=== PATIENT | male | born 1995 | race Caucasian/White ===

== ENCOUNTER 2023-05-04 19:32 | Emergency (ER) | payer MEDICAID, SELFPAY ==
[2023-05-04 19:37] VITALS: BP 147/91; PULSE 97; RESP 14; TEMP 36.6; O2SAT 98; BMI 29.3
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
[2023-05-04] MEDS: clonazePAM 0.5 MG TABLET PO (19:59)
== END 2023-05-04 20:15 | disposition home or self-care (01) ==
LOC: HO.ED 20:10
PROVIDERS: Emergency Provider Internal Medicine
DX: F41.1 Generalized anxiety disorder (principal); F43.0 Acute stress reaction; Z76.0 Encounter for issue of repeat prescription
CPT/HCPCS: 99281; 99283

== ENCOUNTER 2023-05-13 08:27 | Emergency (ER) | payer MEDICAID, SELFPAY ==
[2023-05-13 08:30] VITALS: BP 136/87; PULSE 99; RESP 16; TEMP 36.1; O2SAT 99; BMI 31.0
--- NOTE | 2023-05-13 09:13 | ED_ITS ---
HPI - General Adult General Chief complaint: General Medical Stated complaint: Med Refill Time Seen by Provider: 05/13/23 09:06 Source: patient Mode of arrival: ambulatory Limitations: no limitations History of Present Illness HPI narrative: Patient is a 27 year old assigned male at with a history of depression and anxiety presenting to the emergency department today for a medication refill. Patient states that earlier this month, his psychiatrist MACHINERY ERECTOR moved away and is no longer accepted [facility] patients. Patient states that he has been trying to get into a psychiatrist and he has an appointment with one in 13 days but he is out of his medications now. Patient states that he takes 0.5mg of Clonazepam BID, Cymbalta 20mg QD, and Zoloft 25mg QD. Patient denies any dizziness, lightheadedness, abdominal pain, nausea, vomiting, fever, chills, blurry vision, double vision, loss of vision, chest pain, difficulty breathing, shortness of breath, back pain, night sweats, pain with urination, increased urinary frequency, increased urinary urgency, blood in his urine or stool, syncope or a near syncopal episode, recent trauma or falls, bowel incontinence, bladder incontinence, bowel retention, bladder retention, thoughts of hurting himself or others, or any other complaints at this time. Patient states that his last dose of medication was yesterday morning. Onset (ago): day(s) (1) Severity: mild Relieving factors: none Exacerbating factors: none Associated symptoms: denies other symptoms Treatments prior to arrival: none Related Data Previous Rx's Medication Instructions Recorded clonazepam 0.5 mg tablet (Klonopin) 0.5 mg PO BID #7 tabs 05/04/23 clonazepam 0.5 mg tablet 0.5 mg PO BID 7 days #14 tabs 05/13/23 clonazepam 0.5 mg tablet 0.5 mg PO BID 7 days #14 tabs 05/13/23 duloxetine 20 mg capsule,delayed 20 mg PO DAILY 30 days #30 caps 05/13/23 release (Cymbalta) melatonin 3 mg capsule 3 mg PO BEDTIME #30 caps 05/13/23 sertraline 25 mg tablet (Zoloft) 25 mg PO DAILY 30 days #30 tabs 05/13/23 Allergies Allergy/AdvReac Type Severity Reaction Status Date / Time No Known Allergies Allergy Verified 05/13/23 08:29 Review of Systems Constitutional: Constitutional: Reports no additional constitutional complaints, Denies chills, Denies fever(s) and Denies night sweats Eyes: Eyes: Reports no additional eye complaints, Denies blurry vision, Denies change in vision, Denies diplopia, Denies eye discharge, Denies loss of vision and Denies eye pain ENT: Denies dizziness Cardiovascular: Cardiovascular: Reports no additional cardiovascular complaints, Denies chest pain, Denies lightheadedness, Denies Loss of Consciousness and Denies dyspnea Respiratory: Respiratory: Reports no additional respiratory complaints and Denies dyspnea Gastrointestinal: Gastrointestinal: Reports no additional gastrointestinal complaints, Denies abdominal pain, Denies melena, Denies hematochezia, Denies change in bowel habits and Denies change in stool character Genitourinary: Genitourinary: Reports no additional male genitourinary complaints, Denies hematuria, Denies oliguria, Denies difficulty urinating, Denies dysuria, Denies urinary frequency, Denies urinary hesitancy, Denies urinary incontinence and Denies urinary urgency Musculoskeletal: Musculoskeletal: Reports no additional musculoskeletal complaints, Denies numbness and Denies tingling Neurologic: Denies dizziness, Denies loss of vision, Denies numbness and Denies tingling Psychiatric: Psychiatric: Reports no additional psychiatric complaints Endocrine: Endocrine: Reports no additional endocrine complaints Hematologic/Lymphatic: Hematologic/Lymphatic: Reports no additional hematologic/lymphatic complaints Allergic/Immunologic: Allergic/Immunologic: Reports no additional allergic/immunologic complaints PMFSH Past Medical History Attestation statement: The following information was validated with the patient. Source: old records reviewed and nursing notes reviewed Social History Social History Advance Directives: No Advance Directives Information Provided: Yes Physical Exam ED Vital Signs: Vital Signs - 24 hr 05/13/23 08:30 Temperature 97.0 F Pulse Rate 99 Respiratory Rate 16 Blood Pressure 136/87 Pulse Oximetry 99 Oxygen Delivery Method Room Air BMI result Body Mass Index 31.0 Const General: cooperative, no acute distress, alert and awake Nutritional Appearance: well nourished Orientation/consciousness: patient oriented x3 Limitations: no limitations HENMT Head: Yes normal to inspection and Yes atraumatic Ears: hearing grossly normal bilaterally and external ears normal General nose exam: Normal external nose present, no nasal discharge noted and no epistaxis Face and sinus: Yes normal facial exam, No abrasion and No laceration Mouth: Normal oral and palatal mucosa present, no drooling and no muffled voice Eyes General: appearance normal, both eyes and all related structures Periorbital: periorbital findings normal Eyelids: Yes eyelids normal Conjunctivae: conjunctivae normal Pupils: Equal, round and reactive pupils present EOM: EOMs intact bilaterally Neck Neck: Yes normal visual inspection, Yes full ROM and Yes no lymphadenopathy Chest Chest palpation & inspection: normal inspection of the chest Resp Effort & Inspection: normal respiratory effort and able to speak in complete sentences Auscultation: clear to auscultation bilaterally Cardio Rate: regular rate Rhythm: regular rhythm GI Inspection: Yes normal to inspection Neuro General: patient oriented x3 and moves all extremities Cranial nerves: Yes Equal, round and reactive pupils present Cognition (Neuro): normal cognition Motor exam (neuro): 5/5 motor strength present throughout Sensory Exam: Normal double simultaneous stimulation for sensation Coordination: [id number] test normal Extrem General: Yes normal to inspection, Yes full ROM and Yes capillary refill normal Psych Appearance: grossly normal Mental Status: mental status grossly normal Affect: normal affect Attitude: cooperative Thought process: Normal thought process present Thought content: Normal thought content present Insight: Good insight present (Psych) Medications Administered Discontinued Medications Generic Name Dose Route Start Last Admin Trade Name Bryceq PRN Reason Stop Dose Admin Clonazepam 0.5 mg 05/13/23 09:19 05/13/23 10:14 Clonazepam 0.5 Mg Tablet PO 05/13/23 09:20 0.5 mg ONCE ONE Administration Medical Decision Making Medical Decision Making [facility] Narrative: Patient is a 27 year old assigned male at with a history of anxiety and depression presenting to the emergency department today requesting a medication refill. Patient's physical exam was unremarkable. I explained my physical exam findings to the patient. I answered all questions asked by the patient. Patient received 0.5mg of Clonazepam while in the department. I reviewed the patient's Mass PAT which is consistent with the story the patient has explained to me. I explained to the patient that I will give him 1 month of his Zoloft and Cymbalta and 14 days of his Clonazepam to get him to his psychiatrist appointment in 13 days. I explained to the patient that is inappropriate to come to the ER for medication refills and it is very unlikely another emergency department provider will refill his controlled substance. I stressed the importance of the patient taking his medication as prescribed. I stressed the importance of the patient following up with his primary care provider and his psychiatrist. I stressed the importance of the patient returning to the emergency department immediately if his symptoms were to worsen or if he were to develop any dizziness, shortness of breath, difficulty breathing, chest pain, blurry vision, loss of vision, nausea, vomiting, abdominal pain, fever, chills, back pain, or any other complaints. Patient verbalized agreement and understanding with this treatment plan and discharge. Differential Diagnosis Differential Diagnoses: The differential diagnosis associated with the presentation includes Medication refill Anxiety Depression Prescription Management I considered prescription management with: Other (antianxiety and antidepression medicatons.) Chronic Conditions Patient?s care impacted by: Other (anxiety, depression) Discharge Plan Discharge Clinical Impression: Depression, Anxiety Patient Disposition: Home, Self-Care Instructions: Depression (DC), Anxiety (ED) Additional Instructions: The emergency department is not the appropriate place for you to continually get refills on your medications. Follow up with your primary care provider and your psychiatrist. Return to the emergency department immediately if your symptoms worsen or if you develop any dizziness, shortness of breath, difficulty breathing, chest pain, blurry vision, loss of vision, nausea, vomiting, abdominal pain, fever, chills, back pain, or any other complaints. [facility][NOTE 3]: [address] [place] [address] Walk in hours from 10am - 12pm Open from 10am - 12pm [facility][NOTE 3] Crisis Services: [address] [place] [address] Walk in hours from 10am - 12pm Open 09/03 Behavioral health Network: [address] [place] [id number] [address] [place] [id number] Hours: M-F 8am to 8pm Thursday and Thursday 9am to 5pm Prescriptions: New clonazepam 0.5 mg tablet 0.5 mg PO BID 7 Days Qty: 14 0RF sertraline [Zoloft] 25 mg tablet 25 mg PO DAILY 30 Days Qty: 30 0RF duloxetine [Cymbalta] 20 mg capsule,delayed release(DR/EC) 20 mg PO DAILY 30 Days Qty: 30 0RF melatonin 3 mg capsule 3 mg PO BEDTIME Qty: 30 0RF clonazepam 0.5 mg tablet 0.5 mg PO BID 7 Days Qty: 14 0RF No Action clonazepam [Klonopin] 0.5 mg tablet 0.5 mg PO BID Qty: 7 0RF Referrals: [facility] Family Medicine [Provider Group] (Call to establish and follow up with a primary care provider. If you already have a primary care provider, please follow up with them.) [facility] Primary [facility], [place] [Provider Group] (Call to establish and follow up with a primary care provider. If you already have a primary care provider, please follow up with them.) [facility] Primary [facility],[place] [Provider Group] (Call to establish and follow up with a primary care provider. If you already have a primary care provider, please follow up with them.) Stand Alone Forms: Work/School Release Print Language: Faroese
[2023-05-13] MEDS: clonazePAM 0.5 MG TABLET PO (10:14)
== END 2023-05-13 10:32 | disposition home or self-care (01) ==
PROVIDERS: Emergency Provider Emergency Medicine
DX: Z76.0 Encounter for issue of repeat prescription (principal); F41.9 Anxiety disorder, unspecified; F32.A Depression, unspecified
CPT/HCPCS: 99282; 99283

== ENCOUNTER 2023-07-29 03:11 | Emergency (ER) | payer MEDICAID, SELFPAY ==
[2023-07-29 03:19] VITALS: BP 133/94; PULSE 86; O2SAT 96
[2023-07-29 03:23] VITALS: BMI 29.7
[2023-07-29 03:31] VITALS: BP 115/74; PULSE 83; RESP 16; TEMP 36.6; O2SAT 98
--- NOTE | 2023-07-29 07:00 | PC.NURSE ---
Assumed care of pt at this time.
--- NOTE | 2023-07-29 07:33 | ED.GENADULT ---
HPI - General Adult General Chief complaint: General Medical Stated complaint: anxiety Time Seen by Provider: 07/29/23 06:57 Source: patient Mode of arrival: ambulatory Limitations: no limitations History of Present Illness HPI narrative: 27-year-old male with a history of anxiety, depression, and seizures presents today for medication refill. He states he hasn't taken his duloxetine, clonazepam, or Keppra in a few days because he ran out and he feels a bit on edge. He plans to see his PCP in 10 days. He denies chest pain, palpitatons, shortness of breath, diaphoresis, lightheadedness, and nausea. He denies headaches and vision changes. No auditory or visual hallucinations. No suicidal or homicidal ideation. He reports he has not had any seizures since running out of his medication. Related Data Previous Rx's Medication Instructions Recorded clonazepam 0.5 mg tablet (Klonopin) 0.5 mg PO BID #7 tabs 05/04/23 clonazepam 0.5 mg tablet 0.5 mg PO BID 7 days #14 tabs 05/13/23 clonazepam 0.5 mg tablet 0.5 mg PO BID 7 days #14 tabs 05/13/23 clonazepam 0.5 mg tablet 0.5 mg PO BID 7 days #14 tabs 05/13/23 duloxetine 20 mg capsule,delayed 20 mg PO DAILY 30 days #30 caps 05/13/23 release (Cymbalta) melatonin 3 mg capsule 3 mg PO BEDTIME #30 caps 05/13/23 sertraline 25 mg tablet (Zoloft) 25 mg PO DAILY 30 days #30 tabs 05/13/23 clonazepam 0.5 mg tablet 0.5 mg PO BID 10 days #20 tabs 07/29/23 duloxetine 20 mg capsule,delayed 20 mg PO DAILY #10 caps 07/29/23 release Allergies Allergy/AdvReac Type Severity Reaction Status Date / Time No Known Allergies Allergy Verified 05/13/23 08:29 Review of Systems Review of Systems: Constitutional : No Fever, No Chills Eyes: No Eye Pain, No Swelling, No Redness Cardiovascular : No Chest Pain, No SOB Respiratory : No Cough, No Sputum, No Dyspnea Gastrointestinal : No Nausea, No Vomiting, No Diarrhea, No Hematochezia, No Melena Genitourinary : No Dysuria, No Urinary Frequency, No Hematuria Musculoskeletal : No Myalgias Skin : No Skin Lesions, No rash Neuro : No Weakness, No Numbness, No Paresthesias, No Dizziness, No Headache Psych : positive Anxiety, No Depression, No SI/HI All other systems reviewed and are negative Yes all other systems are reviewed and are negative [facility] Past Medical History Attestation statement: The following information was validated with the patient. Source: old records reviewed and nursing notes reviewed Social History Social History Advance Directives: No Advance Directives Information Provided: No Physical Exam ED Vital Signs: Vital Signs - 24 hr 07/29/23 03:31 Temperature 97.9 F Pulse Rate 83 Respiratory Rate 16 Blood Pressure 115/74 Pulse Oximetry 98 Oxygen Delivery Method Room Air BMI result Body Mass Index 29.7 VSS Appearance: Alert.? Oriented X3.? No acute distress.? Head: Normocephalic, atraumatic, no step-offs or deformities Eyes: Pupils equal, round and reactive to light.? CVS: Normal heart rate and rhythm.? Pulses normal.? Respiratory: No respiratory distress.? Breath sounds normal.? Abdomen: Soft and nontender.? Skin: Skin warm and dry.? Normal skin color.? Normal skin turgor.? Extremities: No lower extremity edema.? No calf ttp. 5/5 strength to bilateral upper and lower extremities Back: No midline tenderness, no C-spine tenderness, full range of motion, no CVA tenderness bilaterally Neuro: Oriented X 3.? No motor deficit.? No sensory deficit. CN 2-12 intact Course Reevaluation(s) Reevaluation #1: Patient now clear 5 that the Keppra was prescribed by ED provider he does not know his dose does not know when he last filled he still has pills at home. I advised him to follow-up with PCP will not fill Keppra at this time. Time: 08:34 Reevaluation #2: Educated patient on diagnosis and treatment plan, answered all question, patient verbalizes understanding. At this time patient will be discharged home, advised to return with new or worsening symptoms. Educated on worrisome signs and symptoms and when to return. At this time I feel comfortable discharge home. Medical Decision Making Medical Decision Making MDM Narrative: 27-year-old male presents for anxiety secondary to running out of his medications PE benign Likely anxiety, depression, unlikely psychosis, SI, HI. Unlikely metabolic derangement Plan: Provide refill and discharge Differential Diagnosis Differential Diagnoses: The differential diagnosis associated with the presentation includes Likely anxiety, depression, unlikely psychosis, SI, HI. Unlikely metabolic derangement Admission/Observation Consideration of admission/observation: Escalation of care including admission/observation considered Critical Care Time Critical Care Time Critical Care Time: No Discharge Plan Discharge Clinical Impression: Anxiety Patient Disposition: Home, Self-Care Instructions: Anxiety (ED) Additional Instructions: Take your medications as prescribed. If you were prescribed antibiotics today, it is important that you take your medication to their entirety, do not skip any doses, do not finish them early. Follow-up with your primary care provider this week. Return to the emergency department with new or worsening symptoms. Such as fevers, chills, chest pain, shortness of breath, nausea, vomiting, dizziness, headache, vision changes, lethargy In case of emergency call 911 Prescriptions: New duloxetine 20 mg capsule,delayed release(DR/EC) 20 mg PO DAILY Qty: 10 0RF clonazepam 0.5 mg tablet 0.5 mg PO BID 10 Days Qty: 20 0RF No Action clonazepam [Klonopin] 0.5 mg tablet 0.5 mg PO BID Qty: 7 0RF clonazepam 0.5 mg tablet 0.5 mg PO BID 7 Days Qty: 14 0RF sertraline [Zoloft] 25 mg tablet 25 mg PO DAILY 30 Days Qty: 30 0RF duloxetine [Cymbalta] 20 mg capsule,delayed release(DR/EC) 20 mg PO DAILY 30 Days Qty: 30 0RF melatonin 3 mg capsule 3 mg PO BEDTIME Qty: 30 0RF clonazepam 0.5 mg tablet 0.5 mg PO BID 7 Days Qty: 14 0RF clonazepam 0.5 mg tablet 0.5 mg PO BID 7 Days Qty: 14 0RF Referrals: Physician,None [Primary Care Provider] - 2 days Stand Alone Forms: Work/School Release Interventions: ED Discharge Assessment Last Done: 07/29/23 08:25 Discharge Date/Time: 07/29/23 08:25
== END 2023-07-29 08:25 | disposition home or self-care (01) ==
PROVIDERS: Emergency Provider Student in an Organized Health Care Education/Training Program
DX: F41.9 Anxiety disorder, unspecified (principal); Z79.899 Other long term (current) drug therapy
CPT/HCPCS: 99283; 99284

== ENCOUNTER 2023-11-11 00:18 | Emergency (ER) | payer MEDICAID, SELFPAY ==
[2023-11-11 00:33] VITALS: BP 128/71; BP 130/80; PULSE 105; PULSE 111; RESP 18; TEMP 36.7; O2SAT 94; BMI 30.4
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
[2023-11-11 08:47] VITALS: BP 122/66; PULSE 91; RESP 20; TEMP 36.4; O2SAT 97
--- NOTE | 2023-11-11 08:51 | PC.NURSE ---
pt was sleeping off/on. rn attempted mult times to give klonopin but pt sleeping. pt woke up a few times withuot distress or anxiety and when went to give meds pt was back asleep. issac lubin order hold klonopin. pt requesting dose of methadone before leaves- tristian aware
--- NOTE | 2023-11-11 09:40 | HE.PHANOTE ---
RE:METHADONE Last dose of methadone (60 mg) was given on 11/10/2023 @0500 at [facility] [phone].
[2023-11-11 10:00] VITALS: BP 117/70; PULSE 98; RESP 18; O2SAT 98
[2023-11-11] MEDS: methADONE HCl 20 MG/2 ML ORAL.CONC 60 MG PO (10:01)
[2023-11-11 10:03] VITALS: BP 117/70; PULSE 98; RESP 18; TEMP 36.6; O2SAT 98
--- NOTE | 2023-11-11 10:04 | PC.NURSE ---
pt received his daily methadone- was awaiting this dose prior to d/c, verified by pharmacy. no sx opiod withdrawal. no pain/distress. vss.
== END 2023-11-11 10:03 | disposition home or self-care (01) ==
PROVIDERS: Emergency Provider Emergency Medicine Emergency Medical Services
DX: F41.9 Anxiety disorder, unspecified (principal); Z76.0 Encounter for issue of repeat prescription; F11.20 Opioid dependence, uncomplicated
CPT/HCPCS: 99283; 99284

== ENCOUNTER 2023-11-12 07:56 | Inpatient (IN) | payer OTHER, SELFPAY ==
--- NOTE | 2023-11-12 | ECG_ITS ---
Test Reason : prolonged QT Blood Pressure : / mmHG Vent. Rate : 105 BPM Atrial Rate : 105 BPM P-R Int : 134 ms QRS Dur : 078 ms QT Int : 362 ms P-R-T Axes : 042 059 026 degrees QTc Int : 478 ms Sinus tachycardia Otherwise normal ECG No previous ECGs available Referred By: Generic ED Physician Electronically Signed By:Jackson Farrell
[2023-11-12 07:58] VITALS: BP 139/78; PULSE 106; RESP 18; TEMP 36; O2SAT 95; BMI 30.4
--- NOTE | 2023-11-12 08:24 | ED_ITS ---
HPI - Psych General Chief Complaint: Psychiatric Symptoms Stated Complaint: Crisis - SI w/ attempt Time Seen by Provider: 11/12/23 08:23 Source: patient Mode of arrival: ambulatory Limitations: no limitations History of Present Illness HPI Narrative: 28-year-old male with a history of seizures, depression and anxiety, substance abuse who presents the ER for evaluation of depression and suicide attempt last night with intentional heroin overdose. He was seen here in the ER yesterday for anxiety and medication (benzo) refill after being discharged from detox. He is currently homeless. He states he is very depressed and wants to be sectioned. He reports multiple suicide attempts in the past - with intentional OD and medication overdose. He last injected in the left arm this morning to try to kill himself. A friend administered Narcan. complaint: suicidal ideation, feels depressed and substance abuse Onset (ago): unknown Duration: getting worse History of same: Yes Relieving factors: none Exacerbating factors: drug use Context: recent drug abuse Associated psychiatric symptoms: depression and suicidal ideation If self harm: admits thoughts of self harm, has plan and has acted on plan Related Data Home Medications Medication Instructions Recorded Confirmed methadone 10 mg/mL oral 60 mg PO DAILY 11/11/23 11/12/23 concentrate (Methadone Intensol) duloxetine 60 mg capsule,delayed 60 mg PO DAILY 11/12/23 11/12/23 release Previous Rx's Medication Instructions Recorded clonazepam 1 mg tablet (Klonopin) 1 mg PO BID 5 days #10 tabs 11/11/23 Allergies Allergy/AdvReac Type Severity Reaction Status Date / Time No Known Allergies Allergy Verified 11/12/23 07:58 Review of Systems 2 Review of Systems: Yes all other systems are reviewed and are negative [facility] Social History Social History Smoked in Last 30 Days: Yes Use of substances other than those prescribed or required for medical reasons: Yes Substance Use Type: Crack/Cocaine, Heroin and Opiates Substance Use Frequency: Chronic Longstanding Last Used Substance: Hours (ago) Advance Directives: No Advance Directives Information Provided: No Physical Exam 2 Vital Signs: Vital Signs: Last Vital Signs Temp 96.8 F 11/12/23 07:58 Pulse 91 11/12/23 10:33 Resp 16 11/12/23 10:33 BP 139/78 11/12/23 07:58 Pulse Ox 99 11/12/23 10:33 O2 Del Method Room Air 11/12/23 10:33 BMI result Body Mass Index 30.4 Appearance: Alert. Oriented X3. No acute distress. Head: normocephalic, atraumatic. Eyes: Pupils equal, round and reactive to light. ENT: Pharynx normal. No tonsillar swelling or exudate. Neck: Normal inspection. Neck supple. CVS: Normal heart rate and rhythm. Pulses normal. Respiratory: No respiratory distress. Breath sounds normal. Abdomen: Soft and nontender. +BS x4 Skin: Skin warm and dry. Normal skin color. Normal skin turgor. No rashes. Extremities: No lower extremity edema. No joint swelling. Left forearm with tract rojas Neuro/psych: Oriented X 3. No motor deficit. No sensory deficit. CN II-XII intact. Normal speech and cognition. Flat affect. Depressed mood Course Reevaluation(s) Reevaluation #1: Physician observation started at 10:58. Patient placed in physician observation because patient is awaiting CARE team evaluation for the possible need of inpatient psych admission. At the time observation was started patient's vital signs were stable. Patient is alert and oriented. Neuro exam is non-focal. CV: RRR and lungs are clear. Will continue to monitor. Time: 10:58 Reevaluation #2: patient seen and evaluated by CARE team - plan for inpatient bed search Time: 11:34 Medications Administered Generic Name Dose Route Start Last Admin Trade Name Bryceq PRN Reason Stop Dose Admin Clonazepam 1 mg 11/12/23 09:30 11/12/23 09:25 Clonazepam 1 Mg Tablet PO 1 mg BID SILVIO Administration Duloxetine HCl 60 mg 11/12/23 09:30 11/12/23 09:25 Duloxetine Hcl 60 Mg Capsule.Dr PO 60 mg DAILY SILVIO Administration Methadone HCl 60 mg 11/12/23 09:30 11/12/23 09:25 Methadone Hcl 20 Mg/2 Ml Oral.Conc PO 60 mg DAILY SILVIO Administration Medical Decision Making Medical Decision Making MDM Narrative: 28-year-old male with history of depression, anxiety, substance abuse who presents to the ER for evaluation of depression and suicide attempt. History of similar presentations in the past. Patient reports inpatient psychiatric care has been helpful him in the past. He is hoping to be admitted again this time. He has pending care team evaluation. Home medications have been reordered. Differential Diagnosis Differential Diagnoses: The differential diagnosis associated with the presentation includes substance induced mood disorder, acute psychosis, schizophrenia, schizoaffective disorder, PTSD, bipolar disorder, major depression with psychotic features Consult Healthcare Provider Management of the patient was discussed with: [employer] CARE team Lab Data MDM Lab Attestation statement: I reviewed the patient's lab results. 11/12/23 08:19 11/12/23 08:19 Labs: Lab Results 11/12/23 11/12/23 Range/Units 08:19 08:20 WBC 8.8 (4.8-10.8) X10*3/uL RBC 4.23 L (4.60-5.80) X10*6/uL Hgb 13.0 L (14.0-18.0) g/dl Hct 39.0 L (42.0-52.0) % MCV 92.2 (80.0-98.0) fL MCH 30.7 (27.0-33.0) pg MCHC 33.3 (31.0-36.0) g/dl RDW 13.1 (11.0-16.0) % Plt Count 263 (160-400) X10*3/uL MPV 9.7 (9.4-12.4) fL Immature Gran % (Auto) 0.8 H (0.0-0.4) % Neut % (Auto) 60.6 (45-73) % Lymph % (Auto) 17.9 L (20-40) % [place] % (Auto) 15.5 H (2-11) % Eos % (Auto) 4.6 H (0-4) % Baso % (Auto) 0.6 (0-2) % Lymph # (Auto) 1.6 (1.2-4.9) X10*3/uL [place] # (Auto) 1.4 H (0.1-1.2) X10*3/uL Eos # (Auto) 0.4 (0.0-0.4) X10*3/uL Baso # (Auto) 0.1 (0.0-0.2) X10*3/uL Abs Immat Gran (auto) 0.07 H (0.00-0.03) X10*3/uL Absolute Neuts (auto) 5.4 (2.0-8.3) x10*3/uL Absolute Nucleated RBC 0.000 (0.0-0.012) X10*3/uL Nucleated RBC % (auto) 0.0 (0.0-0.2) /100WBC Sodium 141 (135-145) mmol/L Potassium 4.2 (3.3-5.1) mmol/L Chloride 105 (96-108) mmol/L Carbon Dioxide 31 H (22-29) mmol/L Anion Gap 9 L (12-20) BUN 15 (9-16) mg/dL Creatinine 0.74 (0.5-1.4) mg/dL Estim Creat Clear Calc 164.0 Estimated GFR > 60 Random Glucose 91 (60-115) mg/dL Calcium 9.1 (8.4-10.2) mg/dL Total Bilirubin 0.6 (0.0-1.0) mg/dL AST 342 H (5-37) U/L ALT 208 H (0-40) U/L Alkaline Phosphatase 78 (39-117) U/L Total Protein 7.1 (6.5-8.0) g/dL Albumin 4.0 (3.5-5.0) g/dL Urine Color Yellow Urine Appearance Clear Urine pH 7.5 (5.0-9.0) Ur Specific [place] 1.025 (1.005-1.025) Urine Protein Trace (Neg-Trace) mg/dL Urine Glucose (UA) Negative (Negative) mg/dL Urine Ketones Negative (Negative) mg/dL Urine Blood Negative (Negative) Urine Nitrite Negative (Negative) Ur Leukocyte Esterase Negative (Negative) Urine Opiates Screen Not Detected (Not Detect) Urine Fentanyl Screen POSITIVE H (Not Detect) Ur Barbiturates Screen POSITIVE H (Not Detect) Ur Phencyclidine Scrn Not Detected (Not Detect) Ur Amphetamines Screen Not Detected (Not Detect) U Benzodiazepines Scrn POSITIVE H (Not Detect) Urine Cocaine Screen POSITIVE H (Not Detect) U Marijuana (THC) Screen Not Detected (Not Detect) Ethyl Alcohol < 10 mg/dL COVID-19 (GUERA) Negative (Negative) COVID-19 Clin Com See Note External Record Review External record reviewed: Inpatient record, Outpatient record, Prior outpatient labs and Prior outpatient radiology Prescription Management I considered prescription management with: Other (antipsychotic) Social Determinants Patient?s care significantly limited by Social Determinants of Health including: Inadequate housing, Alcoholism and drug addiction in family, Problems related to primary support group and Other Social Determinant of Health Critical Care Time Critical Care Time Critical Care Time: No Discharge Plan Discharge Clinical Impression: Active substance abuse Depression Qualifiers: Depression Type: unspecified Qualified Code(s): F32.A - Depression, unspecified Patient Disposition: Still a Patient Prescriptions: No Action methadone [Methadone Intensol] 10 mg/mL Concentrate 60 mg PO DAILY clonazepam [Klonopin] 1 mg tablet 1 mg PO BID 5 Days Qty: 10 0RF duloxetine 60 mg capsule,delayed release(DR/EC) 60 mg PO DAILY Interventions: [place]-Suicide Risk Severity Scale Last Done: 11/12/23 08:26
[2023-11-12 08:26] VITALS: RESP 14
[2023-11-12 08:28] LABS: MANUAL DIFF FLAG NO
[2023-11-12 08:31] LABS: Appearance Urine Clear; Color Urine Yellow; Glucose Urine UA Negative (Negative); Leukocyte Esterase Urine Negative (Negative); Nitrite Urine Negative (Negative); PH 7.5 (5.0-9.0); Specific Gravity - Urine 1.025 (1.005-1.025); Urine Blood Negative (Negative); Urine Ketones Negative (Negative); Urine Protein Trace mg/dL (Neg-Trace)
[2023-11-12 08:33] LABS: Basophils Absolute Auto 0.1 X10*3/uL (0.0-0.2); Basophils Percent Auto 0.6 % (0-2); Eosinophils Absolute Auto 0.4 X10*3/uL (0.0-0.4); Eosinophils Percent Auto 4.6 % (0-4); Imm Gran Abs Auto 0.07 X10*3/uL (0.00-0.03); Imm Gran Pct Auto 0.8 % (0.0-0.4); Lymphocytes Absolute Auto 1.6 X10*3/uL (1.2-4.9); Lymphocytes Percent Auto 17.9 % (20-40); Mean Corpuscular HGB Conc 33.3 g/dl (31.0-36.0); Mean Corpuscular Hemoglobin 30.7 pg (27.0-33.0); Mean Corpuscular Volume 92.2 fL (80.0-98.0); Mean Platelet Volume 9.7 fL (9.4-12.4); Monocytes Absolute Auto 1.4 X10*3/uL (0.1-1.2); Monocytes Percent Auto 15.5 % (2-11); Neutrophils Absolute Auto 5.4 x10*3/uL (2.0-8.3); Neutrophils Percent Auto 60.6 % (45-73); Platelet Count 263 X10*3/uL (160-400); Red Blood Count 4.23 X10*6/uL (4.60-5.80); Red Cell Distribution Width 13.1 % (11.0-16.0); White Blood Count 8.8 X10*3/uL (4.8-10.8)
[2023-11-12 08:37] LABS: Amphetamine Screen Urine Not Detected (Not Detect); Barbiturates, Urine POSITIVE (Not Detect); Benzodiazepines Screen Urine POSITIVE (Not Detect); Cannabinoid Screen Urine Not Detected (Not Detect); Cocaine Screen Urine POSITIVE (Not Detect); Fentanyl, urine POSITIVE (Not Detect); Opiate Screen Urine Not Detected (Not Detect); Phencyclidine Screen Urine Not Detected (Not Detect)
--- NOTE | 2023-11-12 08:41 | PC.NURSE ---
RE; Med rec This Rn spoke with staff at [facility] to verify prescription medications. Med rec updated accordingly
[2023-11-12 08:43] LABS: Alanine Aminotransferase 208 U/L (0-40); Alkaline Phosphatase 78 U/L (39-117); Anion Gap 9 (12-20); Aspartate Amino Transferase 342 U/L (5-37); Bilirubin Total 0.6 mg/dL (0.0-1.0); Blood Urea Nitrogen 15 mg/dL (9-16); Calcium 9.1 mg/dL (8.4-10.2); Carbon Dioxide 31 mmol/L (22-29); Chloride 105 mmol/L (96-108); Estimated Glomerular Filt Rate > 60; Glucose Random 91 mg/dL (60-115); Potassium 4.2 mmol/L (3.3-5.1); Sodium 141 mmol/L (135-145); Total Protein 7.1 g/dL (6.5-8.0)
--- NOTE | 2023-11-12 08:43 | PC.NURSE ---
Patient presents to the ED today, reporting an intentional overdose last night on fentanyl. he reports that his friend gave him narcan. He reports daily drug use of heroin, cocaine and fentanyl. He is requesting help today due to increasing suicidal ideation. Pt presents calm and cooperative, seeking out help. Pt is alert and oriented x4, skin pwd, ambulating with steady gait around BH pod, respirations even and unlabored, no immediate distress at this time Pt reports he takes methadone daily, was last dosed here in the ER yesterday, regularly doses with [facility] in [place]. Other medications were verified and updated in med rec. He reports being mostly compliant with his medications but has not been able to pharmacy picking tech his most recent prescriptions. Current plan is for medical clearance and CARE team evaluation.
[2023-11-12 08:44] LABS: COVID-19 Test Negative (Negative); IDNOW Serial# 152EDE1D
--- NOTE | 2023-11-12 08:52 | HE.PHANOTE ---
METHADONE CONFIRMATION Patient got 60mg dose from 11/10 form [facility] Last dose of methadone FROM CLINIC (60 mg) was given on 11/10/2023 @0500 at [facility] [phone].
[2023-11-12 09:12] LABS: Ethanol < 10 mg/dL
[2023-11-12] MEDS: methADONE HCl 20 MG/2 ML ORAL.CONC 60 MG PO (09:25)
[2023-11-12] MEDS: clonazePAM 1 MG TABLET PO ×2 (09:25→20:17)
[2023-11-12] MEDS: DULoxetine HCl 60 MG CAPSULE.DR PO (09:25)
--- NOTE | 2023-11-12 10:09 | PC.NURSE ---
Pt aware of plan of care for inpatient bedsearch, medicated per OCT. Now sleeping, respirations even and unlabored, no apparent distress
[2023-11-12 10:33] VITALS: PULSE 91; RESP 16; O2SAT 99
--- OUTSIDE RECORDS SUMMARY | 2023-11-12 13:09 | XMS_ITS | Continuity of Care Document ---
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 Name Role Phone PCP INFO, UNAVAILABLE Primary Care Physician Shell vailable Encounter [facility] Date(s): 01/08/23 - 01/08/[address] [place] [id number]- Discharge Disposition: Left Without Being Seen Allergies, Adverse Reactions, Alerts No Known Medication Allergies Problem List Condition Confirmation Course Effective Dates Status Health St atus Informant Anxiety Confirmed Active patient Depression Confirmed Active patient Vital Signs Most recent to oldest [Reference Range]: 1 2 Blood Pressure [90-140/60-90 mmHg] 131/8 6mmHg (01/08/23 12:45 PM) Blood Pressure Location Right, Upper, Arm (01/08/23 12:45 PM) Blood Pressure Method Automatic (01/08/23 12:45 PM) Dosing BMI 32 (01/08/23 1:58 PM) 32 (01/08/23 12:45 PM) Dosing BSA-Mosteller 2.13 m2 (01/08/23 1:58 PM) 2.13 m2 (01/08/23 12:45 PM) Dosing Weight 95 kg (01/08/23 1:58 PM) 95 kg (01/08/23 12:45 PM) Heart Rate [60-100 bpm] 108 bpm *HI* (01/08/23 12:45 PM) Height 172 cm (01/08/23 1:58 PM) 172 cm (01/08/23 12:45 PM) Mean Arterial Pressure 101 mmHg (01/08/23 12:45 PM) Respiratory Rate [14-20 breaths/min] 18 breaths/min (01/08/23 12:45 PM) SpO2/Pulse Oximetry [85-100 %] 97 % (01/08/23 12:45 PM) Temperature Temporal [36.3-38 degC] 36.4 degC (01/08/23 12:45 PM) Social History Social History Type Response Smoking Status Current every day tirso darya entered on: 01/08/23 Sex Patient Care team information Care Team Personnel Name: PCP INFO, UNAVAILABLE Position: RO No Access Member Role: Primary Care Physician Name: Bozena Hoyt Position: ED RN SPC R3 Member Role: ED Nurse
--- OUTSIDE RECORDS SUMMARY | 2023-11-12 13:10 | XMS_ITS | Continuity of Care Document ---
Author Name Unknown Organization [facility] Address [address] [place] [address]- Care Team Providers Care Military Education Coordinator Name Role Phone DOCTOR MD, UNKNOWN Primary Care Physician Edna garcía Encounter [facility] Date(s): 06/17/19 - 06/19/19 [facility] [place] [address]- [phone] Encounter Diagnosis Benzodiazepine overdose(Discharge Diagnosis) - 06/17/19 Substance abuse(Discharge Diagnosis) - 06/17/19 Poisoning by unspecified drugs, medicaments and biological substances, accidental (unintentional), initial encounter(Final) - Encephalopathy, unspecified(Final) - Mild protein-calorie malnutrition(Final) - Discharge Disposition: Home/Self Care Attending Physician: LUL HENAO MD Admitting Physician: LUL HENAO MD Allergies, Adverse Reactions, Alerts No Known Allergies Medications No Known Medications Assessment and Plan Extracted from: Title:Clinical Document Author:PETTY HENAO MD Date:06/19/19 Discharge Summary Date/Time Note Created: 06/19/2019 15:11 Date of Admission: [ ] _ Date of Discharge: [ ] _ Admitting Physician: [ ] _ Discharge Diagnosis (2) Benzodiazepine overdose (T42.4X1A): _ Substance abuse (F19.10): _ Impression and Plan: Drug overdose- psych to see, on valium and seroquel. Still a little antsy at times and says xanax works better. Will change to xanax 2mg BID. Encephalopathy (G93.40)- awake and alert Protein Calorie Malnutrition, Mild (E44.1)- tamara PO Consulting Services: [ ] _ Hospital Course:pt ao3 no si no danger to self or others wants to be d/c'd janet sena , dr Pagan had rec that pt can be d/c'd home and check himself in a rehab , father is present , advised him to do so . [ ] _ Procedures: [ ] _ Physical Examination at Discharge:ambulating without diff. tolerating diet . ao3 nad alert perlla supple no bogdan cta b good effort rrr 2 p pulses soft pos bs no cce non focal mood stable [ ] _ Disposition: home cond: stable acitvty as tamara diet reg meds as per mars follow up as scheduld meds as per mars [ ] _ Discharge Medications (0) Status Discharge Medication Reconciliation is pending. Durable Medical Equipment: [ ] _ Instructions: Dietary: [ ] _ Activity: [ ] _ Follow-Up: [ ] _ Other: [ ] _ Condition at Discharge: [ ] _ Results Laboratory List Name Date Basic Metabolic Panel (BMP) 06/19/19 Magnesium Level 06/19/19 Phosphate Level (Phosphorus Level) Basic Metabolic Panel (BMP) 06/18/19 Magnesium Level 06/18/19 Phosphate Level (Phosphorus Level) Basic Metabolic Panel (BMP) 06/18/19 Magnesium Level 06/18/19 Phosphate Level (Phosphorus Level) Blood Gases Incl O2 Sat Measured (ABG w/ O2 Sat Measured) 06/17/19 Acetaminophen Level 06/17/19 Amphetamine Screen Urine 06/17/19 Barbiturate Screen Urine 06/17/19 Benzodiazepine Screen Urine 06/17/19 Cannabinoid Screen Urine 06/17/19 Cocaine Screen Urine 06/17/19 Complete Blood Count With Auto Different ial (CBC w/auto Diff) 06/17/19 Ethanol Level (Alcohol Level) 06/17/19 Opiate Screen Urine 06/17/19 PCP Screen Urine 06/17/19 Pathology Review Interpretation 06/17/19 Salicylate Level 06/17/19 HEMATOLOGY Most recent to oldest [Reference Range]: 1 2 3 WBC [4.50-11.00 x10(3)/mcL] 6.89 x10(3)/ mcL (06/17/19 6:40 AM) RBC [4.50-5.90 x10(6)/mcL] 4.57 x10(6)/m cL (06/17/19 6:40 AM) Hgb [13.5-17.5 g/dL] 14.0 g/dL (06/17/19 6:40 AM) Hct [41.0-53.0 %] 41.0 % (06/17/19 6:40 AM) MCV [80.0-100.0 fL] 89.7 fL (06/17/19 6:40 AM) MCH [25.4-34.6 pg] 30.6 pg (06/17/19 6:40 AM) MCHC [30.0-37.0 g/dL] 34.1 g/dL (06/17/19 6:40 AM) RDW [12.1-15.2 %] 13.3 % (06/17/19 6:40 AM) Platelet Count [150-500 x10(3)/mcL] 244 x10(3)/mcL (06/17/19 6:40 AM) MPV [6.5-12.0 fL] 9.8 fL (06/17/19 6:40 AM) NRBC Auto Rel 0.0 /100WBC *NA* (06/17/19 6:40 AM) Neutrophil Rel [45.0-80.0 %] 35.8 % *LOW* (06/17/19 6:40 AM) Lymphocyte Rel [15.0-50.0 %] 42.1 % (06/17/19 6:40 AM) Monocyte Rel [0.0-10.0 %] 13.9 % *HI* (06/17/19 6:40 AM) Eosinophil Rel [0.0-5.0 %] 6.5 % *HI* (06/17/19 6:40 AM) Basophil Rel [0.0-1.5 %] 1.0 % (06/17/19 6:40 AM) Imm Gran Rel [0.0-0.4 %] 0.7 % *HI* (06/17/19 6:40 AM) Neutrophil Abs [2.02-8.80 x10(3)/mcL] 2. 46 x10(3)/mcL (06/17/19 6:40 AM) Lymphocyte Abs [0.68-5.50 x10(3)/mcL] 2. 90 x10(3)/mcL (06/17/19 6:40 AM) Monocyte Abs [0.05-1.10 x10(3)/mcL] 0.96 x10(3)/mcL (06/17/19 6:40 AM) Eosinophil Abs [0.05-0.55 x10(3)/mcL] 0. 45 x10(3)/mcL (06/17/19 6:40 AM) Basophil Abs [0.00-0.16 x10(3)/mcL] 0.07 x10(3)/mcL (06/17/19 6:40 AM) Imm Gran Abs [0.00-0.03 x10(3)/mcL] 0.05 x10(3)/mcL *HI* (06/17/19 6:40 AM) CHEMISTRY Most recent to oldest [Reference Range]: 1 2 3 Sodium Lvl [137-145 mEq/L] 143 mEq/L (06/19/19 10:58 AM) 140 mEq/L (06/18/19 10:10 PM) 140 mEq/L (06/18/19 2:25 PM) Potassium Lvl [3.5-5.1 mEq/L] 4.2 mEq/L (06/19/19 10:58 AM) 4.2 mEq/L (06/18/19 10:10 PM) 4.2 mEq/L (06/18/19 2:25 PM) Chloride Lvl [98-107 mEq/L] 104 mEq/L (06/19/19 10:58 AM) 103 mEq/L (06/18/19 10:10 PM) 104 mEq/L (06/18/19 2:25 PM) CO2 [22-30 mEq/L] 30 mEq/L (06/19/19 10:58 AM) 31 mEq/L *HI* (06/18/19 10:10 PM) 28 mEq/L (06/18/19 2:25 PM) AGAP 9 *NA* (06/19/19 10:58 AM) 6 *NA* (06/18/19 10:10 PM) 8 *NA* (06/18/19 2:25 PM) Calcium Lvl [8.4-10.2 mg/dL] 9.7 mg/dL (06/19/19 10:58 AM) 9.1 mg/dL (06/18/19 10:10 PM) 9.2 mg/dL (06/18/19 2:25 PM) BUN [9-20 mg/dL] 9 mg/dL (06/19/19 10:58 AM) 16 mg/dL (06/18/19 10:10 PM) 20 mg/dL (06/18/19 2:25 PM) Creatinine Lvl [0.66-1.25 mg/dL] 0.70 mg/dL (06/19/19 10:58 AM) 0.70 mg/dL (06/18/19 10:10 PM) 0.70 mg/dL (06/18/19 2:25 PM) BUN/Creat 13 ratio *NA* (06/19/19 10:58 AM) 23 ratio *NA* (06/18/19 10:10 PM) 29 ratio *NA* (06/18/19 2:25 PM) GFR Am [>=60.0 mL/min/1.73m2] 170.6 mL/min/1.73m2 (06/19/19 10:58 AM) 170.6 mL/min/1.73m2 (06/18/19 10:10 PM) 170.6 mL/min/1.73m2 (06/18/19 2:25 PM) GFR Non Am [>=60.0 mL/min/1.73m2] 141.0 mL/min/1.73m2 (06/19/19 10:58 AM) 141.0 mL/min/1.73m2 (06/18/19 10:10 PM) 141.0 mL/min/1.73m2 (06/18/19 2:25 PM) Glucose Level [74-106 mg/dL] 84 mg/dL (06/19/19 10:58 AM) 101 mg/dL (06/18/19 10:10 PM) 74 mg/dL (06/18/19 2:25 PM) Magnesium Lvl [1.6-2.3 mg/dL] 1.9 mg/dL (06/19/19 10:58 AM) 2.1 mg/dL (06/18/19 10:10 PM) 2.0 mg/dL (06/18/19 2:25 PM) Phosphate [2.5-4.5 mg/dL] 3.6 mg/dL (06/19/19 10:58 AM) 3.5 mg/dL (06/18/19 10:10 PM) 3.5 mg/dL (06/18/19 2:25 PM) PULMONARY SERVICES Most recent to oldest [Reference Range]: 1 2 3 pH tc [7-7] 7 (06/17/19 6:47 AM) pCO2 tc [35-45 mmHg] 48 mmHg *HI* (06/17/19 6:47 AM) pH [7.35-7.45] 7.39 (06/17/19 6:47 AM) pCO2 [35-48 mmHg] 48 mmHg (06/17/19 6:47 AM) pO2 [74-108 mmHg] 74 mmHg (06/17/19 6:47 AM) Bicarbonate [21-29 mmol/L] 29 mmol/L (06/17/19 6:47 AM) Base Excess [0.0-2.0 mmol/L] 4.1 mmol/L *HI* (06/17/19 6:47 AM) O2 Sat Yulia [92-96 %] 98 % *HI* (06/17/19 6:47 AM) Oxyhemoglobin [92-96 %] 94 % (06/17/19 6:47 AM) Deoxyhemoglobin [0-5 %] 2 % (06/17/19 6:47 AM) Patient Temp 37 degC *NA* (06/17/19 6:47 AM) Sample Type ART *NA* (06/17/19 6:47 AM) THERAPEUTIC DRUG MONITORING Most recent to [Reference Range]: 1 2 3 Acetaminph Lvl [10.0-30.0 mcg/mL] <10.0 mcg/mL (06/17/19 6:40 AM) Salicylate [0.0-20.0 mg/dL] <1.0 mg/dL (06/17/19 6:40 AM) TOXICOLOGY Most recent to oldest [Reference Range]: 1 2 3 Amph U Scrn Rslt [Negative] Negative (06/17/19 6:40 AM) Rhoda U Scrn Rslt [Negative] Negative (06/17/19 6:40 AM) Benzo U Scrn Rslt [Negative] Positive *ABN* (06/17/19 6:40 AM) Cocaine U Scrn Rslt [Negative] Negative (06/17/19 6:40 AM) Opiate U Scrn Rslt [Negative] Negative (06/17/19 6:40 AM) PCP U Scrn Rslt [Negative] Negative (06/17/19 6:40 AM) THC U Scrn Rslt [Negative] Negative (06/17/19 6:40 AM) Ethanol Lvl [<=10 mg/dL] <10 mg/dL (06/17/19 6:40 AM) MISCELLANEOUS TESTING Most recent to oldest [Refer ence Range]: 1 2 3 Path Rev Interp No alcohol was detec mali in this specimen. Note: The average patient metabolizes and excretes alcohol to reduce the blood level by approximately 15 mg/dl/hr. *NA* (06/17/19 6:40 AM) Vital Signs Most recent to oldest [Reference Range]: 1 2 3 Temperature F [98-100.5 degF] 98.4 degF (06/19/19 12:00 PM) 99.1 degF (06/19/19 7:15 AM) 98.6 degF (06/19/19 4:00 AM) Heart Rate [60-100 bpm] 67 bpm (06/19/19 12:00 PM) 89 bpm (06/19/19 10:00 AM) 74 bpm (06/19/19 9:00 AM) Respiratory Rate [14-20 breaths/min] 18 breaths/min (06/19/19 12:00 PM) 12 breaths/min *LOW* (06/19/19 10:00 AM) 14 breaths/min (06/19/19 9:00 AM) Blood Pressure [90-140/60-90 mmHg] 110/70mmHg (06/19/19 12:00 PM) 121/65mmHg (06/19/19 10:00 AM) 123/79mmHg (06/19/19 9:00 AM) Mean Arterial Pressure 83 mmHg (06/19/19 12:00 PM) 84 mmHg (06/19/19 10:00 AM) 94 mmHg (06/19/19 9:00 AM) SpO2/Pulse Oximetry [85-100 %] 99 % (06/19/19 12:00 PM) 100 % (06/19/19 10:00 AM) 99 % (06/19/19 9:00 AM) Height 170 cm (06/17/19 5:15 AM) Social History Social History Type Response Smoking Status Unknown if ever smok ed Sex Hospital Discharge Instructions Follow Up Care 06/17/2019 05:14:28 With:Follow up with primary care provider Address:Unknown When:Unknown With:Follow up with Specialist Address:Unknown When:Unknown With:UNKNOWN DOCTOR Address:Unknown When:Unknown With:LUL HENAO Address: [address] [place] [id number] [facility] (1) When:Unknown
--- OUTSIDE RECORDS SUMMARY | 2023-11-12 13:10 | XMS_ITS | Continuity of Care Document ---
Author Name Unknown Organization [facility] Address [address] [place] [address]- Care Team Providers Care Clinical Cytogenetics Director Name Role Phone DOCTOR MD, UNKNOWN Primary Care Physician Edna garcía Encounter [facility] Date(s): 06/17/19 - 06/17/19 [facility] [place] [address]- [phone] Encounter Diagnosis Acute encephalopathy(Discharge Diagnosis) - 06/17/19 Acute encephalopathy(Discharge Diagnosis) - 06/16/19 Discharge Disposition: Against Med Advice Attending Physician: EDIN LUZ MD Admitting Physician: EDIN LUZ MD Allergies, Adverse Reactions, Alerts No Known Allergies Medications No Known Medications Assessment and Plan Extracted from: Title:discharge summary - AMA Author:BAKARI BRADEN NP Date:06/17/19 Discharge Summary Date/Time Note Created: 06/17/2019 01:17 [facility] [address] [place] [address] Discharge Summary Date of Admission: [id number] Date of Discharge: [id number] Admitting Physician: Dr. Edin Luz Discharge Diagnosis (2) 1. Acute Toxic Metablic Encephalopathy 2. Suspected Benzodiazepine Overdose 3. Hypoxemia 4. Abnormal Liver Function 5. Rt Wrist Pain - eval when more alert. 6. Normocytic Anemia Consulting Services: none Hospital Course: Mr. Arnaldo Saavedra was admitted to [facility] on June 16 after presenting to the emergency department with complaint of Xanax withdrawal. Patient reportedly ate 2 Xanax bars. At time of presentation he was obtunded with snoring respirations, otherwise hemodynamically stable. He initially was given 0.5 mg of Narcan without response. A CT head without contrast demonstrated no acute intracranial findings, he did have generalized sinusitis. His labs are rather unremarkable, urine drug screen was surprisingly negative, and his ethanol level is less than 10. He was initially admitted to the ICU for observation of his respiratory status due to his potential to deteriorate. We administered 2 mg of Narcan IV push, and the patient woke up promptly. Upon waking up he was belligerently rude with the nurse and the medical staff, he was bargaining for benzodiazepines. I was called to see him because he wanted to leave AGAINST MEDICAL ADVICE at this time his speech was slurred and his gait was unsteady but he was alert and oriented x3. I informed him that it is only been about 30 minutes since his last administration of Narcan, and I feel unsafe about releasing him in this condition unless he is able to provide somebody to drive him home. I asked him about his intentions when he came here, according to his initial emergency room records he had come in for treatment for benzodiazepine withdrawals. I offered this to him in which she refused saying he only needed a little fix to get him through. He informed me that he would just drive home because his car was in the parking lot. I informed him that in good shantanu I cannot let him go home if his plan is to operate a vehicle until he is clinically sober, but I cannot forcibly keep him either. He got up and left under his own strength, security follow the patient out of the hospital and were instructed to see if he gets in his vehicle to notify [place] [employer] immediately. He was upset that the unmarked pills that came in on his person were discarded in the emergency department. I informed him that should he change his mind he is always welcome to return to the emergency department for evaluation. Patient left the hospital under his own accord, he is high risk for readmission. Procedures: none Physical Examination at Discharge: GEN: [id number]-nourished male in no acute distress - angry/hostile EYES: No scleral icterus, no scleral edema. No conjunctival redness or injection. Pupils are equal round and reactive to light. ENT: Oropharynx is clear without ulceration or exudates. External insepction of nose and ears reveals no masses ulceration of deformity. NECK: Trachea is midline.There are no thyroid nodules or masses. There is no JVD. Respiratory: (+)clear to auscultation OR ()wheezes ()rales ()rhonchi ()rubs ()dullness ()hyperresonance to percussion noted CHEST: no palpable masses or lumps, nipples are symmetric without obvious discharge CV: (+)murmurs (-)rubs (-)gallop (-)RV heave (-)thrill (-) lower extremity edema ABD: Soft, nontender, nondistended. No organomegaly, no hernias noted. LYMPHADENOPATHY: (-)cervical (-)supraclavicular (-)axillary (-)inguinal MUSC: (-)cyanosis (-)clubbing (-)edema. No visible joint swelling, dislocation, or tenderness SKIN: (-)rash (-)lesion (-)ulcer (-)induration (-)nodularity NEURO: CN 2-12 grossly intact, no pathologic reflex activity noted PSYCH: (+)Alert and Oriented x 3. (-)sedated and not alert. Mood and affect are: (+)approriate ()inappropriate Disposition: Left Against Medical Advice Discharge Medications (0) Status Discharge Medication Reconciliation is pending. Durable Medical Equipment: none Instructions: Dietary: Regular Activity: Up ad Yasmine Follow-Up: f/u with PCP. Other: [ ] _ Condition at Discharge: Angry/Hostile, Left AMA. High risk for morbidity/mortality. Security notified to ensure he does not drive himself home, and if does to notify [employer]. I have personally seen and examined this patient. Total critical care time not including procedures: 0 minutes. Face to face time spent in preparing, educating patient for dischare was < 30 minutes. Bakari Dos Santos II, DNP, AGAP- Results Laboratory List Name Date Amphetamine Screen Urine 06/17/19 Barbiturate Screen Urine 06/17/19 Benzodiazepine Screen Urine 06/17/19 Cannabinoid Screen Urine 06/17/19 Cocaine Screen Urine 06/17/19 Opiate Screen Urine 06/17/19 PCP Screen Urine 06/17/19 Ammonia Level 06/16/19 Acetaminophen Level 06/16/19 Complete Blood Count With Auto Different ial (CBC w/auto Diff) 06/16/19 Comprehensive Metabolic Panel (CMP) 05/19 09/04 Ethanol Level (ETOH Level) 06/16/19 Pathology Review Interpretation 06/16/19 Salicylate Level 06/16/19 Thyroid Stimulating Hormone (TSH) HEMATOLOGY Most recent to oldest [Reference Range]: 1 WBC [4.50-11.00 x10(3)/mcL] 7.78 x10(3)/ mcL (06/16/19 9:00 PM) RBC [4.50-5.90 x10(6)/mcL] 4.48 x10(6)/m cL *LOW* (06/16/19 9:00 PM) Hgb [13.5-17.5 g/dL] 13.4 g/dL *LOW* (06/16/19 9:00 PM) Hct [41.0-53.0 %] 39.4 % *LOW* (06/16/19 9:00 PM) MCV [80.0-100.0 fL] 87.9 fL (06/16/19 9:00 PM) MCH [25.4-34.6 pg] 29.9 pg (06/16/19 9:00 PM) MCHC [30.0-37.0 g/dL] 34.0 g/dL (06/16/19 9:00 PM) RDW [12.1-15.2 %] 13.4 % (06/16/19 9:00 PM) Platelet Count [150-500 x10(3)/mcL] 248 x10(3)/mcL (06/16/19 9:00 PM) MPV [6.5-12.0 fL] 9.6 fL (06/16/19 9:00 PM) NRBC Auto Rel 0.0 /100WBC *NA* (06/16/19 9:00 PM) Neutrophil Rel [45.0-80.0 %] 54.5 % (06/16/19 9:00 PM) Lymphocyte Rel [15.0-50.0 %] 30.6 % (06/16/19 9:00 PM) Monocyte Rel [0.0-10.0 %] 9.3 % (06/16/19 9:00 PM) Eosinophil Rel [0.0-5.0 %] 4.4 % (06/16/19 9:00 PM) Basophil Rel [0.0-1.5 %] 0.6 % (06/16/19 9:00 PM) Imm Gran Rel [0.0-0.4 %] 0.6 % *HI* (06/16/19 9:00 PM) Neutrophil Abs [2.02-8.80 x10(3)/mcL] 4. 24 x10(3)/mcL (06/16/19 9:00 PM) Lymphocyte Abs [0.68-5.50 x10(3)/mcL] 2. 38 x10(3)/mcL (06/16/19 9:00 PM) Monocyte Abs [0.05-1.10 x10(3)/mcL] 0.72 x10(3)/mcL (06/16/19 9:00 PM) Eosinophil Abs [0.05-0.55 x10(3)/mcL] 0. 34 x10(3)/mcL (06/16/19 9:00 PM) Basophil Abs [0.00-0.16 x10(3)/mcL] 0.05 x10(3)/mcL (06/16/19 9:00 PM) Imm Gran Abs [0.00-0.03 x10(3)/mcL] 0.05 x10(3)/mcL *HI* (06/16/19 9:00 PM) CHEMISTRY Most recent to oldest [Reference Range]: 1 Sodium Lvl [137-145 mEq/L] 140 mEq/L (06/16/19 9:00 PM) Potassium Lvl [3.5-5.1 mEq/L] 4.1 mEq/L (06/16/19 9:00 PM) Chloride Lvl [98-107 mEq/L] 102 mEq/L (06/16/19 9:00 PM) CO2 [22-30 mEq/L] 27 mEq/L (06/16/19 9:00 PM) AGAP 11 *NA* (06/16/19 9:00 PM) Calcium Lvl [8.4-10.2 mg/dL] 9.7 mg/dL (06/16/19 9:00 PM) BUN [9-20 mg/dL] 11 mg/dL (06/16/19 9:00 PM) Creatinine Lvl [0.66-1.25 mg/dL] 0.60 mg /dL *LOW* (06/16/19 9:00 PM) BUN/Creat 18 ratio *NA* (06/16/19 9:00 PM) Total Protein [6.3-8.2 g/dL] 7.9 g/dL (06/16/19 9:00 PM) Albumin Lvl [3.5-5.0 g/dL] 4.4 g/dL (06/16/19 9:00 PM) Globulin [3-5 g/dL] 4 g/dL (06/16/19 9:00 PM) A/G Ratio [1-2 ratio] 1 ratio (06/16/19 9:00 PM) Alk Phos [38-126 IU/L] 56 IU/L (06/16/19 9:00 PM) ALT [<=49 IU/L] 214 IU/L *HI* (06/16/19 9:00 PM) AST [17-59 IU/L] 118 IU/L *HI* (06/16/19 9:00 PM) GFR Am [>=60.0 mL/min/1.73m2] 20 3.9 mL/min/1.73m2 (06/16/19 9:00 PM) GFR Non Am [>=60.0 mL/min/1.73m2 ] 168.5 mL/min/1.73m2 (06/16/19 9:00 PM) Ammonia Lvl [9-30 mmol/L] 26 mmol/L (06/16/19 11:43 PM) Bili Total [0.2-1.3 mg/dL] 0.3 mg/dL (06/16/19 9:00 PM) Glucose Level [74-106 mg/dL] 87 mg/dL (06/16/19 9:00 PM) TSH [0.465-4.680 mIU/mL] 1.370 mIU/mL (06/16/19 9:00 PM) THERAPEUTIC DRUG MONITORING Most recent to oldest [Reference Range]: 1 Acetaminph Lvl [10.0-30.0 mcg/mL] <10.0 mcg/mL (06/16/19 9:00 PM) Salicylate [0.0-20.0 mg/dL] <1.0 mg/dL (06/16/19 9:00 PM) TOXICOLOGY Most recent to oldest [Reference Range]: 1 Amph U Scrn Rslt [Negative] Negative (06/17/19 12:15 AM) Rhoda U Scrn Rslt [Negative] Negative (06/17/19 12:15 AM) Benzo U Scrn Rslt [Negative] Positive *ABN* (06/17/19 12:15 AM) Cocaine U Scrn Rslt [Negative] Negative (06/17/19 12:15 AM) Opiate U Scrn Rslt [Negative] Negative (06/17/19 12:15 AM) PCP U Scrn Rslt [Negative] Negative (06/17/19 12:15 AM) THC U Scrn Rslt [Negative] Negative (06/17/19 12:15 AM) Ethanol Lvl [<=10 mg/dL] <10 mg/dL (06/16/19 9:00 PM) MISCELLANEOUS TESTING Most recent to oldest [Reference Range]: 1 Path Rev Interp No alcohol was detec mali in this specimen. Note: The average patient metabolizes and excretes alcohol to reduce the blood level by approximately 15 mg/dl/hr. *NA* (06/16/19 9:00 PM) Radiology Reports * Exam Date Time Procedure Performing Provider Status 06/16/19 10:[address] Head or Brain w/o Contrast Jelly Fernandez (Verified) Notes: (CT Head or Brain w/o Contrast) Reason For Exam: Altered Level of Consciousness REPORT DATE OF EXAM: 06/16/2019 10:28 PM CDT EXAMINATION: CT Head or Brain W/O Contrast HISTORY: Altered Level of Consciousness COMPARISON:None FINDINGS: The brain parenchyma and ventricular system are within normal limits. No evidence of acute hemorrhage, stroke, mass effect, edema, or midline shift. No extra-axial fluid collection, hemorrhage, or mass. The mastoid sinuses are well-pneumatized and clear. Mucoperiosteal thickening in the ethmoid sinuses, frontal sinus and sphenoid sinus. The bony calvarium is intact. OPINION: 1. No acute intracranial findings. 2. Chronic sinus disease. All CT scans at this facility use dose modulation, iterative reconstruction, and/or weight based dosing when appropriate to reduce radiation dose to As Low As Reasonably Achievable. THIS IS AN ELECTRONICALLY SIGNED REPORT BY: Debbie Mora on 06/17/2019 7:14 AM CDT Final Report Dictated: 06/17/2019 7:12 Dictated By: DEBBIE MORA MD Electronic Signature: 06/17/2019 7:14 am Signed By: DEBBIE MORA MD Vital Signs Most recent to oldest [Reference Range]: 1 2 3 Temperature F [98-100.5 degF] 98.9 degF (06/16/19 8:30 PM) Heart Rate [60-100 bpm] 70 bpm (06/17/19 12:27 AM) 70 bpm (06/16/19 11:27 PM) 84 bpm (06/16/19 9:30 PM) Respiratory Rate [14-20 breaths/min] 18 breaths/min (06/17/19 12:27 AM) 16 breaths/min (06/16/19 11:27 PM) 18 breaths/min (06/16/19 9:30 PM) Blood Pressure [90-140/60-90 mmHg] 121/58mmHg (06/16/19 9:30 PM) Systolic BP [90-140 mmHg] 101 mmHg (06/17/19 12:27 AM) 106 mmHg (06/16/19 11:27 PM) Diastolic BP [60-90 mmHg] 57 mmHg *LOW* (06/17/19 12:27 AM) 56 mmHg *LOW* (06/16/19 11:27 PM) Mean Arterial Pressure 72 mmHg (06/17/19 12:27 AM) 73 mmHg (06/16/19 11:27 PM) 79 mmHg (06/16/19 9:30 PM) SpO2/Pulse Oximetry [85-100 %] 100 % (06/17/19 12:27 AM) 100 % (06/16/19 11:27 PM) 100 % (06/16/19 9:30 PM) Height 175 cm (06/17/19 12:24 AM) 175 cm (06/16/19 8:20 PM) Social History Social History Type Response Smoking Status Unknown if ever smok ed Sex Hospital Discharge Instructions Follow Up Care 06/16/2019 20:19:59 With:[facility]. Address: see the pamphlet for location and time. When:3-5 days only if needed Comments:please refer to pamphlet given for locations & hours. please call for appointmentRecheck today's complaintsContinuance of Care
[2023-11-12 13:55] VITALS: BP 125/76; PULSE 101; RESP 19; TEMP 37.1; O2SAT 96
[2023-11-12 15:34] VITALS: BMI 33.4
--- NOTE | 2023-11-12 17:01 | PC.ADMIT ---
Pt admitted to [facility] from [facility] ED on a CV at 1354 s/p SA by intentional OD on heroin and Fentanyl lastnight. Pt reports being found unresponsive by friend and given Narcan. Subsequently self admitted to [facility] ED seeking help requesting to be sectioned so he would remain safe. Rashaad was A/O x3, calm, and cooperative with admission process. He reports his mood is depressed and he has been on Cymbalta which has not really been effective. Precipitating factors leading up to his OD were being kicked out of his parents home (becoming homeless) after being dc'd from a [facility] rehab. He describes feeling unable to get up and function, feeling like I never seem to do well and always mess it up, I figured it would be easier to just end it all. When asked how he felt about surviving the suicide attempt, he reported, honestly, I wish I had been successful... He reports he has ongoing depression, anxiety, PTSD, and substance use disorder. 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 Currently denies any HI/SI/AVH. His appetite is good with no recent reported weight changes. He is not sleeping well and describes his sleep as being broken up. His goal for this admission is to stay safe and get help. He was able to verbally contract for safety and knows to notify staff if he feels suicidal. An addictions medicine consult was ordered and he will be followed up with on Thursday. Of note, his LFTs were elevated but was medically cleared for admission.
--- NOTE | 2023-11-12 19:14 | PC.NURSE ---
Skin and safety/sharps check done upon admission to M3 and skin intact. Pt changed into hospital gown and changed socks. Admission paperwork signed and no one was listed on release of information form, does not have a PCP or psychotherapist.
[2023-11-12 20:05] VITALS: BP 131/63; PULSE 93; RESP 18; TEMP 36.4; O2SAT 99
[2023-11-13 06:00] VITALS: BP 105/65; PULSE 72; RESP 14; TEMP 36.8; O2SAT 100
[2023-11-13] MEDS: methADONE HCl 20 MG/2 ML ORAL.CONC 60 MG PO (08:16)
[2023-11-13] MEDS: clonazePAM 1 MG TABLET PO ×2 (08:18→14:00)
[2023-11-13] MEDS: DULoxetine HCl 60 MG CAPSULE.DR PO (08:18)
--- NOTE | 2023-11-13 09:02 | P.HPPS_ITS ---
HPI Date of Service: 11/13/23 Chief Complaint: Crisis - SI w/ attempt Sources of Information: patient interviewed, chart reviewed and crisis/core team assessment reviewed HPI Subjective Notes: [place]nell Warning and Conditional Voluntary Narrative: Patient is a 28 year old male with hx of MDD, PTSD, opiate use d/o and cocaine use d/o who self presented to [facility] [place] after suicide attempt via Fentanyl secondary to increased depressive symptoms. Per crisis report, pt self presented to ER asking to be sectioned d/t not feeling safe and trying to intentionally overdose on Fentanyl but given Narcan by friend. Pt reported thoughts of wanting to overdose again and feels he has no reason to live anymore. Pt reported he has been couch surfing between his father's place and friends . During admission assessment, pt presents calm and cooperative. He reports increased depression over the last few days. Pt stated, the Cymbalta was working for a while but then I started feeling depressed again. I decided to use cocaine because I felt like I was getting no where in life. I can't keep a job or relationship. I don't have a good relationship with my family, other than my father . Pt reports he has been using cocaine daily for the past few days and decided to overdose on Fentanyl not to get high but to kill myself . Pt is upset that he has been taking Cymbalta for the past two months and started feeling depressed again, pt stated, I used to take Zoloft but it made me into a zombie and I felt nothing . Pt reports suicidal ideation to overdose on substances. He denies HI/VH/AH. Pt reports he is interested in a medication adjustment and being referred to [facility] in [place], [place], where he has previously been treated for his substance abuse. 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 Pt requesting HIV/Hep C testing; labs ordered for tomorrow morning. Start: Wellbutrin XL 150mg PO daily; risks/benefits discussed. Past Psychiatric History: Pt reports 2 prior psychiatric inpatient hospitalizations d/t SI attempts. (once in his teens and second in 2021 at [facility] in [place]). hx of detox and CSS. [facility] Reviewed: Yes [facility] Family History: mother-depression sister-depression Social History: Homeless, single, no children, unemployed, high school graduate. Substance History: pt reports using cocaine for the past few days. OD on heroin/fentanyl prior to admission. UTOX positive for benzodiazepines, barbiturates, cocaine and fentanyl. Substance use began around [age] y/o. Trauma History: yes Diagnostics Vital Signs (24Hr): Vital Signs - 24 hr 11/12/23 10:33 11/12/23 13:55 11/12/23 20:05 Temperature 98.7 F 97.5 F Pulse Rate 91 101 H 93 Respiratory Rate 16 19 18 Blood Pressure 125/76 131/63 Pulse Oximetry 99 96 99 Oxygen Delivery Method Room Air Room Air Room Air 11/13/23 06:00 Temperature 98.2 F Pulse Rate 72 Respiratory Rate 14 Blood Pressure 105/65 Pulse Oximetry 100 Oxygen Delivery Method Room Air BMI result Body Mass Index 33.4 Labs 11/13/23 09:00 11/13/23 09:00 Labs: Laboratory Results - last 48 hr 11/12/23 11/12/23 08:19 08:20 WBC 8.8 RBC 4.23 L Hgb 13.0 L Hct 39.0 L MCV 92.2 MCH 30.7 MCHC 33.3 RDW 13.1 Plt Count 263 MPV 9.7 Immature Gran % (Auto) 0.8 H Neut % (Auto) 60.6 Lymph % (Auto) 17.9 L [place] % (Auto) 15.5 H Eos % (Auto) 4.6 H Baso % (Auto) 0.6 Lymph # (Auto) 1.6 [place] # (Auto) 1.4 H Eos # (Auto) 0.4 Baso # (Auto) 0.1 Abs Immat Gran (auto) 0.07 H Absolute Neuts (auto) 5.4 Absolute Nucleated RBC 0.000 Nucleated RBC % (auto) 0.0 Sodium 141 Potassium 4.2 Chloride 105 Carbon Dioxide 31 H Anion Gap 9 L BUN 15 Creatinine 0.74 Estim Creat Clear Calc 164.0 Estimated GFR > 60 Random Glucose 91 Calcium 9.1 Total Bilirubin 0.6 AST 342 H ALT 208 H Alkaline Phosphatase 78 Total Protein 7.1 Albumin 4.0 Urine Color Yellow Urine Appearance Clear Urine pH 7.5 Ur Specific [place] 1.025 Urine Protein Trace Urine Glucose (UA) Negative Urine Ketones Negative Urine Blood Negative Urine Nitrite Negative Ur Leukocyte Esterase Negative Urine Opiates Screen Not Detected Urine Fentanyl Screen POSITIVE H Ur Barbiturates Screen POSITIVE H Ur Phencyclidine Scrn Not Detected Ur Amphetamines Screen Not Detected U Benzodiazepines Scrn POSITIVE H Urine Cocaine Screen POSITIVE H U Marijuana (THC) Screen Not Detected Ethyl Alcohol < 10 COVID-19 (GUERA) Negative COVID-19 Clin Com See Note Meds/Allergies Meds Home Medications Medication Instructions Recorded Confirmed Type methadone 10 mg/mL oral 60 mg PO DAILY 11/11/23 11/12/23 History concentrate (Methadone Intensol) duloxetine 60 mg capsule,delayed 60 mg PO DAILY 11/12/23 11/12/23 History release Allergies Allergies Allergy/AdvReac Type Severity Reaction Status Date / Time No Known Allergies Allergy Verified 11/12/23 07:58 Assessment & Plan Assessment & Plan (1) MDD (major depressive disorder), recurrent episode: Status: Acute Code(s): F33.9 - Major depressive disorder, recurrent, unspecified (2) PTSD (post-traumatic stress disorder): Status: Acute Code(s): F43.10 - Post-traumatic stress disorder, unspecified (3) Opiate use: Status: Acute Code(s): F11.90 - Opioid use, unspecified, uncomplicated (4) Cocaine abuse: Status: Acute Code(s): F14.10 - Cocaine abuse, uncomplicated Plan Patient is a 28 year old male with hx of MDD, PTSD, opiate use d/o and cocaine use d/o who self presented to [facility] after suicide attempt via Fentanyl secondary to increased depressive symptoms. 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 HIV/Hep C testing; labs ordered for tomorrow morning discharge planning Patient educated on: diagnosis, medication risk/benefits and substance abuse Informed Consent: understands Reason for continued inpatient stay Substantial Risk for: harm to self and med/psych decompensation Statement Statement: I have reviewed the history and physical and performed a pertinent examination on my patient. No changes have occurred unless specified. If the History and Physical was not performed prior to admission, the Hospitalist's service will be consulted for completing the admission physical. Time Spent With Patient Time: Total time managing care of this patient today _60___ minutes.
[2023-11-13 09:12] LABS: MANUAL DIFF FLAG NO
[2023-11-13 09:38] LABS: Basophils Absolute Auto 0.1 X10*3/uL (0.0-0.2); Basophils Percent Auto 1.3 % (0-2); Eosinophils Absolute Auto 0.4 X10*3/uL (0.0-0.4); Eosinophils Percent Auto 6.3 % (0-4); Imm Gran Abs Auto 0.11 X10*3/uL (0.00-0.03); Imm Gran Pct Auto 1.7 % (0.0-0.4); Lymphocytes Absolute Auto 1.9 X10*3/uL (1.2-4.9); Lymphocytes Percent Auto 29.6 % (20-40); Mean Corpuscular HGB Conc 32.5 g/dl (31.0-36.0); Mean Corpuscular Hemoglobin 30.6 pg (27.0-33.0); Mean Corpuscular Volume 94.1 fL (80.0-98.0); Mean Platelet Volume 10.3 fL (9.4-12.4); Monocytes Percent Auto 15.3 % (2-11); Neutrophils Absolute Auto 2.9 x10*3/uL (2.0-8.3); Neutrophils Percent Auto 45.8 % (45-73); Platelet Count 269 X10*3/uL (160-400); Red Blood Count 4.25 X10*6/uL (4.60-5.80); Red Cell Distribution Width 13.2 % (11.0-16.0); White Blood Count 6.3 X10*3/uL (4.8-10.8)
[2023-11-13 09:40] LABS: Alanine Aminotransferase 183 U/L (0-40); Albumin Level 3.8 g/dL (3.5-5.0); Alkaline Phosphatase 72 U/L (39-117); Anion Gap 10 (12-20); Aspartate Amino Transferase 189 U/L (5-37); Bilirubin Direct 0.2 mg/dL (0.0-0.5); Bilirubin Total 0.4 mg/dL (0.0-1.0); Blood Urea Nitrogen 15 mg/dL (9-16); Calcium 9.3 mg/dL (8.4-10.2); Carbon Dioxide 29 mmol/L (22-29); Chloride 106 mmol/L (96-108); Cholesterol 148 mg/dL (<200); Creatinine Clr Calc Pharmacy 178.7; Estimated Glomerular Filt Rate > 60; Glucose Fasting 86 mg/dL (60-99); HDL Cholesterol 41 mg/dL (>40); LDL Cholesterol Calculated 93 mg/dL (<100); Potassium 4.4 mmol/L (3.3-5.1); Sodium 141 mmol/L (135-145); Triglycerides 72 mg/dL (<150)
[2023-11-13 09:51] LABS: Free T4 (Free Thyroxine) 0.73 ng/dL (0.71-1.85); Thyroid Stimulating Hormone 0.58 uIU/mL (0.32-4.0)
[2023-11-13 10:10] LABS: Ammonia 57 umol/L (13-55)
[2023-11-13] MEDS: Magnesium Hydrox/Alum Hydrox 30 ML ORAL.SUSP PO (14:00)
[2023-11-13 20:00] VITALS: RESP 18
[2023-11-14 06:00] VITALS: BP 127/67; PULSE 83; RESP 14; TEMP 37.1; O2SAT 97
[2023-11-14] MEDS: methADONE HCl 20 MG/2 ML ORAL.CONC 60 MG PO (06:04)
[2023-11-14] MEDS: clonazePAM 1 MG TABLET PO ×2 (07:05→14:04)
[2023-11-14] MEDS: DULoxetine HCl 60 MG CAPSULE.DR PO (08:09)
[2023-11-14] MEDS: buPROPion HCl XL 150 MG TAB.ER.24H PO (08:09)
[2023-11-14 08:30] LABS: Alanine Aminotransferase 163 U/L (0-40); Albumin Level 3.9 g/dL (3.5-5.0); Alkaline Phosphatase 76 U/L (39-117); Aspartate Amino Transferase 108 U/L (5-37); Bilirubin Direct < 0.2 mg/dL (0.0-0.5); Bilirubin Total 0.2 mg/dL (0.0-1.0); Total Protein 7.3 g/dL (6.5-8.0)
--- NOTE | 2023-11-14 14:37 | P.PNPSI_ITS ---
Subjective Subjective Date of Service: 11/14/23 Reason For Visit: Crisis - SI w/ attempt Subjective Notes: Conditional Voluntary Interim History: 28 yo WM unhappy with wellbutrin trial -feels off today= restless , mild agita0 had wanted inc duloxetine , explained to patient that lfts can get affected by duloxetine- so that might be why not increased- He did agree to add on abilify instead of wellbutrin which he says he will refuse to take further- Did not med seek otherwise from this provider. Medication Compliance: Yes Side effects from medications: Yes (doesn't like feeling on wellbutrin today) Attending Groups: Intermittent Review of Systems Acute medical concerns: No Medical Review of Systems: unchanged Mental Status Exam Mental Status Exam Patient Appearance: Appropriate Patient Orientation: Person, Place, Time and Situation Level of Consciousness: Awake Patient Behavior: Appropriate and Cooperative Mood Description: Apprehensive Affect Description: Blunted Patient Cognition Impaired: No Ability to Follow Directions: Fair Speech Pattern: Clear Hallucinations: None Delusions: Not Present Thought Process: Intact and Goal Oriented Thought Content: positive for Intact (focused on med change) Depressive Symptoms: Muscle Tension Judgement: Fair Diagnostics Vital Signs (24Hr): Vital Signs - 24 hr 11/13/23 20:00 11/14/23 06:00 Temperature 98.7 F Pulse Rate 83 Respiratory Rate 18 14 Blood Pressure 127/67 Pulse Oximetry 97 Oxygen Delivery Method Room Air BMI result Body Mass Index 33.4 Labs 11/13/23 09:00 11/13/23 09:00 Labs: Laboratory Results - last 48 hr 11/13/23 11/14/23 09:00 07:27 WBC 6.3 RBC 4.25 L Hgb 13.0 L Hct 40.0 L MCV 94.1 MCH 30.6 MCHC 32.5 RDW 13.2 Plt Count 269 MPV 10.3 Immature Gran % (Auto) 1.7 H Neut % (Auto) 45.8 Lymph % (Auto) 29.6 [place] % (Auto) 15.3 H Eos % (Auto) 6.3 H Baso % (Auto) 1.3 Lymph # (Auto) 1.9 [place] # (Auto) 1.0 Eos # (Auto) 0.4 Baso # (Auto) 0.1 Abs Immat Gran (auto) 0.11 H Absolute Neuts (auto) 2.9 Absolute Nucleated RBC 0.000 Nucleated RBC % (auto) 0.0 Hold Purple Top SEE NOTE Sodium 141 Potassium 4.4 Chloride 106 Carbon Dioxide 29 Anion Gap 10 L BUN 15 Creatinine 0.71 Estim Creat Clear Calc 178.7 Estimated GFR > 60 Fasting Glucose 86 Calcium 9.3 Total Bilirubin 0.4 0.2 Direct Bilirubin 0.2 < 0.2 AST 189 H 108 H ALT 183 H 163 H Alkaline Phosphatase 72 76 Ammonia 57 H Total Protein 7.0 7.3 Albumin 3.8 3.9 Triglycerides 72 Cholesterol 148 LDL Cholesterol, Calc 93 HDL Cholesterol 41 TSH 0.58 Free T4 0.73 Medications Medications Current Medications Acetaminophen (Acetaminophen 325 Mg Tablet) 650 mg PO Q6H PRN PRN Reason: Headache/Pain Mild Scale (1-3) Al Hydroxide/Mg Hydroxide (Magnesium Hydrox/Alum Hydrox 30 Ml Oral.Susp) 30 ml PO Q6H PRN PRN Reason: Heartburn/Nausea Last Admin: 11/13/23 14:00 Dose: 30 ml Bupropion HCl (Bupropion Hcl Xl 150 Mg Tab.Er.24h) 150 mg PO DAILY [facility] Last Admin: 11/14/23 08:09 Dose: 150 mg Clonazepam (Clonazepam 1 Mg Tablet) 1 mg PO BID@0800,1500 [facility] Last Admin: 11/14/23 14:04 Dose: 1 mg Duloxetine HCl (Duloxetine Hcl 60 Mg Capsule.Dr) 60 mg PO DAILY [facility] Last Admin: 11/14/23 08:09 Dose: 60 mg Hydroxyzine HCl (Hydroxyzine Hcl 25 Mg Tablet) 25 mg PO Q6H PRN PRN Reason: Anxiety Magnesium Hydroxide (Milk Of Magnesia 30 Ml Oral.Susp) 30 ml PO DAILY PRN PRN Reason: Constipation Methadone HCl (Methadone Hcl 20 Mg/2 Ml Oral.Conc) 60 mg PO DAILY@0700 [facility] Last Admin: 11/14/23 06:04 Dose: 60 mg Nicotine Polacrilex (Nicotine Polacrilex 2 Mg Gum) 4 mg BUCCAL Q2H PRN PRN Reason: Nicotine Cravings Trazodone HCl (Trazodone Hcl 50 Mg Tablet) 50 mg PO BEDTIME MRX1 PRN PRN Reason: Insomnia Allergies Allergies Allergy/AdvReac Type Severity Reaction Status Date / Time No Known Allergies Allergy Verified 11/12/23 07:58 Assessment & Plan Assessment & Plan (1) MDD (major depressive disorder), recurrent episode: Status: Acute Code(s): F33.9 - Major depressive disorder, recurrent, unspecified (2) PTSD (post-traumatic stress disorder): Status: Acute Code(s): F43.10 - Post-traumatic stress disorder, unspecified (3) Opiate use: Status: Acute Code(s): F11.90 - Opioid use, unspecified, uncomplicated (4) Cocaine abuse: Status: Acute Code(s): F14.10 - Cocaine abuse, uncomplicated Plan Patient is a 28 year old male with hx of MDD, PTSD, opiate use d/o and cocaine use d/o who self [place] [facility] [place] suicide attempt via Fentanyl secondary to increased depressive symptoms. 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 HIV/Hep C testing; labs ordered for tomorrow morning discharge planning 11/13 will dc wellbutrin trial abilify 2mg daily- Patient educated on: medication risk/benefits and substance abuse Informed Consent: understands Reason for continued inpatient stay Substantial Risk for: harm to self and rapid decompensation Time Spent With Patient Time: Total time managing care of this patient today ____ minutes.
[2023-11-14 18:00] VITALS: RESP 18
[2023-11-14] MEDS: ARIPiprazole 2 MG TABLET PO (20:54)
[2023-11-15] MEDS: methADONE HCl 20 MG/2 ML ORAL.CONC 60 MG PO (06:09)
[2023-11-15] MEDS: clonazePAM 1 MG TABLET PO ×2 (07:06→14:42)
[2023-11-15 07:10] VITALS: BP 117/83; PULSE 88; RESP 18; TEMP 36.9; O2SAT 95
[2023-11-15] MEDS: DULoxetine HCl 60 MG CAPSULE.DR PO (08:23)
[2023-11-15] MEDS: guaiFENesin DM 100/10/5 ML 5 ML SYRUP PO (10:36)
--- NOTE | 2023-11-15 13:54 | P.PNPSI_ITS ---
Subjective Subjective Date of Service: 11/15/23 Reason For Visit: Crisis - SI w/ attempt Subjective Notes: Conditional Voluntary Medical Problems Affecting Mental Status: No Interim History: 28 yo focused on inc methadone dose - awaiting addiction consult- pending not focused on much else- did tolerate abilify start last pm. Says he is staying in bed due to body aches from lower methadone- 60mg (vs prior dose of 100mg)- so it makes him feel bad and not like being engaged in [employer]. Medication Compliance: Yes Side effects from medications: No Attending Groups: No Review of Systems feels he is still in withdrawl from methadone lower dose - but no physical sys- only subjective sys Medical Review of Systems: unchanged Mental Status Exam Mental Status Exam Patient Appearance: Appropriate Patient Orientation: Person, Place, Time and Situation Level of Consciousness: Awake Patient Behavior: Appropriate and Cooperative Mood Description: Apprehensive Affect Description: Blunted Patient Cognition Impaired: No Ability to Follow Directions: Fair Speech Pattern: Clear Hallucinations: None Delusions: Not Present Thought Process: Intact and Goal Oriented Thought Content: positive for Intact (focused on med change) Depressive Symptoms: Muscle Tension Judgement: Fair Diagnostics Vital Signs (24Hr): Vital Signs - 24 hr 11/14/23 18:00 11/15/23 07:10 Temperature 98.4 F Pulse Rate 88 Respiratory Rate 18 18 Blood Pressure 117/83 Pulse Oximetry 95 Oxygen Delivery Method Room Air BMI result Body Mass Index 33.4 Labs 11/13/23 09:00 11/13/23 09:00 Labs: Laboratory Results - last 48 hr 11/14/23 07:27 Hold Purple Top SEE NOTE Total Bilirubin 0.2 Direct Bilirubin < 0.2 AST 108 H ALT 163 H Alkaline Phosphatase 76 Total Protein 7.3 Albumin 3.9 Medications Medications Current Medications Acetaminophen (Acetaminophen 325 Mg Tablet) 650 mg PO Q6H PRN PRN Reason: Headache/Pain Mild Scale (1-3) Al Hydroxide/Mg Hydroxide (Magnesium Hydrox/Alum Hydrox 30 Ml Oral.Susp) 30 ml PO Q6H PRN PRN Reason: Heartburn/Nausea Last Admin: 11/13/23 14:00 Dose: 30 ml Aripiprazole (Aripiprazole 2 Mg Tablet) 2 mg PO BEDTIME [facility] Last Admin: 11/14/23 20:54 Dose: 2 mg Clonazepam (Clonazepam 1 Mg Tablet) 1 mg PO BID@0800,1500 [facility] Last Admin: 11/15/23 07:06 Dose: 1 mg Diphenhydramine HCl (Diphenhydramine Hcl 12.5 Mg/5 Ml Liquid) 12.5 mg PO Q4H PRN PRN Reason: Cold Symptoms Duloxetine HCl (Duloxetine Hcl 60 Mg Capsule.Dr) 60 mg PO DAILY [facility] Last Admin: 11/15/23 08:23 Dose: 60 mg Guaifenesin/Dextromethorphan (Guaifenesin Dm 100/10/5 Ml 5 Ml Syrup) 5 ml PO Q6H PRN PRN Reason: Cold Symptoms Last Admin: 11/15/23 10:36 Dose: 5 ml Hydroxyzine HCl (Hydroxyzine Hcl 25 Mg Tablet) 25 mg PO Q6H PRN PRN Reason: Anxiety Magnesium Hydroxide (Milk Of Magnesia 30 Ml Oral.Susp) 30 ml PO DAILY PRN PRN Reason: Constipation Methadone HCl (Methadone Hcl 20 Mg/2 Ml Oral.Conc) 60 mg PO DAILY@0700 [facility] Last Admin: 11/15/23 06:09 Dose: 60 mg Nicotine Polacrilex (Nicotine Polacrilex 2 Mg Gum) 4 mg BUCCAL Q2H PRN PRN Reason: Nicotine Cravings Trazodone HCl (Trazodone Hcl 50 Mg Tablet) 50 mg PO BEDTIME MRX1 PRN PRN Reason: Insomnia Allergies Allergies Allergy/AdvReac Type Severity Reaction Status Date / Time No Known Allergies Allergy Verified 11/12/23 07:58 Assessment & Plan Assessment & Plan (1) MDD (major depressive disorder), recurrent episode: Status: Acute Code(s): F33.9 - Major depressive disorder, recurrent, unspecified (2) PTSD (post-traumatic stress disorder): Status: Acute Code(s): F43.10 - Post-traumatic stress disorder, unspecified (3) Opiate use: Status: Acute Code(s): F11.90 - Opioid use, unspecified, uncomplicated (4) Cocaine abuse: Status: Acute Code(s): F14.10 - Cocaine abuse, uncomplicated Plan Patient is a 28 year old male with hx of MDD, PTSD, opiate use d/o and cocaine use d/o who self presented to [facility] after suicide attempt via Fentanyl secondary to increased depressive symptoms. 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 HIV/Hep C testing; labs ordered for tomorrow morning discharge planning 11/13 will dc wellbutrin trial abilify 2mg daily- 11/15/23- pt stuck on inc methadone- awaiting addiction consult Patient educated on: substance abuse Informed Consent: further education needed Reason for continued inpatient stay Substantial Risk for: rapid decompensation Time Spent With Patient Time: Total time managing care of this patient today ____ minutes.
--- NOTE | 2023-11-15 14:10 | P.EN_ITS ---
Event Note Date of Service: 11/15/23 Event Note: Addiction consult placed for addictions recovery specialist Cameron text reporting patient requesting increase in methadone due to body aches r/t withdrawal Per MD, patient reported previous methadone dose was 100mg. Current dose 60mg Restarted methadone on 11/03 and titration in process at time of [facility] admission Chart reviewed. COWS 1. Sleeping through the night. Plan: -methadone 5mg now -methadone 65mg tomorrow -addictions recovery specialist to check in tmrw evening -will follow up regarding dose increase -chart review shows last dose was at [facility], please confirm that patient has a home clinic that will continue methadone upon discahrege Time Spent With Patient Time: Total time managing care of this patient today ____ minutes.
[2023-11-15] MEDS: methADONE HCl 20 MG/2 ML ORAL.CONC 5 MG PO (14:42)
[2023-11-15 18:00] VITALS: RESP 16
[2023-11-15] MEDS: ARIPiprazole 2 MG TABLET PO (21:16)
[2023-11-16] MEDS: methADONE HCl 20 MG/2 ML ORAL.CONC 65 MG PO (05:57)
[2023-11-16] MEDS: clonazePAM 1 MG TABLET PO ×2 (06:56→14:25)
--- NOTE | 2023-11-16 06:56 | PC.NURSE ---
Rashaad reported elevated anxiety, was given his Klonopin at 0656
[2023-11-16 08:05] VITALS: BP 121/73; PULSE 94; RESP 16; TEMP 36.6; O2SAT 98
[2023-11-16] MEDS: DULoxetine HCl 60 MG CAPSULE.DR PO (08:50)
[2023-11-16 08:53] LABS: HBS Num1 28.16 mIU/mL (0-7.99); HBc Num1 0.11 S/CO (0.00-0.79); HBsAGNum1 0.42 S/CO (0.00-0.99); HIV AB/AG Nonreactive (Nonreactive); HIV Num 1 0.06 S/CO (0.00-0.99); Hepatitis A Antibody IgM 0.26 Index (0-0.79); Hepatitis B Core Antibody Nonreactive (Nonreactive); Hepatitis B Surface Antigen Negative (Negative); ~HepC Num1 16.22 S/CO (0.00-0.79); ~Hepatitis A Antibody IgM Nonreactive (Nonreactive); ~Hepatitis B Surface Antibody REACTIVE (Nonreactive); ~Hepatitis C Antibody Reactive (Nonreactive)
--- NOTE | 2023-11-16 09:19 | HO.PSYCHPN ---
Subjective Subjective Date of Service: 11/16/23 Reason For Visit: Crisis - SI w/ attempt Subjective Notes: Conditional Voluntary Interim History: Reviewed with Dr. Babcock. Active on unit. Pt focused on increase of methadone; Elaine Tucker NP from addiction medicine saw pt, please see note. Methadone dose increased to 75mg PO daily. Pt reports feeling a little better ; pt stated, my mom and dad visited me and we were able to talk about what goes on in my head. They really just want to help me. They are going to pay for me to do sober living . pt denies HI/VH/AH. He continues to report passive SI; pt stated, I still feel like I wouldn't care if I didn't wake up . Medication Compliance: Yes Side effects from medications: No Attending Groups: Intermittent Review of Systems Constitutional: Reports as per HPI Eyes: Reports as per HPI Reports as per HPI Cardiovascular: Reports as per HPI Respiratory: Reports as per HPI Gastrointestinal: Reports as per HPI Genitourinary: Reports as per HPI Musculoskeletal: Reports as per HPI Skin/Breast: Reports as per HPI Reports as per HPI Psychiatric: Reports as per HPI Endocrine: Reports as per HPI Hematologic/Lymphatic: Reports as per HPI Allergic/Immunologic: Reports as per HPI Mental Status Exam Mental Status Exam Narrative: Pt is alert and oriented; behavior is cooperative and calm; dressed in casual attire; mood is described as better ; eye contact appropriate; Speech is normal rate, volume and prosody and not pressured; thought process is organized and goal directed; Thought content is on tx; otherwise pertinent to relevant topics and without any delusional content, paranoid ideations or grandiosity; denies HI/VH/AH. Passive SI. Diagnostics Vital Signs (24Hr): Vital Signs - 24 hr 11/15/23 18:00 11/16/23 08:05 Temperature 97.8 F Pulse Rate 94 Respiratory Rate 16 16 Blood Pressure 121/73 Pulse Oximetry 98 Oxygen Delivery Method Room Air BMI result Body Mass Index 33.4 Labs 11/13/23 09:00 11/13/23 09:00 Labs: Laboratory Results - last 48 hr 11/14/23 07:27 Hepatitis A IgM Ab Nonreactive Hep Bs Antigen Negative Hep Bs Antibody REACTIVE Hep B Core Total Ab Nonreactive Hepatitis C Ab (EIA) Reactive H HIV 1&2 Ab/P24 Ag 4thGn Nonreactive Medications Medications Current Medications Acetaminophen (Acetaminophen 325 Mg Tablet) 650 mg PO Q6H PRN PRN Reason: Headache/Pain Mild Scale (1-3) Al Hydroxide/Mg Hydroxide (Magnesium Hydrox/Alum Hydrox 30 Ml Oral.Susp) 30 ml PO Q6H PRN PRN Reason: Heartburn/Nausea Last Admin: 11/13/23 14:00 Dose: 30 ml Aripiprazole (Aripiprazole 2 Mg Tablet) 2 mg PO BEDTIME [facility] Last Admin: 11/15/23 21:16 Dose: 2 mg Clonazepam (Clonazepam 1 Mg Tablet) 1 mg PO BID@0800,1500 [facility] Last Admin: 11/16/23 06:56 Dose: 1 mg Diphenhydramine HCl (Diphenhydramine Hcl 12.5 Mg/5 Ml Liquid) 12.5 mg PO Q4H PRN PRN Reason: Cold Symptoms Duloxetine HCl (Duloxetine Hcl 60 Mg Capsule.Dr) 60 mg PO DAILY [facility] Last Admin: 11/16/23 08:50 Dose: 60 mg Guaifenesin/Dextromethorphan (Guaifenesin Dm 100/10/5 Ml 5 Ml Syrup) 5 ml PO Q6H PRN PRN Reason: Cold Symptoms Last Admin: 11/15/23 10:36 Dose: 5 ml Hydroxyzine HCl (Hydroxyzine Hcl 25 Mg Tablet) 25 mg PO Q6H PRN PRN Reason: Anxiety Magnesium Hydroxide (Milk Of Magnesia 30 Ml Oral.Susp) 30 ml PO DAILY PRN PRN Reason: Constipation Methadone HCl (Methadone Hcl 20 Mg/2 Ml Oral.Conc) 65 mg PO DAILY@0630 [facility] Last Admin: 11/16/23 05:57 Dose: 65 mg Nicotine Polacrilex (Nicotine Polacrilex 2 Mg Gum) 4 mg BUCCAL Q2H PRN PRN Reason: Nicotine Cravings Trazodone HCl (Trazodone Hcl 50 Mg Tablet) 50 mg PO BEDTIME MRX1 PRN PRN Reason: Insomnia Allergies Allergies Allergy/AdvReac Type Severity Reaction Status Date / Time No Known Allergies Allergy Verified 11/12/23 07:58 Assessment & Plan Assessment & Plan (1) MDD (major depressive disorder), recurrent episode: Status: Acute Code(s): F33.9 - Major depressive disorder, recurrent, unspecified (2) PTSD (post-traumatic stress disorder): Status: Acute Code(s): F43.10 - Post-traumatic stress disorder, unspecified (3) Opiate use: Status: Acute Code(s): F11.90 - Opioid use, unspecified, uncomplicated (4) Cocaine abuse: Status: Acute Code(s): F14.10 - Cocaine abuse, uncomplicated Plan Patient is a 28 year old male with hx of MDD, PTSD, opiate use d/o and cocaine use d/o who self presented to [facility] ER after suicide attempt via Fentanyl secondary to increased depressive symptoms. 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 HIV/Hep C testing; labs ordered for tomorrow morning discharge planning 11/13 will dc wellbutrin trial abilify 2mg daily- 11/15: Active on unit. Pt focused on increase of methadone; Elaine Tucker NP from addiction medicine saw pt, please see note. Methadone dose increased to 75mg PO daily. Pt reports feeling a little better ; pt stated, my mom and dad visited me and we were able to talk about what goes on in my head. They really just want to help me. They are going to pay for me to do sober living . pt denies HI/VH/AH. He continues to report passive SI; pt stated, I still feel like I wouldn't care if I didn't wake up . Patient educated on: diagnosis, medication risk/benefits and therapeutic strategies Informed Consent: understands Reason for continued inpatient stay Substantial Risk for: med/psych decompensation Time Spent With Patient Time: Total time managing care of this patient today _20___ minutes.
[2023-11-16] MEDS: Acetaminophen 325 MG TABLET 650 MG PO (10:59)
[2023-11-16] MEDS: Loperamide HCl 2 MG CAPSULE 4 MG PO (11:00)
--- NOTE | 2023-11-16 11:29 | HO.ADDICTCON ---
History of Present Illness Date of Service: 11/16/23 Chief Complaint: Crisis - SI w/ attempt HPI Narrative: Patient is a 28 year old male psychiatrically admitted with worsening depression and intentional fentanyl overdose. Consult requested as patient was reporting withdrawal sx to RN and requesting methadone dose increase. Chart reviewed, including [place]. Last dose of methadone verified as being administered on 11/09, [place] [facility] [place] on M3, in group room. Alert, engaged in interview, blunted affect. He reports he has been on methadone on and off for some time, and most recently was at 130mg, but decided to taper dose to 100mg (unclear why). He reports [facility] and was started on buprenorphine using low dose induciton while on methadone. He then received Sublocade injeciton prior to discharge. He states that he does not like the injection (pain during and after injection) and required additional buprenorphine for several days after. He was scheduled to recieve second injection mid october, but did not present for it. Shortly after that he presented to [facility] and restarted methadone at that time. He is currently reporting feeling hot and cold, nausea, loose stools, body aches and poor sleep. He appears slightly diaphoretic during interview. Today received 65mg in AM. Past Psychiatric History: Pt reports 2 prior psychiatric inpatient hospitalizations d/t SI attempts. (once in his teens and second in 2021 at [facility] in [place]). hx of detox and CSS. [facility] Review of Systems Constitutional: Reports as per HPI Diagnostics Vital Signs (24Hr): Vital Signs - 24 hr 11/15/23 18:00 11/16/23 08:05 Temperature 97.8 F Pulse Rate 94 Respiratory Rate 16 16 Blood Pressure 121/73 Pulse Oximetry 98 Oxygen Delivery Method Room Air BMI result Body Mass Index 33.4 Labs 11/13/23 09:00 11/13/23 09:00 Labs: Laboratory Results - last 48 hr 11/14/23 07:27 Hepatitis A IgM Ab Nonreactive Hep Bs Antigen Negative Hep Bs Antibody REACTIVE Hep B Core Total Ab Nonreactive Hepatitis C Ab (EIA) Reactive H HIV 1&2 Ab/P24 Ag 4thGn Nonreactive Mental Status Exam Mental Status Exam Patient Appearance: Perspiring Level of Consciousness: Awake, Appropriate and Alert Patient Behavior: Appropriate Mood Description: Calm and Blunted Affect Description: Blunted Speech Pattern: Clear Medications Medications Current Medications Acetaminophen (Acetaminophen 325 Mg Tablet) 650 mg PO Q6H PRN PRN Reason: Headache/Pain Mild Scale (1-3) Last Admin: 11/16/23 10:59 Dose: 650 mg Al Hydroxide/Mg Hydroxide (Magnesium Hydrox/Alum Hydrox 30 Ml Oral.Susp) 30 ml PO Q6H PRN PRN Reason: Heartburn/Nausea Last Admin: 11/13/23 14:00 Dose: 30 ml Aripiprazole (Aripiprazole 2 Mg Tablet) 2 mg PO BEDTIME [facility] Last Admin: 11/15/23 21:16 Dose: 2 mg Clonazepam (Clonazepam 1 Mg Tablet) 1 mg PO BID@0800,1500 [facility] Last Admin: 11/16/23 06:56 Dose: 1 mg Diphenhydramine HCl (Diphenhydramine Hcl 12.5 Mg/5 Ml Liquid) 12.5 mg PO Q4H PRN PRN Reason: Cold Symptoms Duloxetine HCl (Duloxetine Hcl 60 Mg Capsule.Dr) 60 mg PO DAILY [facility] Last Admin: 11/16/23 08:50 Dose: 60 mg Guaifenesin/Dextromethorphan (Guaifenesin Dm 100/10/5 Ml 5 Ml Syrup) 5 ml PO Q6H PRN PRN Reason: Cold Symptoms Last Admin: 11/15/23 10:36 Dose: 5 ml Hydroxyzine HCl (Hydroxyzine Hcl 25 Mg Tablet) 25 mg PO Q6H PRN PRN Reason: Anxiety Loperamide HCl (Loperamide Hcl 2 Mg Capsule) 4 mg PO Q4H PRN PRN Reason: Loose Stool Last Admin: 11/16/23 11:00 Dose: 4 mg Magnesium Hydroxide (Milk Of Magnesia 30 Ml Oral.Susp) 30 ml PO DAILY PRN PRN Reason: Constipation Methadone HCl (Methadone Hcl 20 Mg/2 Ml Oral.Conc) 65 mg PO DAILY@0630 [facility] Last Admin: 11/16/23 05:57 Dose: 65 mg Nicotine Polacrilex (Nicotine Polacrilex 2 Mg Gum) 4 mg BUCCAL Q2H PRN PRN Reason: Nicotine Cravings Trazodone HCl (Trazodone Hcl 50 Mg Tablet) 50 mg PO BEDTIME MRX1 PRN PRN Reason: Insomnia Allergies Allergies Allergy/AdvReac Type Severity Reaction Status Date / Time No Known Allergies Allergy Verified 11/12/23 07:58 Assessment & Plan Assessment & Plan (1) Opioid use disorder: Status: Acute Code(s): F11.90 - Opioid use, unspecified, uncomplicated Assessment and Plan: increase methadone dose to 75mg daily--hold here for 3 days before increasing again additional 10mg today encourage comfort medications for sx as reported by patient patient reports he would like to continue with [facility] following discharge Total time managing care of this patient today ____ minutes. PMFSH Social History Social History Household Members: None Housing: Homeless Do you presently have visiting nurse or other home services: No Patient Tobacco Use Status: Current everyday Tobacco user Tobacco use type: Cigarette Cigarettes Per Day: 10 Smoked in Last 30 Days: Yes e-Cigarette/Vaping Use: Never Used Patient Interested in Nicotine Replacement: Yes Patient Given Instructions on How to Stop Smoking: No Second Hand Smoke Exposure: No Use of substances other than those prescribed or required for medical reasons: Yes Substance Use Type: Crack/Cocaine, Heroin, IV Drugs and Opiates Substance Use Frequency: Recent Binge Last Used Substance: Just Prior to Admission Last Used Substance Other:: Cocain, crack, heroin/fentanyl Currently Displaying Signs/Symptoms of Drug Intoxication Withdrawal: No Any prior treatment program specific to substance use: Yes Have you been hit, kicked, punched, or otherwise hurt by someone within the past year? If so, by whom?: No Do you feel safe in your current relationship?: No Current Relationship Is there a partner from a previous relationship who is making you feel unsafe now?: No Are you made to feel afraid or neglected: No Spiritual Healthcare Practices: none reported Orthodox Healthcare Practices: none reported Cultural Healthcare Practices: none reported Advance Directives: No Advance Directives Information Provided: No Do you have thoughts of harming others: None Do you have a plan to hurt others: No Plan Recently lost weight without trying: Unsure Eating poorly because of decreased appetite: No Nutrition Risks: No Nutritional Risk Poor oral hygiene: Yes service: No Sexual orientation: Straight/Heterosexual
[2023-11-16] MEDS: methADONE HCl 20 MG/2 ML ORAL.CONC 10 MG PO (13:15)
[2023-11-16 19:55] VITALS: BP 132/79; PULSE 102; RESP 16; TEMP 36.3; O2SAT 97
[2023-11-16] MEDS: ARIPiprazole 2 MG TABLET PO (21:19)
[2023-11-17] MEDS: methADONE HCl 20 MG/2 ML ORAL.CONC 75 MG PO (06:23)
[2023-11-17] MEDS: clonazePAM 1 MG TABLET PO ×2 (06:57→14:22)
[2023-11-17] MEDS: guaiFENesin DM 100/10/5 ML 5 ML SYRUP PO (06:57)
[2023-11-17 07:45] VITALS: BP 119/71; PULSE 89; RESP 14; TEMP 37.2; O2SAT 96
[2023-11-17] MEDS: DULoxetine HCl 60 MG CAPSULE.DR PO (08:28)
--- NOTE | 2023-11-17 08:58 | HO.PSYCHPN ---
Subjective Subjective Date of Service: 11/17/23 Reason For Visit: Crisis - SI w/ attempt Subjective Notes: Conditional Voluntary Interim History: Reviewed with Dr. Babcock. Pt reports feeling okay today; pt stated, I don't want to go to the [facility]. My mom is going to call some sober houses to see if she can get me in. If not, my parents will pay for a hotel room until there's an open bed . Pt denies SI/HI/VH/AH. Planning for discharge on Thursday if patient continues to improve in mood. Medication Compliance: Yes Side effects from medications: No Attending Groups: Intermittent Review of Systems Constitutional: Reports as per HPI Eyes: Reports as per HPI Reports as per HPI Cardiovascular: Reports as per HPI Respiratory: Reports as per HPI Gastrointestinal: Reports as per HPI Genitourinary: Reports as per HPI Musculoskeletal: Reports as per HPI Skin/Breast: Reports as per HPI Reports as per HPI Psychiatric: Reports as per HPI Endocrine: Reports as per HPI Hematologic/Lymphatic: Reports as per HPI Allergic/Immunologic: Reports as per HPI Mental Status Exam Mental Status Exam Narrative: Pt is alert and oriented; behavior is cooperative and calm; dressed in casual attire; mood is described as okay ; eye contact appropriate; Speech is normal rate, volume and prosody and not pressured; thought process is organized and goal directed; Thought content is on tx; otherwise pertinent to relevant topics and without any delusional content, paranoid ideations or grandiosity; denies SI/HI/VH/AH. Diagnostics Vital Signs (24Hr): Vital Signs - 24 hr 11/16/23 19:55 11/17/23 07:45 Temperature 97.3 F 98.9 F Pulse Rate 102 H 89 Respiratory Rate 16 14 Blood Pressure 132/79 119/71 Pulse Oximetry 97 96 Oxygen Delivery Method Room Air Room Air BMI result Body Mass Index 33.4 Labs 11/13/23 09:00 11/13/23 09:00 Labs: Laboratory Results - last 48 hr 11/14/23 07:27 Hepatitis A IgM Ab Nonreactive Hep Bs Antigen Negative Hep Bs Antibody REACTIVE Hep B Core Total Ab Nonreactive Hepatitis C Ab (EIA) Reactive H HIV 1&2 Ab/P24 Ag 4thGn Nonreactive Medications Medications Current Medications Acetaminophen (Acetaminophen 325 Mg Tablet) 650 mg PO Q6H PRN PRN Reason: Headache/Pain Mild Scale (1-3) Last Admin: 11/16/23 10:59 Dose: 650 mg Al Hydroxide/Mg Hydroxide (Magnesium Hydrox/Alum Hydrox 30 Ml Oral.Susp) 30 ml PO Q6H PRN PRN Reason: Heartburn/Nausea Last Admin: 11/13/23 14:00 Dose: 30 ml Aripiprazole (Aripiprazole 2 Mg Tablet) 2 mg PO BEDTIME [facility] Last Admin: 11/16/23 21:19 Dose: 2 mg Clonazepam (Clonazepam 1 Mg Tablet) 1 mg PO BID@0800,1500 [facility] Last Admin: 11/17/23 06:57 Dose: 1 mg Diphenhydramine HCl (Diphenhydramine Hcl 12.5 Mg/5 Ml Liquid) 12.5 mg PO Q4H PRN PRN Reason: Cold Symptoms Duloxetine HCl (Duloxetine Hcl 60 Mg Capsule.Dr) 60 mg PO DAILY [facility] Last Admin: 11/17/23 08:28 Dose: 60 mg Guaifenesin/Dextromethorphan (Guaifenesin Dm 100/10/5 Ml 5 Ml Syrup) 5 ml PO Q6H PRN PRN Reason: Cold Symptoms Last Admin: 11/17/23 06:57 Dose: 5 ml Hydroxyzine HCl (Hydroxyzine Hcl 25 Mg Tablet) 25 mg PO Q6H PRN PRN Reason: Anxiety Loperamide HCl (Loperamide Hcl 2 Mg Capsule) 4 mg PO Q4H PRN PRN Reason: Loose Stool Last Admin: 11/16/23 11:00 Dose: 4 mg Magnesium Hydroxide (Milk Of Magnesia 30 Ml Oral.Susp) 30 ml PO DAILY PRN PRN Reason: Constipation Methadone HCl (Methadone Hcl 20 Mg/2 Ml Oral.Conc) 75 mg PO DAILY@0630 [facility] Last Admin: 11/17/23 06:23 Dose: 75 mg Nicotine Polacrilex (Nicotine Polacrilex 2 Mg Gum) 4 mg BUCCAL Q2H PRN PRN Reason: Nicotine Cravings Trazodone HCl (Trazodone Hcl 50 Mg Tablet) 50 mg PO BEDTIME MRX1 PRN PRN Reason: Insomnia Allergies Allergies Allergy/AdvReac Type Severity Reaction Status Date / Time No Known Allergies Allergy Verified 11/12/23 07:58 Assessment & Plan Assessment & Plan (1) MDD (major depressive disorder), recurrent episode: Status: Acute Code(s): F33.9 - Major depressive disorder, recurrent, unspecified (2) PTSD (post-traumatic stress disorder): Status: Acute Code(s): F43.10 - Post-traumatic stress disorder, unspecified (3) Opioid use disorder: Status: Acute Code(s): F11.90 - Opioid use, unspecified, uncomplicated Assessment and Plan: increase methadone dose to 75mg daily--hold here for 3 days before increasing again additional 10mg today encourage comfort medications for sx as reported by patient patient reports he would like to continue with [facility] following discharge (4) Cocaine abuse: Status: Acute Code(s): F14.10 - Cocaine abuse, uncomplicated Plan Patient is a 28 year old male with hx of MDD, PTSD, opiate use d/o and cocaine use d/o who self presented to [facility] after suicide attempt via Fentanyl secondary to increased depressive symptoms. Plan: CV 15 minute safety checks Continue home medications Start: Wellbutrin XL 150mg PO daily referral to outpatient therapist consult for organ recovery coordinator; addiction medicine consult. HIV/Hep C testing; labs ordered for tomorrow morning discharge planning 11/13 will dc wellbutrin trial abilify 2mg daily- 11/15: Active on unit. Pt focused on increase of methadone; Elaine Tucker NP from addiction medicine saw pt, please see note. Methadone dose increased to 75mg PO daily. Pt reports feeling a little better ; pt stated, my mom and dad visited me and we were able to talk about what goes on in my head. They really just want to help me. They are going to pay for me to do sober living . pt denies HI/VH/AH. He continues to report passive SI; pt stated, I still feel like I wouldn't care if I didn't wake up . 11/16: Pt reports feeling okay today; pt stated, I don't want to go to the [facility]. My mom is going to call some sober houses to see if she can get me in. If not, my parents will pay for a hotel room until there's an open bed . Pt denies SI/HI/VH/AH. Planning for discharge on Thursday if patient continues to improve in mood. Patient educated on: diagnosis, medication risk/benefits, substance abuse and therapeutic strategies Informed Consent: understands Reason for continued inpatient stay Substantial Risk for: med/psych decompensation Time Spent With Patient Time: Total time managing care of this patient today _20___ minutes.
--- NOTE | 2023-11-17 16:15 | MHC.RECOVRN ---
school standards coach attempted to meet with pt on 11/15, pt declined.
[2023-11-17] MEDS: ARIPiprazole 2 MG TABLET PO (21:24)
[2023-11-17 21:27] VITALS: RESP 16
[2023-11-18] MEDS: methADONE HCl 20 MG/2 ML ORAL.CONC 75 MG PO (06:36)
[2023-11-18] MEDS: clonazePAM 1 MG TABLET PO ×2 (07:00→14:22)
[2023-11-18 07:37] VITALS: BP 125/71; PULSE 79; RESP 18; TEMP 36.7; O2SAT 98
[2023-11-18] MEDS: DULoxetine HCl 60 MG CAPSULE.DR PO (08:14)
--- NOTE | 2023-11-18 09:18 | P.PNPSI_ITS ---
Subjective Subjective Date of Service: 11/18/23 Reason For Visit: Crisis - SI w/ attempt Subjective Notes: Conditional Voluntary Interim History: Reviewed with Dr. Barnett. Pt reports feeling okay today; pt stated, I definitly feel better . pt reports sleeping and eating well. Per social welfare clerkShayla, pt has three phone intakes with sober living homes. pt reports he is hoping to be accepted by one of the homes; pt stated, If I don't get placed then I'll go to a senior living and wait for a bed at one of those places . Pt denies SI/HI/VH/AH. Medication Compliance: Yes Side effects from medications: No Attending Groups: No Review of Systems Constitutional: Reports as per HPI Eyes: Reports as per HPI Reports as per HPI Cardiovascular: Reports as per HPI Respiratory: Reports as per HPI Gastrointestinal: Reports as per HPI Genitourinary: Reports as per HPI Musculoskeletal: Reports as per HPI Skin/Breast: Reports as per HPI Reports as per HPI Psychiatric: Reports as per HPI Endocrine: Reports as per HPI Hematologic/Lymphatic: Reports as per HPI Allergic/Immunologic: Reports as per HPI Mental Status Exam Mental Status Exam Narrative: Pt is alert and oriented; behavior is cooperative and calm; dressed in casual attire; mood is described as okay ; eye contact appropriate; Speech is normal rate, volume and prosody and not pressured; thought process is organized and goal directed; Thought content is on tx; otherwise pertinent to relevant topics and without any delusional content, paranoid ideations or grandiosity; denies SI/HI/VH/AH. Diagnostics Vital Signs (24Hr): Vital Signs - 24 hr 11/17/23 21:27 11/18/23 07:37 Temperature 98.0 F Pulse Rate 79 Respiratory Rate 16 18 Blood Pressure 125/71 Pulse Oximetry 98 Oxygen Delivery Method Room Air BMI result Body Mass Index 33.4 Labs 11/13/23 09:00 11/13/23 09:00 Medications Medications Current Medications Acetaminophen (Acetaminophen 325 Mg Tablet) 650 mg PO Q6H PRN PRN Reason: Headache/Pain Mild Scale (1-3) Last Admin: 11/16/23 10:59 Dose: 650 mg Al Hydroxide/Mg Hydroxide (Magnesium Hydrox/Alum Hydrox 30 Ml Oral.Susp) 30 ml PO Q6H PRN PRN Reason: Heartburn/Nausea Last Admin: 11/13/23 14:00 Dose: 30 ml Aripiprazole (Aripiprazole 2 Mg Tablet) 2 mg PO BEDTIME [facility] Last Admin: 11/17/23 21:24 Dose: 2 mg Clonazepam (Clonazepam 1 Mg Tablet) 1 mg PO BID@0800,1500 [facility] Last Admin: 11/18/23 07:00 Dose: 1 mg Diphenhydramine HCl (Diphenhydramine Hcl 12.5 Mg/5 Ml Liquid) 12.5 mg PO Q4H PRN PRN Reason: Cold Symptoms Duloxetine HCl (Duloxetine Hcl 60 Mg Capsule.Dr) 60 mg PO DAILY [facility] Last Admin: 11/18/23 08:14 Dose: 60 mg Guaifenesin/Dextromethorphan (Guaifenesin Dm 100/10/5 Ml 5 Ml Syrup) 5 ml PO Q6H PRN PRN Reason: Cold Symptoms Last Admin: 11/17/23 06:57 Dose: 5 ml Hydroxyzine HCl (Hydroxyzine Hcl 25 Mg Tablet) 25 mg PO Q6H PRN PRN Reason: Anxiety Loperamide HCl (Loperamide Hcl 2 Mg Capsule) 4 mg PO Q4H PRN PRN Reason: Loose Stool Last Admin: 11/16/23 11:00 Dose: 4 mg Magnesium Hydroxide (Milk Of Magnesia 30 Ml Oral.Susp) 30 ml PO DAILY PRN PRN Reason: Constipation Methadone HCl (Methadone Hcl 20 Mg/2 Ml Oral.Conc) 75 mg PO DAILY@0630 [facility] Last Admin: 11/18/23 06:36 Dose: 75 mg Nicotine Polacrilex (Nicotine Polacrilex 2 Mg Gum) 4 mg BUCCAL Q2H PRN PRN Reason: Nicotine Cravings Trazodone HCl (Trazodone Hcl 50 Mg Tablet) 50 mg PO BEDTIME MRX1 PRN PRN Reason: Insomnia Allergies Allergies Allergy/AdvReac Type Severity Reaction Status Date / Time No Known Allergies Allergy Verified 11/12/23 07:58 Assessment & Plan Assessment & Plan (1) MDD (major depressive disorder), recurrent episode: Status: Acute Code(s): F33.9 - Major depressive disorder, recurrent, unspecified (2) PTSD (post-traumatic stress disorder): Status: Acute Code(s): F43.10 - Post-traumatic stress disorder, unspecified (3) Opioid use disorder: Status: Acute Code(s): F11.90 - Opioid use, unspecified, uncomplicated Assessment and Plan: * increase methadone dose to 75mg daily--hold here for 3 days before increasing again * additional 10mg today * encourage comfort medications for sx as reported by patient * patient reports he would like to continue with [facility] following discharge (4) Cocaine abuse: Status: Acute Code(s): F14.10 - Cocaine abuse, uncomplicated Plan Patient is a 28 year old male with hx of MDD, PTSD, opiate use d/o and cocaine use d/o who self presented to [facility] after suicide attempt via Fentanyl secondary to increased depressive symptoms. Plan: CV 15 minute safety checks Continue home medications Start: Wellbutrin XL 150mg PO daily referral to outpatient therapist consult for assistant coach; addiction medicine consult. HIV/Hep C testing; labs ordered for tomorrow morning discharge planning 11/13 will dc wellbutrin trial abilify 2mg daily- 11/15: Active on unit. Pt focused on increase of methadone; Elaine Tucker NP from addiction medicine saw pt, please see note. Methadone dose increased to 75mg PO daily. Pt reports feeling a little better ; pt stated, my mom and dad visited me and we were able to talk about what goes on in my head. They really just want to help me. They are going to pay for me to do sober living . pt denies HI/VH/AH. He continues to report passive SI; pt stated, I still feel like I wouldn't care if I didn't wake up . 11/16: Pt reports feeling okay today; pt stated, I don't want to go to the [facility]. My mom is going to call some sober houses to see if she can get me in. If not, my parents will pay for a hotel room until there's an open bed . Pt denies SI/HI/VH/AH. Planning for discharge on Thursday if patient continues to improve in mood. 11/17: Pt reports feeling okay today; pt stated, I definitly feel better . pt reports sleeping and eating well. Per social welfare clerk, Shayla, pt has three phone intakes with sober living homes. pt reports he is hoping to be accepted by one of the homes; pt stated, If I don't get placed then I'll go to a senior living and wait for a bed at one of those places . Pt denies SI/HI/VH/AH. Patient educated on: diagnosis, medication risk/benefits and substance abuse Informed Consent: understands Reason for continued inpatient stay Substantial Risk for: med/psych decompensation Time Spent With Patient Time: Total time managing care of this patient today _20___ minutes.
[2023-11-18] MEDS: ARIPiprazole 2 MG TABLET PO (21:36)
[2023-11-18 21:45] VITALS: RESP 18
[2023-11-19 06:00] VITALS: BP 116/67; PULSE 83; RESP 18; TEMP 36.9; O2SAT 97
[2023-11-19] MEDS: clonazePAM 1 MG TABLET PO ×2 (06:55→14:03)
[2023-11-19] MEDS: methADONE HCl 20 MG/2 ML ORAL.CONC 80 MG PO (06:55)
[2023-11-19] MEDS: DULoxetine HCl 60 MG CAPSULE.DR PO (08:19)
--- NOTE | 2023-11-19 12:46 | P.PNPSI_ITS ---
Subjective Subjective Date of Service: 11/19/23 Reason For Visit: Crisis - SI w/ attempt Subjective Notes: Conditional Voluntary Interim History: Reviewed with Dr. Babcock. Pt reports feeling good ; pt stated, I did a phone intake with [facility] and they said a bed would likely be available on the , so I will have to call them again. [facility] and go to meetings everyday until then . Pt reports he plans on following up with his outpatient providers. Pt denies SI/HI/VH/AH. Medication Compliance: Yes Side effects from medications: No Attending Groups: No Review of Systems Constitutional: Reports as per HPI Eyes: Reports as per HPI Reports as per HPI Cardiovascular: Reports as per HPI Respiratory: Reports as per HPI Gastrointestinal: Reports as per HPI Genitourinary: Reports as per HPI Musculoskeletal: Reports as per HPI Skin/Breast: Reports as per HPI Reports as per HPI Psychiatric: Reports as per HPI Endocrine: Reports as per HPI Hematologic/Lymphatic: Reports as per HPI Allergic/Immunologic: Reports as per HPI Mental Status Exam Mental Status Exam Narrative: Pt is alert and oriented; behavior is cooperative and calm; dressed in casual attire; mood is described as good ; eye contact appropriate; Speech is normal rate, volume and prosody and not pressured; thought process is organized and goal directed; Thought content is on tx; otherwise pertinent to relevant topics and without any delusional content, paranoid ideations or grandiosity; denies SI/HI/VH/AH. Diagnostics Vital Signs (24Hr): Vital Signs - 24 hr 11/18/23 21:45 11/19/23 06:00 Temperature 98.4 F Pulse Rate 83 Respiratory Rate 18 18 Blood Pressure 116/67 Pulse Oximetry 97 Oxygen Delivery Method Room Air BMI result Body Mass Index 33.4 Labs 11/13/23 09:00 11/13/23 09:00 Medications Medications Current Medications Acetaminophen (Acetaminophen 325 Mg Tablet) 650 mg PO Q6H PRN PRN Reason: Headache/Pain Mild Scale (1-3) Last Admin: 11/16/23 10:59 Dose: 650 mg Al Hydroxide/Mg Hydroxide (Magnesium Hydrox/Alum Hydrox 30 Ml Oral.Susp) 30 ml PO Q6H PRN PRN Reason: Heartburn/Nausea Last Admin: 11/13/23 14:00 Dose: 30 ml Aripiprazole (Aripiprazole 2 Mg Tablet) 2 mg PO BEDTIME [facility] Last Admin: 11/18/23 21:36 Dose: 2 mg Clonazepam (Clonazepam 1 Mg Tablet) 1 mg PO BID@0800,1500 [facility] Last Admin: 11/19/23 06:55 Dose: 1 mg Diphenhydramine HCl (Diphenhydramine Hcl 12.5 Mg/5 Ml Liquid) 12.5 mg PO Q4H PRN PRN Reason: Cold Symptoms Duloxetine HCl (Duloxetine Hcl 60 Mg Capsule.Dr) 60 mg PO DAILY [facility] Last Admin: 11/19/23 08:19 Dose: 60 mg Guaifenesin/Dextromethorphan (Guaifenesin Dm 100/10/5 Ml 5 Ml Syrup) 5 ml PO Q6H PRN PRN Reason: Cold Symptoms Last Admin: 11/17/23 06:57 Dose: 5 ml Hydroxyzine HCl (Hydroxyzine Hcl 25 Mg Tablet) 25 mg PO Q6H PRN PRN Reason: Anxiety Loperamide HCl (Loperamide Hcl 2 Mg Capsule) 4 mg PO Q4H PRN PRN Reason: Loose Stool Last Admin: 11/16/23 11:00 Dose: 4 mg Magnesium Hydroxide (Milk Of Magnesia 30 Ml Oral.Susp) 30 ml PO DAILY PRN PRN Reason: Constipation Methadone HCl (Methadone Hcl 20 Mg/2 Ml Oral.Conc) 80 mg PO DAILY@0630 [facility] Last Admin: 11/19/23 06:55 Dose: 80 mg Nicotine Polacrilex (Nicotine Polacrilex 2 Mg Gum) 4 mg BUCCAL Q2H PRN PRN Reason: Nicotine Cravings Trazodone HCl (Trazodone Hcl 50 Mg Tablet) 50 mg PO BEDTIME MRX1 PRN PRN Reason: Insomnia Allergies Allergies Allergy/AdvReac Type Severity Reaction Status Date / Time No Known Allergies Allergy Verified 11/12/23 07:58 Assessment & Plan Assessment & Plan (1) MDD (major depressive disorder), recurrent episode: Status: Acute Code(s): F33.9 - Major depressive disorder, recurrent, unspecified (2) PTSD (post-traumatic stress disorder): Status: Acute Code(s): F43.10 - Post-traumatic stress disorder, unspecified (3) Opioid use disorder: Status: Acute Code(s): F11.90 - Opioid use, unspecified, uncomplicated Assessment and Plan: * increase methadone dose to 75mg daily--hold here for 3 days before increasing again * additional 10mg today * encourage comfort medications for sx as reported by patient * patient reports he would like to continue with [facility] following discharge (4) Cocaine abuse: Status: Acute Code(s): F14.10 - Cocaine abuse, uncomplicated Plan Patient is a 28 year old male with hx of MDD, PTSD, opiate use d/o and cocaine use d/o who self presented to [facility] after suicide attempt via Fentanyl secondary to increased depressive symptoms. 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 HIV/Hep C testing; labs ordered for tomorrow morning discharge planning 11/13 will dc wellbutrin trial abilify 2mg daily- 11/15: Active on unit. Pt focused on increase of methadone; Elaine Tucker NP from addiction medicine saw pt, please see note. Methadone dose increased to 75mg PO daily. Pt reports feeling a little better ; pt stated, my mom and dad visited me and we were able to talk about what goes on in my head. They really just want to help me. They are going to pay for me to do sober living . pt denies HI/VH/AH. He continues to report passive SI; pt stated, I still feel like I wouldn't care if I didn't wake up . 11/16: Pt reports feeling okay today; pt stated, I don't want to go to the [facility]. My mom is going to call some sober houses to see if she can get me in. If not, my parents will pay for a hotel room until there's an open bed . Pt denies SI/HI/VH/AH. Planning for discharge on Thursday if patient continues to improve in mood. 11/17: Pt reports feeling okay today; pt stated, I definitly feel better . pt reports sleeping and eating well. Per social service assistantShayla, pt has three phone intakes with sober living homes. pt reports he is hoping to be accepted by one of the homes; pt stated, If I don't get placed then I'll go to a [facility] and wait for a bed at one of those places . Pt denies SI/HI/VH/AH. 11/18: Pt reports feeling good ; pt stated, I did a phone intake with [facility] and they said a bed would likely be available on the , so I will have to call them again. I'm going to stay [facility] the [facility] and go to meetings everyday until then . Pt reports he plans on following up with his outpatient providers. Pt denies SI/HI/VH/AH. Patient educated on: diagnosis, medication risk/benefits, substance abuse and therapeutic strategies Informed Consent: understands Reason for continued inpatient stay Substantial Risk for: stable for discharge Time Spent With Patient Time: Total time managing care of this patient today _20___ minutes.
[2023-11-19 15:33] LABS: Amphetamine Screen Urine Not Detected (Not Detect); Barbiturates, Urine Not Detected (Not Detect); Benzodiazepines Screen Urine POSITIVE (Not Detect); Cannabinoid Screen Urine Not Detected (Not Detect); Cocaine Screen Urine Not Detected (Not Detect); Fentanyl, urine POSITIVE (Not Detect); Opiate Screen Urine Not Detected (Not Detect); Phencyclidine Screen Urine Not Detected (Not Detect)
--- NOTE | 2023-11-19 15:59 | MHC.RECOVRN ---
Met with pt in 324-2 to follow up and provide support.? Pt awake, alert, easily engages in conversation. Pt reports feeling better, following the methadone increase to 80mg this AM, however, is still experiencing withdrawal symptoms including sweats/chills, restless legs, body aches 6/10, interrupted sleep, using dreams and cravings. Pt is being D/C tomorrow and is staying at the prison x [facility] week until he can get into sober living. COWS assessment was a 10 during my visit. BP was 129/83 and HR was 101. Pt very concerned about relapse while being at the prison. Elaine Tucker, OPERATIONAL INTELLIGENCE ANALYST consulted and recommends 85mg methadone tomorrow AM. T/W requested this from provider Dr. Babcock who stated his OPERATIONAL INTELLIGENCE ANALYST will order. Pt and Pt's nurse Carmichael informed of med change. Pt was also provided with community resources to access while at prison (during the day) to decrease exposure to triggers. Pt denies other concerns at this time.? T/w available as needed. Report provided to pt's nurse Carmichael and to ACS team.
[2023-11-19 20:45] VITALS: RESP 18
[2023-11-19] MEDS: ARIPiprazole 2 MG TABLET PO (21:02)
[2023-11-20 06:00] VITALS: BP 122/67; PULSE 105; RESP 16; TEMP 36.9; O2SAT 97
[2023-11-20] MEDS: methADONE HCl 20 MG/2 ML ORAL.CONC 85 MG PO (06:56)
[2023-11-20] MEDS: clonazePAM 1 MG TABLET PO (06:56)
[2023-11-20] MEDS: DULoxetine HCl 60 MG CAPSULE.DR PO (08:18)
--- NOTE | 2023-11-20 09:21 | P.DS_ITS ---
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 Has provider been notified: Yes Attending physician on discharge: Yayo Babcock Discharging clinician: Sherrie Acosta DS: Diagnosis Discharge Diagnosis (1) MDD (major depressive disorder), recurrent episode: Status: Acute (2) PTSD (post-traumatic stress disorder): Status: Acute (3) Opioid use disorder: Status: Acute (4) Cocaine abuse: Status: Acute DS: Medications Discharge Medications Home Medications: Previous Rx's ?Medication ?Instructions ?Recorded aripiprazole 2 mg tablet (Abilify) 2 mg PO BEDTIME 14 days #14 tabs 11/19/23 clonazepam 1 mg tablet (Klonopin) 1 mg PO BID 7 days #14 tabs 11/19/23 duloxetine 60 mg capsule,delayed 60 mg PO DAILY 14 days #14 caps 11/19/23 release methadone 10 mg/mL oral concentrate 85 mg (8.5 mL) PO DAILY@0630 #0 mL 11/19/23 Mental Status Exam Mental Status Exam Narrative: Pt is alert and oriented; behavior is cooperative and calm; dressed in casual attire; mood is described as good ; eye contact appropriate; Speech is normal rate, volume and prosody and not pressured; thought process is organized and goal directed; Thought content is on tx; otherwise pertinent to relevant topics and without any delusional content, paranoid ideations or grandiosity; denies SI/HI/VH/AH. Data Data Completed and Pending Completed studies during hospitalization [Text1]: 11/13/23 11/14/23 11/19/23 09:00 07:27 14:50 WBC 6.3 RBC 4.25 L Hgb 13.0 L Hct 40.0 L MCV 94.1 MCH 30.6 MCHC 32.5 RDW 13.2 Plt Count 269 MPV 10.3 Immature Gran % (Auto) 1.7 H Neut % (Auto) 45.8 Lymph % (Auto) 29.6 [place] % (Auto) 15.3 H Eos % (Auto) 6.3 H Baso % (Auto) 1.3 Lymph # (Auto) 1.9 [place] # (Auto) 1.0 Eos # (Auto) 0.4 Baso # (Auto) 0.1 Abs Immat Gran (auto) 0.11 H Absolute Neuts (auto) 2.9 Absolute Nucleated RBC 0.000 Nucleated RBC % (auto) 0.0 Hold Purple Top SEE NOTE Sodium 141 Potassium 4.4 Chloride 106 Carbon Dioxide 29 Anion Gap 10 L BUN 15 Creatinine 0.71 Estim Creat Clear Calc 178.7 Estimated GFR > 60 Fasting Glucose 86 Calcium 9.3 Total Bilirubin 0.4 0.2 Direct Bilirubin 0.2 < 0.2 AST 189 H 108 H ALT 183 H 163 H Alkaline Phosphatase 72 76 Ammonia 57 H Total Protein 7.0 7.3 Albumin 3.8 3.9 Triglycerides 72 Cholesterol 148 LDL Cholesterol, Calc 93 HDL Cholesterol 41 TSH 0.58 Free T4 0.73 Urine Opiates Screen Not Detected Urine Fentanyl Screen POSITIVE H Ur Barbiturates Screen Not Detected Ur Phencyclidine Scrn Not Detected Ur Amphetamines Screen Not Detected U Benzodiazepines Scrn POSITIVE H Urine Cocaine Screen Not Detected U Marijuana (THC) Screen Not Detected Hepatitis A IgM Ab Nonreactive Hep Bs Antigen Negative Hep Bs Antibody REACTIVE Hep B Core Total Ab Nonreactive Hepatitis C Ab (EIA) Reactive H HIV 1&2 Ab/P24 Ag 4thGn Nonreactive DS: Summary Hospital Course Hospital Course: Patient is a 28 year old male with hx of MDD, PTSD, opiate use d/o and cocaine use d/o who self presented to [facility] ER after suicide attempt via Fentanyl seconda ry to increased depressive symptoms. Per crisis report, pt self presented to ER asking to be sectioned d/t not feeling safe and trying to intentionally overdose on Fentanyl but given Narcan by friend. Pt reported thoughts of wanting to overdose again and feels he has no reason to live anymore. Pt reported he has been couch surfing between his father's place and friends . During admission assessment, pt presents calm and cooperative. He reports increased depression over the last few days. Pt stated, the [employer] was working for a while but then I started feeling depressed again. I decided to use cocaine because I felt like I was getting no where in life. I can't keep a job or relationship. I don't have a good relationship with my family, other than my father . Pt reports he has been using cocaine daily for the past few days and decided to overdose on Fentanyl not to get high but to kill myself . Pt is upset that he has been taking Cymbalta for the past two months and started f eeling depressed again, pt stated, I used to take Zoloft but it made me into a zombie and I felt nothing . Pt reports suicidal ideation to overdose on substances. He denies HI/VH/AH. Pt reports he is interested in a medication adjustment and being referred to [facility] in [place], [place], where he has previously been treated for his substance abuse. 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 Pt requesting HIV/Hep C testing; labs ordered for tomorrow morning. Start: Wellbutrin XL 150mg PO daily; risks/benefits discussed. 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 HIV/Hep C testing; labs ordered for tomorrow morning discharge planning will dc wellbutrin trial abilify 2mg daily- Active on unit. Pt focused on increase of methadone; Elaine Tucker NP from addiction medicine saw pt, please see note. Methadone dose increased to 75mg PO daily. Pt reports feeling a little better ; pt stated, my mom and dad visited me and we were able to talk about what goes on in my head. They really just want to help me. They are going to pay for me to do sober living . pt denies HI/VH/AH. He continues to report passive SI; pt stated, I still feel like I wouldn't care if I didn't wake up . Pt reports feeling okay today; pt stated, I don't want to go to the [facility]. My mom is going to call some sober houses to see if she can get me in. If not, my parents will pay for a hotel room until there's an open bed . Pt denies SI/HI/VH/AH. Planning for discharge on Thursday if patient continues to improve in mood. Pt reports feeling okay today; pt stated, I definitely feel better . pt reports sleeping and eating well. Per home health care social worker, Shayla, pt has three phone intakes with sober living homes. pt reports he is hoping to be accepted by one of the homes; pt stated, If I don't get placed then I'll go to a assisted and wait for a bed at one of those places . Pt denies SI/HI/VH/AH. Pt reports feeling good ; pt stated, I did a phone intake with [facility] and they said a bed would likely be available on the , so I will have to call them again. I'm going to stay at the assisted and go to meetings everyday until then . Pt reports he plans on following up with his outpatient providers. Pt denies SI/HI/VH/AH. Time spent discussing smoking cessation with patient: 3 to 10 minutes Status at Discharge Cognitive/behavioral status at discharge: Patient was interviewed prior to discharge and found to be fully oriented and without any SI or HI. Patient has insight and demonstrates good judgment in terms of wanting to pursue treatment. Patient has a safety plan that includes presenting to the closest ER or calling 911 if feeling unsafe. Functional status at discharge: independent ambulation Overall status at discharge: patient is back to baseline Time Spent with Patient Time attestation: Total time managing care of this patient today _30___ minutes. Time spent: Less than 30 minutes Discharge Plan Discharge Anticipated Discharge Date/Time: 11/20/23 10:30 Patient Disposition: [facility] Discharge Diagnosis: MDD, PTSD, Opioid use d/o, cocaine use d/o [facility] Vik[facility] ([facility] [Other] - 11/26/23 3:00 pm Psych Prescriber: Suyapa Stanford ([facility]) [Other] - 12/04/23 8:30 am (Telehealth) Physician,None [Primary Care Provider] - 1 Week Discharge Medications: New aripiprazole [Abilify] 2 mg Tablet 2 mg PO BEDTIME 14 Days Qty: 14 0RF methadone 10 mg/mL Concentrate 85 mg PO DAILY@0630 Qty: 0 0RF Rx Instructions: Partial Fill upon patient request. naloxone [Narcan] 4 mg/actuation spray,non-aerosol 4 mg intranasal Q2M PRN (Reason: opioid overdose) Qty: 2 0RF Rx Instructions: spray 1 dose into ONE nostril; alternate nostrils w each dose until help arrives Continued clonazepam [Klonopin] 1 mg tablet 1 mg PO BID 7 Days Qty: 14 1RF duloxetine 60 mg capsule,delayed release(DR/EC) 60 mg PO DAILY 14 Days Qty: 14 0RF Discontinued methadone [Methadone Intensol] 10 mg/mL Concentrate 60 mg PO DAILY Discharge Orders: Discharge Order (Routine); Ordered 11/20/23 Ordered By: Sherrie Acosta Diet: Regular diet Activity on Discharge: As tolerated Stand Alone Forms: Patient Portal Discharge page, Community Support Print Language: Maori Care Plan Goals: Maintain mood and safe behaviors Take medications as prescribed Continue to pursue sobriety Practice coping skills Continue with outpatient providers and reach out to them as needed Health Concerns: Mood stability and behaviors Sobriety Plan of Treatment: Follow up with your PCP, psychiatric provider and other outpatient providers regarding above concerns Take medications as prescribed Assessment: Patient was interviewed prior to discharge and found to be fully oriented and without any SI or HI. Patient has insight and demonstrates good judgment in terms of wanting to pursue treatment. Patient has a safety plan that includes presenting to the closest ER or calling 911 if feeling unsafe. Discharge Date/Time: 11/20/23 10:57
== END 2023-11-20 10:57 | disposition home or self-care (01) | DRG 751 ==
LOC: HO.ED 11:07 → HO.PADLT16 13:08
PROVIDERS: Admitting Provider Registered Nurse; Emergency Provider Emergency Medicine; Responsible Provider Registered Nurse; Visit Provider Psychiatry & Neurology Psychiatry
DX: F33.9 Major depressive disorder, recurrent, unspecified (principal); F14.10 Cocaine abuse, uncomplicated; F17.210 Nicotine dependence, cigarettes, uncomplicated; F43.10 Post-traumatic stress disorder, unspecified; Z91.51 Personal history of suicidal behavior; Z20.822 Contact with and (suspected) exposure to COVID-19; Z59.02 Unsheltered homelessness; Z71.6 Tobacco abuse counseling; Z79.899 Other long term (current) drug therapy
CPT/HCPCS: 36415; 80053; 80061; 80076; 80307; 81003; 82140; 84439; 84443; 85025; 86704; 86706; 86709; 86803; 87340; 87389; 87635; 93005; 99285; S9485

== ENCOUNTER → 2023-11-12 08:15 | Outpatient (BNV) | payer MEDICAID, SELFPAY | PROVIDERS: Admitting Provider Registered Nurse; Emergency Provider Emergency Medicine; Responsible Provider Registered Nurse; Visit Provider Internal Medicine Cardiovascular Disease | DX: R00.0 Tachycardia, unspecified (principal) | CPT/HCPCS: 93010 ==

== ENCOUNTER → 2023-11-12 13:05 | Outpatient (BNV) | payer OTHER, SELFPAY | PROVIDERS: Admitting Provider Registered Nurse; Emergency Provider Emergency Medicine; Responsible Provider Registered Nurse; Visit Provider Nurse Practitioner Psychiatric/Mental Health | DX: F33.2 Major depressive disorder, recurrent severe without psychotic features (principal); F14.10 Cocaine abuse, uncomplicated; F43.11 Post-traumatic stress disorder, acute; F11.90 Opioid use, unspecified, uncomplicated | CPT/HCPCS: 99231; 99232; 99233; 99499; G2213 ==

== ENCOUNTER 2023-11-25 08:41 | Emergency (ER) | payer OTHER, SELFPAY ==
[2023-11-25 09:16] VITALS: BP 130/77; PULSE 99; RESP 16; TEMP 37.1; O2SAT 98; BMI 30.4
--- NOTE | 2023-11-25 09:16 | ED.PSYCH ---
HPI - Psych General Chief Complaint: Psychiatric Symptoms Stated Complaint: SI Time Seen by Provider: 11/25/23 09:16 Source: patient Mode of arrival: ambulatory History of Present Illness HPI Narrative: 28-year-old male with extensive psychiatric history as well as substance abuse history presents with stating feeling of wanting to intentionally overdose last night and reports that he did and a friend gave him Narcan. He also endorses the use of cocaine, states he has not been compliant with his medications because he was not feeling any better and so stopped taking them, denies AVH but has significant thoughts of self-harm. Related Data Previous Rx's ?Medication ?Instructions ?Recorded aripiprazole 2 mg tablet (Abilify) 2 mg PO BEDTIME 14 days #14 tabs 11/19/23 clonazepam 1 mg tablet (Klonopin) 1 mg PO BID 7 days #14 tabs 11/19/23 duloxetine 60 mg capsule,delayed 60 mg PO DAILY 14 days #14 caps 11/19/23 release methadone 10 mg/mL oral concentrate 85 mg (8.5 mL) PO DAILY@0630 #0 mL 11/19/23 naloxone 4 mg/actuation nasal 4 mg intranasal Q2M PRN opioid 11/20/23 spray (Narcan) overdose #2 ea Allergies Allergy/AdvReac Type Severity Reaction Status Date / Time No Known Allergies Allergy Verified 11/25/23 09:18 Review of Systems Review of Systems: Pertinent positives and negatives as stated in HPI [facility] Past Medical History Source: nursing notes reviewed Social History Social History Household Members: None Housing: Homeless Do you presently have visiting nurse or other home services: No Patient Tobacco Use Status: Current everyday Tobacco user Tobacco use type: Cigarette Cigarettes Per Day: 10 e-Cigarette/Vaping Use: Never Used Second Hand Smoke Exposure: No Substance Use Type: Crack/Cocaine, Heroin, IV Drugs and Opiates Advance Directives: No service: No Sexual orientation: Straight/Heterosexual Physical Exam Vital Signs: Vital Signs: Last Vital Signs Temp 98.8 F 11/25/23 09:16 Pulse 99 11/25/23 09:16 Resp 16 11/25/23 09:16 BP 130/77 11/25/23 09:16 Pulse Ox 98 11/25/23 09:16 O2 Del Method Room Air 11/25/23 09:16 BMI result Body Mass Index 30.4 VITAL SIGNS: Reviewed. GENERAL: Well developed, well nourished, in no acute distress. HEAD: Normocephalic/atraumatic EYES: PERRLA, EOMI EARS: Ext canals without abnormality, TMs non-bulging and non-erythematous NOSE: Nares patent bilateral OROPHARYNX: no oral lesions noted, posterior pharynx clear and non-erythematous without noted tonsillar enlargement/erythema/exudates NECK: Supple, no adenopathy LUNGS: Normal breath sounds. No adventitious sounds or accessory muscle use. SpO2<98> CARDIOVASCULAR: Regular rate and rhythm without noted murmurs ABDOMEN: Soft, non-tender, non-distended with bowel sounds. MUSCULOSKELETAL: No tenderness, deformities, or effusions noted on gross inspection. EXTREMITIES: No cyanosis, clubbing or edema. SKIN: Inspection of the skin reveals no rashes NEUROLOGIC: Alert and oriented x 4. Strength and sensation to light touch were grossly intact x 4, cranial nerves 2-12 are grossly intact. PSYCH: Depressed affect, speaking quietly Medical Decision Making Medical Decision Making MDM Narrative: 28-year-old male with history and clinical presentation, DDX: Has struggles with both medication compliance as well as polysubstance use disorder, likely a combination of factors have resulted in his feelings of self-harm and increased depressed feelings. Will medically clear and then have patient evaluated by the care team, possible medication adjustment might be warranted. Patient placed in physician observation because the patient needed more time for medical clearance and evaluation by the care team. At the time observation was started the patient's vital signs were stable, patient is alert and oriented, neuro: Nonfocal, CV RRR, lungs clear I reviewed all investigations and chemistry indices are negative for MADDIE/electrolyte or liver enzyme derangements other than chronic detectable transaminases likely associated with patient's drug use. Urinalysis negative for UTI or hematuria, UDS significant for polysubstance, otherwise ETOH/salicylate/acetaminophen is undetectable. Patient is otherwise medically cleared for further evaluation by the crisis team. Differential Diagnosis Differential Diagnoses: The differential diagnosis associated with the presentation includes Please see the discussion above Admission/Observation Consideration of admission/observation: Escalation of care including admission/observation considered Please see the discussion above Consult Healthcare Provider Management of the patient was discussed with: Pipe Bowl Paint Trimmer Please see the discussion above Lab Data MDM Lab Attestation statement: I reviewed the patient's lab results. Please see the discussion above 11/25/23 09:45 11/25/23 09:45 Labs: Lab Results 11/25/23 11/25/23 Range/Units 09:45 09:46 Sodium 140 (135-145) mmol/L Potassium 3.7 (3.3-5.1) mmol/L Chloride 104 (96-108) mmol/L Carbon Dioxide 27 (22-29) mmol/L Anion Gap 13 (12-20) BUN 11 (9-16) mg/dL Creatinine 0.66 (0.5-1.4) mg/dL Estim Creat Clear Calc 183.8 Estimated GFR > 60 Random Glucose 86 (60-115) mg/dL Calcium 9.1 (8.4-10.2) mg/dL Total Bilirubin 0.8 (0.0-1.0) mg/dL AST 54 H (5-37) U/L ALT 85 H (0-40) U/L Alkaline Phosphatase 61 (39-117) U/L Total Protein 7.2 (6.5-8.0) g/dL Albumin 4.1 (3.5-5.0) g/dL Urine Color Dark Yellow Urine Appearance Cloudy Urine pH 5.5 (5.0-9.0) Ur Specific [place] 1.025 (1.005-1.025) Urine Protein Negative (Neg-Trace) mg/dL Urine Glucose (UA) Negative (Negative) mg/dL Urine Ketones 40 (Negative) mg/dL Urine Blood Negative (Negative) Urine Nitrite Negative (Negative) Ur Leukocyte Esterase Negative (Negative) Salicylates < 5.0 L (15-30) mg/dL Urine Opiates Screen POSITIVE H (Not Detect) Urine Fentanyl Screen POSITIVE H (Not Detect) Acetaminophen < 3 (<30) mcg/mL Ur Barbiturates Screen Not Detected (Not Detect) Ur Phencyclidine Scrn Not Detected (Not Detect) Ur Amphetamines Screen Not Detected (Not Detect) U Benzodiazepines Scrn POSITIVE H (Not Detect) Urine Cocaine Screen POSITIVE H (Not Detect) U Marijuana (THC) Screen Not Detected (Not Detect) Ethyl Alcohol < 10 mg/dL External Record Review External record reviewed: Outpatient record, Prior outpatient labs and Prior outpatient radiology Social Determinants Patient?s care significantly limited by Social Determinants of Health including: Alcoholism and drug addiction in family Critical Care Time Critical Care Time Critical Care Time: Yes Total Critical Care Time: 45 Attestation: I personally attest to this time spent taking care of the patient. Discharge Plan Discharge Clinical Impression: MDD (major depressive disorder), recurrent episode, Suicidal ideation, Polysubstance use disorder Patient Disposition: Still a Patient Prescriptions: No Action aripiprazole [Abilify] 2 mg Tablet 2 mg PO BEDTIME 14 Days Qty: 14 0RF clonazepam [Klonopin] 1 mg tablet 1 mg PO BID 7 Days Qty: 14 1RF duloxetine 60 mg capsule,delayed release(DR/EC) 60 mg PO DAILY 14 Days Qty: 14 0RF methadone 10 mg/mL Concentrate 85 mg PO DAILY@0630 Qty: 0 0RF Rx Instructions: Partial Fill upon patient request. naloxone [Narcan] 4 mg/actuation spray,non-aerosol 4 mg intranasal Q2M PRN (Reason: opioid overdose) Qty: 2 0RF Rx Instructions: spray 1 dose into ONE nostril; alternate nostrils w each dose until help arrives Interventions: [place]-Suicide Risk Severity Scale Last Done: 11/25/23 09:19 Print Language: Norwegian
[2023-11-25 09:54] LABS: Appearance Urine Cloudy; Color Urine Dark Yellow; Glucose Urine UA Negative (Negative); Leukocyte Esterase Urine Negative (Negative); Nitrite Urine Negative (Negative); PH 5.5 (5.0-9.0); Specific Gravity - Urine 1.025 (1.005-1.025); Urine Blood Negative (Negative); Urine Ketones 40 mg/dL (Negative); Urine Protein Negative (Neg-Trace)
[2023-11-25 10:01] LABS: Amphetamine Screen Urine Not Detected (Not Detect); Barbiturates, Urine Not Detected (Not Detect); Benzodiazepines Screen Urine POSITIVE (Not Detect); Cannabinoid Screen Urine Not Detected (Not Detect); Cocaine Screen Urine POSITIVE (Not Detect); Fentanyl, urine POSITIVE (Not Detect); Opiate Screen Urine POSITIVE (Not Detect); Phencyclidine Screen Urine Not Detected (Not Detect)
[2023-11-25 10:11] LABS: Acetaminophen LAB < 3 mcg/mL (<30); Alanine Aminotransferase 85 U/L (0-40); Albumin Level 4.1 g/dL (3.5-5.0); Alkaline Phosphatase 61 U/L (39-117); Anion Gap 13 (12-20); Aspartate Amino Transferase 54 U/L (5-37); Bilirubin Total 0.8 mg/dL (0.0-1.0); Blood Urea Nitrogen 11 mg/dL (9-16); Calcium 9.1 mg/dL (8.4-10.2); Carbon Dioxide 27 mmol/L (22-29); Chloride 104 mmol/L (96-108); Creatinine Clr Calc Pharmacy 183.8; Estimated Glomerular Filt Rate > 60; Ethanol < 10 mg/dL; Glucose Random 86 mg/dL (60-115); Potassium 3.7 mmol/L (3.3-5.1); Salicylate < 5.0 mg/dL (15-30); Sodium 140 mmol/L (135-145); Total Protein 7.2 g/dL (6.5-8.0)
--- NOTE | 2023-11-25 12:22 | PC.NURSE ---
methadone verification complete and faxed to pharmacy.
--- NOTE | 2023-11-25 13:21 | HE.PHANOTE ---
METHADONE: methadone dose: 90 mg. Provided from CYRIL Roblero from [facility]. Last dose of 90 mg on 11/24/23 @0612.
--- NOTE | 2023-11-25 13:25 | MHC.CARE ---
Per tory vasques with [place] [phone] Tory reports that at baseline patient is help seeking, well respected and liked. People don?t fear him. He went to [facility] of his own accord last summer seeking psychiatric help Recent days: He had a crisis appointment Thursday and another yesterday prior to arrival here He was agitated throughout the meeting and insisted on meeting with a feed mill supervisor in the counseling office. He met with one, Raya, via zoom. As the meeting progressed and they reviewed scales/ suicidal inventories and aggressive inventories they had done with him (which indicated highest rating for suicidal ideation) he began to become extremely loud and threatened to find Raya Barnes?s residence and ?get her? and did not specify any further than that [employer] were [place] He exhibited paranoid, fear of being surveilled. Hyperverbal. Pressured and tangential. Frequently interrupting. (Of note, this is how he has presented at times in the pod). Students are growing increasingly fearful of him, which seems to be exacerbating his paranoia that white people are out to get him. He was at [facility] over the weekend and had medication changes, d/c back to campus on Thursday. There have been calls from students informing campus counseling that he has made Instagram posts alluding to suicide and self harm. The campus is concerned due to the threats toward staff, the social media posts, the fear on campus. There is alleged cocaine use, which is likely intensifying his sx of sera
[2023-11-25 13:27] VITALS: BP 123/72; PULSE 79; RESP 18; TEMP 36.6; O2SAT 92
--- NOTE | 2023-11-25 13:42 | MHC.CARE ---
Patient has been accepted to [facility] for today, November 24. The address is [facility] [address], [place] [address] Dr. Hartley.
[2023-11-25] MEDS: clonazePAM 1 MG TABLET PO (13:46)
[2023-11-25] MEDS: DULoxetine HCl 60 MG CAPSULE.DR PO (13:46)
[2023-11-25] MEDS: methADONE HCl 20 MG/2 ML ORAL.CONC 90 MG PO (15:05)
--- NOTE | 2023-11-25 15:18 | PC.NURSE ---
pt a&o x4, calm, and cooperative. pt compliant with care, has been sleeping in bed since arrival. labs drawn and sent to lab. redraw on CBC. staff attempted to draw pt multiple times with no success. pt difficult stick. Dr. Vila aware. pt medicated per mar with AM meds and methadone. last dose form for methadone filled out and placed in pt's chart. rr even/unlabored. plan of care ongoing.
[2023-11-25 16:21] LABS: IDNOW Serial# 152EDE1D
[2023-11-25 16:22] LABS: COVID-19 Test Negative (Negative)
--- NOTE | 2023-11-25 17:44 | PC.NURSE ---
pt dad called to find out pt's where abouts. pt stated OK to let dad know he is here and to give update. pt sts he will call his dad tomorrow. pt accepted to [facility] for [facility]. covid test results faxed and ambulance booked for 7pm. nurse to nurse report given to ALEXSANDRA Paul. pt currently sleeping, in no apparent distress. rr even/unlabored. plan of care ongoing.
[2023-11-25 18:05] VITALS: BP 121/81; PULSE 86; RESP 14; TEMP 36.6; O2SAT 97
--- NOTE | 2023-11-25 18:11 | PC.NURSE ---
pt vitals updated in worklist. VSS. pt updated on eta of EMS for transport to [facility]. pt aware of care plan. pt requesting to take shower before leaving. pt currently showering. awaiting transport booked for 1899. plan of care ongoing.
[2023-11-25 19:49] VITALS: BP 138/86; PULSE 84; RESP 16; TEMP 37.1; O2SAT 98
== END 2023-11-25 19:49 ==
PROVIDERS: Emergency Provider Student in an Organized Health Care Education/Training Program
DX: R45.851 Suicidal ideations (principal); F33.9 Major depressive disorder, recurrent, unspecified; F19.90 Other psychoactive substance use, unspecified, uncomplicated; Z91.148 Patient's other noncompliance with medication regimen for other reason; Z59.02 Unsheltered homelessness; Z11.52 Encounter for screening for COVID-19
CPT/HCPCS: 36415; 80053; 80143; 80179; 80307; 81003; 85025; 87635; 99285; S9485

== ENCOUNTER 2023-12-06 09:20 | Inpatient (IN) | payer OTHER, SELFPAY ==
--- NOTE | 2023-12-06 | ECG_ITS ---
Test Reason : CHECK FOR PROLONG QT Blood Pressure : / mmHG Vent. Rate : 086 BPM Atrial Rate : 086 BPM P-R Int : 140 ms QRS Dur : 080 ms QT Int : 420 ms P-R-T Axes : 057 070 060 degrees QTc Int : 502 ms Normal sinus rhythm Prolonged QT Abnormal ECG When compared with ECG of 12-NOV-2023 08:15, No significant change was found Referred By: Markus Hull Electronically Signed By:SHENA HUFF MD
[2023-12-06 09:22] VITALS: BP 124/78; PULSE 100; RESP 19; TEMP 36.6; O2SAT 100; BMI 30.4
[2023-12-06 09:40] LABS: Appearance Urine Clear; Color Urine Yellow; Glucose Urine UA Negative (Negative); Leukocyte Esterase Urine Negative (Negative); Nitrite Urine Negative (Negative); Specific Gravity - Urine 1.025 (1.005-1.025); Urine Blood Negative (Negative); Urine Ketones Negative (Negative); Urine Protein Negative (Neg-Trace)
--- NOTE | 2023-12-06 09:54 | ED_ITS ---
HPI - Psych General Chief Complaint: Psychiatric Symptoms Stated Complaint: SI Time Seen by Provider: 12/06/23 09:43 Source: patient Mode of arrival: ambulatory Limitations: no limitations History of Present Illness HPI Narrative: This is a 28-year-old male with history of MDD, PTSD, polysubstance abuse currently on methadone and admitted to use cocaine occasionally who self presented to [facility] ER after suicidal attempt by overdosing IV fentanyl injection, patient reported increased depressive symptoms patient overall does not feel safe, requesting to be admitted to the hospital, patient is on Cymbalta for about 6 months and Abilify for about 3 weeks and do not think is working for him, patient currently is jobless but have no financial issue that his father still sponsor him financially, patient is single and not involve in any relationship. Patient still feels suicidal. Related Data Home Medications ?Medication ?Instructions ?Recorded ?Confirmed methadone 10 mg/mL oral concentrate 90 mg PO DAILY 11/25/23 12/07/23 Previous Rx's ?Medication ?Instructions ?Recorded aripiprazole 2 mg tablet (Abilify) 2 mg PO BEDTIME 14 days #14 tabs 11/19/23 clonazepam 1 mg tablet (Klonopin) 1 mg PO BID 7 days #14 tabs 11/19/23 duloxetine 60 mg capsule,delayed 60 mg PO DAILY 14 days #14 caps 11/19/23 release naloxone 4 mg/actuation nasal 4 mg intranasal Q2M PRN opioid 11/20/23 spray (Narcan) overdose #2 ea Allergies Allergy/AdvReac Type Severity Reaction Status Date / Time No Known Allergies Allergy Verified 12/06/23 09:24 Review of Systems 2 Review of Systems: All other systems are reviewed and are negative Constitutional: Reports as per HPI and Reports no additional constitutional complaints Eyes: Reports as per HPI and Reports no additional eye complaints Reports system reviewed and no additional complaints, except as documented Cardiovascular: Reports as per HPI and Reports no additional cardiovascular complaints Respiratory: Reports as per HPI and Reports no additional respiratory complaints Gastrointestinal: Reports as per HPI and Reports no additional gastrointestinal complaints Genitourinary: Reports no additional female genitourinary complaints Musculoskeletal: Reports no additional musculoskeletal complaints Skin/Breast: Reports system reviewed and no additional complaints, except as docu Psychiatric: Reports no additional psychiatric complaints Endocrine: Reports no additional endocrine complaints Hematologic/Lymphatic: Reports no additional hematologic/lymphatic complaints Allergic/Immunologic: Reports no additional allergic/immunologic complaints Reports system reviewed and no additional complaints, except as documented and Reports Abnormal speech present [facility] Past Medical History Medical History (Updated 12/07/23 @ 15:20 by Markus Hull MD) Bipolar disorder Opiate use Active substance abuse Depression Social History Social History Household Members: None Housing: Homeless Do you presently have visiting nurse or other home services: No Alcohol intake: never Patient Tobacco Use Status: Current everyday Tobacco user Tobacco use type: Cigarette Cigarette Packs Per Day: 1 Cigarettes Per Day: 20.0 Years Smoked: 10 Smoked in Last 30 Days: Yes e-Cigarette/Vaping Use: Never Used Patient Interested in Nicotine Replacement: No Patient Given Instructions on How to Stop Smoking: Yes Date Education Initiated: 12/06/23 Second Hand Smoke Exposure: No Use of substances other than those prescribed or required for medical reasons: Yes Substance Use Type: Crack/Cocaine and IV Drugs Substance Use Type Other:: Fentanyl Substance Use Frequency: Chronic Longstanding Last Used Substance: Just Prior to Admission Currently Displaying Signs/Symptoms of Drug Intoxication Withdrawal: No Any prior treatment program specific to substance use: Yes Have you been hit, kicked, punched, or otherwise hurt by someone within the past year? If so, by whom?: No Do you feel safe in your current relationship?: No Current Relationship Is there a partner from a previous relationship who is making you feel unsafe now?: No Are you made to feel afraid or neglected: No Advance Directives: No Advance Directives Information Provided: No Do you have thoughts of harming others: None Do you have a plan to hurt others: No Plan Recently lost weight without trying: No Eating poorly because of decreased appetite: No Nutrition Risks: No Nutritional Risk Poor oral hygiene: No service: No Sexual orientation: Straight/Heterosexual Physical Exam 2 Vital Signs: Vital Signs: Last Vital Signs Temp 97.8 F 12/06/23 16:28 Pulse 101 H 12/07/23 08:43 Resp 16 12/07/23 20:00 BP 140/64 H 12/07/23 08:43 Pulse Ox 98 12/06/23 16:28 O2 Del Method Room Air 12/07/23 08:43 BMI result Body Mass Index 30.4 Vital signs have been reviewed and appear to be correct. Blood pressure elevated. Heart rate normal. Respiratory rate normal. Temperature normal. Oxygen saturation normal. Appearance: Alert. Oriented X3. No acute distress. Head: Normal external exam. Normocephalic. Atraumatic. No Collins signs noted. No raccoon eyes noted Eyes: PERRLA. EOMI. Conjunctiva and sclera normal. Eyelids normal. ENT: TM's Normal. Pharynx normal. Uvula midline. Moist mucous membranes. No trismus noted. No drooling noted. No muffled voice noted. Neck: Normal inspection. Neck supple. FROM. No adenopathy. Thyroid Normal. No meningeal signs. No neck mass noted. CVS: Normal heart rate and rhythm. Heart sound normal. No murmurs noted. Pulses normal throughout. Respiratory: No respiratory distress. Painless inspiration. Breath sounds normal. No wheezes/rales/rhonchi noted. Chest nontender. No accessory muscle usage noted or decreased air movement noted. Abdomen: Soft and nontender. Bowel sounds normal in all 4 quadrants. No distention noted. No organomegaly noted. No visible injury noted. Back: No CVA tenderness. Full range of motion noted. Skin: Skin warm and dry. Normal skin color. Normal skin turgor. No rashes/lesions/lacerations noted. Extremities: No lower extremity edema. Extremities exhibit normal range of motion. Extremities nontender. Neuro: Oriented X 3. Cranial nerve exam: II-XII are grossly intact No motor deficit. No sensory deficit. Reflexes normal. Patient Appearance: Appropriate Patient Orientation: Person, Place, Time and Situation Level of Consciousness: Awake Patient Behavior: Appropriate and Cooperative Mood Description: Apprehensive Affect Description: Blunted Patient Cognition Impaired: No Ability to Follow Directions: Fair Speech Pattern: Clear Hallucinations: None Delusions: Not Present Thought Process: Intact and Goal Oriented Thought Content: positive for Intact (focused on med change) Depressive Symptoms: Muscle Tension Judgement: Fair. Medications Administered Generic Name Dose Route Start Last Admin Trade Name Freq PRN Reason Stop Dose Admin Clonazepam 1 mg 12/07/23 14:00 12/07/23 13:49 Clonazepam 1 Mg Tablet PO 1 mg BID@0900,1400 SILVIO Administration Farmers Carbonate 600 mg 12/07/23 21:00 12/07/23 20:34 Farmers Carbonate Er 300 Mg Tablet.Er PO 600 mg BEDTIME SILVIO Administration Methadone HCl 90 mg 12/07/23 09:00 12/07/23 08:03 Methadone Hcl 20 Mg/2 Ml Oral.Conc PO 90 mg DAILY SILVIO Administration Discontinued Medications Generic Name Dose Route Start Last Admin Trade Name Shara PRN Reason Stop Dose Admin Aripiprazole 2 mg 12/06/23 21:00 12/06/23 22:22 Aripiprazole 2 Mg Tablet PO Not Given BEDTIME SILVIO Clonazepam 1 mg 12/06/23 11:30 12/07/23 08:03 Clonazepam 1 Mg Tablet PO 1 mg BID SILVIO Administration Duloxetine HCl 60 mg 12/06/23 11:30 12/07/23 08:03 Duloxetine Hcl 60 Mg Capsule.Dr PO 60 mg DAILY SILVIO Administration Methadone HCl 80 mg 12/06/23 11:43 12/06/23 13:47 Methadone Hcl 20 Mg/2 Ml Oral.Conc PO 12/06/23 11:44 Not Given ONCE ONE Methadone HCl 40 mg 12/06/23 14:05 12/06/23 15:14 Methadone Hcl 20 Mg/2 Ml Oral.Conc PO 12/06/23 14:06 Not Given ONCE ONE Methadone HCl 30 mg 12/06/23 17:14 12/06/23 17:41 Methadone Hcl 20 Mg/2 Ml Oral.Conc PO 12/06/23 17:15 30 mg ONCE ONE Administration Medical Decision Making Differential Diagnosis Differential Diagnoses: The differential diagnosis associated with the presentation includes (electrolytes abnormality, anemia, UTI, SI, acute psychosis, drug screening, medical clearance) Admission/Observation Consideration of admission/observation: Escalation of care including admission/observation considered Consult Healthcare Provider Management of the patient was discussed with: Intellectual Property Legal Assistant (care team) Lab Data MDM Lab Attestation statement: I reviewed the patient's lab results. 12/06/23 13:07 12/06/23 13:07 Labs: Lab Results 12/06/23 12/06/23 12/06/23 Range/Units 09:30 12:48 13:07 WBC 6.5 (4.8-10.8) X10*3/uL RBC 4.39 L (4.60-5.80) X10*6/uL Hgb 13.4 L (14.0-18.0) g/dl Hct 39.7 L (42.0-52.0) % MCV 90.4 (80.0-98.0) fL MCH 30.5 (27.0-33.0) pg MCHC 33.8 (31.0-36.0) g/dl RDW 12.5 (11.0-16.0) % Plt Count 262 (160-400) X10*3/uL MPV 9.5 (9.4-12.4) fL Immature Gran % (Auto) 0.5 H (0.0-0.4) % Neut % (Auto) 53.5 (45-73) % Lymph % (Auto) 27.2 (20-40) % Castro % (Auto) 11.4 H (2-11) % Eos % (Auto) 6.8 H (0-4) % Baso % (Auto) 0.6 (0-2) % Lymph # (Auto) 1.8 (1.2-4.9) X10*3/uL Castro # (Auto) 0.7 (0.1-1.2) X10*3/uL Eos # (Auto) 0.4 (0.0-0.4) X10*3/uL Baso # (Auto) 0.0 (0.0-0.2) X10*3/uL Abs Immat Gran (auto) 0.03 (0.00-0.03) X10*3/uL Absolute Neuts (auto) 3.5 (2.0-8.3) x10*3/uL Absolute Nucleated RBC 0.000 (0.0-0.012) X10*3/uL Nucleated RBC % (auto) 0.0 (0.0-0.2) /100WBC Sodium 139 (135-145) mmol/L Potassium 3.9 (3.3-5.1) mmol/L Chloride 106 (96-108) mmol/L Carbon Dioxide 26 (22-29) mmol/L Anion Gap 11 L (12-20) BUN 13 (9-16) mg/dL Creatinine 0.65 (0.5-1.4) mg/dL Estim Creat Clear Calc 186.7 Estimated GFR > 60 Random Glucose 114 (60-115) mg/dL Estimat Average Glucose 91 mg/dL Hemoglobin A1c % 4.8 (<6.0) % Calcium 9.2 (8.4-10.2) mg/dL Total Bilirubin 0.5 (0.0-1.0) mg/dL Direct Bilirubin 0.2 (0.0-0.5) mg/dL AST 109 H (5-37) U/L ALT 182 H (0-40) U/L Alkaline Phosphatase 77 (39-117) U/L Total Protein 7.0 (6.5-8.0) g/dL Albumin 3.9 (3.5-5.0) g/dL Triglycerides 37 (<150) mg/dL Cholesterol 128 (<200) mg/dL LDL Cholesterol, Calc 72 (<100) mg/dL HDL Cholesterol 49 (>40) mg/dL Urine Color Yellow Urine Appearance Clear Urine pH 6.0 (5.0-9.0) Ur Specific Amelia 1.025 (1.005-1.025) Urine Protein Negative (Neg-Trace) mg/dL Urine Glucose (UA) Negative (Negative) mg/dL Urine Ketones Negative (Negative) mg/dL Urine Blood Negative (Negative) Urine Nitrite Negative (Negative) Ur Leukocyte Esterase Negative (Negative) Urine Opiates Screen POSITIVE H (Not Detect) Ur Buprenorphine Scrn Positive (Not Detect) ng/mL Ur Oxycodone Screen Not Detected (Not Detect) ng/mL Urine Methadone Screen Positive (Not Detect) ng/mL Urine Fentanyl Screen POSITIVE H (Not Detect) Ur Barbiturates Screen Not Detected (Not Detect) Ur Phencyclidine Scrn Not Detected (Not Detect) Ur Amphetamines Screen Not Detected (Not Detect) U Benzodiazepines Scrn POSITIVE H (Not Detect) Urine Cocaine Screen POSITIVE H (Not Detect) U Marijuana (THC) Screen Not Detected (Not Detect) Ethyl Alcohol < 10 mg/dL COVID-19 (GUERA) Negative (Negative) COVID-19 Clin Com See Note Discharge Plan Discharge Clinical Impression: Episode of recurrent major depressive disorder Patient Disposition: Admitted As Inpatient Interventions: Admission Worksheet (ED) Last Done: 12/06/23 16:35 Discharge Date/Time: 12/06/23 16:35
[2023-12-06 10:19] VITALS: BP 121/70; PULSE 90; RESP 18; TEMP 36.7; O2SAT 100
[2023-12-06 10:23] LABS: Amphetamine Screen Urine Not Detected (Not Detect); Barbiturates, Urine Not Detected (Not Detect); Benzodiazepines Screen Urine POSITIVE (Not Detect); Buprenorphine Scr Positive (Not Detect); Cannabinoid Screen Urine Not Detected (Not Detect); Cocaine Screen Urine POSITIVE (Not Detect); Fentanyl, urine POSITIVE (Not Detect); Methadone Screen, Urine Positive (Not Detect); Opiate Screen Urine POSITIVE (Not Detect); Oxycodone Screen Urine Not Detected (Not Detect); Phencyclidine Screen Urine Not Detected (Not Detect)
--- NOTE | 2023-12-06 11:28 | PC.NURSE ---
RN attempted to contact [facility] to verify last methadone dose. Clinic is currently closed and last dose is unable to be verified. Patient requesting methadone dose. MD emerson.
--- NOTE | 2023-12-06 11:36 | PHA.MEDREC ---
Pharmacy Consult ? Medication Reconciliation Pharmacy has REVIEWED the medication reconciliation COMPLETED BY NURSING.
--- NOTE | 2023-12-06 11:45 | PC.NURSE ---
Patient goes to [facility] in [place] for methadone dosing. ALEXSANDRA Andrade called clinic but was unable to get in touch with someone for dosing information due to the clinic being closed. MD emerson. This RN looked into previous medical records and found that the patient was discharged recently from in here at [facility] and was receiving dose of 80mg. This RN let MD Yodre know. Plan is for patient to get 80 mg dose today and for verification of most recent dose tomorrow morning when the clinic is open
[2023-12-06] MEDS: DULoxetine HCl 60 MG CAPSULE.DR PO (12:42)
[2023-12-06] MEDS: clonazePAM 1 MG TABLET PO (12:42)
[2023-12-06 13:09] LABS: COVID-19 Test Negative (Negative); IDNOW Serial# 08D9AD1C
[2023-12-06 13:11] LABS: MANUAL DIFF FLAG NO
[2023-12-06 13:14] LABS: Basophils Percent Auto 0.6 % (0-2); Eosinophils Absolute Auto 0.4 X10*3/uL (0.0-0.4); Eosinophils Percent Auto 6.8 % (0-4); Hematocrit 39.7 % (42.0-52.0); Hemoglobin 13.4 g/dl (14.0-18.0); Imm Gran Abs Auto 0.03 X10*3/uL (0.00-0.03); Imm Gran Pct Auto 0.5 % (0.0-0.4); Lymphocytes Absolute Auto 1.8 X10*3/uL (1.2-4.9); Lymphocytes Percent Auto 27.2 % (20-40); Mean Corpuscular HGB Conc 33.8 g/dl (31.0-36.0); Mean Corpuscular Hemoglobin 30.5 pg (27.0-33.0); Mean Corpuscular Volume 90.4 fL (80.0-98.0); Mean Platelet Volume 9.5 fL (9.4-12.4); Monocytes Absolute Auto 0.7 X10*3/uL (0.1-1.2); Monocytes Percent Auto 11.4 % (2-11); Neutrophils Absolute Auto 3.5 x10*3/uL (2.0-8.3); Neutrophils Percent Auto 53.5 % (45-73); Platelet Count 262 X10*3/uL (160-400); Red Blood Count 4.39 X10*6/uL (4.60-5.80); Red Cell Distribution Width 12.5 % (11.0-16.0); White Blood Count 6.5 X10*3/uL (4.8-10.8)
[2023-12-06 13:35] LABS: Alanine Aminotransferase 182 U/L (0-40); Albumin Level 3.9 g/dL (3.5-5.0); Alkaline Phosphatase 77 U/L (39-117); Anion Gap 11 (12-20); Aspartate Amino Transferase 109 U/L (5-37); Bilirubin Total 0.5 mg/dL (0.0-1.0); Blood Urea Nitrogen 13 mg/dL (9-16); Calcium 9.2 mg/dL (8.4-10.2); Carbon Dioxide 26 mmol/L (22-29); Chloride 106 mmol/L (96-108); Creatinine Clr Calc Pharmacy 186.7; Estimated Glomerular Filt Rate > 60; Ethanol < 10 mg/dL; Glucose Random 114 mg/dL (60-115); Potassium 3.9 mmol/L (3.3-5.1); Sodium 139 mmol/L (135-145)
--- NOTE | 2023-12-06 13:56 | PC.NURSE ---
Addendum entered by Carrie Ash 12/06/23 16:00: change in plan of care at this time, Elaine ERAZO requested that we do not give methadone until she looks into it further tomorrow and we receive verification of last dose from [facility] Original Note: Dr. Yoder and this RN spoke with Elaine Tucker NP for addiction and substance use. She recommended starting at 40mg PO methadone since we cannot verify Arnaldo' dose with [facility] today. Dr. Yoder aware, 40mg dose ordered at this time
[2023-12-06 16:28] VITALS: BP 121/57; PULSE 84; RESP 16; TEMP 36.6; O2SAT 98
[2023-12-06 16:29] VITALS: BMI 33.3
--- NOTE | 2023-12-06 16:40 | PC.ADMIT ---
Arnaldo was admitted to at 1625 from? [facility] on [facility] for treatment of depression, SI, and substance use. He has previously documented diagnoses including PTSD, MDD, and polysubstance use disorder. He is currently unhoused and has a legal history due to drug offenses and burglary. He has been incarcerated twice, but states he has no current legal involvement. He was recently discharged from [facility] on 12/02 and became suicidal. He attempted to OD on $30 fentanyl and also used approximately 1g of cocaine. In the community he receives methadone from [facility] but they were unable to confirm his dose today, Thursday. He states that he takes 90mg. He has not received methadone today and is sweaty. He is alert, oriented to person, place, time, and situation. He is cooperative with admission process. Affect is flat. Tox screen is positive for cocaine, benzos, fentanyl, and opiates. He continues to endorse SI but denies plan to act while hospitalized. He denies HI/AVH . Skin check completed by RNs Mary Washington and Danielle Harrington without findings. Arnaldo was oriented to the unit and placed on 15 minute checks for safety.?
[2023-12-06] MEDS: methADONE HCl 20 MG/2 ML ORAL.CONC 30 MG PO (17:41)
--- NOTE | 2023-12-07 06:26 | HE.PHANOTE ---
RE METHADONE Patient recieves methadone from [facility] [phone], last dosed with 90 mg on 12/04/23 confirmed with Lashawn UPTON.
[2023-12-07 08:00] VITALS: RESP 18
[2023-12-07] MEDS: clonazePAM 1 MG TABLET PO ×2 (08:03→13:49)
[2023-12-07] MEDS: DULoxetine HCl 60 MG CAPSULE.DR PO (08:03)
[2023-12-07] MEDS: methADONE HCl 20 MG/2 ML ORAL.CONC 90 MG PO (08:03)
[2023-12-07 08:43] VITALS: BP 140/64; PULSE 101; RESP 18
--- NOTE | 2023-12-07 09:22 | P.HPPS_ITS ---
HPI Date of Service: 12/07/23 Chief Complaint: Depression Sources of Information: patient interviewed, chart reviewed and crisis/core team assessment reviewed HPI Subjective Notes: [place] Warning and Conditional Voluntary Narrative: Pt is a 28 yo male with hx of depression, anxiety, opioid and cocaine abuse, on methadone, who was recently dc'd from on 11/19 and self presents for SI with attempted overdose. After discharge from , patient went to a senior living (not wanting a CSS to fulfill to 14 days of sobriety needed to get into a sober house). He was there for a few days and his mood remained depressed though he says he was trying to convince himself he would start to feel better. At any rate he did not attempted suicide by overdose and was admitted to [facility] where he was for 5 days; no medication changes and he was discharged this past to a hotel. On Thursday he said he felt miserable, waited till his girlfriend left and OD'd on fentanyl though his girlfriend came back about 5 minutes later and gave him Narcan and called 911. Patient reports that nothing has helped his depression. He will be sober for several months and then relapsed for few days and even during periods of sobriety still remains very depressed. Reviewing history further, patient endorses history of manic episodes that last for about 2-3 days during which time he is happy that at almost joyful, feels like he can never get enough done however also feeling like he is all over the place, jumping from thing to thing; he does not need sleep at all and is not tired; has racing thoughts, significantly increased libido and spends excess money on things he does not need like clothing and take out food that ends up throwing away... Review of family history and he thinks possibly sister has bipolar disorder. Patient endorses some history of trauma but does not specify. Denies AVH. Past Psychiatric History: Pt reports 4 prior psychiatric inpatient hospitalizations d/t SI attempts. (once in his teens and second in 2021 at [facility] in [place]). hx of detox and CSS. [facility]iat[facility] Medication trials: Zoloft; says he was on a for years and felt like a zombie, not really depressed but not enjoying anything either Prozac; 2 months but also felt like a zombie Cymbalta 60 mg for 2 months, no improvement Trileptal for 2 months no improvement Wellbutrin: Jittery and stopped after a day Medical Evaluation Reviewed: Yes [facility] Medical History (Updated 12/07/23 @ 15:20 by Markus Hull MD) Bipolar disorder Opiate use Active substance abuse Depression Family History: mother-depression sister-depression, concern for bipolar Social History: Homeless, single, no children, unemployed, high school graduate. Substance History: Ten years of opiate and cocaine addiction Says over the past year he is been able to go several months at a time sober and then only relapsed for few days. Trauma History: yes Diagnostics Vital Signs (24Hr): Vital Signs - 24 hr 12/06/23 10:19 12/06/23 16:28 12/07/23 08:00 Temperature 98.1 F 97.8 F Pulse Rate 90 84 Respiratory Rate 18 16 18 Blood Pressure 121/70 121/57 L Pulse Oximetry 100 98 Oxygen Delivery Method Room Air Room Air 12/07/23 08:43 Temperature Pulse Rate 101 H Respiratory Rate 18 Blood Pressure 140/64 H Pulse Oximetry Oxygen Delivery Method Room Air BMI result Body Mass Index 33.3 Labs 12/06/23 13:07 12/06/23 13:07 Labs: Laboratory Results - last 48 hr 12/06/23 12/06/23 12/06/23 09:30 12:48 13:07 WBC 6.5 RBC 4.39 L Hgb 13.4 L Hct 39.7 L MCV 90.4 MCH 30.5 MCHC 33.8 RDW 12.5 Plt Count 262 MPV 9.5 Immature Gran % (Auto) 0.5 H Neut % (Auto) 53.5 Lymph % (Auto) 27.2 [place] % (Auto) 11.4 H Eos % (Auto) 6.8 H Baso % (Auto) 0.6 Lymph # (Auto) 1.8 [place] # (Auto) 0.7 Eos # (Auto) 0.4 Baso # (Auto) 0.0 Abs Immat Gran (auto) 0.03 Absolute Neuts (auto) 3.5 Absolute Nucleated RBC 0.000 Nucleated RBC % (auto) 0.0 Sodium 139 Potassium 3.9 Chloride 106 Carbon Dioxide 26 Anion Gap 11 L BUN 13 Creatinine 0.65 Estim Creat Clear Calc 186.7 Estimated GFR > 60 Random Glucose 114 Calcium 9.2 Total Bilirubin 0.5 AST 109 H ALT 182 H Alkaline Phosphatase 77 Total Protein 7.0 Albumin 3.9 Urine Color Yellow Urine Appearance Clear Urine pH 6.0 Ur Specific [place] 1.025 Urine Protein Negative Urine Glucose (UA) Negative Urine Ketones Negative Urine Blood Negative Urine Nitrite Negative Ur Leukocyte Esterase Negative Urine Opiates Screen POSITIVE H Ur Buprenorphine Scrn Positive Ur Oxycodone Screen Not Detected Urine Methadone Screen Positive Urine Fentanyl Screen POSITIVE H Ur Barbiturates Screen Not Detected Ur Phencyclidine Scrn Not Detected Ur Amphetamines Screen Not Detected U Benzodiazepines Scrn POSITIVE H Urine Cocaine Screen POSITIVE H U Marijuana (THC) Screen Not Detected Ethyl Alcohol < 10 COVID-19 ([facility]) Negative COVID-19 Clin Com See Note Meds/Allergies Meds Home Medications ?Medication ?Instructions ?Recorded ?Confirmed ?Type methadone 10 mg/mL oral concentrate 90 mg PO DAILY 11/25/23 12/07/23 History Allergies Allergies Allergy/AdvReac Type Severity Reaction Status Date / Time No Known Allergies Allergy Verified 12/06/23 09:24 Mental Status Exam Mental Status Exam Narrative: Pt is alert and oriented; behavior is cooperative, a little guarded, anxious; patient is not in distress; dressed in casual attire with adequate hygiene; mood is described as depressed and affect congruent, downcast, anxious; eye contact appropriate; Speech is normal rate, volume and prosody and not pressured; some psychomotor retardation present; thought process is organized and goal directed; Thought content is on hopelessness but also on tx; otherwise pertinent to relevant topics and without any delusional content, paranoid ideations or grandiosity; currently no SI; no HI. There is no evidence of perceptual disturbance denies [facility] Patients insight and judgment impaired Assessment & Plan Assessment & Plan (1) Bipolar disorder: Status: Acute Code(s): F31.9 - Bipolar disorder, unspecified (2) PTSD (post-traumatic stress disorder): Status: Acute Code(s): F43.10 - Post-traumatic stress disorder, unspecified (3) Opioid use disorder: Status: Acute Code(s): F11.90 - Opioid use, unspecified, uncomplicated (4) Cocaine abuse: Status: Acute Code(s): F14.10 - Cocaine abuse, uncomplicated Plan Pt is a 28 yo male with hx of depression, anxiety, opioid and cocaine abuse, on methadone, who was recently dc'd from on 11/19 and self presents for SI with attempted overdose. After discharge from , patient went to a senior living (not wanting a CSS to fulfill to 14 days of sobriety needed to get into a sober house). He was there for a few days and his mood remained depressed though he says he was trying to convince himself he would start to feel better. At any rate he did not attempted suicide by overdose and was admitted to [facility] where he was for 5 days; no medication changes and he was discharged this past to a hotel. On Thursday he said he felt miserable, waited till his girlfriend left and OD'd on fentanyl though his girlfriend came back about 5 minutes later and gave him Narcan and called 911. Patient reports that nothing has helped his depression. He will be sober for several months and then relapsed for 3 days and even during periods of sobriety still remains very depressed. Reviewing history further, patient endorses history of manic episodes that last for about 2-3 days during which time he is happy and almost joyful, feels like he can never get enough done however also feeling like [he] is all over the place, jumping from thing to thing; he does not need sleep at all and is not tired; has racing thoughts, significantly increased libido and spends excess money on things he does not need like clothing and take out food that ends up throwing away... Review of family history and he thinks possibly sister has bipolar disorder. Patient endorses some history of trauma but does not specify. Denies AVH. Formulation: Patient meets criteria for bipolar disorder, at least type 2. Symptoms complicated by PTSD and substance abuse Discussed diagnosis and patient agrees that it is probably accurate and would like to try a mood stabilizer; reviewed options including dopamine blockers and lithium, reviewing risks and side effects of both; patient would like to start and try lithium Plan: CV Q 15 minutes checks Taper off Cymbalta; has not been helpful Start lithium ER 600 mg q.h.s. Continue methadone 90 mg Patient educated on: diagnosis, medication risk/benefits and substance abuse Informed Consent: understands Reason for continued inpatient stay Substantial Risk for: rapid decompensation Statement Statement: I have reviewed the history and physical and performed a pertinent examination on my patient. No changes have occurred unless specified. If the History and Physical was not performed prior to admission, the Hospitalist's service will be consulted for completing the admission physical. Time Spent With Patient Time: Total time managing care of this patient today ____ minutes.
[2023-12-07 17:22] LABS: Estimated Average Glucose 91 mg/dL; Hemoglobin A1c % 4.8 % (<6.0)
[2023-12-07 17:33] LABS: Bilirubin Direct 0.2 mg/dL (0.0-0.5); Cholesterol 128 mg/dL (<200); HDL Cholesterol 49 mg/dL (>40); LDL Cholesterol Calculated 72 mg/dL (<100); Triglycerides 37 mg/dL (<150)
[2023-12-07 20:00] VITALS: RESP 16
[2023-12-07] MEDS: Lithium Carbonate ER 300 MG TABLET.ER 600 MG PO (20:34)
[2023-12-08] MEDS: methADONE HCl 20 MG/2 ML ORAL.CONC 90 MG PO (08:17)
[2023-12-08] MEDS: DULoxetine HCl 30 MG CAPSULE.DR PO (08:19)
[2023-12-08] MEDS: clonazePAM 1 MG TABLET PO ×2 (08:19→15:21)
--- NOTE | 2023-12-08 09:03 | HO.PSYCHPN ---
Subjective Subjective Date of Service: 12/08/23 Reason For Visit: Depression Interim History: Met with patient; discussed with team very depressed; says he wants to discharge and go to one of the states that does physician assisted suicide. Patient says he is extremely depressed and just wants to ; he also says he is extremely anxious all the time and wants his clonazepam raised. Patient shared how he is never abused in the past. He did accept filing writer's perspective on this medication and the concerning risks and he agreed instead to try clonidine, Zyprexa and then maybe gabapentin to see if that can help deal with his anxiety; he agreed that he has been on this dose in the past and was overall doing okay so it is hopeful that he can remain not needing to go any higher. Patient shared more about his history and his very challenging relationship with his parents. Patient was bullied as a kid and often alone without a lot of friends and though his parents provided the necessities, he found them very emotionally distant and often physically absent as well, leaving patient to feel very alone going up. His father was also an alcoholic spending most of the time either by himself in the basement drinking and watching television or out with his friends drinking. Patient likely had his paternal grandparents living down the street whom he loved and felt deeply loved by and he went there often. Both of them in his later teenage years which was very difficult for patient. Patient also feels the outcast of the family because of his substance abuse and he has not close to his sister either who he feels ignores him because of his substance struggles. Mental Status Exam Mental Status Exam Narrative: Pt is alert and oriented; behavior is cooperative, a little guarded, anxious; patient is not in distress; dressed in casual attire with adequate hygiene; mood is described as depressed and affect congruent, irritable, downcast, anxious; eye contact appropriate; Speech is normal rate, volume and prosody and not pressured; some psychomotor retardation present; thought process is organized and goal directed; Thought content is on hopelessness but also on tx; otherwise pertinent to relevant topics and without any delusional content, paranoid ideations or grandiosity; SI present; no HI. There is no evidence of perceptual disturbance denies [facility] Patients insight and judgment impaired Diagnostics Vital Signs (24Hr): Vital Signs - 24 hr 12/07/23 20:00 Respiratory Rate 16 BMI result Body Mass Index 33.3 Labs 12/06/23 13:07 12/06/23 13:07 Labs: Laboratory Results - last 48 hr 12/06/23 12/06/23 12/06/23 09:30 12:48 13:07 WBC 6.5 RBC 4.39 L Hgb 13.4 L Hct 39.7 L MCV 90.4 MCH 30.5 MCHC 33.8 RDW 12.5 Plt Count 262 MPV 9.5 Immature Gran % (Auto) 0.5 H Neut % (Auto) 53.5 Lymph % (Auto) 27.2 [place] % (Auto) 11.4 H Eos % (Auto) 6.8 H Baso % (Auto) 0.6 Lymph # (Auto) 1.8 [place] # (Auto) 0.7 Eos # (Auto) 0.4 Baso # (Auto) 0.0 Abs Immat Gran (auto) 0.03 Absolute Neuts (auto) 3.5 Absolute Nucleated RBC 0.000 Nucleated RBC % (auto) 0.0 Sodium 139 Potassium 3.9 Chloride 106 Carbon Dioxide 26 Anion Gap 11 L BUN 13 Creatinine 0.65 Estim Creat Clear Calc 186.7 Estimated GFR > 60 Random Glucose 114 Estimat Average Glucose 91 Hemoglobin A1c % 4.8 Calcium 9.2 Total Bilirubin 0.5 Direct Bilirubin 0.2 AST 109 H ALT 182 H Alkaline Phosphatase 77 Total Protein 7.0 Albumin 3.9 Triglycerides 37 Cholesterol 128 LDL Cholesterol, Calc 72 HDL Cholesterol 49 Urine Color Yellow Urine Appearance Clear Urine pH 6.0 Ur Specific [place] 1.025 Urine Protein Negative Urine Glucose (UA) Negative Urine Ketones Negative Urine Blood Negative Urine Nitrite Negative Ur Leukocyte Esterase Negative Urine Opiates Screen POSITIVE H Ur Buprenorphine Scrn Positive Ur Oxycodone Screen Not Detected Urine Methadone Screen Positive Urine Fentanyl Screen POSITIVE H Ur Barbiturates Screen Not Detected Ur Phencyclidine Scrn Not Detected Ur Amphetamines Screen Not Detected U Benzodiazepines Scrn POSITIVE H Urine Cocaine Screen POSITIVE H U Marijuana (THC) Screen Not Detected Ethyl Alcohol < 10 COVID-19 ([facility]) Negative COVID-19 Clin Com See Note Medications Medications Current Medications Acetaminophen (Acetaminophen 325 Mg Tablet) 650 mg PO Q6H PRN PRN Reason: Headache/Pain Mild Scale (1-3) Al Hydroxide/Mg Hydroxide (Magnesium Hydrox/Alum Hydrox 30 Ml Oral.Susp) 30 ml PO Q6H PRN PRN Reason: Heartburn/Nausea Clonazepam (Clonazepam 1 Mg Tablet) 1 mg PO BID@0900,1400 [facility] Last Admin: 12/08/23 08:19 Dose: 1 mg Clonidine HCl (Clonidine Hcl 0.1 Mg Tablet) 0.1 mg PO Q4H PRN; Protocol PRN Reason: mild to mod anxiety Duloxetine HCl (Duloxetine Hcl 30 Mg Capsule.Dr) 30 mg PO DAILY [facility] Stop: 12/09/23 23:30 Last Admin: 12/08/23 08:19 Dose: 30 mg Hydroxyzine HCl (Hydroxyzine Hcl 25 Mg Tablet) 25 mg PO Q6H PRN PRN Reason: mild Anxiety [place] Carbonate ([place] Carbonate Er 300 Mg Tablet.Er) 600 mg PO BEDTIME [facility] Last Admin: 12/07/23 20:34 Dose: 600 mg Magnesium Hydroxide (Milk Of Magnesia 30 Ml Oral.Susp) 30 ml PO DAILY PRN PRN Reason: Constipation Methadone HCl (Methadone Hcl 20 Mg/2 Ml Oral.Conc) 90 mg PO DAILY [facility] Last Admin: 12/08/23 08:17 Dose: 90 mg Nicotine (Nicotine 21 Mg Patch.Td24) 21 mg TRANSDERMA DAILY PRN PRN Reason: smoking cessation Nicotine Polacrilex (Nicotine Polacrilex 2 Mg Gum) 4 mg BUCCAL Q2H PRN PRN Reason: Nicotine Cravings Olanzapine (Olanzapine 5 Mg Tablet) 5 mg PO TID PRN PRN Reason: agitation Allergies Allergies Allergy/AdvReac Type Severity Reaction Status Date / Time No Known Allergies Allergy Verified 12/06/23 09:24 Assessment & Plan Assessment & Plan (1) Bipolar disorder: Status: Acute Code(s): F31.9 - Bipolar disorder, unspecified (2) PTSD (post-traumatic stress disorder): Status: Acute Code(s): F43.10 - Post-traumatic stress disorder, unspecified (3) Opioid use disorder: Status: Acute Code(s): F11.90 - Opioid use, unspecified, uncomplicated (4) Cocaine abuse: Status: Acute Code(s): F14.10 - Cocaine abuse, uncomplicated Plan Pt is a 28 yo male with hx of depression, anxiety, opioid and cocaine abuse, on methadone, who was recently dc'd from on 11/19 and self presents for SI with attempted overdose. After discharge from , patient went to a long-term (not wanting a CSS to fulfill to 14 days of sobriety needed to get into a sober house). He was there for a few days and his mood remained depressed though he says he was trying to convince himself he would start to feel better. At any rate he did not attempted suicide by overdose and was admitted to [facility] where he was for 5 days; no medication changes and he was discharged this past to a hotel. On Thursday he said he felt miserable, waited till his girlfriend left and OD'd on fentanyl though his girlfriend came back about 5 minutes later and gave him Narcan and called 911. Patient reports that nothing has helped his depression. He will be sober for several months and then relapsed for 3 days and even during periods of sobriety still remains very depressed. Reviewing history further, patient endorses history of manic episodes that last for about 2-3 days during which time he is happy and almost joyful, feels like he can never get enough done however also feeling like [he] is all over the place, jumping from thing to thing; he does not need sleep at all and is not tired; has racing thoughts, significantly increased libido and spends excess money on things he does not need like clothing and take out food that ends up throwing away... Review of family history and he thinks possibly sister has bipolar disorder. Patient endorses some history of trauma but does not specify. Denies AVH. Formulation: Patient meets criteria for bipolar disorder, at least type 2. Symptoms complicated by PTSD and substance abuse Discussed diagnosis and patient agrees that it is probably accurate and would like to try a mood stabilizer; reviewed options including dopamine blockers and lithium, reviewing risks and side effects of both; patient would like to start and try lithium Hospital course: 12/07 very depressed; says he wants to discharge and go to one of the states that does physician assisted suicide. Patient says he is extremely depressed and just wants to ; he also says he is extremely anxious all the time and wants his clonazepam raised. Patient shared how he is never abused in the past. He did accept filing writer's perspective on this medication and the concerning risks and he agreed instead to try clonidine, Zyprexa and then maybe gabapentin to see if that can help deal with his anxiety; he agreed that he has been on this dose in the past and was overall doing okay so it is hopeful that he can remain not needing to go any higher. Patient also said that in the past he has been diagnosed with ADHD and then ADD and was on stimulant medication, Vyvanse which he found incredibly helpful. He is wondering if that can also be a possibility. He accepts that at this time the focus is dealing with his depression. Patient shared more about his history and his very challenging relationship with his parents. Patient was bullied as a kid and often alone without a lot of friends and though his parents provided the necessities, he found them very emotionally distant and often physically absent as well, leaving patient to feel very alone going up. His father was also an alcoholic spending most of the time either by himself in the basement drinking and watching television or out with his friends drinking. Patient likely had his paternal grandparents living down the street whom he loved and felt deeply loved by and he went there often. Both of them in his later teenage years which was very difficult for patient. Patient also feels the outcast of the family because of his substance abuse and he has not close to his sister either who he feels ignores him because of his substance struggles. Plan: CV Q 15 minutes checks Scheduled clonidine 0900, 1300 to see if it can be helpful; also p.r.n. clonidine Zyprexa 2.5 mg p.r.n. for anxiety DC Cymbalta; has not been helpful Continue lithium ER 600 mg q.h.s. Continue methadone 90 mg Patient educated on: diagnosis, medication risk/benefits and substance abuse Informed Consent: understands and further education needed Reason for continued inpatient stay Substantial Risk for: harm to self and inability to function Time Spent With Patient Time: Total time managing care of this patient today ____ minutes.
[2023-12-08 09:45] VITALS: BP 136/72; PULSE 78; RESP 16; TEMP 36.6; O2SAT 98
[2023-12-08 11:05] VITALS: BP 127/71
[2023-12-08] MEDS: cloNIDine HCL 0.1 MG TABLET PO ×2 (11:05→12:45)
[2023-12-08] MEDS: OLANZapine 2.5 MG TABLET PO (11:28)
[2023-12-08 12:45] VITALS: BP 131/60
[2023-12-08 20:00] VITALS: RESP 18
[2023-12-08] MEDS: Lithium Carbonate ER 300 MG TABLET.ER 600 MG PO (21:26)
[2023-12-09 08:00] VITALS: RESP 18
[2023-12-09] MEDS: methADONE HCl 20 MG/2 ML ORAL.CONC 90 MG PO (08:24)
[2023-12-09] MEDS: clonazePAM 1 MG TABLET PO ×2 (08:24→14:28)
[2023-12-09] MEDS: DULoxetine HCl 30 MG CAPSULE.DR PO (08:24)
[2023-12-09 09:03] VITALS: BP 122/70
[2023-12-09] MEDS: cloNIDine HCL 0.1 MG TABLET PO ×2 (09:03→18:24)
[2023-12-09 18:24] VITALS: BP 118/70
[2023-12-09] MEDS: OLANZapine 2.5 MG TABLET PO (18:24)
[2023-12-09] MEDS: Lithium Carbonate ER 300 MG TABLET.ER 600 MG PO (20:53)
--- NOTE | 2023-12-09 22:45 | HO.PSYCHPN ---
Subjective Subjective Date of Service: 12/09/23 Reason For Visit: Depression Interim History: Met with patient; discussed with team Patient remains depressed and anxious and irritable; still saying he wants to go to a state that allows for euthanasia. Says he spending most of the time in his room alone because he gets irritated around people, does not like the things they say or gets jealous of the things they have an finds it overall more peaceful to stay by himself. He says he likes it that way. Discussed his history of substance abuse a little more and the timeline of sobriety verse using was a little unclear. It seems that patient was sober during a program 6 months ago and then after the program, quickly relapsed; the next several months for followed by a pattern of relapse with 2+ weeks of sobriety then relapse again. Patient understood the need to try and find a pattern so as to best, with a plan to help him with sobriety Mental Status Exam Mental Status Exam Narrative: Pt is alert and oriented; behavior is cooperative, a little guarded, anxious; patient is not in distress; dressed in casual attire with adequate hygiene; mood is described as depressed and affect congruent, irritable, downcast, anxious; eye contact appropriate; Speech is normal rate, volume and prosody and not pressured; some psychomotor retardation present; thought process is organized and goal directed; Thought content is on hopelessness but also on tx; otherwise pertinent to relevant topics and without any delusional content, paranoid ideations or grandiosity; SI present; no HI. There is no evidence of perceptual disturbance denies [facility] Patients insight and judgment impaired Diagnostics Vital Signs (24Hr): Vital Signs - 24 hr 12/09/23 08:00 12/09/23 09:03 12/09/23 18:24 Respiratory Rate 18 Blood Pressure 122/70 118/70 BMI result Body Mass Index 33.3 Labs 12/06/23 13:07 12/06/23 13:07 Medications Medications Current Medications Acetaminophen (Acetaminophen 325 Mg Tablet) 650 mg PO Q6H PRN PRN Reason: Headache/Pain Mild Scale (1-3) Al Hydroxide/Mg Hydroxide (Magnesium Hydrox/Alum Hydrox 30 Ml Oral.Susp) 30 ml PO Q6H PRN PRN Reason: Heartburn/Nausea Clonazepam (Clonazepam 1 Mg Tablet) 1 mg PO BID@0900,1400 SIL[facility]IO Last Admin: 12/09/23 14:28 Dose: 1 mg Clonidine HCl (Clonidine Hcl 0.1 Mg Tablet) 0.1 mg PO Q4H PRN; Protocol PRN Reason: mild to mod anxiety Clonidine HCl (Clonidine Hcl 0.1 Mg Tablet) 0.1 mg PO TID@0900,1300,1700 [facility]; Protocol Last Admin: 12/09/23 18:24 Dose: 0.1 mg Duloxetine HCl (Duloxetine Hcl 30 Mg Capsule.Dr) 30 mg PO DAILY [facility] Stop: 12/09/23 23:30 Last Admin: 12/09/23 08:24 Dose: 30 mg Hydroxyzine HCl (Hydroxyzine Hcl 25 Mg Tablet) 25 mg PO Q6H PRN PRN Reason: mild Anxiety [place] Carbonate ([place] Carbonate Er 300 Mg Tablet.Er) 600 mg PO BEDTIME [facility] Last Admin: 12/09/23 20:53 Dose: 600 mg Magnesium Hydroxide (Milk Of Magnesia 30 Ml Oral.Susp) 30 ml PO DAILY PRN PRN Reason: Constipation Methadone HCl (Methadone Hcl 20 Mg/2 Ml Oral.Conc) 90 mg PO DAILY [facility] Last Admin: 12/09/23 08:24 Dose: 90 mg Nicotine (Nicotine 21 Mg Patch.Td24) 21 mg TRANSDERMA DAILY PRN PRN Reason: smoking cessation Nicotine Polacrilex (Nicotine Polacrilex 2 Mg Gum) 4 mg BUCCAL Q2H PRN PRN Reason: Nicotine Cravings Olanzapine (Olanzapine 2.5 Mg Tablet) 2.5 mg PO Q4H PRN PRN Reason: agitation Last Admin: 12/09/23 18:24 Dose: 2.5 mg Allergies Allergies Allergy/AdvReac Type Severity Reaction Status Date / Time No Known Allergies Allergy Verified 12/06/23 09:24 Assessment & Plan Assessment & Plan (1) Bipolar disorder: Status: Acute Code(s): F31.9 - Bipolar disorder, unspecified (2) PTSD (post-traumatic stress disorder): Status: Acute Code(s): F43.10 - Post-traumatic stress disorder, unspecified (3) Opioid use disorder: Status: Acute Code(s): F11.90 - Opioid use, unspecified, uncomplicated (4) Cocaine abuse: Status: Acute Code(s): F14.10 - Cocaine abuse, uncomplicated Plan Pt is a 28 yo male with hx of depression, anxiety, opioid and cocaine abuse, on methadone, who was recently dc'd from on 11/19 and self presents for SI with attempted overdose. After discharge from , patient went to a longterm (not wanting a CSS to fulfill to 14 days of sobriety needed to get into a sober house). He was there for a few days and his mood remained depressed though he says he was trying to convince himself he would start to feel better. At any rate he did not attempted suicide by overdose and was admitted to [facility] where he was for 5 days; no medication changes and he was discharged this past to a hotel. On Thursday he said he felt miserable, waited till his girlfriend left and OD'd on fentanyl though his girlfriend came back about 5 minutes later and gave him Narcan and called 911. Patient reports that nothing has helped his depression. He will be sober for several months and then relapsed for 3 days and even during periods of sobriety still remains very depressed. Reviewing history further, patient endorses history of manic episodes that last for about 2-3 days during which time he is happy and almost joyful, feels like he can never get enough done however also feeling like [he] is all over the place, jumping from thing to thing; he does not need sleep at all and is not tired; has racing thoughts, significantly increased libido and spends excess money on things he does not need like clothing and take out food that ends up throwing away... Review of family history and he thinks possibly sister has bipolar disorder. Patient endorses some history of trauma but does not specify. Denies AVH. Formulation: Patient meets criteria for bipolar disorder, at least type 2. Symptoms complicated by PTSD and substance abuse Discussed diagnosis and patient agrees that it is probably accurate and would like to try a mood stabilizer; reviewed options including dopamine blockers and lithium, reviewing risks and side effects of both; patient would like to start and try lithium Hospital course: 12/07 very depressed; says he wants to discharge and go to one of the states that does physician assisted suicide. Patient says he is extremely depressed and just wants to ; he also says he is extremely anxious all the time and wants his clonazepam raised. Patient shared how he is never abused in the past. He did accept magnetic tape typewriter operator's perspective on this medication and the concerning risks and he agreed instead to try clonidine, Zyprexa and then maybe gabapentin to see if that can help deal with his anxiety; he agreed that he has been on this dose in the past and was overall doing okay so it is hopeful that he can remain not needing to go any higher. Patient also said that in the past he has been diagnosed with ADHD and then ADD and was on stimulant medication, Vyvanse which he found incredibly helpful. He is wondering if that can also be a possibility. He accepts that at this time the focus is dealing with his depression. Patient shared more about his history and his very challenging relationship with his parents. Patient was bullied as a kid and often alone without a lot of friends and though his parents provided the necessities, he found them very emotionally distant and often physically absent as well, leaving patient to feel very alone going up. His father was also an alcoholic spending most of the time either by himself in the basement drinking and watching television or out with his friends drinking. Patient likely had his paternal grandparents living down the street whom he loved and felt deeply loved by and he went there often. Both of them in his later teenage years which was very difficult for patient. Patient also feels the outcast of the family because of his substance abuse and he has not close to his sister either who he feels ignores him because of his substance struggles. 12/08Patient remains depressed and anxious and irritable; still saying he wants to go to a state that allows for euthanasia. Says he spending most of the time in his room alone because he gets irritated around people. However he agreed that learning to tolerate irritating things will help to be sober. Discussed his history of substance abuse more and he will help make a timeline; seems that patient was sober during a program 6 months ago and then after the program, quickly relapsed; the next several months for followed by a pattern of relapse with 2+ weeks of sobriety then relapse again. Patient understood the need to try and find a pattern so as to best, with a plan to help him with sobriety Plan: CV Q 15 minutes checks Scheduled clonidine 0900, 1300 to see if it can be helpful; also p.r.n. clonidine Zyprexa 2.5 mg p.r.n. for anxiety DC Cymbalta; has not been helpful Continue lithium ER 600 mg q.h.s. Continue methadone 90 mg Patient educated on: diagnosis, medication risk/benefits, substance abuse and therapeutic strategies Informed Consent: understands Reason for continued inpatient stay Substantial Risk for: harm to self Time Spent With Patient Time: Total time managing care of this patient today ____ minutes.
[2023-12-10 07:00] VITALS: BMI 34.1
[2023-12-10 08:00] VITALS: RESP 18
[2023-12-10] MEDS: methADONE HCl 20 MG/2 ML ORAL.CONC 90 MG PO (08:31)
[2023-12-10] MEDS: clonazePAM 1 MG TABLET PO ×2 (08:32→13:10)
--- NOTE | 2023-12-10 09:16 | P.PNPSI_ITS ---
Subjective Subjective Date of Service: 12/10/23 Reason For Visit: Depression Interim History: Met with patient; discussed with team pt actually feeling a little better today and on wish which is first time this admission. Pt also out in [place] and says he did infact enjoy talking to others which surprised him. He's hoping it's due to [place]. Pt shared plans for future, saying he'll go to a care home or rent a room somewhere, get a job and thinks he'll be able to save enough to soon improve his living situation. He's more optimistic about sobriety and says he'll go back to meetings; willing to entertain a sobriety transition coach. He says he most wants a therapist. Clonidine, zyprexa not helping for anxiety; asks for gabapentin; asks for methadone increase saying did better at higher dose Mental Status Exam Mental Status Exam Narrative: Pt is alert and oriented; behavior is cooperative, more calm, more friendly; patient is not in distress; dressed in casual attire with adequate hygiene; mood is described as little better and affect congruent, brighter, more calm; eye contact appropriate; Speech is normal rate, volume and prosody and not pressured; no psychomotor retardation present; thought process is organized and goal directed; Thought content is more hopeful, future plans, tx; otherwise pertinent to relevant topics and without any delusional content, paranoid ideations or grandiosity; no SI; no HI. There is no evidence of perceptual disturbance denies [facility] Patients insight and judgment fair. Diagnostics Vital Signs (24Hr): Vital Signs - 24 hr 12/09/23 18:24 12/10/23 08:00 Respiratory Rate 18 Blood Pressure 118/70 BMI result Body Mass Index 33.3 Labs 12/06/23 13:07 12/06/23 13:07 Medications Medications Current Medications Acetaminophen (Acetaminophen 325 Mg Tablet) 650 mg PO Q6H PRN PRN Reason: Headache/Pain Mild Scale (1-3) Al Hydroxide/Mg Hydroxide (Magnesium Hydrox/Alum Hydrox 30 Ml Oral.Susp) 30 ml PO Q6H PRN PRN Reason: Heartburn/Nausea Clonazepam (Clonazepam 1 Mg Tablet) 1 mg PO BID@0900,1400 SIL[facility]IO Last Admin: 12/10/23 08:32 Dose: 1 mg Clonidine HCl (Clonidine Hcl 0.1 Mg Tablet) 0.1 mg PO Q4H PRN; Protocol PRN Reason: mild to mod anxiety Clonidine HCl (Clonidine Hcl 0.1 Mg Tablet) 0.1 mg PO TID@0900,1300,1700 [facility]; Protocol Last Admin: 12/10/23 08:33 Dose: Not Given Hydroxyzine HCl (Hydroxyzine Hcl 25 Mg Tablet) 25 mg PO Q6H PRN PRN Reason: mild Anxiety [place] Carbonate ([place] Carbonate Er 300 Mg Tablet.Er) 600 mg PO BEDTIME [facility] Last Admin: 12/09/23 20:53 Dose: 600 mg Magnesium Hydroxide (Milk Of Magnesia 30 Ml Oral.Susp) 30 ml PO DAILY PRN PRN Reason: Constipation Methadone HCl (Methadone Hcl 20 Mg/2 Ml Oral.Conc) 90 mg PO DAILY [facility] Last Admin: 12/10/23 08:31 Dose: 90 mg Nicotine (Nicotine 21 Mg Patch.Td24) 21 mg TRANSDERMA DAILY PRN PRN Reason: smoking cessation Nicotine Polacrilex (Nicotine Polacrilex 2 Mg Gum) 4 mg BUCCAL Q2H PRN PRN Reason: Nicotine Cravings Olanzapine (Olanzapine 2.5 Mg Tablet) 2.5 mg PO Q4H PRN PRN Reason: agitation Last Admin: 12/09/23 18:24 Dose: 2.5 mg Allergies Allergies Allergy/AdvReac Type Severity Reaction Status Date / Time No Known Allergies Allergy Verified 12/06/23 09:24 Assessment & Plan Assessment & Plan (1) Bipolar disorder: Status: Acute Code(s): F31.9 - Bipolar disorder, unspecified (2) PTSD (post-traumatic stress disorder): Status: Acute Code(s): F43.10 - Post-traumatic stress disorder, unspecified (3) Opioid use disorder: Status: Acute Code(s): F11.90 - Opioid use, unspecified, uncomplicated (4) Cocaine abuse: Status: Acute Code(s): F14.10 - Cocaine abuse, uncomplicated Plan Pt is a 28 yo male with hx of depression, anxiety, opioid and cocaine abuse, on methadone, who was recently dc'd from on 11/19 and self presents for SI with attempted overdose. After discharge from , patient went to a care home (not wanting a CSS to fulfill to 14 days of sobriety needed to get into a sober house). He was there for a few days and his mood remained depressed though he says he was trying to convince himself he would start to feel better. At any rate he did not attempted suicide by overdose and was admitted to [facility] where he was for 5 days; no medication changes and he was discharged this past to a hotel. On Thursday he said he felt miserable, waited till his girlfriend left and OD'd on fentanyl though his girlfriend came back about 5 minutes later and gave him Narcan and called 911. Patient reports that nothing has helped his depression. He will be sober for several months and then relapsed for 3 days and even during periods of sobriety still remains very depressed. Reviewing history further, patient endorses history of manic episodes that last for about 2-3 days during which time he is happy and almost joyful, feels like he can never get enough done however also feeling like [he] is all over the place, jumping from thing to thing; he does not need sleep at all and is not tired; has racing thoughts, significantly increased libido and spends excess money on things he does not need like clothing and take out food that ends up throwing away... Review of family history and he thinks possibly sister has bipolar disorder. Patient endorses some history of trauma but does not specify. Denies AVH. Formulation: Patient meets criteria for bipolar disorder, at least type 2. Symptoms complicated by PTSD and substance abuse Discussed diagnosis and patient agrees that it is probably accurate and would like to try a mood stabilizer; reviewed options including dopamine blockers and lithium, reviewing risks and side effects of both; patient would like to start and try lithium Hospital course: 12/07 very depressed; says he wants to discharge and go to one of the states that does physician assisted suicide. Patient says he is extremely depressed and just wants to ; he also says he is extremely anxious all the time and wants his clonazepam raised. Patient shared how he is never abused in the past. He did accept narrative writer's perspective on this medication and the concerning risks and he agreed instead to try clonidine, Zyprexa and then maybe gabapentin to see if that can help deal with his anxiety; he agreed that he has been on this dose in the past and was overall doing okay so it is hopeful that he can remain not needing to go any higher. Patient also said that in the past he has been diagnosed with ADHD and then ADD and was on stimulant medication, Vyvanse which he found incredibly helpful. He is wondering if that can also be a possibility. He accepts that at this time the focus is dealing with his depression. Patient shared more about his history and his very challenging relationship with his parents. Patient was bullied as a kid and often alone without a lot of friends and though his parents provided the necessities, he found them very emotionally distant and often physically absent as well, leaving patient to feel very alone going up. His father was also an alcoholic spending most of the time either by himself in the basement drinking and watching television or out with his friends drinking. Patient likely had his paternal grandparents living down the street whom he loved and felt deeply loved by and he went there often. Both of them in his later teenage years which was very difficult for patient. Patient also feels the outcast of the family because of his substance abuse and he has not close to his sister either who he feels ignores him because of his substance struggles. 12/08Patient remains depressed and anxious and irritable; still saying he wants to go to a state that allows for euthanasia. Says he spending most of the time in his room alone because he gets irritated around people. However he agreed that learning to tolerate irritating things will help to be sober. Discussed his history of substance abuse more and he will help make a timeline; seems that patient was sober during a program 6 months ago and then after the program, quickly relapsed; the next several months for followed by a pattern of relapse with 2+ weeks of sobriety then relapse again. Patient understood the need to try and find a pattern so as to best, with a plan to help him with sobriety 12/09 doing better; says mood is better and affect is brighter; talking about future plans and denies any SI which is new. -clonidine, zyprexa not helpful for anxiety -increase methadone; add gabapentin for anxiety *DO NOT INCREASE CLONAZEPAM DOSE Plan: CV Q 15 minutes checks Add gabapetine for anxiety as prn DC Cymbalta; has not been helpful Continue lithium ER 600 mg q.h.s. -labs ordered Increase to methadone 100 mg Lipids/HbA1C taken at previous admission weeks ago Patient educated on: diagnosis, medication risk/benefits, substance abuse and therapeutic strategies Informed Consent: understands Reason for continued inpatient stay Substantial Risk for: rapid decompensation Time Spent With Patient Time: Total time managing care of this patient today ____ minutes.
[2023-12-10 10:03] VITALS: BP 118/71; PULSE 97
[2023-12-10] MEDS: cloNIDine HCL 0.1 MG TABLET PO ×2 (10:06→13:10)
--- NOTE | 2023-12-10 12:55 | PC.NURSE ---
Medications dropped off for patient (Cymbalta and Klonopin). Medications verified with Mariangel UPTON, secured, and sent to pharmacy for storage.
[2023-12-10 13:10] VITALS: BP 125/71
[2023-12-10] MEDS: methADONE HCl 20 MG/2 ML ORAL.CONC 5 MG PO (15:15)
[2023-12-10] MEDS: Gabapentin 300 MG CAPSULE PO (15:26)
[2023-12-10] MEDS: Lithium Carbonate ER 300 MG TABLET.ER 600 MG PO (21:36)
--- NOTE | 2023-12-11 | ECG_ITS ---
Test Reason : ck qt Blood Pressure : / mmHG Vent. Rate : 079 BPM Atrial Rate : 079 BPM P-R Int : 136 ms QRS Dur : 084 ms QT Int : 396 ms P-R-T Axes : 061 072 044 degrees QTc Int : 454 ms Normal sinus rhythm Normal ECG When compared with ECG of 06-DEC-2023 15:21, No significant change was found Referred By: Markus Hull Electronically Signed By:SHENA HUFF MD
[2023-12-11 08:00] VITALS: RESP 18
[2023-12-11] MEDS: Gabapentin 300 MG CAPSULE PO ×2 (08:05→14:22)
[2023-12-11] MEDS: clonazePAM 1 MG TABLET PO ×2 (08:05→13:08)
[2023-12-11] MEDS: methADONE HCl 20 MG/2 ML ORAL.CONC 100 MG PO (08:05)
[2023-12-11 10:08] VITALS: BP 122/70; PULSE 87
[2023-12-11] MEDS: cloNIDine HCL 0.2 MG TABLET PO ×2 (10:09→14:22)
[2023-12-11 14:20] VITALS: BP 117/58; PULSE 108
--- NOTE | 2023-12-11 14:59 | HO.PSYCHPN ---
Subjective Subjective Date of Service: 12/11/23 Reason For Visit: Depression Subjective Notes: Conditional Voluntary Healthcare Proxy: No Guardianship: No Medical Problems Affecting Mental Status: No Interim History: Pt reports he is aware he cannot increase Klonopin. He asks if Gabapentin can increase. Will increase to QID prn for this weekend and re-evaluate. Napping when approached, reports some sleep disruption however is able to nap when observed today. Medication Compliance: Yes Side effects from medications: No Attending Groups: Intermittent Review of Systems Acute medical concerns: No Medical Review of Systems: unchanged Review of Systems Review of Systems Yes all other systems are reviewed and are negative Mental Status Exam Mental Status Exam Patient Appearance: Appropriate Patient Orientation: Person, Place, Time and Situation Level of Consciousness: Alert Patient Behavior: Appropriate Mood Description: Withdrawn Affect Description: Flat Patient Cognition Impaired: No Ability to Follow Directions: Good Speech Pattern: Spontaneous Speech Hallucinations: None Delusions: Not Present Thought Process: Intact Thought Content: positive for Intact Judgement: Fair Diagnostics Vital Signs (24Hr): Vital Signs - 24 hr 12/11/23 08:00 12/11/23 10:08 12/11/23 14:20 Pulse Rate 87 108 H Respiratory Rate 18 Blood Pressure 122/70 117/58 L BMI result Body Mass Index 34.1 Labs 12/06/23 13:07 12/06/23 13:07 Medications Medications Current Medications Acetaminophen (Acetaminophen 325 Mg Tablet) 650 mg PO Q6H PRN PRN Reason: Headache/Pain Mild Scale (1-3) Al Hydroxide/Mg Hydroxide (Magnesium Hydrox/Alum Hydrox 30 Ml Oral.Susp) 30 ml PO Q6H PRN PRN Reason: Heartburn/Nausea Clonazepam (Clonazepam 1 Mg Tablet) 1 mg PO BID@0900,1400 [facility] Last Admin: 12/11/23 13:08 Dose: 1 mg Clonidine HCl (Clonidine Hcl 0.2 Mg Tablet) 0.2 mg PO Q4H PRN; Protocol PRN Reason: mild to mod anxiety Last Admin: 12/11/23 14:22 Dose: 0.2 mg Gabapentin (Gabapentin 300 Mg Capsule) 300 mg PO TID PRN PRN Reason: mild anxiety Last Admin: 12/11/23 14:22 Dose: 300 mg Hydroxyzine HCl (Hydroxyzine Hcl 25 Mg Tablet) 25 mg PO Q6H PRN PRN Reason: mild Anxiety Iatan Carbonate (Iatan Carbonate Er 300 Mg Tablet.Er) 600 mg PO BEDTIME [facility] Last Admin: 12/10/23 21:36 Dose: 600 mg Magnesium Hydroxide (Milk Of Magnesia 30 Ml Oral.Susp) 30 ml PO DAILY PRN PRN Reason: Constipation Methadone HCl (Methadone Hcl 20 Mg/2 Ml Oral.Conc) 100 mg PO DAILY [facility] Last Admin: 12/11/23 08:05 Dose: 100 mg Nicotine (Nicotine 21 Mg Patch.Td24) 21 mg TRANSDERMA DAILY PRN PRN Reason: smoking cessation Nicotine Polacrilex (Nicotine Polacrilex 2 Mg Gum) 4 mg BUCCAL Q2H PRN PRN Reason: Nicotine Cravings Olanzapine (Olanzapine 2.5 Mg Tablet) 2.5 mg PO Q4H PRN PRN Reason: agitation Last Admin: 12/09/23 18:24 Dose: 2.5 mg Allergies Allergies Allergy/AdvReac Type Severity Reaction Status Date / Time No Known Allergies Allergy Verified 12/06/23 09:24 Assessment & Plan Assessment & Plan (1) Bipolar disorder: Status: Acute Code(s): F31.9 - Bipolar disorder, unspecified (2) PTSD (post-traumatic stress disorder): Status: Acute Code(s): F43.10 - Post-traumatic stress disorder, unspecified (3) Opioid use disorder: Status: Acute Code(s): F11.90 - Opioid use, unspecified, uncomplicated (4) Cocaine abuse: Status: Acute Code(s): F14.10 - Cocaine abuse, uncomplicated Plan Pt is a 28 yo male with hx of depression, anxiety, opioid and cocaine abuse, on methadone, who was recently dc'd from on 11/19 and self presents for SI with attempted overdose. After discharge from , patient went to a senior care (not wanting a CSS to fulfill to 14 days of sobriety needed to get into a sober house). He was there for a few days and his mood remained depressed though he says he was trying to convince himself he would start to feel better. At any rate he did not attempted suicide by overdose and was admitted to [facility] where he was for 5 days; no medication changes and he was discharged this past to a hotel. On Thursday he said he felt miserable, waited till his girlfriend left and OD'd on fentanyl though his girlfriend came back about 5 minutes later and gave him Narcan and called 911. Patient reports that nothing has helped his depression. He will be sober for several months and then relapsed for 3 days and even during periods of sobriety still remains very depressed. Reviewing history further, patient endorses history of manic episodes that last for about 2-3 days during which time he is happy and almost joyful, feels like he can never get enough done however also feeling like [he] is all over the place, jumping from thing to thing; he does not need sleep at all and is not tired; has racing thoughts, significantly increased libido and spends excess money on things he does not need like clothing and take out food that ends up throwing away... Review of family history and he thinks possibly sister has bipolar disorder. Patient endorses some history of trauma but does not specify. Denies AVH. Formulation: Patient meets criteria for bipolar disorder, at least type 2. Symptoms complicated by PTSD and substance abuse Discussed diagnosis and patient agrees that it is probably accurate and would like to try a mood stabilizer; reviewed options including dopamine blockers and lithium, reviewing risks and side effects of both; patient would like to start and try lithium Hospital course: 12/07 very depressed; says he wants to discharge and go to one of the states that does physician assisted suicide. Patient says he is extremely depressed and just wants to ; he also says he is extremely anxious all the time and wants his clonazepam raised. Patient shared how he is never abused in the past. He did accept tech writer's perspective on this medication and the concerning risks and he agreed instead to try clonidine, Zyprexa and then maybe gabapentin to see if that can help deal with his anxiety; he agreed that he has been on this dose in the past and was overall doing okay so it is hopeful that he can remain not needing to go any higher. Patient also said that in the past he has been diagnosed with ADHD and then ADD and was on stimulant medication, Vyvanse which he found incredibly helpful. He is wondering if that can also be a possibility. He accepts that at this time the focus is dealing with his depression. Patient shared more about his history and his very challenging relationship with his parents. Patient was bullied as a kid and often alone without a lot of friends and though his parents provided the necessities, he found them very emotionally distant and often physically absent as well, leaving patient to feel very alone going up. His father was also an alcoholic spending most of the time either by himself in the basement drinking and watching television or out with his friends drinking. Patient likely had his paternal grandparents living down the street whom he loved and felt deeply loved by and he went there often. Both of them in his later teenage years which was very difficult for patient. Patient also feels the outcast of the family because of his substance abuse and he has not close to his sister either who he feels ignores him because of his substance struggles. 12/08Patient remains depressed and anxious and irritable; still saying he wants to go to a state that allows for euthanasia. Says he spending most of the time in his room alone because he gets irritated around people. However he agreed that learning to tolerate irritating things will help to be sober. Discussed his history of substance abuse more and he will help make a timeline; seems that patient was sober during a program 6 months ago and then after the program, quickly relapsed; the next several months for followed by a pattern of relapse with 2+ weeks of sobriety then relapse again. Patient understood the need to try and find a pattern so as to best, with a plan to help him with sobriety 12/09 doing better; says mood is better and affect is brighter; talking about future plans and denies any SI which is new. -clonidine, zyprexa not helpful for anxiety -increase methadone; add gabapentin for anxiety 12/10 increase gabapentin to QID prn *DO NOT INCREASE CLONAZEPAM DOSE Plan: CV Q 15 minutes checks Add gabapetine for anxiety as prn DC Cymbalta; has not been helpful Continue lithium ER 600 mg q.h.s. -labs ordered Increase to methadone 100 mg Lipids/HbA1C taken at previous admission weeks ago Reason for continued inpatient stay Substantial Risk for: rapid decompensation Time Spent With Patient Time: Total time managing care of this patient today ____ minutes.
[2023-12-11] MEDS: Lithium Carbonate ER 300 MG TABLET.ER 600 MG PO (21:16)
[2023-12-12] MEDS: clonazePAM 1 MG TABLET PO ×2 (08:02→13:14)
[2023-12-12] MEDS: methADONE HCl 20 MG/2 ML ORAL.CONC 100 MG PO (08:02)
[2023-12-12 08:07] LABS: Lithium 0.25 mmol/L (0.60-1.20)
[2023-12-12] MEDS: Gabapentin 300 MG CAPSULE PO ×2 (08:14→17:28)
[2023-12-12 08:19] LABS: Blood Urea Nitrogen 14 mg/dL (9-16); Creatinine Clr Calc Pharmacy 173.3; Estimated Glomerular Filt Rate > 60
[2023-12-12 08:30] VITALS: BP 123/75; PULSE 71; RESP 16; TEMP 36.3; O2SAT 99
[2023-12-12 08:35] LABS: TSH reflex Free T4 1.38 uIU/mL (0.32-4.0)
[2023-12-12] MEDS: cloNIDine HCL 0.2 MG TABLET PO ×2 (10:27→17:28)
[2023-12-12] MEDS: OLANZapine 2.5 MG TABLET PO ×2 (10:27→17:28)
[2023-12-12 10:28] VITALS: BP 140/61; PULSE 99
[2023-12-12 17:29] VITALS: BP 112/72; PULSE 99
[2023-12-12 20:00] VITALS: RESP 18
[2023-12-12] MEDS: Lithium Carbonate ER 300 MG TABLET.ER 600 MG PO (20:07)
--- NOTE | 2023-12-12 21:00 | HO.PSYCHPN ---
Subjective Subjective Date of Service: 12/12/23 Reason For Visit: Depression Interim History: Pt focused on anxiety and increasing medications. Says GBP hasn't been effective. He isn't utilizing it frequently. No side effects reportsed. He denies SI/HI/AVH. He is ambivalent about leaving early next week. Reports some sleep disruption however is able to nap. Review of Systems Review of Systems All other systems are reviewed and are negative Constitutional: Reports as per HPI and Reports no additional constitutional complaints Eyes: Reports as per HPI and Reports no additional eye complaints Reports system reviewed and no additional complaints, except as documented Cardiovascular: Reports as per HPI and Reports no additional cardiovascular complaints Respiratory: Reports as per HPI and Reports no additional respiratory complaints Gastrointestinal: Reports as per HPI and Reports no additional gastrointestinal complaints Genitourinary: Reports no additional female genitourinary complaints Musculoskeletal: Reports no additional musculoskeletal complaints Skin/Breast: Reports system reviewed and no additional complaints, except as docu Psychiatric: Reports no additional psychiatric complaints Endocrine: Reports no additional endocrine complaints Hematologic/Lymphatic: Reports no additional hematologic/lymphatic complaints Allergic/Immunologic: Reports no additional allergic/immunologic complaints Reports system reviewed and no additional complaints, except as documented and Reports Abnormal speech present Yes all other systems are reviewed and are negative Mental Status Exam Mental Status Exam Narrative: Pt is alert and oriented; behavior is cooperative, more calm, more friendly; patient is not in distress; dressed in casual attire with adequate hygiene; mood is described as little better and affect congruent, brighter, more calm; eye contact appropriate; Speech is normal rate, volume and prosody and not pressured; no psychomotor retardation present; thought process is organized and goal directed; Thought content is more hopeful, future plans, tx; otherwise pertinent to relevant topics and without any delusional content, paranoid ideations or grandiosity; no SI; no HI. There is no evidence of perceptual disturbance denies AVH Patients insight and judgment fair. Patient Appearance: Appropriate Patient Orientation: Person, Place, Time and Situation Level of Consciousness: Alert Patient Behavior: Appropriate Mood Description: Withdrawn Affect Description: Flat Patient Cognition Impaired: No Ability to Follow Directions: Good Speech Pattern: Spontaneous Speech Diagnostics Vital Signs (24Hr): Vital Signs - 24 hr 12/12/23 08:30 12/12/23 10:28 12/12/23 17:29 Temperature 97.3 F Pulse Rate 71 99 99 Respiratory Rate 16 Blood Pressure 123/75 140/61 H 112/72 Pulse Oximetry 99 Oxygen Delivery Method Room Air 12/12/23 20:00 Temperature Pulse Rate Respiratory Rate 18 Blood Pressure Pulse Oximetry Oxygen Delivery Method BMI result Body Mass Index 34.1 Labs 12/06/23 13:07 12/12/23 07:48 Labs: Laboratory Results - last 48 hr 12/12/23 07:48 BUN 14 Creatinine 0.74 Estim Creat Clear Calc 173.3 Estimated GFR > 60 TSH 1.38 [place] 0.25 L Medications Medications Current Medications Acetaminophen (Acetaminophen 325 Mg Tablet) 650 mg PO Q6H PRN PRN Reason: Headache/Pain Mild Scale (1-3) Al Hydroxide/Mg Hydroxide (Magnesium Hydrox/Alum Hydrox 30 Ml Oral.Susp) 30 ml PO Q6H PRN PRN Reason: Heartburn/Nausea Clonazepam (Clonazepam 1 Mg Tablet) 1 mg PO BID@0900,1400 [facility] Last Admin: 12/12/23 13:14 Dose: 1 mg Clonidine HCl (Clonidine Hcl 0.2 Mg Tablet) 0.2 mg PO Q4H PRN; Protocol PRN Reason: mild to mod anxiety Last Admin: 12/12/23 17:28 Dose: 0.2 mg Gabapentin (Gabapentin 300 Mg Capsule) 300 mg PO QID PRN PRN Reason: mild anxiety Last Admin: 12/12/23 17:28 Dose: 300 mg Hydroxyzine HCl (Hydroxyzine Hcl 25 Mg Tablet) 25 mg PO Q6H PRN PRN Reason: mild Anxiety [place] Carbonate ([place] Carbonate Er 300 Mg Tablet.Er) 600 mg PO BEDTIME [facility] Last Admin: 12/12/23 20:07 Dose: 600 mg Magnesium Hydroxide (Milk Of Magnesia 30 Ml Oral.Susp) 30 ml PO DAILY PRN PRN Reason: Constipation Methadone HCl (Methadone Hcl 20 Mg/2 Ml Oral.Conc) 100 mg PO DAILY [facility] Last Admin: 12/12/23 08:02 Dose: 100 mg Nicotine (Nicotine 21 Mg Patch.Td24) 21 mg TRANSDERMA DAILY PRN PRN Reason: smoking cessation Nicotine Polacrilex (Nicotine Polacrilex 2 Mg Gum) 4 mg BUCCAL Q2H PRN PRN Reason: Nicotine Cravings Olanzapine (Olanzapine 2.5 Mg Tablet) 2.5 mg PO Q4H PRN PRN Reason: agitation Last Admin: 12/12/23 17:28 Dose: 2.5 mg Allergies Allergies Allergy/AdvReac Type Severity Reaction Status Date / Time No Known Allergies Allergy Verified 12/06/23 09:24 Assessment & Plan Assessment & Plan (1) Bipolar disorder: Status: Acute Code(s): F31.9 - Bipolar disorder, unspecified (2) PTSD (post-traumatic stress disorder): Status: Acute Code(s): F43.10 - Post-traumatic stress disorder, unspecified (3) Opioid use disorder: Status: Acute Code(s): F11.90 - Opioid use, unspecified, uncomplicated (4) Cocaine abuse: Status: Acute Code(s): F14.10 - Cocaine abuse, uncomplicated Plan Pt is a 28 yo male with hx of depression, anxiety, opioid and cocaine abuse, on methadone, who was recently dc'd from on 11/19 and self presents for SI with attempted overdose. After discharge from , patient went to a retirement (not wanting a CSS to fulfill to 14 days of sobriety needed to get into a sober house). He was there for a few days and his mood remained depressed though he says he was trying to convince himself he would start to feel better. At any rate he did not attempted suicide by overdose and was admitted to [facility] where he was for 5 days; no medication changes and he was discharged this past to a hotel. On Thursday he said he felt miserable, waited till his girlfriend left and OD'd on fentanyl though his girlfriend came back about 5 minutes later and gave him Narcan and called 911. Patient reports that nothing has helped his depression. He will be sober for several months and then relapsed for 3 days and even during periods of sobriety still remains very depressed. Reviewing history further, patient endorses history of manic episodes that last for about 2-3 days during which time he is happy and almost joyful, feels like he can never get enough done however also feeling like [he] is all over the place, jumping from thing to thing; he does not need sleep at all and is not tired; has racing thoughts, significantly increased libido and spends excess money on things he does not need like clothing and take out food that ends up throwing away... Review of family history and he thinks possibly sister has bipolar disorder. Patient endorses some history of trauma but does not specify. Denies AVH. Formulation: Patient meets criteria for bipolar disorder, at least type 2. Symptoms complicated by PTSD and substance abuse Discussed diagnosis and patient agrees that it is probably accurate and would like to try a mood stabilizer; reviewed options including dopamine blockers and lithium, reviewing risks and side effects of both; patient would like to start and try lithium Hospital course: 12/07 very depressed; says he wants to discharge and go to one of the states that does physician assisted suicide. Patient says he is extremely depressed and just wants to ; he also says he is extremely anxious all the time and wants his clonazepam raised. Patient shared how he is never abused in the past. He did accept personal lines underwriter's perspective on this medication and the concerning risks and he agreed instead to try clonidine, Zyprexa and then maybe gabapentin to see if that can help deal with his anxiety; he agreed that he has been on this dose in the past and was overall doing okay so it is hopeful that he can remain not needing to go any higher. Patient also said that in the past he has been diagnosed with ADHD and then ADD and was on stimulant medication, Vyvanse which he found incredibly helpful. He is wondering if that can also be a possibility. He accepts that at this time the focus is dealing with his depression. Patient shared more about his history and his very challenging relationship with his parents. Patient was bullied as a kid and often alone without a lot of friends and though his parents provided the necessities, he found them very emotionally distant and often physically absent as well, leaving patient to feel very alone going up. His father was also an alcoholic spending most of the time either by himself in the basement drinking and watching television or out with his friends drinking. Patient likely had his paternal grandparents living down the street whom he loved and felt deeply loved by and he went there often. Both of them in his later teenage years which was very difficult for patient. Patient also feels the outcast of the family because of his substance abuse and he has not close to his sister either who he feels ignores him because of his substance struggles. 12/08Patient remains depressed and anxious and irritable; still saying he wants to go to a state that allows for euthanasia. Says he spending most of the time in his room alone because he gets irritated around people. However he agreed that learning to tolerate irritating things will help to be sober. Discussed his history of substance abuse more and he will help make a timeline; seems that patient was sober during a program 6 months ago and then after the program, quickly relapsed; the next several months for followed by a pattern of relapse with 2+ weeks of sobriety then relapse again. Patient understood the need to try and find a pattern so as to best, with a plan to help him with sobriety 12/09 doing better; says mood is better and affect is brighter; talking about future plans and denies any SI which is new. -clonidine, zyprexa not helpful for anxiety -increase methadone; add gabapentin for anxiety 12/10 increase gabapentin to QID prn 12/11: continue current management and treatment plan. *DO NOT INCREASE CLONAZEPAM DOSE Plan: CV Q 15 minutes checks Add gabapetine for anxiety as prn [facility] [place]; has not been helpful Continue lithium ER 600 mg q.h.s. -labs ordered Increase to methadone 100 mg Lipids/HbA1C taken at previous admission weeks ago Reason for continued inpatient stay Substantial Risk for: harm to self Time Spent With Patient Time: Total time managing care of this patient today ____ minutes.
[2023-12-13] MEDS: methADONE HCl 20 MG/2 ML ORAL.CONC 100 MG PO (08:31)
[2023-12-13] MEDS: clonazePAM 1 MG TABLET PO ×2 (08:31→13:22)
[2023-12-13 08:53] VITALS: RESP 16
[2023-12-13] MEDS: Gabapentin 300 MG CAPSULE PO ×2 (09:19→12:31)
--- NOTE | 2023-12-13 09:22 | P.PNPSI_ITS ---
Subjective Subjective Date of Service: 12/13/23 Reason For Visit: Depression Interim History: Pt reports his day is going better today and is future oriented and thinking about discharge. Denies SI. He remains anxious. No side effects with medications. He denies SI/HI/AVH. He naps during the day. Review of Systems Review of Systems All other systems are reviewed and are negative Constitutional: Reports as per HPI and Reports no additional constitutional complaints Eyes: Reports as per HPI and Reports no additional eye complaints Reports system reviewed and no additional complaints, except as documented Cardiovascular: Reports as per HPI and Reports no additional cardiovascular complaints Respiratory: Reports as per HPI and Reports no additional respiratory complaints Gastrointestinal: Reports as per HPI and Reports no additional gastrointestinal complaints Genitourinary: Reports no additional female genitourinary complaints Musculoskeletal: Reports no additional musculoskeletal complaints Skin/Breast: Reports system reviewed and no additional complaints, except as docu Psychiatric: Reports no additional psychiatric complaints Endocrine: Reports no additional endocrine complaints Hematologic/Lymphatic: Reports no additional hematologic/lymphatic complaints Allergic/Immunologic: Reports no additional allergic/immunologic complaints Reports system reviewed and no additional complaints, except as documented and Reports Abnormal speech present Yes all other systems are reviewed and are negative Mental Status Exam Mental Status Exam Narrative: Pt is alert and oriented; behavior is cooperative, more calm, more friendly; patient is not in distress; dressed in casual attire with adequate hygiene; mood is described as little better and affect congruent, brighter, more calm; eye contact appropriate; Speech is normal rate, volume and prosody and not pressured; no psychomotor retardation present; thought process is organized and goal directed; Thought content is more hopeful, future plans, tx; otherwise pertinent to relevant topics and without any delusional content, paranoid ideations or grandiosity; no SI; no HI. There is no evidence of perceptual disturbance denies AVH Patients insight and judgment fair. Patient Appearance: Appropriate Patient Orientation: Person, Place, Time and Situation Level of Consciousness: Alert Patient Behavior: Appropriate Mood Description: Withdrawn Affect Description: Flat Patient Cognition Impaired: No Ability to Follow Directions: Good Speech Pattern: Spontaneous Speech Diagnostics Vital Signs (24Hr): Vital Signs - 24 hr 12/12/23 10:28 12/12/23 17:29 12/12/23 20:00 Pulse Rate 99 99 Respiratory Rate 18 Blood Pressure 140/61 H 112/72 12/13/23 08:53 Pulse Rate Respiratory Rate 16 Blood Pressure BMI result Body Mass Index 34.1 Labs 12/06/23 13:07 12/12/23 07:48 Labs: Laboratory Results - last 48 hr 12/12/23 07:48 BUN 14 Creatinine 0.74 Estim Creat Clear Calc 173.3 Estimated GFR > 60 TSH 1.38 [place] 0.25 L Medications Medications Current Medications Acetaminophen (Acetaminophen 325 Mg Tablet) 650 mg PO Q6H PRN PRN Reason: Headache/Pain Mild Scale (1-3) Al Hydroxide/Mg Hydroxide (Magnesium Hydrox/Alum Hydrox 30 Ml Oral.Susp) 30 ml PO Q6H PRN PRN Reason: Heartburn/Nausea Clonazepam (Clonazepam 1 Mg Tablet) 1 mg PO BID@0900,1400 [facility] Last Admin: 12/13/23 08:31 Dose: 1 mg Clonidine HCl (Clonidine Hcl 0.2 Mg Tablet) 0.2 mg PO Q4H PRN; Protocol PRN Reason: mild to mod anxiety Last Admin: 12/12/23 17:28 Dose: 0.2 mg Gabapentin (Gabapentin 300 Mg Capsule) 300 mg PO QID PRN PRN Reason: mild anxiety Last Admin: 12/13/23 09:19 Dose: 300 mg Hydroxyzine HCl (Hydroxyzine Hcl 25 Mg Tablet) 25 mg PO Q6H PRN PRN Reason: mild Anxiety [place] Carbonate ([place] Carbonate Er 300 Mg Tablet.Er) 600 mg PO BEDTIME [facility] Last Admin: 12/12/23 20:07 Dose: 600 mg Magnesium Hydroxide (Milk Of Magnesia 30 Ml Oral.Susp) 30 ml PO DAILY PRN PRN Reason: Constipation Methadone HCl (Methadone Hcl 20 Mg/2 Ml Oral.Conc) 100 mg PO DAILY [facility] Last Admin: 12/13/23 08:31 Dose: 100 mg Nicotine (Nicotine 21 Mg Patch.Td24) 21 mg TRANSDERMA DAILY PRN PRN Reason: smoking cessation Nicotine Polacrilex (Nicotine Polacrilex 2 Mg Gum) 4 mg BUCCAL Q2H PRN PRN Reason: Nicotine Cravings Olanzapine (Olanzapine 2.5 Mg Tablet) 2.5 mg PO Q4H PRN PRN Reason: agitation Last Admin: 12/12/23 17:28 Dose: 2.5 mg Allergies Allergies Allergy/AdvReac Type Severity Reaction Status Date / Time No Known Allergies Allergy Verified 12/06/23 09:24 Assessment & Plan Assessment & Plan (1) Bipolar disorder: Status: Acute Code(s): F31.9 - Bipolar disorder, unspecified (2) PTSD (post-traumatic stress disorder): Status: Acute Code(s): F43.10 - Post-traumatic stress disorder, unspecified (3) Opioid use disorder: Status: Acute Code(s): F11.90 - Opioid use, unspecified, uncomplicated (4) Cocaine abuse: Status: Acute Code(s): F14.10 - Cocaine abuse, uncomplicated Plan Pt is a 28 yo male with hx of depression, anxiety, opioid and cocaine abuse, on methadone, who was recently dc'd from on 11/19 and self presents for SI with attempted overdose. After discharge from , patient went to a alf (not wanting a CSS to fulfill to 14 days of sobriety needed to get into a sober house). He was there for a few days and his mood remained depressed though he says he was trying to convince himself he would start to feel better. At any rate he did not attempted suicide by overdose and was admitted to [facility] where he was for 5 days; no medication changes and he was discharged this past to a hotel. On Thursday he said he felt miserable, waited till his girlfriend left and OD'd on fentanyl though his girlfriend came back about 5 minutes later and gave him Narcan and called 911. Patient reports that nothing has helped his depression. He will be sober for several months and then relapsed for 3 days and even during periods of sobriety still remains very depressed. Reviewing history further, patient endorses history of manic episodes that last for about 2-3 days during which time he is happy and almost joyful, feels like he can never get enough done however also feeling like [he] is all over the place, jumping from thing to thing; he does not need sleep at all and is not tired; has racing thoughts, significantly increased libido and spends excess money on things he does not need like clothing and take out food that ends up throwing away... Review of family history and he thinks possibly sister has bipolar disorder. Patient endorses some history of trauma but does not specify. Denies AVH. Formulation: Patient meets criteria for bipolar disorder, at least type 2. Symptoms complicated by PTSD and substance abuse Discussed diagnosis and patient agrees that it is probably accurate and would like to try a mood stabilizer; reviewed options including dopamine blockers and lithium, reviewing risks and side effects of both; patient would like to start and try lithium Hospital course: 12/07 very depressed; says he wants to discharge and go to one of the states that does physician assisted suicide. Patient says he is extremely depressed and just wants to ; he also says he is extremely anxious all the time and wants his clonazepam raised. Patient shared how he is never abused in the past. He did accept business writer's perspective on this medication and the concerning risks and he agreed instead to try clonidine, Zyprexa and then maybe gabapentin to see if that can help deal with his anxiety; he agreed that he has been on this dose in the past and was overall doing okay so it is hopeful that he can remain not needing to go any higher. Patient also said that in the past he has been diagnosed with ADHD and then ADD and was on stimulant medication, Vyvanse which he found incredibly helpful. He is wondering if that can also be a possibility. He accepts that at this time the focus is dealing with his depression. Patient shared more about his history and his very challenging relationship with his parents. Patient was bullied as a kid and often alone without a lot of friends and though his parents provided the necessities, he found them very emotionally distant and often physically absent as well, leaving patient to feel very alone going up. His father was also an alcoholic spending most of the time either by himself in the basement drinking and watching television or out with his friends drinking. Patient likely had his paternal grandparents living down the street whom he loved and felt deeply loved by and he went there often. Both of them in his later teenage years which was very difficult for patient. Patient also feels the outcast of the family because of his substance abuse and he has not close to his sister either who he feels ignores him because of his substance struggles. 12/08Patient remains depressed and anxious and irritable; still saying he wants to go to a state that allows for euthanasia. Says he spending most of the time in his room alone because he gets irritated around people. However he agreed that learning to tolerate irritating things will help to be sober. Discussed his history of substance abuse more and he will help make a timeline; seems that patient was sober during a program 6 months ago and then after the program, quickly relapsed; the next several months for followed by a pattern of relapse with 2+ weeks of sobriety then relapse again. Patient understood the need to try and find a pattern so as to best, with a plan to help him with sobriety 12/09 doing better; says mood is better and affect is brighter; talking about future plans and denies any SI which is new. -clonidine, zyprexa not helpful for anxiety -increase methadone; add gabapentin for anxiety 12/10 increase gabapentin to QID prn 12/11: continue current management and treatment plan. 12/12: continue current management and treatment plan. *DO NOT INCREASE CLONAZEPAM DOSE Plan: CV Q 15 minutes checks Add gabapetine for anxiety as prn DC Cymbalta; has not been helpful Continue lithium ER 600 mg q.h.s. -labs ordered Increase to methadone 100 mg Lipids/HbA1C taken at previous admission weeks ago Reason for continued inpatient stay Substantial Risk for: harm to self and rapid decompensation Time Spent With Patient Time: Total time managing care of this patient today ____ minutes.
[2023-12-13 12:31] VITALS: BP 115/70; PULSE 92
[2023-12-13] MEDS: cloNIDine HCL 0.2 MG TABLET PO (12:31)
[2023-12-13 20:00] VITALS: RESP 18
[2023-12-13] MEDS: Lithium Carbonate ER 300 MG TABLET.ER 600 MG PO (20:54)
[2023-12-14 08:00] VITALS: RESP 16
[2023-12-14] MEDS: methADONE HCl 20 MG/2 ML ORAL.CONC 100 MG PO (08:09)
[2023-12-14] MEDS: clonazePAM 1 MG TABLET PO ×2 (08:10→13:07)
[2023-12-14] MEDS: Gabapentin 300 MG CAPSULE PO (08:45)
--- NOTE | 2023-12-14 09:54 | HO.PSYCHPN ---
Subjective Subjective Date of Service: 12/14/23 Reason For Visit: Depression Interim History: Met with patient; discussed with team Patient reported he remains in good mood and has over the weekend; still anxious but coping. He says he feels much more at ease with himself, both mentally and emotionally and all around. He said he feels calm which he said is a profound change. Patient is hopeful that this medication regimen can continue to be helpful; reviewed labs which patient understood. Patient is feeling good about discharge and said he plans to go to a assisted. He does not want to go to a a program but wants to engage in 1 on 1 outpatient therapy. Patient is optimistic about staying sober, says will re-engage with AA/NA and wants a population health coach Mental Status Exam Mental Status Exam Narrative: Pt is alert and oriented; behavior is cooperative, more calm, more friendly; patient is not in distress; dressed in casual attire with adequate hygiene; mood is described as little better and affect congruent, brighter, more calm; eye contact appropriate; Speech is normal rate, volume and prosody and not pressured; no psychomotor retardation present; thought process is organized and goal directed; Thought content is more hopeful, future plans, tx; otherwise pertinent to relevant topics and without any delusional content, paranoid ideations or grandiosity; no SI; no HI. There is no evidence of perceptual disturbance denies [facility] Patients insight and judgment fair. Diagnostics Vital Signs (24Hr): Vital Signs - 24 hr 12/13/23 12:31 12/13/23 20:00 12/14/23 08:00 Pulse Rate 92 Respiratory Rate 18 16 Blood Pressure 115/70 BMI result Body Mass Index 34.1 Labs 12/06/23 13:07 12/12/23 07:48 Medications Medications Current Medications Acetaminophen (Acetaminophen 325 Mg Tablet) 650 mg PO Q6H PRN PRN Reason: Headache/Pain Mild Scale (1-3) Al Hydroxide/Mg Hydroxide (Magnesium Hydrox/Alum Hydrox 30 Ml Oral.Susp) 30 ml PO Q6H PRN PRN Reason: Heartburn/Nausea Clonazepam (Clonazepam 1 Mg Tablet) 1 mg PO BID@0900,1400 [facility] Last Admin: 12/14/23 08:10 Dose: 1 mg Clonidine HCl (Clonidine Hcl 0.2 Mg Tablet) 0.2 mg PO Q4H PRN; Protocol PRN Reason: mild to mod anxiety Last Admin: 12/13/23 12:31 Dose: 0.2 mg Gabapentin (Gabapentin 300 Mg Capsule) 300 mg PO QID PRN PRN Reason: mild anxiety Last Admin: 12/14/23 08:45 Dose: 300 mg Hydroxyzine HCl (Hydroxyzine Hcl 25 Mg Tablet) 25 mg PO Q6H PRN PRN Reason: mild Anxiety [place] Carbonate ([place] Carbonate Er 300 Mg Tablet.Er) 600 mg PO BEDTIME [facility] Last Admin: 12/13/23 20:54 Dose: 600 mg Magnesium Hydroxide (Milk Of Magnesia 30 Ml Oral.Susp) 30 ml PO DAILY PRN PRN Reason: Constipation Methadone HCl (Methadone Hcl 20 Mg/2 Ml Oral.Conc) 100 mg PO DAILY [facility] Last Admin: 12/14/23 08:09 Dose: 100 mg Nicotine (Nicotine 21 Mg Patch.Td24) 21 mg TRANSDERMA DAILY PRN PRN Reason: smoking cessation Nicotine Polacrilex (Nicotine Polacrilex 2 Mg Gum) 4 mg BUCCAL Q2H PRN PRN Reason: Nicotine Cravings Olanzapine (Olanzapine 2.5 Mg Tablet) 2.5 mg PO Q4H PRN PRN Reason: agitation Last Admin: 12/12/23 17:28 Dose: 2.5 mg Allergies Allergies Allergy/AdvReac Type Severity Reaction Status Date / Time No Known Allergies Allergy Verified 12/06/23 09:24 Assessment & Plan Assessment & Plan (1) Bipolar disorder: Status: Acute Code(s): F31.9 - Bipolar disorder, unspecified (2) PTSD (post-traumatic stress disorder): Status: Acute Code(s): F43.10 - Post-traumatic stress disorder, unspecified (3) Opioid use disorder: Status: Acute Code(s): F11.90 - Opioid use, unspecified, uncomplicated (4) Cocaine abuse: Status: Acute Code(s): F14.10 - Cocaine abuse, uncomplicated Plan Pt is a 28 yo male with hx of depression, anxiety, opioid and cocaine abuse, on methadone, who was recently dc'd from on 11/19 and self presents for SI with attempted overdose. After discharge from , patient went to a assisted (not wanting a CSS to fulfill to 14 days of sobriety needed to get into a sober house). He was there for a few days and his mood remained depressed though he says he was trying to convince himself he would start to feel better. At any rate he did not attempted suicide by overdose and was admitted to [facility] where he was for 5 days; no medication changes and he was discharged this past to a hotel. On Thursday he said he felt miserable, waited till his girlfriend left and OD'd on fentanyl though his girlfriend came back about 5 minutes later and gave him Narcan and called 911. Patient reports that nothing has helped his depression. He will be sober for several months and then relapsed for 3 days and even during periods of sobriety still remains very depressed. Reviewing history further, patient endorses history of manic episodes that last for about 2-3 days during which time he is happy and almost joyful, feels like he can never get enough done however also feeling like [he] is all over the place, jumping from thing to thing; he does not need sleep at all and is not tired; has racing thoughts, significantly increased libido and spends excess money on things he does not need like clothing and take out food that ends up throwing away... Review of family history and he thinks possibly sister has bipolar disorder. Patient endorses some history of trauma but does not specify. Denies AVH. Formulation: Patient meets criteria for bipolar disorder, at least type 2. Symptoms complicated by PTSD and substance abuse Discussed diagnosis and patient agrees that it is probably accurate and would like to try a mood stabilizer; reviewed options including dopamine blockers and lithium, reviewing risks and side effects of both; patient would like to start and try lithium Hospital course: 12/07 very depressed; says he wants to discharge and go to one of the states that does physician assisted suicide. Patient says he is extremely depressed and just wants to ; he also says he is extremely anxious all the time and wants his clonazepam raised. Patient shared how he is never abused in the past. He did accept senior mortgage underwriter's perspective on this medication and the concerning risks and he agreed instead to try clonidine, Zyprexa and then maybe gabapentin to see if that can help deal with his anxiety; he agreed that he has been on this dose in the past and was overall doing okay so it is hopeful that he can remain not needing to go any higher. Patient also said that in the past he has been diagnosed with ADHD and then ADD and was on stimulant medication, Vyvanse which he found incredibly helpful. He is wondering if that can also be a possibility. He accepts that at this time the focus is dealing with his depression. Patient shared more about his history and his very challenging relationship with his parents. Patient was bullied as a kid and often alone without a lot of friends and though his parents provided the necessities, he found them very emotionally distant and often physically absent as well, leaving patient to feel very alone going up. His father was also an alcoholic spending most of the time either by himself in the basement drinking and watching television or out with his friends drinking. Patient likely had his paternal grandparents living down the street whom he loved and felt deeply loved by and he went there often. Both of them in his later teenage years which was very difficult for patient. Patient also feels the outcast of the family because of his substance abuse and he has not close to his sister either who he feels ignores him because of his substance struggles. 12/08Patient remains depressed and anxious and irritable; still saying he wants to go to a state that allows for euthanasia. Says he spending most of the time in his room alone because he gets irritated around people. However he agreed that learning to tolerate irritating things will help to be sober. Discussed his history of substance abuse more and he will help make a timeline; seems that patient was sober during a program 6 months ago and then after the program, quickly relapsed; the next several months for followed by a pattern of relapse with 2+ weeks of sobriety then relapse again. Patient understood the need to try and find a pattern so as to best, with a plan to help him with sobriety 12/09 doing better; says mood is better and affect is brighter; talking about future plans and denies any SI which is new. -clonidine, zyprexa not helpful for anxiety -increase methadone; add gabapentin for anxiety 12/10 increase gabapentin to QID prn 12/11: continue current management and treatment plan. 12/12: continue current management and treatment plan. 12/13 Patient reported he remains in good mood and has over the weekend; still anxious but coping. He says he feels much more at ease with himself, both mentally and emotionally and all around. He said he feels calm which he said is a profound change. Patient is hopeful that this medication regimen can continue to be helpful; reviewed labs which patient understood. Patient is feeling good about discharge and said he plans to go to a assisted. He does not want to go to a a program but wants to engage in 1 on 1 outpatient therapy. Patient is optimistic about staying sober, says will re-engage with AA/NA and wants a population health coach -patient says he does not need any medication scripts except for the lithium and gabapentin; discussed gabapentin, risks/side effects including combined with substance abuse which patient says he understands and that he will be careful. Otherwise patient says he gets adequate medication refills from outpatient provider. Patient expressed gratitude for help received. Patient of course remains vulnerable to relapse and decompensation however this is a chronic issue for him, 1 which will take time and consistent outpatient therapy and sobriety for further progress. Patient is asking for discharge. He has remained in good behavioral and impulse control throughout his time in the unit and been appropriate with peers and staff. Where he initially was isolative, he has been engaged and actually started going to groups, interacting with others. He has in a good mood, with noticeably brighter affect, no SI, hopeful and future oriented, and has been so for several days. Patient is not in imminent risk for harm to self or others and request for discharge honored. Plan: CV Q 15 minutes checks Add gabapetine for anxiety as prn DC Cymbalta; has not been helpful Continue lithium ER 600 mg q.h.s. -labs ordered Increase to methadone 100 mg Lipids/HbA1C taken at previous admission weeks ago Patient educated on: diagnosis, medication risk/benefits, substance abuse and therapeutic strategies Informed Consent: understands Reason for continued inpatient stay Substantial Risk for: stable for discharge Time Spent With Patient Time: Total time managing care of this patient today ____ minutes.
[2023-12-14 20:00] VITALS: RESP 18
[2023-12-14] MEDS: Lithium Carbonate ER 300 MG TABLET.ER 600 MG PO (20:55)
--- NOTE | 2023-12-15 00:03 | PM.PSYDC ---
DS: Providers Provider Date of Service: 12/15/23 Date of admission: 12/06/23 15:08 Date of discharge: 12/15/23 Primary care physician: None Physician Attending physician on admission: Markus Hull Attending physician on discharge: Markus Hull DS: Diagnosis Discharge Diagnosis (1) Bipolar disorder: Status: Acute (2) PTSD (post-traumatic stress disorder): Status: Acute (3) Opioid use disorder: Status: Acute (4) Cocaine abuse: Status: Acute DS: Medications Discharge Medications Home Medications: Previous Rx's ?Medication ?Instructions ?Recorded aripiprazole 2 mg tablet (Abilify) 2 mg PO BEDTIME 14 days #14 tabs 11/19/23 clonazepam 1 mg tablet (Klonopin) 1 mg PO BID 7 days #14 tabs 11/19/23 naloxone 4 mg/actuation nasal 4 mg intranasal Q2M PRN opioid 11/20/23 spray (Narcan) overdose #2 ea gabapentin 300 mg capsule 300 mg PO TID PRN mild anxiety 30 12/14/23 days #60 caps lithium carbonate 300 mg 600 mg (2 x 300 mg) PO BEDTIME 30 12/14/23 tablet,extended release days #60 tabs methadone 10 mg/mL oral 100 mg (10 mL) PO DAILY #0 mL 12/14/23 concentrate (Methadose) Mental Status Exam Mental Status Exam Narrative: Pt is alert and oriented; behavior is cooperative, more calm, more friendly; patient is not in distress; dressed in casual attire with adequate hygiene; mood is described as little better and affect congruent, brighter, more calm; eye contact appropriate; Speech is normal rate, volume and prosody and not pressured; no psychomotor retardation present; thought process is organized and goal directed; Thought content is more hopeful, future plans, tx; otherwise pertinent to relevant topics and without any delusional content, paranoid ideations or grandiosity; no SI; no HI. There is no evidence of perceptual disturbance denies [facility] Patients insight and judgment fair. Data Data Completed and Pending Completed studies during hospitalization [Text1]: 12/12/23 07:48 BUN 14 Creatinine 0.74 Estim Creat Clear Calc 173.3 Estimated GFR > 60 TSH 1.38 [place] 0.25 L DS: Summary Hospital Course Hospital Course: Pt is a 28 yo male with hx of depression, anxiety, opioid and cocaine abuse, on methadone, who was recently dc'd from on 11/19 and self presents for SI with attempted overdose. After discharge from , patient went to a retirement (not wanting a CSS to fulfill to 14 days of sobriety needed to get into a sober house). He was there for a few days and his mood remained depressed though he says he was trying to convince himself he would start to feel better. At any rate he did not attempted suicide by overdose and was admitted to [facility] where he was for 5 days; no medication changes and he was discharged this past to a hotel. On Thursday he said he felt miserable, waited till his girlfriend left and OD'd on fentanyl though his girlfriend came back about 5 minutes later and gave him Narcan and called 911. Patient reports that nothing has helped his depression. He will be sober for several months and then relapsed for 3 days and even during periods of sobriety still remains very depressed. Reviewing history further, patient endorses history of manic episodes that last for about 2-3 days during which time he is happy and almost joyful, feels like he can never get enough done however also feeling like [he] is all over the place, jumping from thing to thing; he does not need sleep at all and is not tired; has racing thoughts, significantly increased libido and spends excess money on things he does not need like clothing and take out food that ends up throwing away... Review of family history and he thinks possibly sister has bipolar disorder. Patient endorses some history of trauma but does not specify. Denies AVH. Formulation: Patient meets criteria for bipolar disorder, at least type 2. Symptoms complicated by PTSD and substance abuse Discussed diagnosis and patient agrees that it is probably accurate and would like to try a mood stabilizer; reviewed options including dopamine blockers and lithium, reviewing risks and side effects of both; patient would like to start and try lithium Hospital course: 12/07 very depressed; says he wants to discharge and go to one of the states that does physician assisted suicide. Patient says he is extremely depressed and just wants to ; he also says he is extremely anxious all the time and wants his clonazepam raised. Patient shared how he is never abused in the past. He did accept communications writer's perspective on this medication and the concerning risks and he agreed instead to try clonidine, Zyprexa and then maybe gabapentin to see if that can help deal with his anxiety; he agreed that he has been on this dose in the past and was overall doing okay so it is hopeful that he can remain not needing to go any higher. Patient also said that in the past he has been diagnosed with ADHD and then ADD and was on stimulant medication, Vyvanse which he found incredibly helpful. He is wondering if that can also be a possibility. He accepts that at this time the focus is dealing with his depression. Patient shared more about his history and his very challenging relationship with his parents. Patient was bullied as a kid and often alone without a lot of friends and though his parents provided the necessities, he found them very emotionally distant and often physically absent as well, leaving patient to feel very alone going up. His father was also an alcoholic spending most of the time either by himself in the basement drinking and watching television or out with his friends drinking. Patient likely had his paternal grandparents living down the street whom he loved and felt deeply loved by and he went there often. Both of them in his later teenage years which was very difficult for patient. Patient also feels the outcast of the family because of his substance abuse and he has not close to his sister either who he feels ignores him because of his substance struggles. 12/08Patient remains depressed and anxious and irritable; still saying he wants to go to a state that allows for euthanasia. Says he spending most of the time in his room alone because he gets irritated around people. However he agreed that learning to tolerate irritating things will help to be sober. Discussed his history of substance abuse more and he will help make a timeline; seems that patient was sober during a program 6 months ago and then after the program, quickly relapsed; the next several months for followed by a pattern of relapse with 2+ weeks of sobriety then relapse again. Patient understood the need to try and find a pattern so as to best, with a plan to help him with sobriety 12/09 doing better; says mood is better and affect is brighter; talking about future plans and denies any SI which is new. -clonidine, zyprexa not helpful for anxiety -increase methadone; add gabapentin for anxiety 12/10 increase gabapentin to QID prn 12/13 Patient reported he remains in good mood and has over the weekend; still anxious but coping. He says he feels much more at ease with himself, both mentally and emotionally and all around. He said he feels calm which he said is a profound change. Patient is hopeful that this medication regimen can continue to be helpful; reviewed labs which patient understood. Patient is feeling good about discharge and said he plans to go to a retirement. He does not want to go to a a program but wants to engage in 1 on 1 outpatient therapy. Patient is optimistic about staying sober, says will re-engage with AA/NA and wants a recovery assistant -patient says he does not need any medication scripts except for the lithium and gabapentin; discussed gabapentin, risks/side effects including combined with substance abuse which patient says he understands and that he will be careful. Otherwise patient says he gets adequate medication refills from outpatient provider. Patient expressed gratitude for help received. Patient of course remains vulnerable to relapse and decompensation however this is a chronic issue for him, 1 which will take time and consistent outpatient therapy and sobriety for further progress. Patient is asking for discharge. He has remained in good behavioral and impulse control throughout his time in the unit and been appropriate with peers and staff. Where he initially was isolative, he has been engaged and actually started going to groups, interacting with others. He has in a good mood, with noticeably brighter affect, no SI, hopeful and future oriented, and has been so for several days. Patient is not in imminent risk for harm to self or others and request for discharge honored. Time spent discussing smoking cessation with patient: 3 to 10 minutes Status at Discharge Functional status at discharge: independent ambulation Overall status at discharge: patient is back to baseline Time Spent with Patient Time attestation: Total time managing care of this patient today ____ minutes. Time spent: Less than 30 minutes Discharge Plan Discharge Anticipated Discharge Date/Time: 12/15/23 11:30 Patient Disposition: Assisted Discharge Diagnosis: Bipolar II disorder, recurrent, most recent episode depressed, in full remission Referrals: [facility] Psych[facility] with Suyapa Stanford [Other] - 12/24/23 10:00 am (Telehealth) [facility] Kyra Yang [Other] - 3-5 Days (Call her for community support services including housing support.) Physician,None [Primary Care Provider] - 1 Week Discharge Medications: New gabapentin 300 mg Capsule 300 mg PO TID PRN (Reason: mild anxiety) 30 Days Qty: 60 0RF lithium carbonate 300 mg Tablet Extended Release 600 mg PO BEDTIME 30 Days Qty: 60 0RF methadone [Methadose] 10 mg/mL Concentrate 100 mg PO DAILY Qty: 0 0RF Rx Instructions: Partial Fill upon patient request. Continued aripiprazole [Abilify] 2 mg Tablet 2 mg PO BEDTIME 14 Days Qty: 14 0RF clonazepam [Klonopin] 1 mg tablet 1 mg PO BID 7 Days Qty: 14 1RF naloxone [Narcan] 4 mg/actuation spray,non-aerosol 4 mg intranasal Q2M PRN (Reason: opioid overdose) Qty: 2 0RF Rx Instructions: spray 1 dose into ONE nostril; alternate nostrils w each dose until help arrives Discontinued duloxetine 60 mg capsule,delayed release(DR/EC) 60 mg PO DAILY 14 Days Qty: 14 0RF methadone 10 mg/mL concentrate 90 mg PO DAILY Rx Instructions: Partial Fill upon patient request. Discharge Orders: Discharge Order (Routine); Ordered 12/15/23 Ordered By: Markus Hull Diet: Regular diet Activity on Discharge: As tolerated Stand Alone Forms: Patient Portal Discharge page, Community Support Print Language: Serbian Care Plan Goals: Maintain mood and safe behaviors Take medications as prescribed Continue to pursue sobriety Practice coping skills Continue with outpatient providers and reach out to them as needed Health Concerns: Mood stability and behaviors Sobriety Plan of Treatment: Follow up with your PCP, psychiatric provider and other outpatient providers regarding above concerns Take medications as prescribed Assessment: Risk assessment at time of discharge:? Patient was interviewed prior to discharge and found to be fully oriented and without any SI or HI. Patient has improved insight and judgment and wants to continue treatment. Patient is not in imminent risk of harm to self or others and has a safety plan that includes presenting to the closest ER or calling 911 if feeling unsafe.? Patient has been observed closely by nursing and unit staff throughout admission; patient has not engaged in any behaviors that suggest dangerousness to self or others and has demonstrated appropriate behaviors and impulse control Discharge Date/Time: 12/15/23 10:33
[2023-12-15] MEDS: methADONE HCl 20 MG/2 ML ORAL.CONC 100 MG PO (08:09)
[2023-12-15] MEDS: clonazePAM 1 MG TABLET PO (08:10)
[2023-12-15 08:30] VITALS: RESP 16
[2023-12-15] MEDS: Gabapentin 300 MG CAPSULE PO (09:01)
== END 2023-12-15 10:33 | disposition home or self-care (01) | DRG 753 ==
LOC: HO.ED 09:44 → HO.PM5 15:56
PROVIDERS: Admitting Provider Psychiatry & Neurology Psychiatry; Emergency Provider Emergency Medicine; Visit Provider Psychiatry & Neurology Psychiatry
DX: F31.81 Bipolar II disorder (principal); R45.851 Suicidal ideations; F11.20 Opioid dependence, uncomplicated; F17.210 Nicotine dependence, cigarettes, uncomplicated; Z71.6 Tobacco abuse counseling; F14.10 Cocaine abuse, uncomplicated; F43.10 Post-traumatic stress disorder, unspecified; F19.10 Other psychoactive substance abuse, uncomplicated; Z91.51 Personal history of suicidal behavior; Z20.822 Contact with and (suspected) exposure to COVID-19; Z79.899 Other long term (current) drug therapy
CPT/HCPCS: 36415; 80053; 80061; 80178; 80307; 81003; 82248; 82565; 83036; 84443; 84520; 85025; 87635; 93005; 99285; S9485

== ENCOUNTER 2023-12-06 15:08 | Outpatient (BNV) | payer MEDICAID, SELFPAY | END 2023-12-06 15:21 | PROVIDERS: Admitting Provider Psychiatry & Neurology Psychiatry; Emergency Provider Emergency Medicine; Visit Provider Internal Medicine Cardiovascular Disease | DX: I45.81 Long QT syndrome (principal) | CPT/HCPCS: 93010 ==

== ENCOUNTER 2023-12-06 15:08 | Outpatient (BNV) | payer MEDICAID, SELFPAY | END 2023-12-11 14:06 | PROVIDERS: Admitting Provider Psychiatry & Neurology Psychiatry; Emergency Provider Emergency Medicine; Visit Provider Internal Medicine Cardiovascular Disease | DX: I45.81 Long QT syndrome (principal) | CPT/HCPCS: 93010 ==

== ENCOUNTER → 2023-12-06 15:08 | Outpatient (BNV) | payer OTHER, SELFPAY | PROVIDERS: Admitting Provider Psychiatry & Neurology Psychiatry; Emergency Provider Emergency Medicine; Visit Provider Psychiatry & Neurology Psychiatry | DX: F31.4 Bipolar disorder, current episode depressed, severe, without psychotic features (principal); F14.10 Cocaine abuse, uncomplicated; F43.11 Post-traumatic stress disorder, acute; F11.90 Opioid use, unspecified, uncomplicated | CPT/HCPCS: 99231; 99232 ==

== ENCOUNTER 2025-02-11 10:21 | Emergency (ER) | payer MEDICAID, SELFPAY ==
[2025-02-11 10:29] VITALS: BP 137/74; PULSE 84; RESP 16; TEMP 36.6; O2SAT 96; BMI 31.8
--- OUTSIDE RECORDS SUMMARY | 2025-02-11 10:46 | XMS_ITS | Patient Health Record ---
Author Organization [facility], Address [address] [place] [address] Support Name Relationship Address Phone RAMSES MEHTA Emergency Contact [address] [place], [place] [id number] EFREM SAAVEDRA Guarantor Unknown [phone] Reason For Referral No Information Plan Of Treatment Pending Test Test Name Order Date Covid Rapid 03/10/2020 Insurance Providers Payer Name Payer Address Payer Phone Subscriber Number Group Number Insured Name Patient Relationship to Insured Coverage Start Date Coverage End Date [facility] [address] [place] [phone] [id number] EFREM SAAVEDRA Self - patient is the insured
[2025-02-11] MEDS: clonazePAM 1 MG TABLET 2 MG PO (11:06)
--- NOTE | 2025-02-11 11:06 | ED.GENADULT ---
HPI - General Adult General Chief complaint: General Medical Stated complaint: med refill Time Seen by Provider: 02/11/25 10:44 Source: patient Mode of arrival: ambulatory Limitations: no limitations History of Present Illness ED Provider: DR. Yoder HPI narrative: 29-year-old male history of bipolar disorder, polysubstance abuse, PTSD, MDD, had a recent hospitalization at [facility] was discharged yesterday, patient was prescribed his normal clonazepam pain and patient could not fill the prescription for the last 2 days feeling he is getting withdrawal from benzos, feels pins and needles in both hands, no SI, no HI, no auditory or visual hallucinations, patient is only asking for prescription for benzo. Reviewing patient records patient has a history of polysubstance abuse. Related Data Previous Rx's ?Medication ?Instructions ?Recorded aripiprazole 2 mg tablet (Abilify) 2 mg PO BEDTIME 14 days #14 tabs 11/19/23 clonazepam 1 mg tablet (Klonopin) 1 mg PO BID 7 days #14 tabs 11/19/23 naloxone 4 mg/actuation nasal 4 mg intranasal Q2M PRN opioid 11/20/23 spray (Narcan) overdose #2 ea gabapentin 300 mg capsule 300 mg PO TID PRN mild anxiety 30 12/14/23 days #60 caps lithium carbonate 300 mg 600 mg (2 x 300 mg) PO BEDTIME 30 12/14/23 tablet,extended release days #60 tabs methadone 10 mg/mL oral 100 mg (10 mL) PO DAILY #0 mL 12/14/23 concentrate (Methadose) Allergies Allergy/AdvReac Type Severity Reaction Status Date / Time No Known Allergies Allergy Verified 02/11/25 10:30 Review of Systems Review of Systems: All other systems are reviewed and are negative Constitutional: Reports as per HPI and Reports no additional constitutional complaints Eyes: Reports as per HPI and Reports no additional eye complaints Reports system reviewed and no additional complaints, except as documented Cardiovascular: Reports as per HPI and Reports no additional cardiovascular complaints Respiratory: Reports as per HPI and Reports no additional respiratory complaints Gastrointestinal: Reports as per HPI and Reports no additional gastrointestinal complaints Genitourinary: Reports no additional female genitourinary complaints Musculoskeletal: Reports no additional musculoskeletal complaints Skin/Breast: Reports system reviewed and no additional complaints, except as docu Psychiatric: Reports no additional psychiatric complaints Endocrine: Reports no additional endocrine complaints Hematologic/Lymphatic: Reports no additional hematologic/lymphatic complaints Allergic/Immunologic: Reports no additional allergic/immunologic complaints Reports system reviewed and no additional complaints, except as documented and Reports Abnormal speech present [facility] Past Medical History Medical History Bipolar disorder Opiate use Active substance abuse Depression Social History Social History Household Members: None Housing: Homeless Do you presently have visiting nurse or other home services: No Alcohol intake: never Patient Tobacco Use Status: Current everyday Tobacco user Tobacco use type: Cigarette Cigarette Packs Per Day: 1 Cigarettes Per Day: 20.0 Years Smoked: 10 e-Cigarette/Vaping Use: Never Used Second Hand Smoke Exposure: No Substance Use Type: Crack/Cocaine and IV Drugs Advance Directives: No Advance Directives Information Provided: Yes service: No Sexual orientation: Straight/Heterosexual Physical Exam ED Vital Signs: Vital Signs - 24 hr 02/11/25 10:29 Temperature 97.9 F Pulse Rate 84 Respiratory Rate 16 Blood Pressure 137/74 Pulse Oximetry 96 Oxygen Delivery Method Room Air BMI result Body Mass Index 31.8 Vital signs have been reviewed and appear to be correct. Blood pressure elevated. Heart rate normal. Respiratory rate normal. Temperature normal. Oxygen saturation normal. Appearance: Alert. Oriented X3. No acute distress. Head: Normal external exam. Normocephalic. Atraumatic. No Collins signs noted. No raccoon eyes noted Eyes: PERRLA. EOMI. Conjunctiva and sclera normal. Eyelids normal. ENT: TM's Normal. Pharynx normal. Uvula midline. Moist mucous membranes. No trismus noted. No drooling noted. No muffled voice noted. Neck: Normal inspection. Neck supple. FROM. No adenopathy. Thyroid Normal. No meningeal signs. No neck mass noted. CVS: Normal heart rate and rhythm. Heart sound normal. No murmurs noted. Pulses normal throughout. Respiratory: No respiratory distress. Painless inspiration. Breath sounds normal. No wheezes/rales/rhonchi noted. Chest nontender. No accessory muscle usage noted or decreased air movement noted. Abdomen: Soft and nontender. Bowel sounds normal in all 4 quadrants. No distention noted. No organomegaly noted. No visible injury noted. Back: No CVA tenderness. Full range of motion noted. Skin: Skin warm and dry. Normal skin color. Normal skin turgor. No rashes/lesions/lacerations noted. Extremities: No lower extremity edema. Extremities exhibit normal range of motion. Extremities nontender. Neuro: Oriented X 3. Cranial nerve exam: II-XII are grossly intact No motor deficit. No sensory deficit. Reflexes normal. Patient Orientation: Person, Place, Time and Situation, okay hygiene and grooming. Fair eye contact, attentive, no tics or tremors. Level of Consciousness: Awake, Appropriate and Alert Patient Behavior: Appropriate, Guarded, Cooperative and Anxious Mood Description: Constricted, Blunted and Apprehensive Affect Description: Constricted, Blunted and Apprehensive Patient Cognition Impaired: No Ability to Follow Directions: Excellent Speech Pattern: Clear, Appropriate and Spontaneous Speech, nonpressured, spontaneous with regular rate and rhythm, normal volume and prosody. No dysarthria. Memory Description: Intact, Immediate Intact and Short Term Intact Hallucinations: None Delusions: Not Present Thought Process: Intact Thought Content: positive for Intact, positive for Logical, denies Suicidal Ideation and denies Homicidal Ideation. Depressive Symptoms: Not present. Judgement and Insight: Limited but adequate. Course Reevaluation(s) Reevaluation #1: VSS, no acute events, on chronic benzo, can not refill his prescription because pharmacy need to contact the provider and it is weekend, patient will be able to contact his PCP on Thursday. No obvious signs of withdrawal, no acute psychosis. Will give 1 mg of Klonopin in the ED to prevent any withdrawal symptoms. Given history of polysubstance abuse he is already have a provider to prescribe him a chronic benzo I will not prescribe any bridging prescription. Time: 11:12 Medications Administered Discontinued Medications Generic Name Dose Route Start Last Admin Trade Name Freq PRN Reason Stop Dose Admin Clonazepam 2 mg 02/11/25 11:02 02/11/25 11:06 Clonazepam 1 Mg Tablet PO 02/11/25 11:03 2 mg ONCE ONE Administration Medical Decision Making Differential Diagnosis Differential Diagnoses: The differential diagnosis associated with the presentation includes ( acute psychosis, depression, SI, HI, drug-seeking behavior.) Admission/Observation Consideration of admission/observation: Escalation of care including admission/observation considered Discharge Plan Discharge Clinical Impression: Chronic prescription benzodiazepine use Patient Disposition: Home, Self-Care Instructions: Anxiety (ED) Prescriptions: No Action aripiprazole [Abilify] 2 mg Tablet 2 mg PO BEDTIME 14 Days Qty: 14 0RF clonazepam [Klonopin] 1 mg tablet 1 mg PO BID 7 Days Qty: 14 1RF naloxone [Narcan] 4 mg/actuation spray,non-aerosol 4 mg intranasal Q2M PRN (Reason: opioid overdose) Qty: 2 0RF Rx Instructions: spray 1 dose into ONE nostril; alternate nostrils w each dose until help arrives gabapentin 300 mg Capsule 300 mg PO TID PRN (Reason: mild anxiety) 30 Days Qty: 60 0RF lithium carbonate 300 mg Tablet Extended Release 600 mg PO BEDTIME 30 Days Qty: 60 0RF methadone [Methadose] 10 mg/mL Concentrate 100 mg PO DAILY Qty: 0 0RF Rx Instructions: Partial Fill upon patient request. Print Language: Setswana
[2025-02-11 11:19] VITALS: BP 117/72; PULSE 88; RESP 15; TEMP 36.9; O2SAT 100
[2025-02-11 11:27] VITALS: BP 117/72; PULSE 88; RESP 15; TEMP 36.9; O2SAT 100
--- NOTE | 2025-02-11 11:27 | PC.NURSE ---
patient a&ox3, rr equal/non labored, medicated per order to discharge home
== END 2025-02-11 11:28 | disposition home or self-care (01) ==
PROVIDERS: Emergency Provider Emergency Medicine
DX: Z76.0 Encounter for issue of repeat prescription (principal); Z79.899 Other long term (current) drug therapy; F17.210 Nicotine dependence, cigarettes, uncomplicated
CPT/HCPCS: 99283; 99284

== ENCOUNTER 2025-02-12 08:41 | Inpatient (IN) | payer MEDICAID, SELFPAY ==
[2025-02-12 08:43] VITALS: BP 125/70; PULSE 81; RESP 18; TEMP 36.6; O2SAT 97; BMI 29.5
--- NOTE | 2025-02-12 08:58 | MHC.EDTECH ---
Patient belongings secured in [place] [employer] Shel[address] right Side
--- NOTE | 2025-02-12 09:02 | ED.PSYCH ---
HPI - Psych General Chief Complaint: Psychiatric Symptoms Stated Complaint: suicidal Time Seen by Provider: 02/12/25 08:53 Source: patient Mode of arrival: ambulatory Limitations: no limitations History of Present Illness ED Provider: danielle porras np HPI Narrative: Patient is a 29-year-old male presents emergency department for evaluation endorsing suicidal ideations with a plan. He reports that last night he attempted to intentionally overdose last night with fentanyl but bystander found him and administered Narcan intranasally x3. States he was not evaluated at the hospital following this. Has a psychiatrist through [facility], follows with Aj on [facility] meth[facility], last dose this morning, 120 mg. Endorsing recreational intravenous heroin/fentanyl usage. States he has not been taking his medications for the past week. Increasing depression. Denies homicidal ideations. Denies hallucinations. Denies alcohol usage or additional recreational drug usage. Related Data Home Medications ?Medication ?Instructions ?Recorded ?Confirmed clonazepam 0.5 mg tablet 0.5 mg PO TID 02/12/25 02/12/25 dextroamphetamine-amphetamine ER 1 cap PO QAM 02/12/25 02/12/25 10 mg 24hr capsule,extend release (Adderall XR) hydroxyzine pamoate 50 mg capsule 50 mg PO TID PRN Anxiety 02/12/25 02/12/25 sertraline 100 mg tablet 100 mg PO DAILY 02/12/25 02/12/25 methadone 10 mg/5 mL oral solution 120 mg PO DAILY 02/13/25 02/13/25 Previous Rx's ?Medication ?Instructions ?Recorded aripiprazole 2 mg tablet (Abilify) 2 mg PO BEDTIME 14 days #14 tabs 11/19/23 Allergies Allergy/AdvReac Type Severity Reaction Status Date / Time No Known Allergies Allergy Verified 02/12/25 08:43 Review of Systems Review of Systems: Yes all other systems are reviewed and are negative PMFSH Past Medical History Attestation statement: The following information was validated with the patient. Source: old records reviewed Medical History Bipolar disorder Opiate use Active substance abuse Depression Social History Social History Household Members: None Housing: Homeless Do you presently have visiting nurse or other home services: No Alcohol intake: current Alcohol intake frequency: does not drink Patient Tobacco Use Status: Current everyday Tobacco user Tobacco use type: Cigarette Cigarette Packs Per Day: 1 Cigarettes Per Day: 20.0 Years Smoked: 10 Smoked in Last 30 Days: Yes e-Cigarette/Vaping Use: Never Used Second Hand Smoke Exposure: No Use of substances other than those prescribed or required for medical reasons: Yes Substance Use Type: IV Drugs and Opiates Advance Directives: No Advance Directives Information Provided: Yes service: No Sexual orientation: Straight/Heterosexual Physical Exam Vital Signs: Vital Signs: Last Vital Signs Temp 97.8 F 02/13/25 12:58 Pulse 68 02/13/25 12:58 Resp 18 02/13/25 12:58 BP 121/61 02/13/25 12:58 Pulse Ox 98 02/13/25 12:58 O2 Del Method Room Air 02/13/25 12:58 BMI result Body Mass Index 29.5 Appearance: Alert.?Oriented to person, place and time. No acute distress.?Normal affect. Eyes: Pupils equal, round and reactive to light.? ENT: Pharynx normal.?? Neck: Normal inspection.? Neck supple.?? CVS: Heart sounds normal. Normal heart rate and rhythm.? Pulses normal.?? Respiratory: No respiratory distress.? Lung sounds clear to auscultation bilaterally?? Abdomen: Soft and non-tender. Normoactive bowel sounds. Skin: Skin warm and dry.? Normal skin color.? Extremities: No lower extremity edema.? Neuro: Moves all extremities spontaneously. Sensation intact bilaterally. CN II-XII intact. No focal neuro deficits. Ambulates with normal steady gait. Course Reevaluation(s) Reevaluation #1: Patient evaluated by care team, deemed inpatient level of care bed search Reevaluation #2: Time: 09:46 Date: 02/13/25 Provider: Emmy Melchor, DO Patient in physician observation for psychiatric evaluation.? No acute events reported overnight. No current complaints. VS stable.? Patient is in bed search status. Will continue to monitor. Reevaluation #3: Time: 13:23 Date: 02/13/25 Provider: Emmy Melchor DO Physician observation ended at 123pm. Patient to be admitted as inpatient to psychiatry. Medications Administered Generic Name Dose Route Start Last Admin Trade Name Freq PRN Reason Stop Dose Admin Amphetamine/Dextroamphetamine 10 mg 02/13/25 09:00 02/13/25 08:30 Dextroamphetamine/Amphetamine Xr 10 Mg Cap.Er.24h PO 10 mg DAILY SILVIO Administration Aripiprazole 2 mg 02/12/25 21:00 02/12/25 21:50 Aripiprazole 2 Mg Tablet PO 2 mg BEDTIME SILVIO Administration Clonazepam 0.5 mg 02/12/25 21:00 02/13/25 08:30 Clonazepam 0.5 Mg Tablet PO 0.5 mg TID SILVIO Administration Sertraline HCl 100 mg 02/13/25 09:00 02/13/25 08:30 Sertraline Hcl 100 Mg Tablet PO 100 mg DAILY SILVIO Administration Discontinued Medications Generic Name Dose Route Start Last Admin Trade Name Shara PRN Reason Stop Dose Admin Methadone HCl 120 mg 02/13/25 08:02 02/13/25 08:30 Methadone Hcl 20 Mg/2 Ml Oral.Conc PO 02/13/25 08:03 120 mg ONCE ONE Administration Medical Decision Making Medical Decision Making [facility] Narrative: Patient is a 29-year-old male past medical history of bipolar disorder, depression, opioid use disorder who presents emergency department for evaluation of suicidal ideations with a plan in setting of having reported intentional overdose last night as per HPI. At this time he is well-appearing. No respiratory distress. Nontoxic. Offers no physical complaints in his physical examination is benign. Obtaining serum labs for medical clearance including toxicology testing in the for to care team for safe disposition planning. Differential Diagnosis Differential Diagnoses: The differential diagnosis associated with the presentation includes (See narrative above and below for further detail) Admission/Observation Consideration of admission/observation: Escalation of care including admission/observation considered Patient is being observed in the Emergency Department for depression and suicidal ideation. Observation time was started at 09:17 on 02/12/2025.?The patient is currently stable and non-toxic appearing. Observation is being initiated in the Emergency Department to allow time to help differentiate if the patient's depression and suicidal ideation is due to Substance Induced Mood Disorder and Anxiety versus Major Depressive Disorder, Bipolar Raiza, Bipolar Depression, and Schizophrenia. The patient will receive frequent psychiatric assessments from the provider as well as from nursing staff. The patient will also be monitored for the need of PRN agitation medications such as Haldol, Ativan, and Benadryl. Consult Healthcare Provider Management of the patient was discussed with: Behavioral Health Provider (CARE team) Lab Data 02/12/25 09:05 02/12/25 09:05 Labs: Lab Results 02/12/25 02/12/25 Range/Units 09:05 10:24 WBC 7.0 (4.8-10.8) X10*3/uL RBC 4.08 L (4.60-5.80) X10*6/uL Hgb 12.3 L (14.0-18.0) g/dl Hct 35.8 L (42.0-52.0) % MCV 87.7 (80.0-98.0) fL MCH 30.1 (27.0-33.0) pg MCHC 34.4 (31.0-36.0) g/dl RDW 12.9 (11.0-16.0) % Plt Count 208 (160-400) X10*3/uL MPV 9.7 (9.4-12.4) fL Immature Gran % (Auto) 0.4 (0.0-0.4) % Neut % (Auto) 61.4 (45-73) % Lymph % (Auto) 18.7 L (20-40) % Sumner % (Auto) 16.4 H (2-11) % Eos % (Auto) 2.2 (0-4) % Baso % (Auto) 0.9 (0-2) % Lymph # (Auto) 1.3 (1.2-4.9) X10*3/uL Sumner # (Auto) 1.1 (0.1-1.2) X10*3/uL Eos # (Auto) 0.2 (0.0-0.4) X10*3/uL Baso # (Auto) 0.1 (0.0-0.2) X10*3/uL Abs Immat Gran (auto) 0.03 (0.00-0.03) X10*3/uL Absolute Neuts (auto) 4.3 (2.0-8.3) x10*3/uL Absolute Nucleated RBC 0.000 (0.0-0.012) X10*3/uL Nucleated RBC % (auto) 0.0 (0.0-0.2) /100WBC Sodium 137 (135-145) mmol/L Potassium 3.6 (3.3-5.1) mmol/L Chloride 102 (96-108) mmol/L Carbon Dioxide 26 (22-29) mmol/L Anion Gap 13 (12-20) BUN 15 (9-16) mg/dL Creatinine 0.68 (0.5-1.4) mg/dL Estim Creat Clear Calc 180.0 Estimated GFR > 60 Random Glucose 91 (60-115) mg/dL Calcium 9.1 (8.4-10.2) mg/dL Total Bilirubin 1.2 H (0.0-1.0) mg/dL AST 247 H (5-37) U/L ALT 275 H (0-40) U/L Alkaline Phosphatase 78 (39-117) U/L Total Protein 7.7 (6.5-8.0) g/dL Albumin 4.6 (3.5-5.0) g/dL Urine Color Dark Yellow Urine Appearance Clear Urine pH 6.0 (5.0-9.0) Ur Specific [place] >= 1.030 H (1.005-1.025) Urine Protein Trace (Neg-Trace) mg/dL Urine Glucose (UA) Negative (Negative) mg/dL Urine Ketones 15 (Negative) mg/dL Urine Blood Negative (Negative) Urine Nitrite Negative (Negative) Ur Leukocyte Esterase Negative (Negative) Urine RBC 0-2 (0-2) /HPF Urine WBC 0-5 (0-5) /HPF Ur Squamous Epith Cells 0-2 (0-2) /HPF Urine Bacteria None Seen (None Seen) Hyaline Casts 0-2 (0-2) /LPF Urine Opiates Screen POSITIVE H (Not Detect) Ur Buprenorphine Scrn Positive H (Not Detect) ng/mL Ur Oxycodone Screen Not Detected (Not Detect) ng/mL Urine Methadone Screen Positive H (Not Detect) ng/mL Urine Fentanyl Screen POSITIVE H (Not Detect) Ur Barbiturates Screen Not Detected (Not Detect) Ur Phencyclidine Scrn Not Detected (Not Detect) Ur Amphetamines Screen Not Detected (Not Detect) U Benzodiazepines Scrn Not Detected (Not Detect) Urine Cocaine Screen POSITIVE H (Not Detect) U Marijuana (THC) Screen Not Detected (Not Detect) Ethyl Alcohol < 10 mg/dL External Record Review External record reviewed: Outpatient record Chronic Conditions Patient?s care impacted by: Other (See narrative above) Social Determinants Patient?s care significantly limited by Social Determinants of Health including: Alcoholism and drug addiction in family Discharge Plan Discharge Clinical Impression: Suicidal ideation Patient Disposition: Admitted As Inpatient
[2025-02-12 09:09] LABS: MANUAL DIFF FLAG NO
[2025-02-12 09:11] LABS: Hematocrit 35.8 % (42.0-52.0); Hemoglobin 12.3 g/dl (14.0-18.0); Imm Gran Abs Auto 0.03 X10*3/uL (0.00-0.03); Imm Gran Pct Auto 0.4 % (0.0-0.4); Lymphocytes Absolute Auto 1.3 X10*3/uL (1.2-4.9); Mean Corpuscular HGB Conc 34.4 g/dl (31.0-36.0); Mean Corpuscular Hemoglobin 30.1 pg (27.0-33.0); Mean Corpuscular Volume 87.7 fL (80.0-98.0); NRBC Abs Auto 0.000 X10*3/uL (0.0-0.012); NRBC Pct Auto 0.0 /100WBC (0.0-0.2); Platelet Count 208 X10*3/uL (160-400); Red Blood Count 4.08 X10*6/uL (4.60-5.80); White Blood Count 7.0 X10*3/uL (4.8-10.8)
[2025-02-12 09:41] LABS: Alanine Aminotransferase 275 U/L (0-40); Albumin Level 4.6 g/dL (3.5-5.0); Alkaline Phosphatase 78 U/L (39-117); Anion Gap 13 (12-20); Aspartate Amino Transferase 247 U/L (5-37); Blood Urea Nitrogen 15 mg/dL (9-16); Calcium 9.1 mg/dL (8.4-10.2); Carbon Dioxide 26 mmol/L (22-29); Chloride 102 mmol/L (96-108); Creatinine Clr Calc Pharmacy 180.0; Estimated Glomerular Filt Rate > 60; Potassium 3.6 mmol/L (3.3-5.1); Sodium 137 mmol/L (135-145); Total Protein 7.7 g/dL (6.5-8.0)
--- NOTE | 2025-02-12 10:03 | PC.NURSE ---
pt to ED- SI with plan to OD, Had intentional overdose yesterday and bystander gave IN narcan. Pt is AOx4, ambulatory. Sleeping on stretcher wakes to verbal stimuli. VSS.
[2025-02-12 10:51] LABS: Appearance Urine Clear; Glucose Urine UA Negative (Negative); PH 6.0 (5.0-9.0); Specific Gravity - Urine >= 1.030 (1.005-1.025)
[2025-02-12 11:05] LABS: Cannabinoid Screen Urine Not Detected (Not Detect)
--- NOTE | 2025-02-12 16:23 | PC.NURSE ---
RE: med rec this RN completed med rec with medication rec history and patient verbal verification
[2025-02-12 19:47] VITALS: BP 113/60; PULSE 63; RESP 18; TEMP 36.6; O2SAT 97
--- NOTE | 2025-02-13 | ECG_ITS ---
Test Reason : r/o prolonged qt Blood Pressure : */* mmHG Vent. Rate : 64 BPM Atrial Rate : 64 BPM P-R Int : 134 ms QRS Dur : 82 ms QT Int : 440 ms P-R-T Axes : 53 65 41 degrees QTcB Int : 453 ms Normal sinus rhythm Normal ECG When compared with ECG of 11-Dec-2023 14:06, No significant change was found Referred By: Tod Yoder Electronically Signed By: SHENA HUFF MD
[2025-02-13 06:07] VITALS: RESP 16
--- NOTE | 2025-02-13 07:24 | PC.NURSE ---
methadone verification form filled out/faxed to pharmacy/placed in pt's chart. will notify MD when able. pt otherwise in no apparent distress. calm/cooperative. personal hygiene supplies provided to patient as he requested to take a shower. plan of care ongoing.
[2025-02-13 07:46] VITALS: BP 131/59; PULSE 69; RESP 18; TEMP 36.6; O2SAT 97
--- NOTE | 2025-02-13 07:54 | HE.PHANOTE ---
RE:METHADONE DOSING Last dose of methadone 120 mg given at [facility] [phone] on 02/12/25 @0701 per Suyapa.
[2025-02-13] MEDS: Dextroamphetamine/Amphetamine XR 10 MG CAP.ER.24H PO (08:30)
[2025-02-13] MEDS: methADONE HCl 20 MG/2 ML ORAL.CONC 120 MG PO (08:30)
--- NOTE | 2025-02-13 08:36 | PC.NURSE ---
medication administered per provider order. ekg for medical clearance/admissions completed. pt otherwise remains calm/cooperative. offers no complaints at this time. plan of care ongoing.
[2025-02-13 12:58] VITALS: BP 121/61; PULSE 68; RESP 18; TEMP 36.6; O2SAT 98
[2025-02-13 13:25] VITALS: BP 129/60; PULSE 83; RESP 18; O2SAT 97; BMI 31.0
--- NOTE | 2025-02-13 15:08 | HO.PSYADMNOT ---
HPI Date of Service: 02/13/25 Chief Complaint: SI Sources of Information: patient interviewed, chart reviewed and crisis/core team assessment reviewed HPI Subjective Notes: [place] Warning and Conditional Voluntary Narrative: Patient is a 29 year old male with hx of MDD, PTSD,ADHD, opiate use d/o and cocaine use d/o who self presented to [facility] ER after suicide attempt via Fentanyl secondary to increased depressive symptoms. Per crisis report, Patient self presented to ER reporting suicide attempt earlier today via overdose of IV fentanyl. Patient reports a by standard gave him Narcan. Patient reports he was discharged from [facility] 3 days ago and he feels he left too early. Patient reports he continues to have depression and suicidal ideation. Patient has a history of poor medication and treatment compliance; patient reports he has not taken his medications since being discharged from [facility]. Denies HI/VH/AH. U tox positive for opiates, buprenorphine, methadone, fentanyl and cocaine. Patient reports he used 4 bags of fentanyl IV to overdose in a suicide attempt. History of SA attempts via overdose. During admission assessment, patient presents alert and oriented x3. Calm and cooperative. Patient reports feeling depressed; patient stated, the lack of relationship with my family is not good. My situation in life right now. I don't have a permanent address and not knowing where I'm going to sleep the next night. The combination of that is making me not want to live. I'm still feeling suicidal. I'm upset that someone found me . Patient reports he is not interested in going to a substance abuse program because, it's just a bed for 30 days and I already know what they are going to say . Patient reports he has not been taking his psychiatric medications for the past 3 days. Patient stated, I feel better and then feel like I don't need them . Patient educated regarding importance of medication compliance. Patient reports that he would like to be restarted on his home medications and a referral to a therapist. Past Psychiatric History: hx of multiple inpatient psychiatric hospitalizations. hx of detox and CSS. Psychiatrist: Henny Montalvo ([facility]-telehealth. [place]) Therapist: does not have one. Medical Evaluation Reviewed: Yes [facility] Medical History Bipolar disorder Opiate use Active substance abuse Depression Family History: mother-depression sister-depression Social History: Homeless, single, no children, unemployed, high school graduate. Substance History: Utox positive for cocaine, opiates, buprenorphine, methadone and fentanyl. Trauma History: yes Diagnostics Vital Signs (24Hr): Vital Signs - 24 hr 02/12/25 19:47 02/13/25 06:07 02/13/25 07:46 Temperature 97.9 F 97.8 F Pulse Rate 63 69 Respiratory Rate 18 16 18 Blood Pressure 113/60 131/59 L Pulse Oximetry 97 97 Oxygen Delivery Method Room Air Room Air 02/13/25 12:58 Temperature 97.8 F Pulse Rate 68 Respiratory Rate 18 Blood Pressure 121/61 Pulse Oximetry 98 Oxygen Delivery Method Room Air BMI result Body Mass Index 29.5 Labs 02/12/25 09:05 02/12/25 09:05 Labs: Laboratory Results - last 48 hr 02/12/25 02/12/25 09:05 10:24 WBC 7.0 RBC 4.08 L Hgb 12.3 L Hct 35.8 L MCV 87.7 MCH 30.1 MCHC 34.4 RDW 12.9 Plt Count 208 MPV 9.7 Immature Gran % (Auto) 0.4 Neut % (Auto) 61.4 Lymph % (Auto) 18.7 L Will % (Auto) 16.4 H Eos % (Auto) 2.2 Baso % (Auto) 0.9 Lymph # (Auto) 1.3 Will # (Auto) 1.1 Eos # (Auto) 0.2 Baso # (Auto) 0.1 Abs Immat Gran (auto) 0.03 Absolute Neuts (auto) 4.3 Absolute Nucleated RBC 0.000 Nucleated RBC % (auto) 0.0 Sodium 137 Potassium 3.6 Chloride 102 Carbon Dioxide 26 Anion Gap 13 BUN 15 Creatinine 0.68 Estim Creat Clear Calc 180.0 Estimated GFR > 60 Random Glucose 91 Calcium 9.1 Total Bilirubin 1.2 H AST 247 H ALT 275 H Alkaline Phosphatase 78 Total Protein 7.7 Albumin 4.6 Urine Color Dark Yellow Urine Appearance Clear Urine pH 6.0 Ur Specific [place] >= 1.030 H Urine Protein Trace Urine Glucose (UA) Negative Urine Ketones 15 Urine Blood Negative Urine Nitrite Negative Ur Leukocyte Esterase Negative Urine RBC 0-2 Urine WBC 0-5 Ur Squamous Epith Cells 0-2 Urine Bacteria None Seen Hyaline Casts 0-2 Urine Opiates Screen POSITIVE H Ur Buprenorphine Scrn Positive H Ur Oxycodone Screen Not Detected Urine Methadone Screen Positive H Urine Fentanyl Screen POSITIVE H Ur Barbiturates Screen Not Detected Ur Phencyclidine Scrn Not Detected Ur Amphetamines Screen Not Detected U Benzodiazepines Scrn Not Detected Urine Cocaine Screen POSITIVE H U Marijuana (THC) Screen Not Detected Ethyl Alcohol < 10 Meds/Allergies Meds Home Medications ?Medication ?Instructions ?Recorded ?Confirmed ?Type clonazepam 0.5 mg tablet 0.5 mg PO TID 02/12/25 02/12/25 History dextroamphetamine-amphetamine ER 1 cap PO QAM 02/12/25 02/12/25 History 10 mg 24hr capsule,extend release (Adderall XR) hydroxyzine pamoate 50 mg capsule 50 mg PO TID PRN Anxiety 02/12/25 02/12/25 History sertraline 100 mg tablet 100 mg PO DAILY 02/12/25 02/12/25 History methadone 10 mg/5 mL oral solution 120 mg PO DAILY 02/13/25 02/13/25 History Allergies Allergies Allergy/AdvReac Type Severity Reaction Status Date / Time No Known Allergies Allergy Verified 02/12/25 08:43 Mental Status Exam Mental Status Exam Narrative: Pt is alert and oriented; behavior is cooperative and calm; dressed in casual attire; mood is described as depressed ; eye contact appropriate; Speech is normal rate, volume and not pressured; thought process is organized; Thought content is on tx; denies HI/VH/AH. Pt reports suicidal ideation with plan to overdose. Assessment & Plan Assessment & Plan (1) MDD (major depressive disorder), recurrent episode: Status: Acute Code(s): F33.9 - Major depressive disorder, recurrent, unspecified (2) PTSD (post-traumatic stress disorder): Status: Acute Code(s): F43.10 - Post-traumatic stress disorder, unspecified (3) Opioid use disorder: Status: Acute Code(s): F11.90 - Opioid use, unspecified, uncomplicated (4) Cocaine abuse: Status: Acute Code(s): F14.10 - Cocaine abuse, uncomplicated Plan Patient is a 29 year old male with hx of MDD, PTSD,ADHD, opiate use d/o and cocaine use d/o who self presented to [facility] ER after suicide attempt via Fentanyl secondary to increased depressive symptoms. Plan: CV 15 minute safety checks Continue home medications Obtain collateral Encourage groups Referral to outpatient therapist Discharge planning Patient educated on: diagnosis and medication risk/benefits Reason for continued inpatient stay Substantial Risk for: harm to self and med/psych decompensation Statement Statement: I have reviewed the history and physical and performed a pertinent examination on my patient. No changes have occurred unless specified. If the History and Physical was not performed prior to admission, the Hospitalist's service will be consulted for completing the admission physical. Time Spent With Patient Time: Total time managing care of this patient today _60___ minutes.
--- NOTE | 2025-02-13 16:00 | PC.ADMIT ---
Nursing admission note: 29 year old male DX: Unspecified depressive Disorder, Opioid dependence with unspecified opioid induced disorder, Cocaine use disorder uncomplicated. Referred by CARE team, signed conditional voluntary for admission. Patient self presented to [facility] ED following self reported suicide attempt with IV Fentanyl. Patient reported a bystander gave him Narcan. Patient engaged easily. Calm and cooperative with admission process. Dressed in hospital attire. Reports mood continues depressed, with on going suicidal thoughts. Denies plan or intent on unit however feels he would not be able to maintain safety outside of unit. Agrees to engage staff if feelings intensify or feels he will act on ideation. Denies HI. Affect blunted. Thoughts are linear and organized. Denies A/V hallucinations, no overt psychosis or expressed delusions. Speech is clear, soft spoken, slowed rate. Denies appetite disturbances. Reports difficulty maintaining sleep, reports history of nightmares. Currently homeless which he identifies as stressor. States he has been years on the streets , stays with a friend intermittently. States he moves around, sometimes sleeping outside. Reports he had been off medications due to not seeing his provider, reporting he was just restarted on medication, aware it takes time for full benefit. History of substance use, including multiple detox admissions. TOX screen positive for Opiate, Fentanyl, Methadone, Buprenorphine and cocaine. Patient reports occasional use of alcohol, most recent a few days ago , reporting he will have a drink or two. No reported withdrawal sx at this time. Methadone dose confirmed prior to arrival on floor. Denies current legal entanglements, history of incarceration x2. Denies medical problems. Patient oriented to unit, placed on unit safety checks. See nursing assessment/crisis evaluation for further details.
[2025-02-14 08:00] VITALS: RESP 18
[2025-02-14] MEDS: methADONE HCl 20 MG/2 ML ORAL.CONC 120 MG PO (08:18)
[2025-02-14] MEDS: Dextroamphetamine/Amphetamine XR 10 MG CAP.ER.24H PO (09:03)
--- NOTE | 2025-02-14 13:38 | P.PNPSI_ITS ---
Subjective Subjective Date of Service: 02/14/25 Reason For Visit: SI Subjective Notes: Conditional Voluntary Interim History: Active on unit. Patient continues to report feeling anxious and depressed today; pt stated, I'm still have suicidal thoughts of overdosing. My mom won't let me stay with her. She keeps telling me to figure it out. She doesn't care . Pt reports he does not like where he is in life . denies HI/VH/AH. Per nursing, slept 8 hours last night. encouraged to attend groups. continue current tx plan. Medication Compliance: Yes Side effects from medications: No Attending Groups: No Mental Status Exam Mental Status Exam Narrative: Pt is alert and oriented; behavior is cooperative and calm; dressed in casual attire; mood is described as depressed ; eye contact appropriate; Speech is normal rate, volume and not pressured; thought process is organized; Thought content is on tx; denies HI/VH/AH. Pt reports suicidal ideation with plan to overdose. Diagnostics Vital Signs (24Hr): Vital Signs - 24 hr 02/14/25 08:00 Respiratory Rate 18 BMI result Body Mass Index 31.0 Labs 02/12/25 09:05 02/12/25 09:05 Medications Medications Current Medications Acetaminophen (Acetaminophen 325 Mg Tablet) 650 mg PO Q6H PRN PRN Reason: Headache/Pain, Scale 1-10 Al Hydroxide/Mg Hydroxide (Magnesium Hydrox/Alum Hydrox 30 Ml Oral.Susp) 30 ml PO Q6H PRN PRN Reason: Heartburn/Nausea Amphetamine/Dextroamphetamine (Dextroamphetamine/Amphetamine Xr 10 Mg Cap.Er.24h) 10 mg PO DAILY [facility] Last Admin: 02/14/25 09:03 Dose: 10 mg Aripiprazole (Aripiprazole 5 Mg Tablet) 5 mg PO DAILY [facility] Last Admin: 02/14/25 09:02 Dose: 5 mg Clonazepam (Clonazepam 0.5 Mg Tablet) 0.5 mg PO TID [facility] Last Admin: 02/14/25 09:03 Dose: 0.5 mg Hydroxyzine HCl (Hydroxyzine Hcl 50 Mg Tablet) 50 mg PO TID PRN PRN Reason: Anxiety Last Admin: 02/13/25 20:02 Dose: 50 mg Magnesium Hydroxide (Milk Of Magnesia 30 Ml Oral.Susp) 30 ml PO DAILY PRN PRN Reason: Constipation Methadone HCl (Methadone Hcl 20 Mg/2 Ml Oral.Conc) 120 mg PO DAILY [facility] Last Admin: 02/14/25 08:18 Dose: 120 mg Nicotine (Nicotine 21 Mg Patch.Td24) 21 mg TRANSDERMA DAILY [facility] Last Admin: 02/14/25 09:04 Dose: Not Given Nicotine Polacrilex (Nicotine Polacrilex 2 Mg Gum) 4 mg BUCCAL Q2H PRN PRN Reason: Nicotine Cravings Sertraline HCl (Sertraline Hcl 100 Mg Tablet) 100 mg PO DAILY [facility] Last Admin: 02/14/25 09:03 Dose: 100 mg Trazodone HCl (Trazodone Hcl 50 Mg Tablet) 50 mg PO BEDTIME MRX1 PRN PRN Reason: Insomnia Allergies Allergies Allergy/AdvReac Type Severity Reaction Status Date / Time No Known Allergies Allergy Verified 02/12/25 08:43 Assessment & Plan Assessment & Plan (1) MDD (major depressive disorder), recurrent episode: Status: Acute Code(s): F33.9 - Major depressive disorder, recurrent, unspecified (2) PTSD (post-traumatic stress disorder): Status: Acute Code(s): F43.10 - Post-traumatic stress disorder, unspecified (3) Opioid use disorder: Status: Acute Code(s): F11.90 - Opioid use, unspecified, uncomplicated (4) Cocaine abuse: Status: Acute Code(s): F14.10 - Cocaine abuse, uncomplicated Plan Patient is a 29 year old male with hx of MDD, PTSD,ADHD, opiate use d/o and cocaine use d/o who self presented to [facility] after suicide attempt via Fentanyl secondary to increased depressive symptoms. Plan: CV 15 minute safety checks Continue home medications Obtain collateral Encourage groups Referral to outpatient therapist Discharge planning 02/14: Active on unit. Patient continues to report feeling anxious and depressed today; pt stated, I'm still have suicidal thoughts of overdosing. My mom won't let me stay with her. She keeps telling me to figure it out. She doesn't care . Pt reports he does not like where he is in life . denies HI/VH/AH. Per nursing, slept 8 hours last night. encouraged to attend groups. continue current tx plan. Patient educated on: diagnosis, medication risk/benefits and therapeutic strategies Reason for continued inpatient stay Substantial Risk for: harm to self and med/psych decompensation Time Spent With Patient Time: Total time managing care of this patient today _20___ minutes.
[2025-02-14 20:00] VITALS: RESP 16
[2025-02-15] MEDS: methADONE HCl 20 MG/2 ML ORAL.CONC 120 MG PO (08:00)
[2025-02-15] MEDS: Dextroamphetamine/Amphetamine XR 10 MG CAP.ER.24H PO (08:34)
--- NOTE | 2025-02-15 13:16 | P.PNPSI_ITS ---
Subjective Subjective Date of Service: 02/15/25 Reason For Visit: SI Subjective Notes: Conditional Voluntary Interim History: Patient continues to report feeling depressed; pt stated, I'm feeling a little better but I'm still suicidal. It's not as bad as when I first came in . Pt reports he had a good phone call with my mom this morning . He reports he plans on calling various programs to see if they have an available bed. denies HI/VH/AH. Sertraline increased to 150mg PO daily;pt aware. Medication Compliance: Yes Side effects from medications: No Mental Status Exam Mental Status Exam Narrative: Pt is alert and oriented; behavior is cooperative and calm; dressed in casual attire; mood is described as depressed ; eye contact appropriate; Speech is normal rate, volume and not pressured; thought process is organized; Thought content is on tx; denies HI/VH/AH. Pt reports suicidal ideation with plan to overdose. Diagnostics Vital Signs (24Hr): Vital Signs - 24 hr 02/14/25 20:00 Respiratory Rate 16 BMI result Body Mass Index 31.0 Labs 02/12/25 09:05 02/12/25 09:05 Medications Medications Current Medications Acetaminophen (Acetaminophen 325 Mg Tablet) 650 mg PO Q6H PRN PRN Reason: Headache/Pain, Scale 1-10 Al Hydroxide/Mg Hydroxide (Magnesium Hydrox/Alum Hydrox 30 Ml Oral.Susp) 30 ml PO Q6H PRN PRN Reason: Heartburn/Nausea Amphetamine/Dextroamphetamine (Dextroamphetamine/Amphetamine Xr 10 Mg Cap.Er.24h) 10 mg PO DAILY [facility] Last Admin: 02/15/25 08:34 Dose: 10 mg Aripiprazole (Aripiprazole 5 Mg Tablet) 5 mg PO DAILY [facility] Last Admin: 02/15/25 08:34 Dose: 5 mg Clonazepam (Clonazepam 0.5 Mg Tablet) 0.5 mg PO TID [facility] Last Admin: 02/15/25 08:35 Dose: 0.5 mg Hydroxyzine HCl (Hydroxyzine Hcl 50 Mg Tablet) 50 mg PO TID PRN PRN Reason: Anxiety Last Admin: 02/14/25 20:09 Dose: 50 mg Magnesium Hydroxide (Milk Of Magnesia 30 Ml Oral.Susp) 30 ml PO DAILY PRN PRN Reason: Constipation Methadone HCl (Methadone Hcl 20 Mg/2 Ml Oral.Conc) 120 mg PO DAILY [facility] Last Admin: 02/15/25 08:00 Dose: 120 mg Nicotine Polacrilex (Nicotine Polacrilex 2 Mg Gum) 4 mg BUCCAL Q2H PRN PRN Reason: Nicotine Cravings Olanzapine (Olanzapine 5 Mg Tablet) 5 mg PO Q4H PRN PRN Reason: agitation Sertraline HCl (Sertraline Hcl 100 Mg Tablet) 100 mg PO DAILY [facility] Last Admin: 02/15/25 08:33 Dose: 100 mg Trazodone HCl (Trazodone Hcl 50 Mg Tablet) 50 mg PO BEDTIME MRX1 PRN PRN Reason: Insomnia Allergies Allergies Allergy/AdvReac Type Severity Reaction Status Date / Time No Known Allergies Allergy Verified 02/12/25 08:43 Assessment & Plan Assessment & Plan (1) MDD (major depressive disorder), recurrent episode: Status: Acute Code(s): F33.9 - Major depressive disorder, recurrent, unspecified (2) PTSD (post-traumatic stress disorder): Status: Acute Code(s): F43.10 - Post-traumatic stress disorder, unspecified (3) Opioid use disorder: Status: Acute Code(s): F11.90 - Opioid use, unspecified, uncomplicated (4) Cocaine abuse: Status: Acute Code(s): F14.10 - Cocaine abuse, uncomplicated Plan Patient is a 29 year old male with hx of MDD, PTSD,ADHD, opiate use d/o and cocaine use d/o who self presented to [facility] after suicide attempt via Fentanyl secondary to increased depressive symptoms. Plan: CV 15 minute safety checks Continue home medications Obtain collateral Encourage groups Referral to outpatient therapist Discharge planning 02/14: Active on unit. Patient continues to report feeling anxious and depressed today; pt stated, I'm still have suicidal thoughts of overdosing. My mom won't let me stay with her. She keeps telling me to figure it out. She doesn't care . Pt reports he does not like where he is in life . denies HI/VH/AH. Per nursing, slept 8 hours last night. encouraged to attend groups. continue current tx plan. 02/15: Patient continues to report feeling depressed; pt stated, I'm feeling a little better but I'm still suicidal. It's not as bad as when I first came in . Pt reports he had a good phone call with my mom this morning . He reports he plans on calling various programs to see if they have an available bed. denies HI/VH/AH. Sertraline increased to 150mg PO daily;pt aware. Patient educated on: diagnosis, medication risk/benefits and therapeutic strategies Reason for continued inpatient stay Substantial Risk for: harm to self and med/psych decompensation Time Spent With Patient Time: Total time managing care of this patient today _20___ minutes.
[2025-02-15 20:00] VITALS: RESP 16
[2025-02-16 07:00] VITALS: BMI 31.7
[2025-02-16] MEDS: methADONE HCl 20 MG/2 ML ORAL.CONC 120 MG PO (07:54)
[2025-02-16] MEDS: Dextroamphetamine/Amphetamine XR 10 MG CAP.ER.24H PO (08:12)
--- NOTE | 2025-02-16 09:12 | HO.PSYCHPN ---
Subjective Subjective Date of Service: 02/16/25 Reason For Visit: SI Subjective Notes: 3 Day Interim History: Signed 3 day notice; 3 day up on 02/22/25. Patient reports he woke up today feeling different and hopeful ; pt stated, I'm no longer feeling suicidal. I've been talking to my mom and dad more which is helping . denies SI/HI/VH/AH. Per nursing, slept 8 hours. Pt requested increase in klonopin;request was declined d/t hx of polysubstance abuse. pt was educated regarding benzodiazapines. Continue current tx plan. Medication Compliance: Yes Side effects from medications: No Attending Groups: No Mental Status Exam Mental Status Exam Narrative: Pt is alert and oriented; behavior is cooperative and calm; dressed in casual attire; mood is described as better ; eye contact appropriate; Speech is normal rate, volume and not pressured; thought process is organized and goal directed; Thought content is on tx; denies SI/HI/VH/AH. Diagnostics Vital Signs (24Hr): Vital Signs - 24 hr 02/15/25 20:00 Respiratory Rate 16 BMI result Body Mass Index 31.7 Labs 02/12/25 09:05 02/12/25 09:05 Medications Medications Current Medications Acetaminophen (Acetaminophen 325 Mg Tablet) 650 mg PO Q6H PRN PRN Reason: Headache/Pain, Scale 1-10 Al Hydroxide/Mg Hydroxide (Magnesium Hydrox/Alum Hydrox 30 Ml Oral.Susp) 30 ml PO Q6H PRN PRN Reason: Heartburn/Nausea Amphetamine/Dextroamphetamine (Dextroamphetamine/Amphetamine Xr 10 Mg Cap.Er.24h) 10 mg PO DAILY [facility] Last Admin: 02/16/25 08:12 Dose: 10 mg Aripiprazole (Aripiprazole 5 Mg Tablet) 5 mg PO DAILY [facility] Last Admin: 02/16/25 08:12 Dose: 5 mg Clonazepam (Clonazepam 0.5 Mg Tablet) 0.5 mg PO TID [facility] Last Admin: 02/16/25 08:13 Dose: 0.5 mg Hydroxyzine HCl (Hydroxyzine Hcl 50 Mg Tablet) 50 mg PO TID PRN PRN Reason: Anxiety Last Admin: 02/15/25 19:58 Dose: 50 mg Magnesium Hydroxide (Milk Of Magnesia 30 Ml Oral.Susp) 30 ml PO DAILY PRN PRN Reason: Constipation Methadone HCl (Methadone Hcl 20 Mg/2 Ml Oral.Conc) 120 mg PO DAILY [facility] Last Admin: 02/16/25 07:54 Dose: 120 mg Nicotine Polacrilex (Nicotine Polacrilex 2 Mg Gum) 4 mg BUCCAL Q2H PRN PRN Reason: Nicotine Cravings Olanzapine (Olanzapine 5 Mg Tablet) 5 mg PO Q4H PRN PRN Reason: agitation Sertraline HCl (Sertraline Hcl 50 Mg Tablet) 150 mg PO DAILY [facility] Last Admin: 02/16/25 08:11 Dose: 150 mg Trazodone HCl (Trazodone Hcl 50 Mg Tablet) 50 mg PO BEDTIME MRX1 PRN PRN Reason: Insomnia Allergies Allergies Allergy/AdvReac Type Severity Reaction Status Date / Time No Known Allergies Allergy Verified 02/12/25 08:43 Assessment & Plan Assessment & Plan (1) MDD (major depressive disorder), recurrent episode: Status: Acute Code(s): F33.9 - Major depressive disorder, recurrent, unspecified (2) PTSD (post-traumatic stress disorder): Status: Acute Code(s): F43.10 - Post-traumatic stress disorder, unspecified (3) Opioid use disorder: Status: Acute Code(s): F11.90 - Opioid use, unspecified, uncomplicated (4) Cocaine abuse: Status: Acute Code(s): F14.10 - Cocaine abuse, uncomplicated Plan Patient is a 29 year old male with hx of MDD, PTSD,ADHD, opiate use d/o and cocaine use d/o who self presented [place] [facility] after suicide attempt via Fentanyl secondary to increased depressive symptoms. Plan: CV 15 minute safety checks Continue home medications Obtain collateral Encourage groups Referral to outpatient therapist Discharge planning 02/14: Active on unit. Patient continues to report feeling anxious and depressed today; pt stated, I'm still have suicidal thoughts of overdosing. My mom won't let me stay with her. She keeps telling me to figure it out. She doesn't care . Pt reports he does not like where he is in life . denies HI/VH/AH. Per nursing, slept 8 hours last night. encouraged to attend groups. continue current tx plan. 02/15: Patient continues to report feeling depressed; pt stated, I'm feeling a little better but I'm still suicidal. It's not as bad as when I first came in . Pt reports he had a good phone call with my mom this morning . He reports he plans on calling various programs to see if they have an available bed. denies HI/VH/AH. Sertraline increased to 150mg PO daily;pt aware. 02/16: Signed 3 day notice; 3 day up on 02/22/25. Patient reports he woke up today feeling different and hopeful ; pt stated, I'm no longer feeling suicidal. I've been talking to my mom and dad more which is helping . denies SI/HI/VH/AH. Per nursing, slept 8 hours. Pt requested increase in klonopin;request was declined d/t hx of polysubstance abuse. pt was educated regarding benzodiazapines. Continue current tx plan. Patient educated on: diagnosis, medication risk/benefits and substance abuse Reason for continued inpatient stay Substantial Risk for: med/psych decompensation Time Spent With Patient Time: Total time managing care of this patient today _20___ minutes.
[2025-02-17] MEDS: methADONE HCl 20 MG/2 ML ORAL.CONC 120 MG PO (08:08)
[2025-02-17] MEDS: Dextroamphetamine/Amphetamine XR 10 MG CAP.ER.24H PO (08:40)
--- NOTE | 2025-02-17 16:17 | P.PNPSI_ITS ---
Subjective Subjective Date of Service: 02/17/25 Reason For Visit: SI Interim History: seen in his room, did not get out of bed. denied any problems or questions. per staff, wants increase in methadone dosing, change in klonopin dosing times, more seroquel. all were declined by providers yesterday. appears to be sleeping well but telling staff he is not sleeping. refused VS, in bed all day. refusing labs. Mental Status Exam Mental Status Exam Narrative: Pt is alert and oriented; behavior is cooperative and calm; dressed in casual attire; mood is described as better; eye contact appropriate; Speech is normal rate, volume and not pressured; thought process is organized and goal directed; Thought content is on tx; no SI/HI/VH/AH expressed. Diagnostics Vital Signs (24Hr): BMI result Body Mass Index 31.7 Labs 02/12/25 09:05 02/12/25 09:05 Medications Medications Current Medications Acetaminophen (Acetaminophen 325 Mg Tablet) 650 mg PO Q6H PRN PRN Reason: Headache/Pain, Scale 1-10 Al Hydroxide/Mg Hydroxide (Magnesium Hydrox/Alum Hydrox 30 Ml Oral.Susp) 30 ml PO Q6H PRN PRN Reason: Heartburn/Nausea Amphetamine/Dextroamphetamine (Dextroamphetamine/Amphetamine Xr 10 Mg Cap.Er.24h) 10 mg PO DAILY [facility] Last Admin: 02/17/25 08:40 Dose: 10 mg Aripiprazole (Aripiprazole 5 Mg Tablet) 5 mg PO DAILY [facility] Last Admin: 02/17/25 08:40 Dose: 5 mg Clonazepam (Clonazepam 0.5 Mg Tablet) 0.5 mg PO TID [facility] Last Admin: 02/17/25 15:18 Dose: 0.5 mg Hydroxyzine HCl (Hydroxyzine Hcl 50 Mg Tablet) 50 mg PO TID PRN PRN Reason: Anxiety Last Admin: 02/15/25 19:58 Dose: 50 mg Magnesium Hydroxide (Milk Of Magnesia 30 Ml Oral.Susp) 30 ml PO DAILY PRN PRN Reason: Constipation Methadone HCl (Methadone Hcl 20 Mg/2 Ml Oral.Conc) 120 mg PO DAILY [facility] Last Admin: 02/17/25 08:08 Dose: 120 mg Nicotine Polacrilex (Nicotine Polacrilex 2 Mg Gum) 4 mg BUCCAL Q2H PRN PRN Reason: Nicotine Cravings Olanzapine (Olanzapine 5 Mg Tablet) 5 mg PO Q4H PRN PRN Reason: agitation Last Admin: 02/16/25 16:39 Dose: 5 mg Sertraline HCl (Sertraline Hcl 50 Mg Tablet) 150 mg PO DAILY [facility] Last Admin: 02/17/25 08:41 Dose: 150 mg Trazodone HCl (Trazodone Hcl 50 Mg Tablet) 50 mg PO BEDTIME MRX1 PRN PRN Reason: Insomnia Allergies Allergies Allergy/AdvReac Type Severity Reaction Status Date / Time No Known Allergies Allergy Verified 02/12/25 08:43 Assessment & Plan Assessment & Plan (1) MDD (major depressive disorder), recurrent episode: Status: Acute Code(s): F33.9 - Major depressive disorder, recurrent, unspecified (2) PTSD (post-traumatic stress disorder): Status: Acute Code(s): F43.10 - Post-traumatic stress disorder, unspecified (3) Opioid use disorder: Status: Acute Code(s): F11.90 - Opioid use, unspecified, uncomplicated (4) Cocaine abuse: Status: Acute Code(s): F14.10 - Cocaine abuse, uncomplicated Plan Patient is a 29 year old male with hx of MDD, PTSD,ADHD, opiate use d/o and cocaine use d/o who self presented to [facility] [place] [place] [facility] after suicide attempt via Fentanyl secondary to increased depressive symptoms. Plan: CV 15 minute safety checks Continue home medications Obtain collateral Encourage groups Referral to outpatient therapist Discharge planning 02/14: Active on unit. Patient continues to report feeling anxious and depressed today; pt stated, I'm still have suicidal thoughts of overdosing. My mom won't let me stay with her. She keeps telling me to figure it out. She doesn't care . Pt reports he does not like where he is in life . denies HI/VH/AH. Per nursing, slept 8 hours last night. encouraged to attend groups. continue current tx plan. 02/15: Patient continues to report feeling depressed; pt stated, I'm feeling a little better but I'm still suicidal. It's not as bad as when I first came in . Pt reports he had a good phone call with my mom this morning . He reports he plans on calling various programs to see if they have an available bed. denies HI/VH/AH. Sertraline increased to 150mg PO daily;pt aware. 02/16: Signed 3 day notice; 3 day up on 02/22/25. Patient reports he woke up today feeling different and hopeful ; pt stated, I'm no longer feeling suicidal. I've been talking to my mom and dad more which is helping . denies SI/HI/VH/AH. Per nursing, slept 8 hours. Pt requested increase in klonopin;request was declined d/t hx of polysubstance abuse. pt was educated regarding benzodiazapines. Continue current tx plan. 02/17: no questions or complaints today. in bed. refusing VS and labs. Reason for continued inpatient stay Substantial Risk for: inability to function Time Spent With Patient Time: Total time managing care of this patient today ____ minutes.
[2025-02-17 20:08] VITALS: RESP 16
[2025-02-18] MEDS: methADONE HCl 20 MG/2 ML ORAL.CONC 120 MG PO (08:01)
[2025-02-18] MEDS: Dextroamphetamine/Amphetamine XR 10 MG CAP.ER.24H PO (08:03)
--- NOTE | 2025-02-18 14:32 | HO.PSYCHPN ---
Subjective Subjective Date of Service: 02/18/25 Reason For Visit: SI Interim History: asking to change klonopin schedule and add seroquel at HS. per staff, stays in room. taking meds. c/o insomnia. refusing HS VS. slept 8+ hours. Mental Status Exam Mental Status Exam Narrative: Pt is alert and oriented; behavior is cooperative and calm; dressed in casual attire; mood is described as better; eye contact appropriate; Speech is normal rate, volume and not pressured; thought process is organized and goal directed; Thought content is on tx; no SI/HI/VH/AH expressed. Diagnostics Vital Signs (24Hr): Vital Signs - 24 hr 02/17/25 20:08 Respiratory Rate 16 BMI result Body Mass Index 31.7 Labs 02/12/25 09:05 02/12/25 09:05 Medications Medications Current Medications Acetaminophen (Acetaminophen 325 Mg Tablet) 650 mg PO Q6H PRN PRN Reason: Headache/Pain, Scale 1-10 Al Hydroxide/Mg Hydroxide (Magnesium Hydrox/Alum Hydrox 30 Ml Oral.Susp) 30 ml PO Q6H PRN PRN Reason: Heartburn/Nausea Amphetamine/Dextroamphetamine (Dextroamphetamine/Amphetamine Xr 10 Mg Cap.Er.24h) 10 mg PO DAILY [facility] Last Admin: 02/18/25 08:03 Dose: 10 mg Aripiprazole (Aripiprazole 5 Mg Tablet) 5 mg PO DAILY [facility] Last Admin: 02/18/25 08:03 Dose: 5 mg Clonazepam (Clonazepam 0.5 Mg Tablet) 0.5 mg PO TID [facility] Last Admin: 02/18/25 14:07 Dose: 0.5 mg Hydroxyzine HCl (Hydroxyzine Hcl 50 Mg Tablet) 50 mg PO TID PRN PRN Reason: Anxiety Last Admin: 02/18/25 11:52 Dose: 50 mg Magnesium Hydroxide (Milk Of Magnesia 30 Ml Oral.Susp) 30 ml PO DAILY PRN PRN Reason: Constipation Methadone HCl (Methadone Hcl 20 Mg/2 Ml Oral.Conc) 120 mg PO DAILY [facility] Last Admin: 02/18/25 08:01 Dose: 120 mg Nicotine Polacrilex (Nicotine Polacrilex 2 Mg Gum) 4 mg BUCCAL Q2H PRN PRN Reason: Nicotine Cravings Quetiapine Fumarate (Quetiapine Fumarate 50 Mg Tablet) 50 mg PO BEDTIME [facility] Sertraline HCl (Sertraline Hcl 50 Mg Tablet) 150 mg PO DAILY [facility] Last Admin: 02/18/25 08:03 Dose: 150 mg Trazodone HCl (Trazodone Hcl 50 Mg Tablet) 50 mg PO BEDTIME MRX1 PRN PRN Reason: Insomnia Allergies Allergies Allergy/AdvReac Type Severity Reaction Status Date / Time No Known Allergies Allergy Verified 02/12/25 08:43 Assessment & Plan Assessment & Plan (1) MDD (major depressive disorder), recurrent episode: Status: Acute Code(s): F33.9 - Major depressive disorder, recurrent, unspecified (2) PTSD (post-traumatic stress disorder): Status: Acute Code(s): F43.10 - Post-traumatic stress disorder, unspecified (3) Opioid use disorder: Status: Acute Code(s): F11.90 - Opioid use, unspecified, uncomplicated (4) Cocaine abuse: Status: Acute Code(s): F14.10 - Cocaine abuse, uncomplicated Plan Patient is a 29 year old male with hx of MDD, PTSD,ADHD, opiate use d/o and cocaine use d/o who self presented to [facility] [facility] after suicide attempt via Fentanyl secondary to increased depressive symptoms. Plan: CV 15 minute safety checks Continue home medications Obtain collateral Encourage groups Referral to outpatient therapist Discharge planning 02/14: Active on unit. Patient continues to report feeling anxious and depressed today; pt stated, I'm still have suicidal thoughts of overdosing. My mom won't let me stay with her. She keeps telling me to figure it out. She doesn't care . Pt reports he does not like where he is in life . denies HI/VH/AH. Per nursing, slept 8 hours last night. encouraged to attend groups. continue current tx plan. 02/15: Patient continues to report feeling depressed; pt stated, I'm feeling a little better but I'm still suicidal. It's not as bad as when I first came in . Pt reports he had a good phone call with my mom this morning . He reports he plans on calling various programs to see if they have an available bed. denies HI/VH/AH. Sertraline increased to 150mg PO daily;pt aware. 02/16: Signed 3 day notice; 3 day up on 02/22/25. Patient reports he woke up today feeling different and hopeful ; pt stated, I'm no longer feeling suicidal. I've been talking to my mom and dad more which is helping . denies SI/HI/VH/AH. Per nursing, slept 8 hours. Pt requested increase in klonopin;request was declined d/t hx of polysubstance abuse. pt was educated regarding benzodiazapines. Continue current tx plan. 02/17: no questions or complaints today. in bed. refusing VS and labs. 02/18: klonopin times changed to 7--6 per pt request, seroquel 50 mg added at HS for sleep. stable. continue current mgmt otherwise. Reason for continued inpatient stay Substantial Risk for: inability to function Time Spent With Patient Time: Total time managing care of this patient today ____ minutes.
[2025-02-18 20:50] VITALS: RESP 16
--- NOTE | 2025-02-19 06:42 | PC.NURSE ---
TW offered pt his clonazepam scheduled for 0700, reminding him that the time was changed by the provider per his request. Pt stated he wanted to wait and take it at 0800.
[2025-02-19] MEDS: methADONE HCl 20 MG/2 ML ORAL.CONC 120 MG PO (08:14)
[2025-02-19] MEDS: Dextroamphetamine/Amphetamine XR 10 MG CAP.ER.24H PO (08:15)
--- NOTE | 2025-02-19 14:58 | P.PNPSI_ITS ---
Subjective Subjective Date of Service: 02/19/25 Reason For Visit: SI Interim History: appreciative of med changes. no other questions or concerns. reports he slept well. per staff, c/o dep/anx. [facility]C [facility] to [facility] refusing groups. in bed all shift. napping a lot. Mental Status Exam Mental Status Exam Narrative: Pt is alert and oriented; behavior is cooperative and calm; dressed in casual attire; mood is described as better; eye contact appropriate; Speech is normal rate, volume and not pressured; thought process is organized and goal directed; Thought content is on tx; no SI/HI/VH/AH expressed. Diagnostics Vital Signs (24Hr): Vital Signs - 24 hr 02/18/25 20:50 Respiratory Rate 16 BMI result Body Mass Index 31.7 Labs 02/12/25 09:05 02/12/25 09:05 Medications Medications Current Medications Acetaminophen (Acetaminophen 325 Mg Tablet) 650 mg PO Q6H PRN PRN Reason: Headache/Pain, Scale 1-10 Al Hydroxide/Mg Hydroxide (Magnesium Hydrox/Alum Hydrox 30 Ml Oral.Susp) 30 ml PO Q6H PRN PRN Reason: Heartburn/Nausea Amphetamine/Dextroamphetamine (Dextroamphetamine/Amphetamine Xr 10 Mg Cap.Er.24h) 10 mg PO DAILY [facility] Last Admin: 02/19/25 08:15 Dose: 10 mg Aripiprazole (Aripiprazole 5 Mg Tablet) 5 mg PO DAILY [facility] Last Admin: 02/19/25 08:15 Dose: 5 mg Clonazepam (Clonazepam 0.5 Mg Tablet) 0.5 mg PO TID@0700,1300,1800 [facility] Last Admin: 02/19/25 13:49 Dose: 0.5 mg Hydroxyzine HCl (Hydroxyzine Hcl 50 Mg Tablet) 50 mg PO TID PRN PRN Reason: Anxiety Last Admin: 02/18/25 11:52 Dose: 50 mg Magnesium Hydroxide (Milk Of Magnesia 30 Ml Oral.Susp) 30 ml PO DAILY PRN PRN Reason: Constipation Methadone HCl (Methadone Hcl 20 Mg/2 Ml Oral.Conc) 120 mg PO DAILY [facility] Last Admin: 02/19/25 08:14 Dose: 120 mg Nicotine Polacrilex (Nicotine Polacrilex 2 Mg Gum) 4 mg BUCCAL Q2H PRN PRN Reason: Nicotine Cravings Quetiapine Fumarate (Quetiapine Fumarate 50 Mg Tablet) 50 mg PO BEDTIME [facility] Last Admin: 02/18/25 22:01 Dose: 50 mg Sertraline HCl (Sertraline Hcl 50 Mg Tablet) 150 mg PO DAILY [facility] Last Admin: 02/19/25 08:15 Dose: 150 mg Trazodone HCl (Trazodone Hcl 50 Mg Tablet) 50 mg PO BEDTIME MRX1 PRN PRN Reason: Insomnia Allergies Allergies Allergy/AdvReac Type Severity Reaction Status Date / Time No Known Allergies Allergy Verified 02/12/25 08:43 Assessment & Plan Assessment & Plan (1) MDD (major depressive disorder), recurrent episode: Status: Acute Code(s): F33.9 - Major depressive disorder, recurrent, unspecified (2) PTSD (post-traumatic stress disorder): Status: Acute Code(s): F43.10 - Post-traumatic stress disorder, unspecified (3) Opioid use disorder: Status: Acute Code(s): F11.90 - Opioid use, unspecified, uncomplicated (4) Cocaine abuse: Status: Acute Code(s): F14.10 - Cocaine abuse, uncomplicated Plan Patient is a 29 year old male with hx of MDD, PTSD,ADHD, opiate use d/o and cocaine use d/o who self presented to [facility] [place] [place] [facility] after suicide attempt via Fentanyl secondary to increased depressive symptoms. Plan: CV 15 minute safety checks Continue home medications Obtain collateral Encourage groups Referral to outpatient therapist Discharge planning 02/14: Active on unit. Patient continues to report feeling anxious and depressed today; pt stated, I'm still have suicidal thoughts of overdosing. My mom won't let me stay with her. She keeps telling me to figure it out. She doesn't care . Pt reports he does not like where he is in life . denies HI/VH/AH. Per nursing, slept 8 hours last night. encouraged to attend groups. continue current tx plan. 02/15: Patient continues to report feeling depressed; pt stated, I'm feeling a little better but I'm still suicidal. It's not as bad as when I first came in . Pt reports he had a good phone call with my mom this morning . He reports he plans on calling various programs to see if they have an available bed. denies HI/VH/AH. Sertraline increased to 150mg PO daily;pt aware. 02/16: Signed 3 day notice; 3 day up on 02/22/25. Patient reports he woke up today feeling different and hopeful ; pt stated, I'm no longer feeling suicidal. I've been talking to my mom and dad more which is helping . denies SI/HI/VH/AH. Per nursing, slept 8 hours. Pt requested increase in klonopin;request was declined d/t hx of polysubstance abuse. pt was educated regarding benzodiazapines. Continue current tx plan. 02/17: no questions or complaints today. in bed. refusing VS and labs. 02/18: klonopin times changed to 7-1-6 per pt request, seroquel 50 mg added at HS for sleep. stable. continue current mgmt otherwise. 02/19: reports having slept well last night, appreciative of changes. no other requests or complaints. [facility] Reason for continued inpatient stay Substantial Risk for: inability to function and rapid decompensation Time Spent With Patient Time: Total time managing care of this patient today ____ minutes.
[2025-02-19 20:00] VITALS: RESP 16
[2025-02-20] MEDS: methADONE HCl 20 MG/2 ML ORAL.CONC 120 MG PO (08:08)
[2025-02-20] MEDS: Dextroamphetamine/Amphetamine XR 10 MG CAP.ER.24H PO (08:11)
--- NOTE | 2025-02-20 10:27 | HO.PSYCHPN ---
Subjective Subjective Date of Service: 02/20/25 Reason For Visit: SI Subjective Notes: 3 Day Interim History: Keeping to self. Listening to music while laying in bed. Patient reports feeling good today; pt stated, I'm no longer feeling suicidal. My family makes me want to keep living, especially my mom . Patient reports he plans on staying [facility] a [facility]. denies SI/HI/VH/AH. 3 day up on 02/22/25. Medication Compliance: Yes Side effects from medications: No Attending Groups: No Mental Status Exam Mental Status Exam Narrative: Pt is alert and oriented; behavior is cooperative and calm; dressed in casual attire; mood is described as good ; eye contact appropriate; Speech is normal rate, volume and not pressured; thought process is organized; Thought content is on discharge; denies SI/HI/VH/AH. Diagnostics Vital Signs (24Hr): Vital Signs - 24 hr 02/19/25 20:00 Respiratory Rate 16 BMI result Body Mass Index 31.7 Labs 02/12/25 09:05 02/12/25 09:05 Medications Medications Current Medications Acetaminophen (Acetaminophen 325 Mg Tablet) 650 mg PO Q6H PRN PRN Reason: Headache/Pain, Scale 1-10 Al Hydroxide/Mg Hydroxide (Magnesium Hydrox/Alum Hydrox 30 Ml Oral.Susp) 30 ml PO Q6H PRN PRN Reason: Heartburn/Nausea Amphetamine/Dextroamphetamine (Dextroamphetamine/Amphetamine Xr 10 Mg Cap.Er.24h) 10 mg PO DAILY [facility] Last Admin: 02/20/25 08:11 Dose: 10 mg Aripiprazole (Aripiprazole 5 Mg Tablet) 5 mg PO DAILY [facility] Last Admin: 02/20/25 08:11 Dose: 5 mg Clonazepam (Clonazepam 0.5 Mg Tablet) 0.5 mg PO TID@0700,1300,1800 [facility] Last Admin: 02/20/25 08:10 Dose: 0.5 mg Hydroxyzine HCl (Hydroxyzine Hcl 50 Mg Tablet) 50 mg PO TID PRN PRN Reason: Anxiety Last Admin: 02/18/25 11:52 Dose: 50 mg Magnesium Hydroxide (Milk Of Magnesia 30 Ml Oral.Susp) 30 ml PO DAILY PRN PRN Reason: Constipation Methadone HCl (Methadone Hcl 20 Mg/2 Ml Oral.Conc) 120 mg PO DAILY [facility] Last Admin: 02/20/25 08:08 Dose: 120 mg Nicotine Polacrilex (Nicotine Polacrilex 2 Mg Gum) 4 mg BUCCAL Q2H PRN PRN Reason: Nicotine Cravings Quetiapine Fumarate (Quetiapine Fumarate 50 Mg Tablet) 50 mg PO BEDTIME [facility] Last Admin: 02/19/25 21:35 Dose: 50 mg Sertraline HCl (Sertraline Hcl 50 Mg Tablet) 150 mg PO DAILY [facility] Last Admin: 02/20/25 08:11 Dose: 150 mg Trazodone HCl (Trazodone Hcl 50 Mg Tablet) 50 mg PO BEDTIME MRX1 PRN PRN Reason: Insomnia Allergies Allergies Allergy/AdvReac Type Severity Reaction Status Date / Time No Known Allergies Allergy Verified 02/12/25 08:43 Assessment & Plan Assessment & Plan (1) MDD (major depressive disorder), recurrent episode: Status: Acute Code(s): F33.9 - Major depressive disorder, recurrent, unspecified (2) PTSD (post-traumatic stress disorder): Status: Acute Code(s): F43.10 - Post-traumatic stress disorder, unspecified (3) Opioid use disorder: Status: Acute Code(s): F11.90 - Opioid use, unspecified, uncomplicated (4) Cocaine abuse: Status: Acute Code(s): F14.10 - Cocaine abuse, uncomplicated Plan Patient is a 29 year old male with hx of MDD, PTSD,ADHD, opiate use d/o and cocaine use d/o who self presented to [facility] [facility] after suicide attempt via Fentanyl secondary to increased depressive symptoms. Plan: CV 15 minute safety checks Continue home medications Obtain collateral Encourage groups Referral to outpatient therapist Discharge planning 02/14: Active on unit. Patient continues to report feeling anxious and depressed today; pt stated, I'm still have suicidal thoughts of overdosing. My mom won't let me stay with her. She keeps telling me to figure it out. She doesn't care . Pt reports he does not like where he is in life . denies HI/VH/AH. Per nursing, slept 8 hours last night. encouraged to attend groups. continue current tx plan. 02/15: Patient continues to report feeling depressed; pt stated, I'm feeling a little better but I'm still suicidal. It's not as bad as when I first came in . Pt reports he had a good phone call with my mom this morning . He reports he plans on calling various programs to see if they have an available bed. denies HI/VH/AH. Sertraline increased to 150mg PO daily;pt aware. 02/16: Signed 3 day notice; 3 day up on 02/22/25. Patient reports he woke up today feeling different and hopeful ; pt stated, I'm no longer feeling suicidal. I've been talking to my mom and dad more which is helping . denies SI/HI/VH/AH. Per nursing, slept 8 hours. Pt requested increase in klonopin;request was declined d/t hx of polysubstance abuse. pt was educated regarding benzodiazapines. Continue current tx plan. 02/17: no questions or complaints today. in bed. refusing VS and labs. 02/18: klonopin times changed to 7-1-6 per pt request, seroquel 50 mg added at HS for sleep. stable. continue current mgmt otherwise. 02/19: reports having slept well last night, appreciative of changes. no other requests or complaints. planning [facility] discharge [facility]. 02/20:Keeping to self. Listening to music while laying in bed. Patient reports feeling good today; pt stated, I'm no longer feeling suicidal. My family makes me want to keep living, especially my mom . Patient reports he plans on staying at [facility] until [facility] to a [facility]. denies SI/HI/VH/AH. 3 day up on 02/22/25. Continue current tx plan. Patient educated on: diagnosis, medication risk/benefits and therapeutic strategies Reason for continued inpatient stay Substantial Risk for: med/psych decompensation Time Spent With Patient Time: Total time managing care of this patient today _20___ minutes.
--- NOTE | 2025-02-21 06:41 | PC.NURSE ---
Nurse offered Arnaldo his scheduled 0700 Klonopin 0.5mg, patient requested to take it at 0800.
[2025-02-21] MEDS: methADONE HCl 20 MG/2 ML ORAL.CONC 120 MG PO (07:57)
[2025-02-21] MEDS: Dextroamphetamine/Amphetamine XR 10 MG CAP.ER.24H PO (08:44)
--- NOTE | 2025-02-21 09:53 | P.PNPSI_ITS ---
Subjective Subjective Date of Service: 02/21/25 Reason For Visit: SI Subjective Notes: 3 Day Interim History: Patient continues to report feeling good ; focused on discharge. denies SI/HI/VH/AH. [facility]. Patient reports he does not prescriptions sent to pharmacy as his father currently has his medications and some are waiting at the pharmacy . 3 day up on 02/22/25. Medication Compliance: Yes Side effects from medications: No Attending Groups: No Mental Status Exam Mental Status Exam Narrative: Pt is alert and oriented; behavior is cooperative and calm; dressed in casual attire; mood is described as good ; eye contact appropriate; Speech is normal rate, volume and not pressured; thought process is organized; Thought content is on discharge; denies SI/HI/VH/AH. Diagnostics Vital Signs (24Hr): BMI result Body Mass Index 31.7 Labs 02/12/25 09:05 02/12/25 09:05 Medications Medications Current Medications Acetaminophen (Acetaminophen 325 Mg Tablet) 650 mg PO Q6H PRN PRN Reason: Headache/Pain, Scale 1-10 Al Hydroxide/Mg Hydroxide (Magnesium Hydrox/Alum Hydrox 30 Ml Oral.Susp) 30 ml PO Q6H PRN PRN Reason: Heartburn/Nausea Amphetamine/Dextroamphetamine (Dextroamphetamine/Amphetamine Xr 10 Mg Cap.Er.24h) 10 mg PO DAILY [facility] Last Admin: 02/21/25 08:44 Dose: 10 mg Aripiprazole (Aripiprazole 5 Mg Tablet) 5 mg PO DAILY [facility] Last Admin: 02/21/25 08:43 Dose: 5 mg Clonazepam (Clonazepam 0.5 Mg Tablet) 0.5 mg PO TID@0700,1300,1800 [facility] Last Admin: 02/21/25 07:57 Dose: 0.5 mg Hydroxyzine HCl (Hydroxyzine Hcl 50 Mg Tablet) 50 mg PO TID PRN PRN Reason: Anxiety Last Admin: 02/18/25 11:52 Dose: 50 mg Magnesium Hydroxide (Milk Of Magnesia 30 Ml Oral.Susp) 30 ml PO DAILY PRN PRN Reason: Constipation Methadone HCl (Methadone Hcl 20 Mg/2 Ml Oral.Conc) 120 mg PO DAILY [facility] Last Admin: 02/21/25 07:57 Dose: 120 mg Nicotine Polacrilex (Nicotine Polacrilex 2 Mg Gum) 4 mg BUCCAL Q2H PRN PRN Reason: Nicotine Cravings Quetiapine Fumarate (Quetiapine Fumarate 50 Mg Tablet) 50 mg PO BEDTIME [facility] Last Admin: 02/20/25 20:37 Dose: Not Given Sertraline HCl (Sertraline Hcl 50 Mg Tablet) 150 mg PO DAILY [facility] Last Admin: 02/21/25 08:43 Dose: 150 mg Trazodone HCl (Trazodone Hcl 50 Mg Tablet) 50 mg PO BEDTIME MRX1 PRN PRN Reason: Insomnia Allergies Allergies Allergy/AdvReac Type Severity Reaction Status Date / Time No Known Allergies Allergy Verified 02/12/25 08:43 Assessment & Plan Assessment & Plan (1) MDD (major depressive disorder), recurrent episode: Status: Acute Code(s): F33.9 - Major depressive disorder, recurrent, unspecified (2) PTSD (post-traumatic stress disorder): Status: Acute Code(s): F43.10 - Post-traumatic stress disorder, unspecified (3) Opioid use disorder: Status: Acute Code(s): F11.90 - Opioid use, unspecified, uncomplicated (4) Cocaine abuse: Status: Acute Code(s): F14.10 - Cocaine abuse, uncomplicated Plan Patient is a 29 year old male with hx of MDD, PTSD,ADHD, opiate use d/o and cocaine use d/o who self presented to [facility] [place] [facility] after suicide attempt via Fentanyl secondary to increased depressive symptoms. Plan: CV 15 minute safety checks Continue home medications Obtain collateral Encourage groups Referral to outpatient therapist Discharge planning 02/14: Active on unit. Patient continues to report feeling anxious and depressed today; pt stated, I'm still have suicidal thoughts of overdosing. My mom won't let me stay with her. She keeps telling me to figure it out. She doesn't care . Pt reports he does not like where he is in life . denies HI/VH/AH. Per nursing, slept 8 hours last night. encouraged to attend groups. continue current tx plan. 02/15: Patient continues to report feeling depressed; pt stated, I'm feeling a little better but I'm still suicidal. It's not as bad as when I first came in . Pt reports he had a good phone call with my mom this morning . He reports he plans on calling various programs to see if they have an available bed. denies HI/VH/AH. Sertraline increased to 150mg PO daily;pt aware. 02/16: Signed 3 day notice; 3 day up on 02/22/25. Patient reports he woke up today feeling different and hopeful ; pt stated, I'm no longer feeling suicidal. I've been talking to my mom and dad more which is helping . denies SI/HI/VH/AH. Per nursing, slept 8 hours. Pt requested increase in klonopin;request was declined d/t hx of polysubstance abuse. pt was educated regarding benzodiazapines. Continue current tx plan. 02/17: no questions or complaints today. in bed. refusing VS and labs. 02/18: klonopin times changed to 7-1-6 per pt request, seroquel 50 mg added at HS for sleep. stable. continue current mgmt otherwise. 02/19: reports having slept well last night, appreciative of changes. no other requests or complaints. [facility]. 02/20:Keeping to self. Listening to music while laying in bed. Patient reports feeling good today; pt stated, I'm no longer feeling suicidal. My family makes me want to keep living, especially my mom . Patient reports [facility] staying [facility] a [facility] house. denies SI/HI/VH/AH. 3 day up on 02/22/25. Continue current tx plan. 02/21: Patient continues to report feeling good ; focused on discharge. denies SI/HI/VH/AH. Patient reports [facility] a [facility]way house. Patient reports he does not prescriptions sent to pharmacy as his father currently has his medications and some are waiting at the pharmacy . 3 day up on 02/22/25. Patient educated on: diagnosis and medication risk/benefits Reason for continued inpatient stay Substantial Risk for: stable for discharge Time Spent With Patient Time: Total time managing care of this patient today _20___ minutes.
[2025-02-21 20:10] VITALS: RESP 16
[2025-02-22] MEDS: methADONE HCl 20 MG/2 ML ORAL.CONC 120 MG PO (07:58)
[2025-02-22] MEDS: Dextroamphetamine/Amphetamine XR 10 MG CAP.ER.24H PO (08:12)
[2025-02-22] MEDS: Naloxone HCl Nasal TAKE HOME 4 MG SPRAY 8 MG NOSTRILALT (08:13)
--- NOTE | 2025-02-22 09:49 | PM.PSYDC ---
DS: Providers Provider Date of Service: 02/22/25 Date of admission: 02/13/25 12:28 Date of discharge: 02/22/25 Primary care physician: Rodney Physician Admitting clinician: Sherrie Acosta Attending physician on admission: Yayo Babcock Attending physician on discharge: Markus Hull Discharging clinician: Sherrie Acosta DS: Diagnosis Discharge Diagnosis (1) MDD (major depressive disorder), recurrent episode: Status: Acute (2) PTSD (post-traumatic stress disorder): Status: Acute (3) Opioid use disorder: Status: Acute (4) Cocaine abuse: Status: Acute DS: Medications Discharge Medications Home Medications: Home Medications ?Medication ?Instructions ?Recorded ?Confirmed clonazepam 0.5 mg tablet 0.5 mg PO TID 02/12/25 02/12/25 dextroamphetamine-amphetamine ER 1 cap PO QAM 02/12/25 02/12/25 10 mg 24hr capsule,extend release (Adderall XR) hydroxyzine pamoate 50 mg capsule 50 mg PO TID PRN Anxiety 02/12/25 02/12/25 methadone 10 mg/5 mL oral solution 120 mg PO DAILY 02/13/25 02/13/25 Previous Rx's ?Medication ?Instructions ?Recorded aripiprazole 5 mg tablet (Abilify) 5 mg PO DAILY 30 days #30 tabs 02/21/25 quetiapine 50 mg tablet 50 mg PO BEDTIME 30 days #30 tabs 02/21/25 sertraline 150 mg capsule 150 mg PO DAILY 30 days #30 caps 02/21/25 Mental Status Exam Mental Status Exam Narrative: Pt is alert and oriented; behavior is cooperative and calm; dressed in casual attire; mood is described as good ; eye contact appropriate; Speech is normal rate, volume and not pressured; thought process is organized; Thought content is on discharge; denies SI/HI/VH/AH. DS: Summary Hospital Course Hospital Course: Patient is a 29 year old male with hx of MDD, PTSD,ADHD, opiate use d/o and cocaine use d/o who self presented to [facility] ER after suicide attempt via Fentanyl secondary to increased depressive symptoms. Per crisis report, Patient self presented to ER reporting suicide attempt earlier today via overdose of IV fentanyl. Patient reports a by standard gave him Narcan. Patient reports he was discharged from [facility] 3 days ago and he feels he left too early. Patient reports he continues to have depression and suicidal ideation. Patient has a history of poor medication and treatment compliance; patient reports he has not taken his medications since being discharged from [facility]. Denies HI/VH/AH. U tox positive for opiates, buprenorphine, methadone, fentanyl and cocaine. Patient reports he used 4 bags of fentanyl IV to overdose in a suicide attempt. History of SA attempts via overdose. During admission assessment, patient presents alert and oriented x3. Calm and cooperative. Patient reports feeling depressed; patient stated, the lack of relationship with my family is not good. My situation in life right now. I don't have a permanent address and not knowing where I'm going to sleep the next night. The combination of that is making me not want to live. I'm still feeling suicidal. I'm upset that someone found me . Patient reports he is not interested in going to a substance abuse program because, it's just a bed for 30 days and I already know what they are going to say . Patient reports he has not been taking his psychiatric medications for the past 3 days. Patient stated, I feel better and then feel like I don't need them . Patient educated regarding importance of medication compliance. Patient reports that he would like to be restarted on his home medications and a referral to a therapist. Plan: CV 15 minute safety checks Continue home medications Obtain collateral Encourage groups Referral to outpatient therapist Discharge planning Active on unit. Patient continues to report feeling anxious and depressed today; pt stated, I'm still have suicidal thoughts of overdosing. My mom won't let me stay with her. She keeps telling me to figure it out. She doesn't care . Pt reports he does not like where he is in life . denies HI/VH/AH. Per nursing, slept 8 hours last night. encouraged to attend groups. continue current tx plan. Patient continues to report feeling depressed; pt stated, I'm feeling a little better but I'm still suicidal. It's not as bad as when I first came in . Pt reports he had a good phone call with my mom this morning . He reports he plans on calling various programs to see if they have an available bed. denies HI/VH/AH. Sertraline increased to 150mg PO daily;pt aware. Signed 3 day notice; 3 day up on 02/22/25. Patient reports he woke up today feeling different and hopeful ; pt stated, I'm no longer feeling suicidal. I've been talking to my mom and dad more which is helping . denies SI/HI/VH/AH. Per nursing, slept 8 hours. Pt requested increase in klonopin;request was declined d/t hx of polysubstance abuse. pt was educated regarding benzodiazapines. Continue current tx plan. no questions or complaints today. in bed. refusing VS and labs. klonopin times changed to 7-1-6 per pt request, seroquel 50 mg added at HS for sleep. stable. continue current mgmt otherwise. reports having slept well last night, appreciative of changes. no other requests or complaints. planning on discharge to group home. Keeping to self. Listening to music while laying in bed. Patient reports feeling good today; pt stated, I'm no longer feeling suicidal. My family makes me want to keep living, especially my mom . Patient reports he plans on staying at the group home until accepted to a longterm house. denies SI/HI/VH/AH. 3 day up on 02/22/25. Continue current tx plan. Patient continues to report feeling good ; focused on discharge. denies SI/HI/VH/AH. Patient reports he plans on staying at the group home until accepted to a longterm house. Patient reports he does not prescriptions sent to pharmacy as his father currently has his medications and some are waiting at the pharmacy . 3 day up on 02/22/25. Status at Discharge Cognitive/behavioral status at discharge: Patient has insight and demonstrates good judgment in terms of wanting to pursue treatment. Patient has a safety plan that includes presenting to the closest ER or calling 911 if feeling unsafe. Functional status at discharge: independent ambulation Overall status at discharge: patient is back to baseline Time Spent with Patient Time attestation: Total time managing care of this patient today _20___ minutes. Time spent: Less than 30 minutes Discharge Plan Discharge Anticipated Discharge Date/Time: 02/22/25 10:00 Patient Disposition: [facility] Discharge Diagnosis: MDD, PTSD, Cocaine use d/o, opioid use d/o Referrals: [facility] [Other] - 03/02/25 9:30 am Referral Note: follow up with your outpatient providers. [facility] [Other] - 1 Week Referral Note: walk in hours are Thursday-Thursday 8am-8pm Please bring your discharge paperwork, ID, and insurance card with you. Utilize this walk in clinic if you would like an outpatient therapist. [facility] [Provider Group] - 1 Week Referral Note: 02-20-25 [facility] was added to patients chart. Please call [phone] to schedule a follow up appt within 7-10 days from discharge. No release or PCP on file. Discharge Medications: New quetiapine 50 mg Tablet 50 mg PO BEDTIME 30 Days Qty: 30 0RF sertraline 150 mg capsule 150 mg PO DAILY 30 Days Qty: 30 0RF aripiprazole [Abilify] 5 mg Tablet 5 mg PO DAILY 30 Days Qty: 30 0RF Continued clonazepam 0.5 mg tablet 0.5 mg PO TID hydroxyzine pamoate 50 mg capsule 50 mg PO TID PRN (Reason: Anxiety) dextroamphetamine-amphetamine [Adderall XR] 10 mg capsule,extended release 24hr 1 cap PO QAM methadone 10 mg/5 mL Solution 120 mg PO DAILY Discontinued aripiprazole [Abilify] 2 mg Tablet 2 mg PO BEDTIME 14 Days Qty: 14 0RF sertraline 100 mg tablet 100 mg PO DAILY Discharge Orders: Discharge Order (Routine); Ordered 02/22/25 Ordered By: Sherrie Acosta Diet: Regular diet Activity on Discharge: As tolerated Stand Alone Forms: Patient Portal Discharge page, Community Support Print Language: Bolivian Care Plan Goals: Maintain mood and safe behaviors Take medications as prescribed Continue to pursue sobriety Practice coping skills Continue with outpatient providers and reach out to them as needed Health Concerns: Mood stability and behaviors Sobriety Plan of Treatment: Follow up with your PCP, psychiatric provider and other outpatient providers regarding above concerns Take medications as prescribed Assessment: Patient has insight and demonstrates good judgment in terms of wanting to pursue treatment. Patient has a safety plan that includes presenting to the closest ER or calling 911 if feeling unsafe. Discharge Date/Time: 02/22/25 09:38
== END 2025-02-22 09:38 | disposition home or self-care (01) | DRG 751 ==
LOC: HO.ED 16:02 → HO.PADLT16 02-13 13:05
PROVIDERS: Admitting Provider Registered Nurse; Emergency Provider Emergency Medicine; Responsible Provider Registered Nurse; Visit Provider Psychiatry & Neurology Psychiatry
DX: F33.9 Major depressive disorder, recurrent, unspecified (principal); R45.851 Suicidal ideations; F11.20 Opioid dependence, uncomplicated; F17.210 Nicotine dependence, cigarettes, uncomplicated; Z71.6 Tobacco abuse counseling; F43.10 Post-traumatic stress disorder, unspecified; F14.10 Cocaine abuse, uncomplicated; Z79.899 Other long term (current) drug therapy
CPT/HCPCS: 36415; 80053; 80307; 81001; 85025; 93005; 99285; S9485

== ENCOUNTER → 2025-02-13 08:19 | Outpatient (BNV) | payer MEDICAID, SELFPAY | PROVIDERS: Emergency Provider Emergency Medicine; Visit Provider Internal Medicine Cardiovascular Disease | DX: Z13.6 Encounter for screening for cardiovascular disorders (principal) | CPT/HCPCS: 93010 ==

== ENCOUNTER → 2025-02-13 12:28 | Outpatient (BNV) | payer MEDICAID, SELFPAY | PROVIDERS: Admitting Provider Registered Nurse; Emergency Provider Emergency Medicine; Responsible Provider Registered Nurse; Visit Provider Registered Nurse | DX: F33.2 Major depressive disorder, recurrent severe without psychotic features (principal); F14.10 Cocaine abuse, uncomplicated; F11.90 Opioid use, unspecified, uncomplicated; F43.11 Post-traumatic stress disorder, acute | CPT/HCPCS: 90792; 99231; 99232 ==

== ENCOUNTER 2025-03-07 10:01 | Emergency (ER) | payer OTHER, SELFPAY ==
[2025-03-07 10:30] VITALS: BP 124/73; PULSE 70; RESP 16; TEMP 36.6; O2SAT 98; BMI 31.7
--- NOTE | 2025-03-07 10:35 | ECG_ITS ---
Test Reason : SUBSTANCE USE/SI Blood Pressure : */* mmHG Vent. Rate : 67 BPM Atrial Rate : 67 BPM P-R Int : 128 ms QRS Dur : 80 ms QT Int : 452 ms P-R-T Axes : 0 65 33 degrees QTcB Int : 477 ms Normal sinus rhythm Normal ECG When compared with ECG of 13-Feb-2025 08:19, No significant change was found Referred By: Generic ED Physician Electronically Signed By: Jackson Farrell
--- NOTE | 2025-03-07 10:45 | ED.PSYCH ---
HPI - Psych General Chief Complaint: Psychiatric Symptoms Stated Complaint: SI suicide attempt Time Seen by Provider: 03/07/25 10:41 Source: patient Mode of arrival: ambulatory Limitations: no limitations History of Present Illness ED Provider: Dr. Braxton Maguire HPI Narrative: 29-year-old male with history of MDD, PTSD, ADHD, opiate use disorder, cocaine use who presents emergency department for evaluation of suicidal ideation with an attempt to overdose on fentanyl given Narcan. Patient had a similar presentation on 02/14/2025 and was hospitalized on our psychiatric service, discharged on 02/22/2025 with discharge diagnosis of major depressive disorder, PTSD, opiate use disorder and cocaine abuse. The patient states that he has been having suicidal thoughts for proximally 1 week. He states that his grandmother 2 weeks ago and this has a partial trigger for his suicidal ideation. He also states that he sees a psychiatrist once a month and he told the psychiatrist that his medications were not working but she refused to change his medicines. He states that this refusal to changes medicines also made him feel suicidal and was a 2nd trigger to a suicidal ideation. Patient states that while he was hospitalized here on our psychiatric service, the providers increased his doses of Zoloft and Abilify but despite this increase your medications, he was still feeling depressed and suicidal. The patient states he bought 3 bags of fentanyl and injected the fentanyl with the intention to kill himself. He states that he injected outdoors in a place where people often inject themselves . A bystander noted that he was unresponsive and gave him 2 doses of intranasal Narcan. This occurred between 01:30 hours and 03:00 hours this morning. Patient contacted his psychiatrist this morning and she advised him to go to the emergency department for evaluation. Patient states that he is homeless and has been sleeping on the streets and occasionally sleeping at friends' houses. Patient states that he was sleeping in the sun and did get a sunburn on his face neck and arms.. Related Data Home Medications ?Medication ?Instructions ?Recorded ?Confirmed clonazepam 0.5 mg tablet 0.5 mg PO TID 02/12/25 03/07/25 hydroxyzine pamoate 50 mg capsule 50 mg PO TID PRN Anxiety 02/12/25 03/07/25 dextroamphetamine-amphetamine 20 1 tab PO DAILY 03/07/25 03/07/25 mg tablet methadone 5 mg/5 mL oral syringe 150 mg PO DAILY 03/07/25 03/07/25 (FOR ORAL USE ONLY) Previous Rx's ?Medication ?Instructions ?Recorded aripiprazole 5 mg tablet (Abilify) 5 mg PO DAILY 30 days #30 tabs 02/21/25 quetiapine 50 mg tablet 50 mg PO BEDTIME 30 days #30 tabs 02/21/25 sertraline 150 mg capsule 150 mg PO DAILY 30 days #30 caps 02/21/25 Allergies Allergy/AdvReac Type Severity Reaction Status Date / Time No Known Allergies Allergy Verified 03/07/25 10:33 Review of Systems Review of Systems: Yes all other systems are reviewed and are negative [facility] Past Medical History [facility] Narrative: Social history: The patient is homeless. He occasionally smokes cigarettes. He denies alcohol use. He states that he uses fentanyl and cocaine. Medical History Bipolar disorder Opiate use Active substance abuse Depression Social History Social History Household Members: None Housing: Homeless Do you presently have visiting nurse or other home services: No Alcohol intake: current Alcohol intake frequency: does not drink Patient Tobacco Use Status: Current everyday Tobacco user Tobacco use type: Cigarette Cigarette Packs Per Day: 1 Cigarettes Per Day: 10 Years Smoked: 10 e-Cigarette/Vaping Use: Never Used Second Hand Smoke Exposure: No Use of substances other than those prescribed or required for medical reasons: Yes Substance Use Type: Crack/Cocaine, IV Drugs and Marijuana Last Used Substance: Just Prior to Admission Advance Directives: No Advance Directives Information Provided: No Do you have a plan to hurt others: No Plan service: No Sexual orientation: Straight/Heterosexual Physical Exam Vital Signs: Vital Signs: Last Vital Signs Temp 98.4 F 03/08/25 11:01 Pulse 84 03/08/25 11:01 Resp 16 03/08/25 11:01 BP 124/96 H 03/08/25 11:01 Pulse Ox 97 03/08/25 11:01 O2 Del Method Room Air 03/08/25 11:01 BMI result Body Mass Index 31.7 Vital signs were normal Exam: General: Awake, alert in no distress patient has a very red face, neck and arms consistent with sun exposure Head: Normocephalic, atraumatic EENT: PERRL, Lids normal, sclera normal, conjunctiva normal, nose normal , ears normal, throat without erythema or exudates Neck: Supple, no adenopathy Lung: breath sounds symmetric, no wheezing, rales or rhonchi Chest: symmetric movement, nontender Heart: regular rate and rhythm, normal S1, S2 no murmurs or rubs Abdomen: soft, non-tender, nondistended, normal bowel sounds Back: no vertebral tenderness, no CVAT Extremities: no deformities, moves all extremities symmetrically Neuro: Awake, alert, oriented, normal speech, cranial nerves intact, moves all extremities symmetrically Psych: Pleasant, cooperative, admits to SI, denies HI Course Reevaluation(s) Reevaluation #1: Time: 08:52 Date: 03/08/25 Provider: David No MD Patient in physician observation for psychiatric evaluation.? No acute events reported overnight. No current complaints. VS stable.? Patient is in bed search status/pending CARE team evaluation. Will continue to monitor. Reevaluation #2: 09:50 the patient was accepted in transfer [facility] the [facility] this will end the ED obs Time: 09:15 Medications Administered Discontinued Medications Generic Name Dose Route Start Last Admin Trade Name Shara PRN Reason Stop Dose Admin Amphetamine/Dextroamphetamine 20 mg 03/08/25 09:00 03/08/25 08:20 Amphetamine Mixed Salts 20 Mg Tablet PO 20 mg DAILY SILVIO Administration Aripiprazole 5 mg 03/08/25 09:00 03/08/25 08:20 Aripiprazole 5 Mg Tablet PO 5 mg DAILY SILVIO Administration Clonazepam 0.5 mg 03/07/25 21:00 03/08/25 08:20 Clonazepam 0.5 Mg Tablet PO 0.5 mg TID SILVIO Administration Methadone HCl 150 mg 03/08/25 09:00 03/08/25 08:17 Methadone Hcl 20 Mg/2 Ml Oral.Conc PO 150 mg DAILY SILVIO Administration Quetiapine Fumarate 50 mg 03/07/25 21:00 03/07/25 20:00 Quetiapine Fumarate 50 Mg Tablet PO 50 mg BEDTIME SILVIO Administration Sertraline HCl 150 mg 03/08/25 09:00 03/08/25 08:20 Sertraline Hcl 100 Mg Tablet PO 150 mg DAILY SILVIO Administration Medical Decision Making Medical Decision Making [facility] Narrative: 29-year-old male with history of MDD, PTSD, ADHD, opiate use disorder, cocaine use who presents emergency department for evaluation of suicidal ideation with an attempt to overdose on fentanyl given Narcan. Patient had a similar presentation on 02/14/2025 and was hospitalized on our psychiatric service, discharged on 02/22/2025 with discharge diagnosis of major depressive disorder, PTSD, opiate use disorder and cocaine abuse. Patient presents emergency department for intentional overdose on fentanyl that occurred at around 01:30 to 03:00 this morning. Patient states that he was given 2 doses of intranasal Narcan by a bystander. Patient states that the trigger to his suicidal ideation was his grandmother's 2 weeks prior and the fact that his psychiatrist would not change his medications despite them not help him anymore. Patient was recently hospitalized here on our psychiatric service from 02/14/2025 until 02/19/2025 where he was diagnosed with major depressive disorder, suicidal ideation, fentanyl and cocaine use disorder. Patient states his medications were increased while he was hospitalized but despite this he still felt depressed and suicidal. Patient in his homeless. Vital signs were normal. Physical examination was unremarkable. Differential diagnosis: ?Includes but is not limited to suicidal ideation, intentional fentanyl overdose, cocaine use disorder, depression, anxiety, anemia, electrolyte abnormalities Course: 11:46 The following evaluation was ordered by me: CBC, CMP, ethanol level, drug screen urine, COVID-19, influenza, RSV, 12 EKG Patient's 12 EKG was unremarkable. 12:44 My independent interpretation patient's laboratory evaluation is as follows: Chronic normocytic anemia with an H&H of 13.3 and 38.2. Elevated AST and ALT 116 and 153-similar elevations in the past. Urine tox screen was positive for opiates, buprenorphine, methadone, fentanyl, benzodiazepines, cocaine. Ethanol was below detectable limits. COVID-19, influenza and RSV tests are pending. The patient is medically cleared for care team evaluation. Time: 17:25 hours, Date: 03/07/25 Provider: Braxton Maguire MD Patient was evaluated by CARE team clinician. I did review the care team note. The evaluating clinician felt that the patient met inpatient level of care, patient continues to endorse SI with plan to overdose on fentanyl therefore the patient will be inpatient dual diagnosis bed search and will be kept in the emergency department Behavioral Health Unit. Patient's medications were reconciled in ordered. We will continue to monitor the patient until disposition can be determined. Time: 20:31 hours Date: 03/07/25 Provider: Braxton Maguire MD Patient in physician observation for psychiatric evaluation.? Pending CARE team evaluation. Will continue to monitor. Time: 11:01 hours, Date: 03/08/25 Provider: Braxton Maguire MD Physician observation ended at 11:01 hours. patient was accepted for inpatient psychiatric care at [facility]. Patient was transferred by ambulance. Admission/Observation Consideration of admission/observation: Escalation of care including admission/observation considered (Yes) Lab Data MDM Lab Attestation statement: I reviewed the patient's lab results. 03/07/25 12:18 03/07/25 12:18 Labs: Lab Results 03/07/25 Range/Units 12:18 WBC 6.4 (4.8-10.8) X10*3/uL RBC 4.39 L (4.60-5.80) X10*6/uL Hgb 13.3 L (14.0-18.0) g/dl Hct 38.2 L (42.0-52.0) % MCV 87.0 (80.0-98.0) fL MCH 30.3 (27.0-33.0) pg MCHC 34.8 (31.0-36.0) g/dl RDW 12.8 (11.0-16.0) % Plt Count 221 (160-400) X10*3/uL MPV 9.5 (9.4-12.4) fL Immature Gran % (Auto) 0.5 H (0.0-0.4) % Neut % (Auto) 56.1 (45-73) % Lymph % (Auto) 27.2 (20-40) % Young % (Auto) 13.4 H (2-11) % Eos % (Auto) 2.3 (0-4) % Baso % (Auto) 0.5 (0-2) % Lymph # (Auto) 1.7 (1.2-4.9) X10*3/uL Young # (Auto) 0.9 (0.1-1.2) X10*3/uL Eos # (Auto) 0.2 (0.0-0.4) X10*3/uL Baso # (Auto) 0.0 (0.0-0.2) X10*3/uL Abs Immat Gran (auto) 0.03 (0.00-0.03) X10*3/uL Absolute Neuts (auto) 3.6 (2.0-8.3) x10*3/uL Absolute Nucleated RBC 0.000 (0.0-0.012) X10*3/uL Nucleated RBC % (auto) 0.0 (0.0-0.2) /100WBC Sodium 137 (135-145) mmol/L Potassium 4.1 (3.3-5.1) mmol/L Chloride 103 (96-108) mmol/L Carbon Dioxide 26 (22-29) mmol/L Anion Gap 12 (12-20) BUN 15 (9-16) mg/dL Creatinine 0.65 (0.5-1.4) mg/dL Estim Creat Clear Calc 194.7 Estimated GFR > 60 Random Glucose 80 (60-115) mg/dL Calcium 9.1 (8.4-10.2) mg/dL Total Bilirubin 0.9 (0.0-1.0) mg/dL AST 116 H (5-37) U/L ALT 153 H (0-40) U/L Alkaline Phosphatase 76 (39-117) U/L Total Protein 7.5 (6.5-8.0) g/dL Albumin 4.5 (3.5-5.0) g/dL Urine Opiates Screen POSITIVE H (Not Detect) Ur Buprenorphine Scrn Positive H (Not Detect) ng/mL Ur Oxycodone Screen Not Detected (Not Detect) ng/mL Urine Methadone Screen Positive H (Not Detect) ng/mL Urine Fentanyl Screen POSITIVE H (Not Detect) Ur Barbiturates Screen Not Detected (Not Detect) Ur Phencyclidine Scrn Not Detected (Not Detect) Ur Amphetamines Screen Not Detected (Not Detect) U Benzodiazepines Scrn POSITIVE H (Not Detect) Urine Cocaine Screen POSITIVE H (Not Detect) U Marijuana (THC) Screen Not Detected (Not Detect) Ethyl Alcohol < 10 mg/dL Influenza Type A (PCR) NEGATIVE (Negative) Influenza Type B (PCR) NEGATIVE (Negative) RSV RNA Qual (PCR) NEGATIVE (Negative) SARS-CoV-2 RNA (RT-PCR) NEGATIVE (Negative) Independent Interpretation I performed an independent interpretation of an: EKG Interpretation: My independent interpretation patient's 12 EKG done on 03/07/2025 at 10:39 hours is as follows: Normal sinus rhythm rate of 67, normal GA interval, QRS duration and QTC interval, no ST segment elevation, no ST segment depression, no significant T-wave abnormalities, no PACs, no PVCs-this is a normal EKG. External Record Review External record reviewed: Other (Care team crisis evaluation) Chronic Conditions Patient?s care impacted by: Other Polysubstance use disorder, bipolar disorder Discharge Plan Discharge Clinical Impression: Suicide ideation, Intentional overdose, Fentanyl use disorder, severe, Cocaine use Patient Disposition: Xfer Psychiatric Hosp Transfer Details: TO: [address], [address] [address] [place] ACCEPTING Prescriptions: No Action clonazepam 0.5 mg tablet 0.5 mg PO TID hydroxyzine pamoate 50 mg capsule 50 mg PO TID PRN (Reason: Anxiety) quetiapine 50 mg Tablet 50 mg PO BEDTIME 30 Days Qty: 30 0RF sertraline 150 mg capsule 150 mg PO DAILY 30 Days Qty: 30 0RF aripiprazole [Abilify] 5 mg Tablet 5 mg PO DAILY 30 Days Qty: 30 0RF dextroamphetamine-amphetamine 20 mg tablet 1 tab PO DAILY methadone 5 mg/5 mL Syringe 150 mg PO DAILY Interventions: [place]-Suicide Risk Severity Scale Last Done: 03/07/25 13:00 Acute Care Transfer Worksheet (ED) Last Done: 03/08/25 11:01 Discharge Date/Time: 03/08/25 11:10 Print Language: Yemeni
[2025-03-07 12:24] LABS: MANUAL DIFF FLAG NO
[2025-03-07 12:25] LABS: Hematocrit 38.2 % (42.0-52.0); Hemoglobin 13.3 g/dl (14.0-18.0); Imm Gran Abs Auto 0.03 X10*3/uL (0.00-0.03); Imm Gran Pct Auto 0.5 % (0.0-0.4); Lymphocytes Absolute Auto 1.7 X10*3/uL (1.2-4.9); Mean Corpuscular HGB Conc 34.8 g/dl (31.0-36.0); Mean Corpuscular Hemoglobin 30.3 pg (27.0-33.0); Mean Corpuscular Volume 87.0 fL (80.0-98.0); NRBC Abs Auto 0.000 X10*3/uL (0.0-0.012); NRBC Pct Auto 0.0 /100WBC (0.0-0.2); Platelet Count 221 X10*3/uL (160-400); Red Blood Count 4.39 X10*6/uL (4.60-5.80); White Blood Count 6.4 X10*3/uL (4.8-10.8)
[2025-03-07 12:37] LABS: Cannabinoid Screen Urine Not Detected (Not Detect)
[2025-03-07 12:42] LABS: Alanine Aminotransferase 153 U/L (0-40); Albumin Level 4.5 g/dL (3.5-5.0); Alkaline Phosphatase 76 U/L (39-117); Anion Gap 12 (12-20); Aspartate Amino Transferase 116 U/L (5-37); Blood Urea Nitrogen 15 mg/dL (9-16); Calcium 9.1 mg/dL (8.4-10.2); Carbon Dioxide 26 mmol/L (22-29); Chloride 103 mmol/L (96-108); Creatinine Clr Calc Pharmacy 194.7; Estimated Glomerular Filt Rate > 60; Potassium 4.1 mmol/L (3.3-5.1); Sodium 137 mmol/L (135-145); Total Protein 7.5 g/dL (6.5-8.0)
--- OUTSIDE RECORDS SUMMARY | 2025-03-07 12:48 | XMS_ITS | Patient Health Record ---
Author Organization [facility], Address [address] [facility] [email or web address]] [address] [place] [address] Support Name Relationship Address Phone RAMSES MEHTA Emergency Contact [address], [place] [id number] EFREM SAAVEDRA Guarantor Unknown [phone] Reason For Referral No Information Plan Of Treatment Pending Test Test Name Order Date Covid Rapid 03/10/2020 Insurance Providers Payer Name Payer Address Payer Phone Subscriber Number Group Number Insured Name Patient Relationship to Insured Coverage Start Date Coverage End Date [facility] [address] [place] [phone] [id number] EFREM SAAVEDRA Self - patient is the insured
--- OUTSIDE RECORDS SUMMARY | 2025-03-07 12:48 | XMS_ITS | Encounter Summary ---
Author Organization Formerly [facility] Address [address] [place] [address] Care Team Providers Care Manager Of Investigations Name Role Phone Pcp, No Primary Care Provider Unavailabl e Encounter Details Date Type Department Care Team ([facility] st Contact Info) Description 03/02/2023 [facility] MEDICINE SVC IP [address] [place] [address] Bozena Sotomayor MD [address] [facility] [address] [place] [address] Social History Tobacco Use Types Packs/Day Years Used Date Smoking Tobacco: Every Day Cigarettes Smokeless Tobacco: Never Comments:1 PPD Alcohol Use Standard Drinks/Week Comments Not Currently 138 (1 standard drink = 0.6 oz p ure alcohol) AUDIT-C Answer Date Recorded Q1: How often do you have a drink containing alcohol? Never 03/02/2023 Q2: How many drinks containi ng alcohol do you have on a typical day when you are drinking? Patient does not drink Q3: How often do you have si x or more drinks on one occasion? Never 03/02/2023 Sex and Gender Information Value Date Recorded Sex Assigned at Male 09/24/2021 10:41 AM EST Legal Sex Male 2:00 PM EDT Gender Identity Male 09/24/2021 10:41 AM EST Sexual Orientation Heterosexual (straight) 09/24 10:41 AM EST documented as of this encounter Functional Status * Audit-C Score Answer Date of Assessment Author 0 03/02/2023 9:50 PM EDT Henny Zaragoza RN * Question Answer Date of Assessment Author Q1: How often do you have a drink containing alcohol? Never 03/02/2023 9:50 PM EDT Henny Zaragoza, ALEXSANDRA Q2: How many drinks containing alcohol do you have on a typical day when you are drinking? Patient does not drink 03/02/2023 9:50 PM EDT Henny Zaragoza, ALEXSANDRA Q3: How often do you have six or more drinks on one occasion? Never 03/02/2023 9:50 PM EDHenny Levy, ALEXSANDRA documented as of this encounter Plan of Treatment Not on file documented as of this encounter Visit Diagnoses Not on filedocumented in this encounter Care Teams Manager Of Investigations Relationship Specialty Start Date End Date Pcp, No [address] [place] [address] PCP - General 07/12/18 documented as of this encounter
--- OUTSIDE RECORDS SUMMARY | 2025-03-07 12:48 | XMS_ITS | Clinical Summary ---
Author Organization [facility] Address [address] [place] [address] Care Team Providers Care Protozoologist Name Role Phone Stefan Lewis MD Primary Care Provider Unavaila ble Stefan Lewis MD Unavailable Unavailable Medications hydrOXYzine Pamoate (VISTARIL) 25 MG capsule 8 0 05/21/2015 Active Buprenorphine HCl-Naloxone HCl (Suboxone) 8-2 MG per SL film 14 0 05/21/2015 Active FLUoxetine HCl (PROzac) 20 MG tablet TAKE 1 TABLET DAILY. 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 Long discussion with patient about not looking too far ahead and taking things day by day at this point and under no circumstances is he to wean himself off his meds. Next step for him would certainly be 90 day inpatient program. Impression - [id number]: Currently under treatment at [facility] for Suboxone but does not want to use this senior living. Long discussion with patient about not looking too far ahead and taking things day by day at this point and under no circumstances is he to wean himself off his meds. Next step for him would certainly be 90 day inpatient program which he says that he will not do. Living with parents for now but they are very stressed out and say that he will be kicked out of the house. Long discusson with mom re: family therapy when this all settles out and how this is affected his younger sister Sleep disturbance 05/31/2014 Anxiety 05/31/2014 Overview (09/20/2023): Impression - [id number]: Since his last visit about three weeks ago, Rashaad has seen no improvement in his sleep or anxiety symptoms. He continues to suffer from insomnia, and still does not want to speak to a therapist/ psychiatrist. His PHQ-9 of 12 places him in the moderate risk category. At this time I will trial him on Trazadone BID. Based on s/e profile may consider changing this plan. He will likely require higher dosing, at least at night, but I will f/u next week via phone. Impression - [id number]: Increased BP and uncontrolled anxiety at this time and patient very hesitant to try SSRI's I don't want to be on any meds He does however still want Benzo's which I said would not be prescribed for him. Continued with outpatient therapy and we will stay in close contact re: the Prozac which I will start at 10mg with plan to increase to 20mg next week Asthma 05/29/2014 ADHD (attention deficit hyperactivity disorder) 05/29/2014 Immunizations Immunization Administration Dates Next Due DTaP 10/26/2000, 8,03/31/1997,02/03,1996 Hep B (adult) 06/30/1997,1996,1996 Hib (HbOC) 12/21/1997, 7,02/03/1997,12/09 IPV 10/26/2000 Influenza,split(incl.purifie d surface antigen) 2012,2011,05/10/2009,06/24,06/10/2006,06/04/2005,06/15/2004 ,06/06/2003,06/28/2002,05/22/2001 MMR 10/26/2000,12/21/1997 Meningococcal ACWY (Menactra) 10/07/2007 Meningococcal MPSV4 (Menomune) 2012 OPV, Trivalent (Admin Before 11/16/2015) 8,02/03/1997,1996 Tdap 2012,10/07/2007 Varicella 10/06/2006 Family History Medical History Relation Name Comments Hypertension Maternal grandfather Hyperte nsion : Maternal Grandfather, Paternal Grandmother, Paternal Grandfather Hypertension Paternal grandfather Hyperte nsion : Maternal Grandfather, Paternal Grandmother, Paternal Grandfather Hypertension Paternal grandmother Hyperte nsion : Maternal Grandfather, Paternal Grandmother, Paternal Grandfather Relation Name Status Comments Maternal grandfather Paternal grandfather Paternal grandmother Social History Tobacco Use Types Packs/Day Years Used Date Smoking Tobacco: Never Assessed Comments:Smoking Status:No c urrent tobacco use Sex and Gender Information Value Date Recorded Sex Assigned at Not on file Legal Sex Male 11:02 PM EDT Gender Identity Not on file Sexual Orientation Not on file Last Filed Vital Signs Vital Sign Reading Time Taken Comments Blood Pressure 143/82 06/01/2015 3:25 PM EDT Pulse - - Temperature 37 C (98.6 F) 09/05/2014 3:02 PM EST Respiratory Rate - - Oxygen Saturation - - Inhaled Oxygen Concentration - - Weight 78 kg (172 lb 0.1 oz) 06/01/2015 3:25 PM EDT Height 170.8 cm (5' 7.25 ) 10/06/2013 1:34 PM ES T Body Mass Index - - Plan of Treatment Health Maintenance Due Date Last Done Comments Hepatitis C Screening 1996 DTaP/Tdap/Td (8 - Td or Tdap) 2022 2012, 10/07/2007, 10/26/2000, Additional history exists COVID-19 Vaccine ( season) 2024 Influenza (#1) 2025 2012, 09/17, 05/10/2009, Additional history exists Zoster (Shingrix) (1 of 2) 2046 10/06/2006 Hep B Completed 06/30/1997, 10/15, 1996 Hib Completed 12/21/1997, 03/17, 02/03/1997, Additional history exists Meningococcal ACWY Aged Out 2012, 10/07/2007 No longer eligible based on patient's age to complete this topic HPV Vaccine Aged Out No longer eligi ble based on patient's age to complete this topic Hep A Aged Out No longer eligi ble based on patient's age to complete this topic Pneumococcal Aged Out No longer eligi ble based on patient's age to complete this topic Care Teams Protozoologist Relationship Specialty Start Date End Date Stefan Lewis MD PCP - General 03/23/23 Stefan Lewis MD PCP - Backup PCP Pediatrics 09/17/23
--- OUTSIDE RECORDS SUMMARY | 2025-03-07 12:49 | XMS_ITS ---
Author Name [facility] Organization Unknown Encounters Encounter Type Encounter Reason Primary Diagnosis Location Date Observation Poisoning by unspecified drugs, medicaments and biological substances, intentional self-harm, initial encounter Poisoning by unspecified drugs, medicaments and biological substances, intentional self-harm, initial encounter [place] 02/26/2023 Emergency Suicidal [place] [facility] 09/24/2021 Emergency Requesting Detox [facility] 09/23/2021 Emergency Alcohol dependen ce with withdrawal, unspecified [place] [facility] 09/22/2021 Care Team Organization Name Specialty Phone Email Start Date End [place] [facility] 2023 [facility] 11/08/2023 [facility] 06/19/2023 024 [facility] 05/09/2023 024 [place] [facility] PCP,No Primary Care 09/24/2021 [facility] NO PCP Primary Care 09/22/2021 09/24/2021
--- OUTSIDE RECORDS SUMMARY | 2025-03-07 12:49 | XMS_ITS | Clinical Summary ---
Author Organization [facility] Address [address] [place] [address] Care Team Providers Care [employer] Umpire Name Role Phone Unavailable Primary Care Provider Unavailabl e Allergies Active Allergy Reactions Criticality Noted Date Comments Diazepam Rash Low 04/30/2019 Medications Medication Sig Dispensed Refills Start Date End Date Status buprenorphine-nalox one (SUBOXONE) 8-2 MG SUBL SL tablet Place 1 tablet under the tongue. 0 Active clonazePAM (KlonoPIN) 0.5 MG tablet Take 0.5 mg by mouth. 0 Active OXcarbazepine (TRILEPTAL) 300 MG tablet Take 450 mg by mouth. 0 Active traZODone (DESYREL) 100 MG tablet 0 07/05/2015 Active sertraline (ZOLOFT) 50 MG tabletIndications:M oderate episode of recurrent major depressive disorder (HCC) Take 1 tablet (50 mg total) by mouth daily. 30 tablet 1 12/28/2019 Active Additional Information Patient not taking.Reason: Non adherence (pt took self off meds this week 03/17/20), Informant: Self, Reported on 03/17/2020 Active Problems Problem Noted Date Diagnosed Date CLARISSA (generalized anxiety disorder) 12/28/2019 Moderate episode of recurrent major depressive d isorder 12/28/2019 Social History Tobacco Use Types Packs/Day Years Used Date Smoking Tobacco: Every Day Cigarettes 1 Smokeless Tobacco: Never Alcohol Use Standard Drinks/Week Comments No 0 (1 standard drink = 0.6 oz pur e alcohol) Sex and Gender Information Value Date Recorded Sex Assigned at Male 12/13/2019 8:41 PM EDT Gender Identity Not on file Sexual Orientation Not on file Job Start Date Occupation Industry Not on file Not on file Not on file Last Filed Vital Signs Vital Sign Reading Time Taken Comments Blood Pressure 104/71 08/17/2021 2:59 PM EST Pulse 97 08/17/2021 2:59 PM EST Temperature 36.6 C (97.8 F) 08/17/2021 2:59 PM EST Respiratory Rate 20 08/17/2021 2:59 PM EST Oxygen Saturation 96% 08/17/2021 2:59 PM EST Inhaled Oxygen Concentration - - Weight 83.9 kg (184 lb 15.5 oz) 08/15/2021 7:37 AM EST Height 177.8 cm (5' 10 ) 08/15/2021 7:37 AM EST Body Mass Index 26.54 08/15/2021 7:37 AM EST Plan of Treatment Health Maintenance Due Date Last Done Comments Hepatitis B Vaccines (1 of 3 - 3-dose series) 1996 Hepatitis C Screening 1996 COVID-19 Vaccine (#1) 03/30/1997 Pneumococcal Vaccine (1 of 2 - PCV) 2002 Depression Screening 2008 BMI Counseling 2014 Preventative Health Evaluation 2014 Tobacco Cessation Counseling 2014 DTap / Tdap / Td (1 - Tdap) 2015 Influenza Vaccine (#1) 2025 RSV Ped < 20 months Aged Out No longe r eligible based on patient's age to complete this topic
[2025-03-07 13:08] LABS: Resp Syncy Virus RNA Qual PCR NEGATIVE (Negative); SARS COV2 PCR INHOUSE NEGATIVE (Negative)
--- NOTE | 2025-03-07 15:34 | MHC.CARE ---
T/w attempted to assess pt. at 1530 and pt. is unarousable. T/w will attempt to see pt. again.
--- NOTE | 2025-03-07 19:34 | HE.PHANOTE ---
Methadone verified KEYA martinez 150 mg 03/07/25 @9:24am
[2025-03-07 20:15] VITALS: BP 109/51; PULSE 68; RESP 16; TEMP 36.8; O2SAT 96
[2025-03-08 06:18] VITALS: BP 99/57; PULSE 68; RESP 18; TEMP 37.2; O2SAT 100
--- NOTE | 2025-03-08 06:56 | PC.NURSE ---
Assumed care of patient at 0645, patient appears to be in no apparent distress this am, resting in room, picking at breakfast. Continue plan of care for dual diagnosis bedsearch
[2025-03-08] MEDS: methADONE HCl 20 MG/2 ML ORAL.CONC 150 MG PO (08:17)
[2025-03-08] MEDS: Amphetamine Mixed Salts 20 MG TABLET PO (08:20)
--- NOTE | 2025-03-08 09:13 | MHC.CARE ---
Patient has been accepted to [facility] located @ [address] [place] [address], [place] [address], ETA 11AM, N2N is not needed. F32.9 Unspecified depressive d/o F11.20 Opiod use d/o F14.20 Cocaine use d/o. accepting provider Dr. Bravo. Ambulance pickup here at [facility] for 1030am, facility is aware of ETA later than 11am and has accepted.
[2025-03-08 11:01] VITALS: BP 124/96; PULSE 84; RESP 16; TEMP 36.9; O2SAT 97
== END 2025-03-08 11:10 ==
PROVIDERS: Emergency Provider Emergency Medicine Emergency Medical Services
DX: T40.412A Poisoning by fentanyl or fentanyl analogs, intentional self-harm, initial encounter (principal); F19.10 Other psychoactive substance abuse, uncomplicated; Y92.9 Unspecified place or not applicable; F14.10 Cocaine abuse, uncomplicated; F33.9 Major depressive disorder, recurrent, unspecified; F31.9 Bipolar disorder, unspecified; F43.10 Post-traumatic stress disorder, unspecified; F17.210 Nicotine dependence, cigarettes, uncomplicated; Z59.00 Homelessness unspecified; Z03.818 Encounter for observation for suspected exposure to other biological agents ruled out; Z79.899 Other long term (current) drug therapy
CPT/HCPCS: 36415; 80053; 80307; 85025; 87637; 93005; 99285; S9485

== ENCOUNTER → 2025-03-07 10:35 | Outpatient (BNV) | payer OTHER, SELFPAY | PROVIDERS: Emergency Provider Emergency Medicine Emergency Medical Services; Visit Provider Internal Medicine Cardiovascular Disease | DX: T40.412A Poisoning by fentanyl or fentanyl analogs, intentional self-harm, initial encounter (principal) | CPT/HCPCS: 93010 ==

== ENCOUNTER 2025-03-15 06:17 | Emergency (ER) | payer OTHER, SELFPAY ==
[2025-03-15 06:20] VITALS: BP 131/75; PULSE 89; RESP 18; TEMP 37.1; O2SAT 97; BMI 31.7
--- OUTSIDE RECORDS SUMMARY | 2025-03-15 06:53 | XMS_ITS | Patient Health Record ---
Author Organization [facility], Address [address] [place] [address] Support Name Relationship Address Phone RAMSES MEHTA Emergency Contact [address] [place], [place] [id number] EFREM SAAVEDRA Guarantor Unknown [phone] Reason For Referral No Information Plan Of Treatment Pending Test Test Name Order Date Covid Rapid 03/10/2020 Insurance Providers Payer Name Payer Address Payer Phone Subscriber Number Group Number Insured Name Patient Relationship to Insured Coverage Start Date Coverage End Date [facility] [address] [place] [address] [phone] [id number] EFREM SAAVEDRA Self - patient is the insured
--- OUTSIDE RECORDS SUMMARY | 2025-03-15 06:53 | XMS_ITS | Clinical Summary ---
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 Long discussion with patient about not looking too far ahead and taking things day by day at this point and under no circumstances is he to wean himself off his meds. Next step for him would certainly be 90 day inpatient program. Impression - [id number]: Currently under treatment at [facility] for Suboxone but does not want [...] 05/31/2014 Anxiety 05/31/2014 Overview (09/20/2023): Impression - [id number]: Since his last visit about three weeks [...] age to complete this topic HPV Vaccine (No Doses Required) Completed Hep A Aged Out No longer eligi ble based on patient's age to complete this topic Pneumococcal Aged Out No longer eligi ble based on patient's age to complete this topic Care Teams Vascular Surgeon Relationship Specialty Start Date End Date Stefan Lewis MD PCP - General 03/23/23 Stefan Lewis MD PCP - Backup PCP Pediatrics 09/17/23
--- OUTSIDE RECORDS SUMMARY | 2025-03-15 06:53 | XMS_ITS | Encounter Summary ---
Author Organization [facility] Address [address] [place] [address] Care Team Providers Care Travel Freight And Passenger Agent Name Role Phone Pcp, No Primary Care Provider Unavailabl e Encounter Details Date Type Department Care Team ([facility] st Contact Info) Description 03/02/2023 [facility] MEDICINE SVC IP [address] [place] [address] Bozena Sotomayor MD 80 [facility] [address] [place] [address] Social History Tobacco Use Types Packs/Day Years [...] on filedocumented in this encounter Care Teams Travel Freight And Passenger Agent Relationship Specialty Start Date End Date Pcp, No [address] [place] [address] PCP - General 07/12/18 documented as of this encounter
--- OUTSIDE RECORDS SUMMARY | 2025-03-15 06:53 | XMS_ITS | Clinical Summary ---
Author Organization [facility] Address [address] [place] [address] Care Team Providers Care Pipelines Superintendent Name Role Phone Unavailable Primary Care Provider [...]
--- NOTE | 2025-03-15 07:05 | ED.GENADULT ---
[facility] - General Adult General Chief complaint: General Medical Stated complaint: looking to have a methadone dose Time Seen by Provider: 03/15/25 07:04 Source: patient Mode of arrival: ambulatory Limitations: no limitations History of Present Illness ED Provider: [facility] narrative: 29-year-old male he is going to be admitted to be for substance use disorder, he is here requesting a dose of methadone until his admission, he brought his last dose letter with him. No other concerns or complaints. Related Data Home Medications ?Medication ?Instructions ?Recorded ?Confirmed clonazepam 0.5 mg tablet 0.5 mg PO TID 02/12/25 03/07/25 hydroxyzine pamoate 50 mg capsule 50 mg PO TID PRN Anxiety 02/12/25 03/07/25 dextroamphetamine-amphetamine 20 1 tab PO DAILY 03/07/25 03/07/25 mg tablet methadone 5 mg/5 mL oral syringe 150 mg PO DAILY 03/07/25 03/07/25 (FOR ORAL USE ONLY) Previous Rx's ?Medication ?Instructions ?Recorded aripiprazole 5 mg tablet (Abilify) 5 mg PO DAILY 30 days #30 tabs 02/21/25 quetiapine 50 mg tablet 50 mg PO BEDTIME 30 days #30 tabs 02/21/25 sertraline 150 mg capsule 150 mg PO DAILY 30 days #30 caps 02/21/25 Allergies Allergy/AdvReac Type Severity Reaction Status Date / Time No Known Allergies Allergy Verified 03/15/25 06:23 Review of Systems Constitutional: Constitutional: Reports as per [facility] Past Medical History Medical History Bipolar disorder Opiate use Active substance abuse Depression Social History Social History Household Members: None Housing: Homeless Do you presently have visiting nurse or other home services: No Alcohol intake: current Alcohol intake frequency: does not drink Patient Tobacco Use Status: Current everyday Tobacco user Tobacco use type: Cigarette Cigarette Packs Per Day: 1 Cigarettes Per Day: 10 Years Smoked: 10 Smoked in Last 30 Days: Yes e-Cigarette/Vaping Use: Never Used Second Hand Smoke Exposure: No Use of substances other than those prescribed or required for medical reasons: Yes Substance Use Type: Marijuana Advance Directives: No Do you have a plan to hurt others: No Plan service: No Sexual orientation: Straight/Heterosexual Physical Exam ED Vital Signs: Vital Signs - 24 hr 03/15/25 06:20 Temperature 98.8 F Pulse Rate 89 Respiratory Rate 18 Blood Pressure 131/75 Pulse Oximetry 97 Oxygen Delivery Method Room Air BMI result Body Mass Index 31.7 Const Other: Overall well-appearing patient, speaking full sentences alert and oriented x4 moving upper and lower extremities symmetrically no obvious facial or head trauma noted Conversational, cooperative, pleasant Medical Decision Making Medical Decision Making MDM Narrative: Patient is presenting for a dose of methadone before admission, there was no other concerns for trauma, overdose, any SI or HI Discharge Plan Discharge Clinical Impression: Opiate use, Medication administered Patient Disposition: Home, Self-Care Additional Instructions: 150 mg of methadone administered at [facility] during today's ER visit. Patient is being admitted to [facility] tomorrow Prescriptions: No Action clonazepam 0.5 mg tablet 0.5 mg PO TID hydroxyzine pamoate 50 mg capsule 50 mg PO TID PRN (Reason: Anxiety) quetiapine 50 mg Tablet 50 mg PO BEDTIME 30 Days Qty: 30 0RF sertraline 150 mg capsule 150 mg PO DAILY 30 Days Qty: 30 0RF aripiprazole [Abilify] 5 mg Tablet 5 mg PO DAILY 30 Days Qty: 30 0RF dextroamphetamine-amphetamine 20 mg tablet 1 tab PO DAILY methadone 5 mg/5 mL Syringe 150 mg PO DAILY Print Language: Romanian
--- NOTE | 2025-03-15 07:48 | PC.NURSE ---
29 M presented to ED for methadone dose. Pt is calm, cooperative A+Ox4 and ambulatory.
[2025-03-15 08:00] VITALS: BP 136/80; PULSE 74; RESP 18; TEMP 36.8; O2SAT 99
--- NOTE | 2025-03-15 08:30 | HE.PHANOTE ---
Methadone Pt last received 150mg 03/14/25 @ 0900 from [facility] in [place], [place].
[2025-03-15] MEDS: methADONE HCl 20 MG/2 ML ORAL.CONC 150 MG PO (08:36)
[2025-03-15 08:39] VITALS: BP 136/80; PULSE 74; RESP 18; TEMP 36.8; O2SAT 99
== END 2025-03-15 08:40 | disposition home or self-care (01) ==
PROVIDERS: Emergency Provider Emergency Medicine
DX: F11.20 Opioid dependence, uncomplicated (principal)
CPT/HCPCS: 99283; 99284

== ENCOUNTER 2025-04-02 06:56 | Emergency (ER) | payer OTHER, SELFPAY ==
--- NOTE | 2025-04-02 | ECG_ITS ---
Test Reason : MED CLEARENCE Blood Pressure : */* mmHG Vent. Rate : 70 BPM Atrial Rate : 70 BPM P-R Int : 130 ms QRS Dur : 80 ms QT Int : 468 ms P-R-T Axes : 19 77 45 degrees QTcB Int : 505 ms Normal sinus rhythm Prolonged QT Abnormal ECG When compared with ECG of 07-Mar-2025 10:39, No significant change was found Referred By: Generic ED Physician Electronically Signed By: SHENA HUFF MD
[2025-04-02 07:06] VITALS: BP 127/56; PULSE 79; RESP 16; TEMP 37; O2SAT 92; BMI 32.5
[2025-04-02 07:46] LABS: MANUAL DIFF FLAG NO
[2025-04-02 07:49] LABS: Appearance Urine Clear; Glucose Urine UA Negative (Negative); PH 6.0 (5.0-9.0); Specific Gravity - Urine >= 1.030 (1.005-1.025)
--- NOTE | 2025-04-02 07:50 | ED.PSYCH ---
HPI - Psych General Chief Complaint: Psychiatric Symptoms Stated Complaint: psychiatric Time Seen by Provider: 04/02/25 07:43 Source: patient Mode of arrival: ambulatory Limitations: no limitations History of Present Illness ED Provider: DR. Yoder HPI Narrative: 29-year-old male with history of MDD, PTSD, ADHD, substance abuse, currently homeless admitted to lost use of drugs street was 2 days ago, feeling depressed and suicidal with a plan of overdosing on his medication. No CP, no SOB, no abdominal pain. Related Data Home Medications ?Medication ?Instructions ?Recorded ?Confirmed clonazepam 0.5 mg tablet 0.5 mg PO BID PRN Anxiety 02/12/25 04/02/25 methadone 10 mg/mL oral 135 mg PO DAILY 03/15/25 04/02/25 concentrate (Methadone Intensol) aripiprazole 10 mg tablet 10 mg PO DAILY 04/02/25 04/02/25 dextroamphetamine-amphetamine ER 30 mg PO DAILY 04/02/25 04/02/25 30 mg 24hr capsule,extend release (Adderall XR) sertraline 100 mg tablet 150 mg PO DAILY 04/02/25 04/02/25 Allergies Allergy/AdvReac Type Severity Reaction Status Date / Time No Known Allergies Allergy Verified 04/02/25 07:09 Review of Systems Review of Systems: All other systems are reviewed and are negative Constitutional: Reports as per HPI and Reports no additional constitutional complaints Eyes: Reports as per HPI and Reports no additional eye complaints Reports system reviewed and no additional complaints, except as documented Cardiovascular: Reports as per HPI and Reports no additional cardiovascular complaints Respiratory: Reports as per HPI and Reports no additional respiratory complaints Gastrointestinal: Reports as per HPI and Reports no additional gastrointestinal complaints Genitourinary: Reports no additional female genitourinary complaints Musculoskeletal: Reports no additional musculoskeletal complaints Skin/Breast: Reports system reviewed and no additional complaints, except as docu Psychiatric: Reports no additional psychiatric complaints Endocrine: Reports no additional endocrine complaints Hematologic/Lymphatic: Reports no additional hematologic/lymphatic complaints Allergic/Immunologic: Reports no additional allergic/immunologic complaints Reports system reviewed and no additional complaints, except as documented and Reports Abnormal speech present [facility] Past Medical History Medical History Suicidal ideation Bipolar disorder Opiate use Active substance abuse Depression Social History Social History Household Members: None Housing: Homeless Do you presently have visiting nurse or other home services: No Alcohol intake: current Alcohol intake frequency: does not drink Patient Tobacco Use Status: Current everyday Tobacco user Tobacco use type: Cigarette Cigarette Packs Per Day: 1 Cigarettes Per Day: 10 Years Smoked: 10 Smoked in Last 30 Days: Yes e-Cigarette/Vaping Use: Never Used Second Hand Smoke Exposure: No Use of substances other than those prescribed or required for medical reasons: Yes Substance Use Type: Heroin and Opiates Substance Use Frequency: Chronic Longstanding Last Used Substance: Days (ago) Advance Directives: No Advance Directives Information Provided: No service: No Sexual orientation: Straight/Heterosexual Physical Exam Vital Signs: Vital Signs: Last Vital Signs Temp 97.2 F 04/03/25 08:07 Pulse 79 04/03/25 08:07 Resp 16 04/03/25 08:07 BP 102/55 L 04/03/25 08:07 Pulse Ox 96 04/03/25 08:07 O2 Del Method Room Air 04/03/25 08:07 BMI result Body Mass Index 32.5 Vital signs have been reviewed and appear to be correct. Blood pressure elevated. Heart rate normal. Respiratory rate normal. Temperature normal. Oxygen saturation normal. Appearance: Alert. Oriented X3. No acute distress. Head: Normal external exam. Normocephalic. Atraumatic. No Collins signs noted. No raccoon eyes noted Eyes: PERRLA. EOMI. Conjunctiva and sclera normal. Eyelids normal. ENT: TM's Normal. Pharynx normal. Uvula midline. Moist mucous membranes. No trismus noted. No drooling noted. No muffled voice noted. Neck: Normal inspection. Neck supple. FROM. No adenopathy. Thyroid Normal. No meningeal signs. No neck mass noted. CVS: Normal heart rate and rhythm. Heart sound normal. No murmurs noted. Pulses normal throughout. Respiratory: No respiratory distress. Painless inspiration. Breath sounds normal. No wheezes/rales/rhonchi noted. Chest nontender. No accessory muscle usage noted or decreased air movement noted. Abdomen: Soft and nontender. Bowel sounds normal in all 4 quadrants. No distention noted. No organomegaly noted. No visible injury noted. Back: No CVA tenderness. Full range of motion noted. Skin: Skin warm and dry. Normal skin color. Normal skin turgor. No rashes/lesions/lacerations noted. Extremities: No lower extremity edema. Extremities exhibit normal range of motion. Extremities nontender. Neuro: Oriented X 3. Cranial nerve exam: II-XII are grossly intact No motor deficit. No sensory deficit. Reflexes normal. Patient Orientation: Person, Place, Time and Situation, okay hygiene and grooming. Fair eye contact, attentive, no tics or tremors. Level of Consciousness: Awake, Appropriate and Alert Patient Behavior: Appropriate, Guarded, Cooperative and Anxious Mood Description: Constricted, Blunted and Apprehensive Affect Description: Constricted, Blunted and Apprehensive Patient Cognition Impaired: No Ability to Follow Directions: Excellent Speech Pattern: Clear, Appropriate and Spontaneous Speech, nonpressured, spontaneous with regular rate and rhythm, normal volume and prosody. No dysarthria. Memory Description: Intact, Immediate Intact and Short Term Intact Hallucinations: None Delusions: Not Present Thought Process: Intact Thought Content: Suicidal ideation with plan of overdosing on his medication, denies Homicidal Ideation. Depressive Symptoms: Not present. Judgement and Insight: Limited but adequate. Course Reevaluation(s) Reevaluation #1: Medically cleared, start physician observation. Time: 08:45 Reevaluation #2: Patient is section 12, bed search is underway, medically cleared. Time: 16:05 Reevaluation #3: Time: 08:41 Date: 04/03/25 Provider: Emmy Melchor DO Physician observation ended at 12pm Transfer Taryn Ellis at 12pm. Medications Administered Generic Name Dose Route Start Last Admin Trade Name Bryceq PRN Reason Stop Dose Admin Amphetamine/Dextroamphetamine 30 mg 04/03/25 09:00 04/03/25 08:07 Dextroamphetamine/Amphetamine Xr 10 Mg Cap.Er.24h PO 30 mg DAILY SILVIO Administration Aripiprazole 10 mg 04/03/25 09:00 04/03/25 08:07 Aripiprazole 10 Mg Tablet PO 10 mg DAILY SILVIO Administration Clonazepam 0.5 mg 04/02/25 09:00 04/02/25 20:58 Clonazepam 0.5 Mg Tablet PO 0.5 mg BID PRN Administration Anxiety Methadone HCl 135 mg 04/03/25 09:00 04/03/25 08:05 Methadone Hcl 20 Mg/2 Ml Oral.Conc PO 135 mg DAILY SILVIO Administration Sertraline HCl 150 mg 04/03/25 09:00 04/03/25 08:06 Sertraline Hcl 100 Mg Tablet PO 150 mg DAILY SILVIO Administration Discontinued Medications Generic Name Dose Route Start Last Admin Trade Name Shara PRN Reason Stop Dose Admin Methadone HCl 135 mg 04/02/25 08:42 04/02/25 09:41 Methadone Hcl 20 Mg/2 Ml Oral.Conc PO 04/02/25 08:43 135 mg ONCE ONE Administration Medical Decision Making Differential Diagnosis Differential Diagnoses: The differential diagnosis associated with the presentation includes (Medical clearance, electrolyte derangement, severe anemia, SI, acute psychosis.) Admission/Observation Consideration of admission/observation: Escalation of care including admission/observation considered Lab Data MDM Lab Attestation statement: I reviewed the patient's lab results. 04/02/25 07:38 04/02/25 07:38 Labs: Lab Results 04/02/25 04/02/25 04/02/25 Range/Units 07:29 07:31 07:38 WBC 5.9 (4.8-10.8) X10*3/uL RBC 4.50 L (4.60-5.80) X10*6/uL Hgb 13.6 L (14.0-18.0) g/dl Hct 39.9 L (42.0-52.0) % MCV 88.7 (80.0-98.0) fL MCH 30.2 (27.0-33.0) pg MCHC 34.1 (31.0-36.0) g/dl RDW 13.0 (11.0-16.0) % Plt Count 238 (160-400) X10*3/uL MPV 9.3 L (9.4-12.4) fL Immature Gran % (Auto) 1.0 H (0.0-0.4) % Neut % (Auto) 46.6 (45-73) % Lymph % (Auto) 32.4 (20-40) % [place] % (Auto) 11.6 H (2-11) % Eos % (Auto) 7.5 H (0-4) % Baso % (Auto) 0.9 (0-2) % Lymph # (Auto) 1.9 (1.2-4.9) X10*3/uL [place] # (Auto) 0.7 (0.1-1.2) X10*3/uL Eos # (Auto) 0.4 (0.0-0.4) X10*3/uL Baso # (Auto) 0.1 (0.0-0.2) X10*3/uL Abs Immat Gran (auto) 0.06 H (0.00-0.03) X10*3/uL Absolute Neuts (auto) 2.7 (2.0-8.3) x10*3/uL Absolute Nucleated RBC 0.000 (0.0-0.012) X10*3/uL Nucleated RBC % (auto) 0.0 (0.0-0.2) /100WBC Sodium 140 (135-145) mmol/L Potassium 3.9 (3.3-5.1) mmol/L Chloride 104 (96-108) mmol/L Carbon Dioxide 25 (22-29) mmol/L Anion Gap 15 (12-20) BUN 18 H (9-16) mg/dL Creatinine 0.66 (0.5-1.4) mg/dL Estim Creat Clear Calc 194.0 Estimated GFR > 60 Random Glucose 81 (60-115) mg/dL Calcium 8.9 (8.4-10.2) mg/dL Magnesium 2.7 H (1.6-2.6) mg/dL Total Bilirubin 1.2 H (0.0-1.0) mg/dL AST 156 H (5-37) U/L ALT 173 H (0-40) U/L Alkaline Phosphatase 86 (39-117) U/L Total Protein 7.4 (6.5-8.0) g/dL Albumin 4.4 (3.5-5.0) g/dL Urine Color Dark Yellow Urine Appearance Clear Urine pH 6.0 (5.0-9.0) Ur Specific [place] >= 1.030 H (1.005-1.025) Urine Protein Negative (Neg-Trace) mg/dL Urine Glucose (UA) Negative (Negative) mg/dL Urine Ketones Trace (Negative) mg/dL Urine Blood Negative (Negative) Urine Nitrite Negative (Negative) Ur Leukocyte Esterase Negative (Negative) Salicylates < 5.0 L (15-30) mg/dL Urine Opiates Screen POSITIVE H (Not Detect) Ur Buprenorphine Scrn Positive H (Not Detect) ng/mL Ur Oxycodone Screen Not Detected (Not Detect) ng/mL Urine Methadone Screen Positive H (Not Detect) ng/mL Urine Fentanyl Screen POSITIVE H (Not Detect) Acetaminophen < 3 (<30) mcg/mL Ur Barbiturates Screen Not Detected (Not Detect) Ur Phencyclidine Scrn Not Detected (Not Detect) Ur Amphetamines Screen POSITIVE H (Not Detect) U Benzodiazepines Scrn POSITIVE H (Not Detect) Urine Cocaine Screen POSITIVE H (Not Detect) U Marijuana (THC) Screen Not Detected (Not Detect) Influenza Type A (PCR) NEGATIVE (Negative) Influenza Type B (PCR) NEGATIVE (Negative) RSV RNA Qual (PCR) NEGATIVE (Negative) SARS-CoV-2 RNA (RT-PCR) NEGATIVE (Negative) Discharge Plan Discharge Clinical Impression: Depression, Suicidal ideation Patient Disposition: Xfer Psychiatric Hosp Transfer Details: Taryn Ellis Prescriptions: No Action clonazepam 0.5 mg tablet 0.5 mg PO BID PRN (Reason: Anxiety) methadone [Methadone Intensol] 10 mg/mL Concentrate 135 mg PO DAILY dextroamphetamine-amphetamine [Adderall XR] 30 mg Capsule,Extended Release 24hr 30 mg PO DAILY aripiprazole 10 mg Tablet 10 mg PO DAILY sertraline 100 mg Tablet 150 mg PO DAILY Interventions: [place]-Suicide Risk Severity Scale Last Done: 04/02/25 08:15 Print Language: Bengali
[2025-04-02 07:52] LABS: Hematocrit 39.9 % (42.0-52.0); Hemoglobin 13.6 g/dl (14.0-18.0); Imm Gran Abs Auto 0.06 X10*3/uL (0.00-0.03); Imm Gran Pct Auto 1.0 % (0.0-0.4); Lymphocytes Absolute Auto 1.9 X10*3/uL (1.2-4.9); Mean Corpuscular HGB Conc 34.1 g/dl (31.0-36.0); Mean Corpuscular Hemoglobin 30.2 pg (27.0-33.0); Mean Corpuscular Volume 88.7 fL (80.0-98.0); NRBC Abs Auto 0.000 X10*3/uL (0.0-0.012); NRBC Pct Auto 0.0 /100WBC (0.0-0.2); Platelet Count 238 X10*3/uL (160-400); Red Blood Count 4.50 X10*6/uL (4.60-5.80); White Blood Count 5.9 X10*3/uL (4.8-10.8)
[2025-04-02 08:01] LABS: Cannabinoid Screen Urine Not Detected (Not Detect)
[2025-04-02 08:11] LABS: Acetaminophen LAB < 3 mcg/mL (<30); Alanine Aminotransferase 173 U/L (0-40); Albumin Level 4.4 g/dL (3.5-5.0); Alkaline Phosphatase 86 U/L (39-117); Anion Gap 15 (12-20); Aspartate Amino Transferase 156 U/L (5-37); Blood Urea Nitrogen 18 mg/dL (9-16); Calcium 8.9 mg/dL (8.4-10.2); Carbon Dioxide 25 mmol/L (22-29); Chloride 104 mmol/L (96-108); Creatinine Clr Calc Pharmacy 194.0; Estimated Glomerular Filt Rate > 60; Magnesium 2.7 mg/dL (1.6-2.6); Potassium 3.9 mmol/L (3.3-5.1); Salicylate < 5.0 mg/dL (15-30); Sodium 140 mmol/L (135-145); Total Protein 7.4 g/dL (6.5-8.0)
--- NOTE | 2025-04-02 08:19 | PC.NURSE ---
Addendum entered by Terri Hayes RN 04/02/25 08:20: Patient is a 29 year old male with hx of MDD, PTSD,ADHD, opiate use d/o and cocaine use d/o and homelessness who self presented [place] [facility] with a recent suicide attempt via Fentanyl secondary to increased depressive symptoms in February. Presents with similiar symptoms, SI with a plan to OD. Also states non-med compliant as he believes they are not working, and continues to endorse SI and depression. Recently admitted at [facility]. History of multiple inpatient psychiatric hospitalizations. Patient alert, oriented and cooperative but sl restless,? d/t opiate withdrawal. Respirations even and non-labored. Will verify his methadone today. Original Note: Medical History Bipolar disorder Opiate use Active substance abuse Depression
[2025-04-02 08:49] LABS: Resp Syncy Virus RNA Qual PCR NEGATIVE (Negative); SARS COV2 PCR INHOUSE NEGATIVE (Negative)
--- NOTE | 2025-04-02 08:49 | PC.NURSE ---
Methadone verified at [facility] and med rec completed.
--- NOTE | 2025-04-02 09:04 | HE.PHANOTE ---
Methadone Methadone verification form sent up. Patient receives 135 mg from [facility] ( [phone]). Last dose 04/01/25 per Erika Kee.
[2025-04-02] MEDS: methADONE HCl 20 MG/2 ML ORAL.CONC 135 MG PO (09:41)
--- NOTE | 2025-04-02 14:03 | MHC.CARE ---
Pt will be dual dx. Section 12a in chart for safety
--- NOTE | 2025-04-02 14:35 | MHC.EDTECH ---
Call from pharmacy Cj to speak with RN regarding med rec. ALEXSANDRA Murray aware, extension provided [phone] for return call. RN is aware.
--- NOTE | 2025-04-02 15:13 | PHA.MEDREC ---
Pharmacy Consult ? Medication Reconciliation Pharmacy has completed the medication reconciliation.Med rec complete, spoke to patient and compared with pharmacy claim history. Made some changes from the initial list done by ALEXSANDRA
[2025-04-02] MEDS: Dextroamphetamine/Amphetamine XR 10 MG CAP.ER.24H 30 MG PO (15:49)
[2025-04-02 15:55] VITALS: BP 129/66; PULSE 87; RESP 16; TEMP 36.4; O2SAT 97
[2025-04-02 19:54] VITALS: BP 99/53; PULSE 85; RESP 18; TEMP 36.5; O2SAT 99
--- NOTE | 2025-04-03 02:40 | PC.NURSE ---
Carol from [facility] called for nurse to nurse report as pt will be going to their facility at 1200 today. Report provided. Rachelle request a last dose of methadone letter to be sent with pt.
--- NOTE | 2025-04-03 06:24 | PC.NURSE ---
Pt slept throughout the slept. No apparent distress noted. Breaths even regular and unlabored with equal chest rises. Monitoring is ongoing.
--- NOTE | 2025-04-03 07:45 | MHC.CARE ---
Patient has been accepted to [facility] located at [address] [place] [id number] - ETA 12PM, accepting Dr. Luisito Brown, F32.9 Unspecified depressive d/o F14.10 Cocaine Use D/o F11.20 Opioid Dependence. 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
[2025-04-03] MEDS: methADONE HCl 20 MG/2 ML ORAL.CONC 135 MG PO (08:05)
[2025-04-03 08:07] VITALS: BP 102/55; PULSE 79; RESP 16; TEMP 36.2; O2SAT 96
[2025-04-03] MEDS: Dextroamphetamine/Amphetamine XR 10 MG CAP.ER.24H 30 MG PO (08:07)
--- NOTE | 2025-04-03 08:21 | MHC.CARE ---
Pt accepted to [facility] for 12 Pm today.
[2025-04-03 11:25] VITALS: BP 97/68; PULSE 78; RESP 16; TEMP 37.1; O2SAT 98
== END 2025-04-03 11:29 ==
PROVIDERS: Emergency Provider Emergency Medicine
DX: F32.A Depression, unspecified (principal); R45.851 Suicidal ideations; Z03.818 Encounter for observation for suspected exposure to other biological agents ruled out; Z79.899 Other long term (current) drug therapy; F43.10 Post-traumatic stress disorder, unspecified; F90.9 Attention-deficit hyperactivity disorder, unspecified type
CPT/HCPCS: 80053; 80143; 80179; 80307; 81003; 83735; 85025; 87637; 93005; 99285; S9485

== ENCOUNTER → 2025-04-02 15:42 | Outpatient (BNV) | payer OTHER, SELFPAY | PROVIDERS: Emergency Provider Emergency Medicine; Visit Provider Internal Medicine Cardiovascular Disease | DX: I45.81 Long QT syndrome (principal) | CPT/HCPCS: 93010 ==

== ENCOUNTER 2025-06-08 07:38 | Inpatient (IN) | payer OTHER, SELFPAY ==
--- NOTE | 2025-06-08 | ECG_ITS ---
Test Reason : CHECK PRLONG QT Blood Pressure : */* mmHG Vent. Rate : 53 BPM Atrial Rate : 53 BPM P-R Int : 140 ms QRS Dur : 84 ms QT Int : 492 ms P-R-T Axes : 20 64 60 degrees QTcB Int : 461 ms Sinus bradycardia with sinus arrhythmia Otherwise normal ECG When compared with ECG of 02-Apr-2025 15:42, No significant change was found Referred By: Richelle Washburn Electronically Signed By: SHENA HUFF MD
--- NOTE | 2025-06-08 07:40 | ED.PSYCH ---
HPI - Psych General Chief Complaint: Psychiatric Symptoms Stated Complaint: SI Time Seen by Provider: 06/08/25 07:40 Source: patient, RN notes reviewed and old records reviewed Mode of arrival: ambulatory Limitations: no limitations History of Present Illness ED Provider: Wu HPI Narrative: Patient is a 29-year-old male with history of MDD, PTSD, bipolar disorder, substance use disorder presenting to the emergency department with complaint of depression and suicidal ideation. States that he attempted to intentionally overdose on opiates yesterday but was given Narcan by a family member. He denies any current physical complaints. States that he continues to feel suicidal. Denies any homicidal ideation, auditory or visual hallucinations. MD complaint: suicidal ideation and feels depressed Related Data Home Medications ?Medication ?Instructions ?Recorded ?Confirmed clonazepam 0.5 mg tablet 0.5 mg PO BID Anxiety 02/12/25 06/08/25 methadone 10 mg/mL oral 150 mg PO DAILY 03/15/25 06/08/25 concentrate (Methadone Intensol) aripiprazole 10 mg tablet 10 mg PO DAILY 04/02/25 06/08/25 dextroamphetamine-amphetamine ER 30 mg PO DAILY 04/02/25 06/08/25 30 mg 24hr capsule,extend release (Adderall XR) sertraline 100 mg tablet 100 mg PO DAILY 04/02/25 06/08/25 clonidine HCl 0.1 mg tablet 0.1 mg PO DAILY PRN Anxiety 06/08/25 06/08/25 gabapentin 600 mg tablet 600 mg PO TID 06/08/25 06/08/25 hydroxyzine pamoate 50 mg capsule 50 mg PO BID PRN Anxiety 06/08/25 06/08/25 Allergies Allergy/AdvReac Type Severity Reaction Status Date / Time No Known Allergies Allergy Verified 06/08/25 07:44 Review of Systems Review of Systems: as per HPI Yes all other systems are reviewed and are negative Constitutional: Constitutional: Reports as per HPI PMFSH Past Medical History Medical History Suicidal ideation Bipolar disorder Opiate use Active substance abuse Depression Social History Social History Household Members: None Housing: Homeless Do you presently have visiting nurse or other home services: No Alcohol intake: current Alcohol intake frequency: does not drink Patient Tobacco Use Status: Current someday Tobacco user Tobacco use type: Cigarette Cigarette Packs Per Day: 1 Cigarettes Per Day: 10 Years Smoked: 10 Smoked in Last 30 Days: No e-Cigarette/Vaping Use: Never Used Second Hand Smoke Exposure: No Use of substances other than those prescribed or required for medical reasons: Yes Substance Use Type: Heroin, IV Drugs and Opiates Substance Use Frequency: Chronic Longstanding Last Used Substance: Hours (ago) Any prior treatment program specific to substance use: No Advance Directives: No Advance Directives Information Provided: No Nutrition Risks: No Nutritional Risk service: No Sexual orientation: Straight/Heterosexual Physical Exam Vital Signs: Vital Signs: Last Vital Signs Temp 97 F 06/08/25 07:52 Pulse 88 06/08/25 07:41 Resp 16 06/08/25 07:52 BP 125/65 06/08/25 07:41 Pulse Ox 100 06/08/25 07:41 O2 Del Method Room Air 06/08/25 07:41 BMI result Body Mass Index 34.6 Vital signs have been reviewed and appear to be correct. Blood pressure normal. Heart rate normal. Respiratory rate normal. Temperature normal. Oxygen saturation normal. Const: General: cooperative, healthy appearing and no acute distress Orientation/consciousness: oriented to person, oriented to place, oriented to time and patient oriented x3 Limitations: no limitations HEENT: Head: Yes normocephalic and Yes atraumatic Ears: external ears normal General nose exam: Normal external nose present Face and sinus: Yes face symmetric Mouth: oropharynx normal and moist mucous membranes Throat: Yes uvula midline Eyes: Pupils: Equal, round and reactive pupils present Neck: Neck: Yes normal visual inspection and Yes supple Resp: Effort & Inspection: normal respiratory effort and able to speak in complete sentences Auscultation: clear to auscultation bilaterally Cardio: Rate: regular rate Rhythm: regular rhythm Heart sounds: S1 normal heart sound present and S2 normal heart sound present GI: Palpation (GI): Soft to palpation and nontender Auscultation: normoactive bowel sounds : General: Yes no CVA tenderness Back/Spine/Pelvis: Back: no CVA tenderness Skin: General skin exam: elasticity normal and turgor normal Neuro: General: oriented to person, oriented to place, oriented to time, patient oriented x3, moves all extremities, no focal motor deficits and CN's II-XI intact bilaterally Cranial nerves: Yes Equal, round and reactive pupils present Cognition (Neuro): normal cognition Extrem: General: Yes full ROM, Yes no pedal edema and Yes no calf tenderness Psych: Mental Status: mental status grossly normal Affect: normal affect Thought process: Normal thought process present Course Reevaluation(s) Reevaluation #1: Patient is admitted to 3 discontinue physician observation now Time: 18:15 Medications Administered Generic Name Dose Route Start Last Admin Trade Name Shara PRN Reason Stop Dose Admin Amphetamine/Dextroamphetamine 30 mg 06/08/25 09:00 06/08/25 09:27 Dextroamphetamine/Amphetamine Xr 10 Mg Cap.Er.24h PO 30 mg DAILY SILVIO Administration Aripiprazole 10 mg 06/08/25 09:00 06/08/25 09:27 Aripiprazole 10 Mg Tablet PO 10 mg DAILY SILVIO Administration Clonazepam 0.5 mg 06/08/25 09:00 06/08/25 09:27 Clonazepam 0.5 Mg Tablet PO 0.5 mg BID SILVIO Administration Gabapentin 600 mg 06/08/25 09:00 06/08/25 16:13 Gabapentin 600 Mg Tablet PO Not Given TID SILVIO Methadone HCl 150 mg 06/08/25 09:00 06/08/25 09:23 Methadone Hcl 20 Mg/2 Ml Oral.Conc PO 150 mg DAILY SILVIO Administration Sertraline HCl 100 mg 06/08/25 09:00 06/08/25 09:27 Sertraline Hcl 100 Mg Tablet PO 100 mg DAILY SILVIO Administration Medical Decision Making Medical Decision Making MDM Narrative: Patient is a 29-year-old male with history of MDD, PTSD, bipolar disorder, substance use disorder presenting to the emergency department with complaint of depression and suicidal ideation. On exam patient is awake, A+Ox3, VS WNL, afebrile, normal neurological exam without focal deficits, physical exam findings as above. Given reported symptoms and physical exam findings, initial differential includes but is not limited to depression, suicidal ideation, OUD, bipolar disorder. Plan for medical clearance then CARE team evaluation. Labs notable for elevated transaminases without elevation of Tbili, patient is without abdominal pain. UA without evidence of infection. UDS positive for buprenorphine, methadone, fentanyl, amphetamines, benzos, and cocaine. He is medically clear at this time for CARE team eval and placed on physician observation. Per CARE team, patient will be inpatient admission. Differential Diagnosis Differential Diagnoses: The differential diagnosis associated with the presentation includes as per [facility] Admission/Observation Consideration of admission/observation: Escalation of care including admission/observation considered Consult Healthcare Provider Management of the patient was discussed with: Behavioral Health Provider Lab Data [facility] Lab Attestation statement: I reviewed the patient's lab results. as per [facility] 06/08/25 08:12 06/08/25 08:12 Labs: Lab Results 06/08/25 06/08/25 Range/Units 08:12 09:08 WBC 5.7 (4.8-10.8) X10*3/uL RBC 4.63 (4.60-5.80) X10*6/uL Hgb 13.9 L (14.0-18.0) g/dl Hct 41.0 L (42.0-52.0) % MCV 88.6 (80.0-98.0) fL MCH 30.0 (27.0-33.0) pg MCHC 33.9 (31.0-36.0) g/dl RDW 12.6 (11.0-16.0) % Plt Count 208 (160-400) X10*3/uL MPV 9.4 (9.4-12.4) fL Immature Gran % (Auto) 0.5 H (0.0-0.4) % Neut % (Auto) 60.9 (45-73) % Lymph % (Auto) 21.9 (20-40) % [place] % (Auto) 13.0 H (2-11) % Eos % (Auto) 3.0 (0-4) % Baso % (Auto) 0.7 (0-2) % Lymph # (Auto) 1.3 (1.2-4.9) X10*3/uL [place] # (Auto) 0.7 (0.1-1.2) X10*3/uL Eos # (Auto) 0.2 (0.0-0.4) X10*3/uL Baso # (Auto) 0.0 (0.0-0.2) X10*3/uL Abs Immat Gran (auto) 0.03 (0.00-0.03) X10*3/uL Absolute Neuts (auto) 3.5 (2.0-8.3) x10*3/uL Absolute Nucleated RBC 0.000 (0.0-0.012) X10*3/uL Nucleated RBC % (auto) 0.0 (0.0-0.2) /100WBC Sodium 139 (135-145) mmol/L Potassium 4.1 (3.3-5.1) mmol/L Chloride 103 (96-108) mmol/L Carbon Dioxide 28 (22-29) mmol/L Anion Gap 12 (12-20) BUN 16 (9-16) mg/dL Creatinine 0.66 (0.5-1.4) mg/dL Estim Creat Clear Calc 200.2 Estimated GFR > 60 Random Glucose 97 (60-115) mg/dL Calcium 9.0 (8.4-10.2) mg/dL Total Bilirubin 1.0 (0.0-1.0) mg/dL AST 144 H (5-37) U/L ALT 226 H (0-40) U/L Alkaline Phosphatase 85 (39-117) U/L Total Protein 7.8 (6.5-8.0) g/dL Albumin 4.5 (3.5-5.0) g/dL Urine Color Yellow Urine Appearance Clear Urine pH 5.5 (5.0-9.0) Ur Specific [place] 1.025 (1.005-1.025) Urine Protein Negative (Neg-Trace) mg/dL Urine Glucose (UA) Negative (Negative) mg/dL Urine Ketones 40 (Negative) mg/dL Urine Blood Negative (Negative) Urine Nitrite Negative (Negative) Ur Leukocyte Esterase Negative (Negative) Urine Opiates Screen Not Detected (Not Detect) Ur Buprenorphine Scrn Positive H (Not Detect) ng/mL Ur Oxycodone Screen Not Detected (Not Detect) ng/mL Urine Methadone Screen Positive H (Not Detect) ng/mL Urine Fentanyl Screen POSITIVE H (Not Detect) Ur Barbiturates Screen Not Detected (Not Detect) Ur Phencyclidine Scrn Not Detected (Not Detect) Ur Amphetamines Screen POSITIVE H (Not Detect) U Benzodiazepines Scrn POSITIVE H (Not Detect) Urine Cocaine Screen POSITIVE H (Not Detect) U Marijuana (THC) Screen Not Detected (Not Detect) Ethyl Alcohol < 10 mg/dL External Record Review External record reviewed: Inpatient record, Office record and Outpatient record Discharge Plan Discharge Clinical Impression: Suicidal ideation, Opioid use disorder Patient Disposition: Admitted As Inpatient Interventions: [place]-Suicide Risk Severity Scale Last Done: 06/08/25 07:52 Admission Worksheet (ED) Last Done: 06/08/25 17:58
[2025-06-08 07:41] VITALS: BP 125/65; PULSE 88; RESP 16; O2SAT 100; BMI 34.6
[2025-06-08 07:52] VITALS: RESP 16; TEMP 36.1
--- NOTE | 2025-06-08 08:06 | PC.NURSE ---
RE: med rec This RN completed patient med rec with verbal confirmation from patient. Pt reports that he only takes 100mg Sertraline despite being prescribed a 25mg and 100mg dose. He also reports that his clonidine is 0.1 mg daily PRN
[2025-06-08 08:19] LABS: MANUAL DIFF FLAG NO
[2025-06-08 08:23] LABS: Hematocrit 41.0 % (42.0-52.0); Hemoglobin 13.9 g/dl (14.0-18.0); Imm Gran Abs Auto 0.03 X10*3/uL (0.00-0.03); Imm Gran Pct Auto 0.5 % (0.0-0.4); Lymphocytes Absolute Auto 1.3 X10*3/uL (1.2-4.9); Mean Corpuscular HGB Conc 33.9 g/dl (31.0-36.0); Mean Corpuscular Hemoglobin 30.0 pg (27.0-33.0); Mean Corpuscular Volume 88.6 fL (80.0-98.0); NRBC Abs Auto 0.000 X10*3/uL (0.0-0.012); NRBC Pct Auto 0.0 /100WBC (0.0-0.2); Platelet Count 208 X10*3/uL (160-400); Red Blood Count 4.63 X10*6/uL (4.60-5.80); White Blood Count 5.7 X10*3/uL (4.8-10.8)
[2025-06-08 08:40] LABS: Alanine Aminotransferase 226 U/L (0-40); Albumin Level 4.5 g/dL (3.5-5.0); Alkaline Phosphatase 85 U/L (39-117); Anion Gap 12 (12-20); Aspartate Amino Transferase 144 U/L (5-37); Blood Urea Nitrogen 16 mg/dL (9-16); Calcium 9.0 mg/dL (8.4-10.2); Carbon Dioxide 28 mmol/L (22-29); Chloride 103 mmol/L (96-108); Creatinine Clr Calc Pharmacy 200.2; Estimated Glomerular Filt Rate > 60; Potassium 4.1 mmol/L (3.3-5.1); Sodium 139 mmol/L (135-145); Total Protein 7.8 g/dL (6.5-8.0)
--- NOTE | 2025-06-08 09:04 | HE.PHANOTE ---
re: methadone ALEXSANDRA Duque verified methadone with CYRIL Urbano at [place], [place]. Dose is 150 mg last given 06/06/25 @0856.
[2025-06-08 09:15] LABS: Appearance Urine Clear; Glucose Urine UA Negative (Negative); PH 5.5 (5.0-9.0); Specific Gravity - Urine 1.025 (1.005-1.025)
[2025-06-08] MEDS: methADONE HCl 20 MG/2 ML ORAL.CONC 150 MG PO (09:23)
[2025-06-08 09:25] LABS: Cannabinoid Screen Urine Not Detected (Not Detect)
[2025-06-08] MEDS: Dextroamphetamine/Amphetamine XR 10 MG CAP.ER.24H 30 MG PO (09:27)
--- OUTSIDE RECORDS SUMMARY | 2025-06-08 10:22 | XMS_ITS | Clinical Summary ---
Author Organization [facility] Address [address] [place] [address] Phone Care Team Providers [employer] Supervisor Name Role Phone Physician, No Pcp Primary Care Provider Unavaila ble Allergies No known active allergies Medications amphetamine-dex troamphetamine XR (ADDERALL XR) 20 mg 24 hr capsule Take 1 capsule (20 mg total) by mouth 1 (one) time each day in the morning. Do not crush or chew. Active ARIPiprazole (ABILIFY) 5 mg tablet Take 1 tablet (5 mg total) by mouth 1 (one) time each day. Active clonazePAM (KlonoPIN) 0.5 mg tablet Take 1 tablet (0.5 mg total) by mouth 3 (three) times a day if needed for anxiety. Active emtricitabine-t enofovir disoproxil fumarate (TRUVADA) 200-300 mg per tablet Take 1 tablet by mouth 1 (one) time each day. Active hydrOXYzine HCL (ATARAX) 25 mg tablet Take 1 tablet (25 mg total) by mouth 2 (two) times a day. Active QUEtiapine (SEROquel) 50 mg tablet Take 1 tablet (50 mg total) by mouth at bedtime. Active sertraline (ZOLOFT) 100 mg tablet Take 1 tablet (100 mg total) by mouth 1 (one) time each day. Active Active Problems No known active problems Encounters Date Type Department Care Team Description 03/23/2025 10:35 AM EDT - 03/23/2025 10:57 AM EDT Emergency [facility] Emergency [address] [place] [address] Encounter for medication administration (Primary Dx) Discharge Disposition: Home or Self Care 03/16/2025 2:57 PM EDT - 03/17/2025 4:33 PM EDT Emergency [facility] Emergency [address] [place] [address] Keyanna Andujar MD Goebel, Mathew, MD Polysubstance abuse ([facility] V24, [facility] V28) (Primary Dx); Homelessness; Suicidal ideation; Medical clearance for psychiatric admission Discharge Disposition: Psychiatric Hospital from Last 3 Months Medical History Medical History Date Comments Drug abuse and dependence ([facility] V24, [facility] V28) Social History Tobacco Use Types Packs/Day Years Used Date Smoking Tobacco: Every Day Cigarettes Smokeless Tobacco: Never Alcohol Use Standard Drinks/Week Comments No 0 (1 standard drink = 0.6 oz pur e alcohol) Sex and Gender Information Value Date Recorded Sex Assigned at Not on file Legal Sex Male 6:52 PM EDT Gender Identity Not on file Sexual Orientation Not on file Obstetrics History Last Filed Vital Signs Vital Sign Reading Time Taken Comments Blood Pressure 127/87 03/23/2025 10:33 AM EDT Pulse 100 03/23/2025 10:33 AM EDT Temperature 36.9 C (98.4 F) 03/23/2025 10:36 AM EDT Respiratory Rate 16 03/23/2025 10:33 AM EDT Oxygen Saturation 99% 03/23/2025 10:33 AM EDT Inhaled Oxygen Concentration - - Weight 95.3 kg (210 lb) 03/16/2025 2:52 PM EDT Height 175.3 cm (5' 9 ) 03/16/2025 2:52 PM EDT Body Mass Index 31.01 03/16/2025 2:52 PM EDT Plan of Treatment Health Maintenance Due Date Last Done Comments Hepatitis A Vaccines (1 of 2 - Risk 2-dose series) 2015 Pneumococcal Vaccine: Pediatrics (0 to 5 Years) and At-Risk Patients (6 to 49 Years) (1 of 2 - PCV) 2015 Cholesterol Screening (Lipid Panel) 07/25/2022 HIV Screening 07/25/2022 Hepatitis C Screening 07/25/2022 Social Influencers of Health Screening 07/25/2022 DTaP,Tdap,and Td Vaccines (8 - Td or Tdap) 2022 2012, 10/07/2007, 10/26/2000, Additional history exists HPV Vaccines (1 - 3-dose SCDM series) 2023 Depression Screening 08/17/2024 COVID-19 Vaccine ( - 2023-25 season) 2025 Influenza Vaccine (#1) 2025 3, 2011, 05/10/2009, Additional history exists RSV Immunization Adult Patients (1 - 1-dose 75+ series) 2071 Hepatitis B Vaccines Completed 06/30/1997, 1996, 1996 HIB Vaccines Completed 12/21/1997, 03/17, 02/03/1997, Additional history exists IPV Vaccines Completed 10/26/2000, 02/16, 02/03/1997, Additional history exists MMR Vaccines Completed 10/26/2000, 12/21/1997 Varicella Vaccines Aged Out 10/06/2006 No longer eligible based on patient's age to complete this topic Meningococcal ACWY Vaccine Aged Out 2012, No longer eligible based on patient's age to complete this topic Meningococcal B Vaccine Aged Out No l onger eligible based on patient's age to complete this topic RSV Immunization Patients Under 20 months Aged Out No longer eligible based on patient's age to complete this topic Procedures Procedure Name Priority Date/Time Associated Diagnosis Comments ECG ANNOTATED 03/17/2025 ECG 12-LEAD STAT 03/16/2025 4:14 PM EDT CBC WITH AUTO DIFFERENTIAL STAT 03/16/2025 3:19 PM EDT ACETAMINOPHEN LEVEL STAT 03/16/2025 3 :19 PM EDT SALICYLATE LEVEL STAT 03/16/2025 3:19 PM EDT THYROXINE FREE STAT 03/16/2025 3:19 PM EDT THYROID STIMULATING HORMONE STAT 03/16/2025 3:19 PM EDT CBC AND DIFFERENTIAL STAT 03/16/2025 3:19 PM EDT MAGNESIUM STAT 03/16/2025 3:19 PM EDT ETHANOL STAT 03/16/2025 3:19 PM EDT COMPREHENSIVE METABOLIC PANEL STAT 03/16/2025 3:19 PM EDT METHADONE SCREEN, URINE STAT 03/16/2025 3:14 PM EDT PHENCYCLIDINE, URINE STAT 03/16/2025 3:14 PM EDT BUPRENORPHINE SCREEN, URINE STAT 03/16/2025 3:14 PM EDT DRUG ABUSE SCREEN 8A PANEL, URINE STAT 03/16/2025 3:14 PM EDT TIGER TOP URINE TUBE Routine 03/16/2025 3:07 PM EDT EXTRA TUBES Routine 03/16/2025 3:07 PM EDT from Last 3 Months Results * ECG-Annotated (03/17/2025) us Provider Onbase MD ECG ORDERABLES Final Result * 12-Lead ECG (03/16/2025 4:14 PM EDT) Ventricular Rate ECG 73 BPM GEMUSE Atrial Rate 73 BPM GEMUSE P-R Interval 128 ms GEMUSE QRS Duration 80 ms GEMUSE Q-T Interval 450 ms GEMUSE QTc 495 ms GEMUSE P Wave Davis 7 degrees GEMUSE R Davis 73 degrees GEMUSE T Davis 51 degrees GEMUSE ECG Interpretation Normal sinus rhythm Prolonged QT Abnormal ECG No previous ECGs available Confirmed by Jessica GAVIRIA JAMES ([id number]) on 03/16/2025 6:07:51 PM GEMUSE 03/16/2025 4:14 PM EDT 03/16/2025 6:07 PM EDT us Mayelin CHANEY ECG ORDERABLES Final Re sult GEMUSE * (ABNORMAL) CBC auto differential (03/16/2025 3:19 PM EDT) WBC 7.9 4.8 - 10.8 K/mcL LAB HEMETOLOGY METHOD 03/16/2025 4:07 PM EDT [facility] RBC 4.40(L) 4.50 - 5.50 M/mcL LAB HEMETOLOGY METHOD 03/16/2025 4:07 PM EDT [facility] Hemoglobin 13.1(L) 13.5 - 17.5 g/dL LAB HEMETOLOGY METHOD 03/16/2025 4:07 PM EDT [facility] Hematocrit 39.1(L) 42.0 - 54.0 % LAB HEMETOLOGY METHOD 03/16/2025 4:07 PM EDT [facility] MCV 89.7 79.0 - 98.0 FL LAB HEMETOLOGY METHOD 03/16/2025 4:07 PM EDT [facility] MCH 30.0 27.0 - 32.0 pcg LAB HEMETOLOGY [facility] MCHC 33.5 32.0 - 37.0 g/dL LAB HEMETOLOGY METHOD 03/16/2025 4:07 PM EDT [facility] RDW 12.9 11.0 - 15.0 % LAB HEMETOLOGY [facility]16[facility]2025 [facility] Platelets 253 130 - 400 K/mcL LAB HEMETOLOGY METHOD 03/16/2025 4:[facility] MPV 9.7 7.0 - 11.0 FL LAB HEMETOLOGY METHOD 03/16/2025 4:07 PM [facility] NRBC 0.0 <1.0 % LAB HEMETOLOGY METHOD 03/16/2025 4:07 PM [facility] NRBC Absolute 0.00 <0.10 K/mcL LAB HEMETOLOGY METHOD 03/16/2025 4:07 PM [facility] Neutrophils Relative 55.0 % LAB HEMETOLOGY METHOD 03/16/2025 4:07 PM [facility] Lymphocytes Relative 29.0 % LAB HEMETOLOGY METHOD 03/16/2025 4:07 PM [facility] Monocytes Relative 12.5 % LAB HEMETOLOGY METHOD 03/16/2025 4:07 PM [facility] Eosinophils Relative 2.1 % LAB HEMETOLOGY METHOD 03/16/2025 4:07 PM [facility] Basophils Relative 0.6 % LAB HEMETOLOGY METHOD 03/16/2025 4:07 PM [facility] Immature Granulocytes Relative 0.8 % LAB HEMETOLOGY METHOD 03/16/2025 4:07 PM [facility] Neutrophils Absolute 4.35 1.50 - 7.00 K/mcL LAB HEMETOLOGY METHOD 03/16/2025 4:07 PM [facility] Lymphocytes Absolute 2.30 1.00 - 5.00 K/mcL LAB HEMETOLOGY METHOD 03/16/2025 4:07 PM [facility] Monocytes Absolute 0.99 0.20 - 1.00 K/mcL LAB HEMETOLOGY METHOD 03/16/2025 4:07 PM [facility] Eosinophils Absolute 0.17 0.00 - 0.50 K/mcL LAB HEMETOLOGY METHOD 03/16/2025 4:07 PM [facility] Basophils Absolute 0.05 0.00 - 0.20 K/mcL LAB HEMETOLOGY METHOD 03/16/2025 4:07 PM EDT [facility] Immature Granulocytes Absolute 0.06(H) 0.00 - 0.03 K/mcL LAB HEMETOLOGY METHOD 03/16/2025 4:07 PM EDT [facility] Blood Venous blood specimen / Unknown Venipuncture / Unknown 03/16/2025 3:19 PM EDT 03/16/2025 3:57 PM EDT Mayelin CHANEY LAB BLOOD ORDERABLES Fin al Result Performing Organization Address City/[facility]/ZIP Co de Phone Number [facility] [address] [place] [address], [place] [phone] * Thyroid Stimulating Hormone (TSH) (03/16/2025 3:19 PM EDT) TSH 1.77 0.40 - 4.00 mcIU/mL LAB CHEMISTRY METHOD 03/16/2025 5:08 PM EDT [facility] Blood Venous blood specimen / Unknown Venipuncture / Unknown 03/16/2025 3:19 PM EDT 03/16/2025 3:57 PM EDT Mayelin CHANEY LAB BLOOD ORDERABLES Fin al Result Performing Organization Address City/[facility]/ZIP Co de Phone Number [facility] [address] [place] [address], [place] [phone] * T4, Free (03/16/2025 3:19 PM EDT) Free T4 1.23 0.70 - 1.80 ng/dL LAB CHEMISTRY METHOD 03/16/2025 5:08 PM EDT [facility] Blood Venous blood specimen / Unknown Venipuncture / Unknown 03/16/2025 3:19 PM EDT 03/16/2025 3:57 PM EDT Mayelin CHANEY LAB BLOOD ORDERABLES Fin al Result Performing Organization Address [facility] Co de Phone Number [facility] [address] [place] [address], [place] [phone] * (ABNORMAL) Magnesium (03/16/2025 3:19 PM EDT) Magnesium 2.8(H) 1.9 - 2.6 mg/dL LAB CHEMISTRY METHOD 03/16/2025 4:28 PM EDT [facility] Blood Venous blood specimen / Unknown Venipuncture / Unknown 03/16/2025 3:19 PM EDT 03/16/2025 3:57 PM EDT Mayelin CHANEY LAB BLOOD ORDERABLES Fin al Result Performing Organization Address [facility] de Phone Number [facility] [address] [place] [address], [place] [phone] * Ethanol (03/16/2025 3:19 PM EDT) Ethanol Level <3 0 - 10 mg/dL LAB CHEMISTRY METHOD 03/16/2025 4:28 PM EDT [facility] Blood Venous blood specimen / Unknown Venipuncture / Unknown 03/16/2025 3:19 PM EDT 03/16/2025 3:57 PM EDT Mayelin CHANEY LAB BLOOD ORDERABLES Fin al Result Performing Organization Address [facility] de Phone Number [facility] [address] [place] [address], [place] [phone] * (ABNORMAL) Acetaminophen level (03/16/2025 3:19 PM EDT) Acetaminophen Level 2.0(L) 10.0 - 30.0 mcg/mL LAB CHEMISTRY METHOD 03/16/2025 4:31 PM EDT [facility] Blood Venous blood specimen / Unknown Venipuncture / Unknown 03/16/2025 3:19 PM EDT 03/16/2025 3:57 PM EDT Mayelin CHANEY LAB BLOOD ORDERABLES Fin al Result Performing Organization Address [facility]/ZIP Co de Phone Number [facility] [address] [place] [address], [place] [phone] * (ABNORMAL) Salicylate Level (03/16/2025 3:19 PM EDT) Salicylate Level <1.7(L) 2.0 - 29.0 mg/dL LAB CHEMISTRY METHOD 03/16/2025 4:28 PM EDT [facility] Blood Venous blood specimen / Unknown Venipuncture / Unknown 03/16/2025 3:19 PM EDT 03/16/2025 3:57 PM EDT Mayelin CHANEY LAB BLOOD ORDERABLES Fin al Result Performing Organization Address [facility] de Phone Number [facility] [address] [place] [address], [place] [phone] * (ABNORMAL) Comprehensive Metabolic Panel (CMP) (03/16/2025 3:19 PM EDT) Sodium 134 133 - 145 mmol/L LAB CHEMISTRY METHOD 03/16/2025 4:28 PM EDT [facility] Potassium 3.8 3.5 - 5.5 mmol/L LAB CHEMISTRY METHOD 03/16/2025 4:28 PM EDT [facility] Chloride 100 96 - 110 mmol/L LAB CHEMISTRY METHOD 03/16/2025 4:28 PM EDT [facility] CO2 30 21 - 32 mmol/L LAB CHEMISTRY METHOD 03/16/2025 4:28 PM [facility] Anion Gap 4 3 - 11 LAB CHEMISTRY METHOD 03/16/2025 4:28 PM [facility] Glucose 84 70 - 100 mg/dL LAB CHEMISTRY METHOD 03/16/2025 4:28 PM [facility] BUN 16 5 - 25 mg/dL LAB CHEMISTRY METHOD 03/16/2025 4:28 PM [facility] Creatinine 0.74 0.70 - 1.30 mg/dL LAB CHEMISTRY METHOD 03/16/2025 4:28 PM [facility] eGFR 127 >=60 mL/min/1. 73m2 LAB CHEMISTRY METHOD 03/16/2025 4:28 PM [facility] Comment:Calculation based on the Chronic Kidney Disease Epidemiology Collaboration (CKD-EPI) equation refit without adjustment for race. BUN/Creatinine Ratio 21.6 LAB CHEMISTRY METHOD 03/16/2025 4:28 PM [facility] Calcium 9.6 8.5 - 10.5 mg/dL LAB CHEMISTRY METHOD 03/16/2025 4:28 PM [facility] AST (SGOT) 140(H) 10 - 42 unit/L LAB CHEMISTRY METHOD 03/16/2025 4:28 PM [facility] ALT (SGPT) 182(H) 10 - 60 unit/L LAB CHEMISTRY METHOD 03/16/2025 4:28 PM [facility] Alkaline Phosphatase 82 42 - 121 unit/L LAB CHEMISTRY METHOD 03/16/2025 4:28 PM [facility] Total Protein 8.2(H) 6.0 - 8.0 g/dL LAB CHEMISTRY METHOD 03/16/2025 4:28 PM [facility] Albumin 4.6 3.2 - 5.0 g/dL LAB CHEMISTRY METHOD 03/16/2025 4:28 PM [facility] Total Bilirubin 1.0 0.0 - 1.4 mg/dL LAB CHEMISTRY METHOD 03/16/2025 4:28 PM EDT [facility] Blood Venous blood specimen / Unknown Venipuncture / Unknown 03/16/2025 3:19 PM EDT 03/16/2025 3:57 PM EDT Mayelin CHANEY LAB BLOOD ORDERABLES Fin al Result [facility] [address] [place] [address], [place] [phone] * (ABNORMAL) Drug abuse screen 8a panel, urine (03/16/2025 3:14 PM EDT) Amphetamine Screen, Ur Positive(A ) Negative LAB CHEMISTRY METHOD 5 5:07 PM T [facility] Comment:Certain OTC medicati ons containing ephedrine, phenylephrine, pseudoephedrine and phenylpropanolamine can cause false positive results. Barbiturate Screen, Ur Negative Negative LAB CHEMISTRY METHOD 5 5:07 PM EDT [facility] Benzodiazepine Screen, Ur Positive(A ) Negative LAB CHEMISTRY METHOD 5 5:07 PM [facility] Cocaine Screen, Ur Positive(A ) Negative LAB CHEMISTRY METHOD 5 5:07 PM [facility] Opiate Screen, Ur Positive(A ) Negative LAB CHEMISTRY METHOD 5 5:07 PM [facility] Cannabinoid (THC) Screen, Ur Positive(A ) Negative LAB CHEMISTRY METHOD 5 5:07 PM [facility] Comment:Specimens from patie nts taking pantoprazole sodium (Protonix) have been shown to produce false positive results. Oxycodone Screen, Ur Negative Negative LAB CHEMISTRY METHOD 5 5:07 PM EDT [facility] Fentanyl, Ur Positive(A ) Negative LAB CHEMISTRY METHOD 5:07 PM EDT [facility] Urine Urine specimen obtained by clean catch procedure / Unknown Non-blood Collection / Unknown 03/16/2025 3:14 PM EDT 03/16/2025 3:57 PM EDT [facility] - 03/16/2025 5:07 PM EDT Assay cutoffs: Amphetamines 1000 ng/mL Barbiturates 200 ng/mL Benzodiazepines 200 ng/mL Cocaine 300 ng/mL Fentanyl 1 ng/mL Opiates 300 ng/mL Oxycodone 100 ng/mL THC 50 ng/mL Semi-quantitative assay for screening purposes only. Unconfirmed screening result should not be used for non-medical purposes. *ALTERNATE METHOD CONFIRMATION DONE UPON REQUEST ONLY* Mayelin CHANEY LAB URINE ORDERABLES Fin al Result Performing Organization Address [facility] de Phone Number [facility] [address] [place] [address], [place] [phone] * (ABNORMAL) Buprenorphine screen, urine (03/16/2025 3:14 PM EDT) [facility] Buprenorphine Screen Urine Positive (A) Negative LAB CHEMISTRY METHOD 03/16/2025 4:47 PM EDT [facility] Urine Urine specimen obtained by clean catch procedure / Unknown Non-blood Collection / Unknown 03/16/2025 3:14 PM EDT 03/16/2025 3:57 PM EDT [facility] - 03/16/2025 4:47 PM EDT Assay cutoff 5 ng/mL Semi-quantitative assay for screening purposes only. Unconfirmed screening result should not be used for non-medical purposes. *ALTERNATE METHOD CONFIRMATION DONE UPON REQUEST ONLY* Jesus Wang MD LAB URINE ORDERABLES Anni l Result Performing Organization Address [facility]/ZIP Co de Phone Number [facility] [address] [place] [address], [place] [phone] * (ABNORMAL) Methadone, urine (03/16/2025 3:14 PM EDT) [facility] Methadone Screen, Urine Positive (A) Negative LAB CHEMISTRY METHOD 03/16/2025 4:47 PM EDT [facility] Comment: Assay cutoff 300 ng/mL Semi-quantitative assay for screening purposes only. Unconfirmed screening result should not be used for non-medical purposes. *ALTERNATE METHOD CONFIRMATION DONE UPON REQUEST ONLY* Urine Urine specimen obtained by clean catch procedure / Unknown Non-blood Collection / Unknown 03/16/2025 3:14 PM EDT 03/16/2025 3:57 PM EDT Jesus Wang MD LAB URINE ORDERABLES Anni l Result Performing Organization Address [facility] Co de Phone Number [facility] [address] [place] [address], [place] [phone] * Phencyclidine, urine (03/16/2025 3:14 PM EDT) [facility] PCP Scrn, Ur Negative Negative LAB CHEMISTRY METHOD 03/16/2025 4:47 PM EDT [facility] Comment: Assay cutoff 25 ng/mL Semi-quantitative assay for screening purposes only. Unconfirmed screening result should not be used for non-medical purposes. *ALTERNATE METHOD CONFIRMATION DONE UPON REQUEST ONLY* Urine Urine specimen obtained by clean catch procedure / Unknown Non-blood Collection / Unknown 03/16/2025 3:14 PM EDT 03/16/2025 3:57 PM EDT Jesus Wang MD LAB URINE ORDERABLES Anni l Result Performing Organization Address [facility]/ZIP Co de Phone Number [facility] [address] [place] [address], [place] [phone] * Manor top urine tube (03/16/2025 3:07 PM EDT) Extra Tube Hold for add-ons. 03/16/2025 5:01 PM EDT [facility] Comment:Auto resulted. Urine Urine specimen obtained by clean catch procedure / Unknown 03/16/2025 3:07 PM EDT 03/16/2025 4:00 PM EDT us Mayelin CHANEY LAB URINE ORDERABLES Fin al Result [facility] [address] [place] [address], [place] [phone] from Last 3 Months Insurance [facility] Care Teams [employer] Supervisor Relationship Specialty Start Date End Date Physician, No Pcp PCP - General 03/16/25
--- OUTSIDE RECORDS SUMMARY | 2025-06-08 10:22 | XMS_ITS | Encounter Summary ---
Author Organization [facility] Address [address] [place] [address] Care Team Providers Care Sap Basis Consultant Name Role Phone Pcp, No Primary Care Provider Unavailabl e Encounter Details Date Type Department Care Team ([facility] st Contact Info) Description 03/02/2023 [facility] MEDICINE SVC IP [address] [place] [address] Bozena Sotomayor MD [address] [address] Social History Tobacco Use Types Packs/Day Years [...] as of this encounter Functional Status * AUDIT-C Score Answer Date of Assessment Author 0 03/02/2023 9:50 PM EDT Henny Zaragoza RN * Question Answer Date of Assessment Author AUDIT-C Total Score - Male 0 03/02/2023 9:50 PM EDT Henny Zaragoza, ALEXSANDRA Q1: How often do you have a drink containing alcohol? Never 03/02/2023 9:50 PM EDT Henny Zaragoza RN Q2: How many drinks containing alcohol do you have on a typical day when you are drinking? Patient does not drink 03/02/2023 9:50 PM EDT Henny Zaragoza RN Q3: How often do you have six or more drinks on one occasion? Never 03/02/2023 9:50 PM EDT Henny Zaragoza RN documented as of this encounter Plan of Treatment Not on file documented as of this encounter Visit Diagnoses Not on filedocumented in this encounter Care Teams Sap Basis Consultant Relationship Specialty Start Date End Date Pcp, No [address] [place] [address] PCP - General 07/12/18 documented as of this encounter
--- OUTSIDE RECORDS SUMMARY | 2025-06-08 10:22 | XMS_ITS | Clinical Summary ---
Author Organization [facility] Address [address] [place] [address] Care Team Providers Care Forensic Computer Examiner Name Role Phone Stefan Lewis MD Primary [...] Substance abuse 09/05/2014 Overview (09/20/2023): Impression - [id number]: Currently under treatment at [facility] for Suboxone but does not want to use this group home. Long discussion with patient about not looking too far ahead and taking things day by day at this point and under no circumstances is he to wean himself off his meds. Next step for him would certainly be 90 day inpatient program. 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 Long discussion with patient about not looking [...] 05/31/2014 Anxiety 05/31/2014 Overview (09/20/2023): Impression - [id number]: Since his last visit about three weeks [...] Additional history exists COVID-19 Vaccine ( season) 2025 Influenza (#1) 2025 2012, 09/17, 05/10/2009, Additional [...] age to complete this topic Care Teams Forensic Computer Examiner Relationship Specialty Start Date End Date Stefan Lewis MD PCP - General 03/23/23 Stefan Lewis MD PCP - Backup PCP Pediatrics 09/17/23
--- OUTSIDE RECORDS SUMMARY | 2025-06-08 10:23 | XMS_ITS | Clinical Summary ---
Author Organization [facility] Address [address] [place] [address] Care Team Providers Care Practice Architect Name Role Phone Nayely Knutson REFINERY PIPELINE OPERATOR Unavailable [phone] Allergies No known active allergies Medications * This document contains information received from the source organization and may not represent a complete record from that organization. methadone (Dolophine) 5 MG/5ML solution Take 150 mg by mouth 1 (one) time. Active amphetamine-dext roamphetamine XR (Adderall XR) 30 MG 24 hr capsuleIndicatio ns:Attention deficit hyperactivity disorder (ADHD), combined type Take 1 capsule (30 mg) by mouth in the morning. Do not crush or chew. 30 capsule 06/02/20 25 2024 Active ARIPiprazole (Abilify) 10 MG tabletIndication s:Recurrent major depressive disorder, in partial remission (CMS/HCC) Take 1 tablet (10 mg) by mouth Once per day. 30 tablet 3 06/02/20 25 Active clonazePAM (KlonoPIN) 0.5 MG tabletIndication s:Panic disorder with agoraphobia Take 1 tablet (0.5 mg) by mouth if needed in the morning and at bedtime for anxiety. 60 tablet 06/02/20 25 2024 Active sertraline (Zoloft) 100 MG tabletIndication s:Recurrent major depressive disorder, in partial remission (CMS/HCC),Panic disorder with agoraphobia,Othe r obsessive-compul sive disorders,Anxiet y,PTSD (post-traumatic stress disorder),Social anxiety disorder Take 1 tablet (100 mg) by mouth Once per day. Take it with the 25 MG= 125 MG/daily 90 tablet 06/02/20 25 Active sertraline (Zoloft) 25 MG tabletIndication s:Recurrent major depressive disorder, in partial remission (CMS/HCC),Social anxiety disorder Take 1 tablet (25 mg) by mouth Once per day. Take wit with the Sertraline 100 MG= 125 MG/daily 90 tablet 3 06/02/20 25 Active clonazePAM (KlonoPIN) 0.5 MG tabletIndication s:Panic disorder with agoraphobia Take 1 tablet (0.5 mg) by mouth if needed in the morning and at bedtime for anxiety. 60 tablet 03/31/20 25 2024 Discontinued(R eorder (will not trigger notification to Pharmacy)) sertraline (Zoloft) 25 MG tabletIndication s:Recurrent major depressive disorder, in partial remission (CMS/HCC),Social anxiety disorder Take 1 tablet (25 mg) by mouth Once per day. Take wit with the Sertraline 100 MG= 125 MG/daily 30 tablet 3 03/31/20 25 2024 Discontinued(R eorder (will not trigger notification to Pharmacy)) ARIPiprazole (Abilify) 10 MG tabletIndication s:Recurrent major depressive disorder, in partial remission (CMS/HCC) Take 1 tablet (10 mg) by mouth Once per day. 30 tablet 3 03/31/20 25 2024 Discontinued(R eorder (will not trigger notification to Pharmacy)) amphetamine-dext roamphetamine XR (Adderall XR) 30 MG 24 hr capsuleIndicatio ns:Attention deficit hyperactivity disorder (ADHD), combined type Take 1 capsule (30 mg) by mouth in the morning. Do not crush or chew. 30 capsule 05/01/20 25 2024 Discontinued(R eorder (will not trigger notification to Pharmacy)) sertraline (Zoloft) 100 MG tabletIndication s:Panic disorder with agoraphobia,Recu rrent major depressive disorder, in partial remission (CMS/HCC),Other obsessive-compul sive disorders,Anxiet y,PTSD (post-traumatic stress disorder),Social anxiety disorder Take 1 tablet (100 mg) by mouth Once per day. 30 tablet 3 05/01/20 25 2024 Discontinued sertraline (Zoloft) 100 MG tabletIndication s:Panic disorder with agoraphobia,Recu rrent major depressive disorder, in partial remission (CMS/HCC),Other obsessive-compul sive disorders,Anxiet y,PTSD (post-traumatic stress disorder),Social anxiety disorder TAKE 1 TABLET BY MOUTH ONCE PER DAY. 90 tablet 05/30/20 25 2024 Discontinued(R eorder (will not trigger notification to Pharmacy)) Active Problems Problem Noted Date Diagnosed Date Grief 03/03/2025 Anxiety 01/19/2025 Panic disorder with agoraphobia 01/19/2025 Obsessive compulsive disorder 01/19/2025 Recurrent major depressive disorder, severe 12/2024 Attention deficit hyperactiv ity disorder (ADHD), combined type 01/19/2025 Opioid dependence on agonist therapy (CMS/HCC) 0 01/19/2025 PTSD (post-traumatic stress disorder) 01/19/2025 Cigarette nicotine dependence without complicati on 01/19/2025 Social anxiety disorder 01/19/2025 Insomnia 01/19/2025 Family History Medical History Relation Name Comments Alcohol abuse Father Anxiety disorder Mother Depression Mother Anxiety disorder Sister Depression Sister Relation Name Status Comments Father Alive Mother Alive Sister Alive Social History Tobacco Use Types Packs/Day Years Used Date Smoking Tobacco: Former Cigarettes Smokeless Tobacco: Never Tobacco Cessation:Counseling Given: No Alcohol Use Standard Drinks/Week Comments Not Currently 0 (1 standard drink = 0.6 oz pure alcohol) pt reports history of social drinker in high school Depression Answer Date Recorded Patient Health Questionnaire-9 Score 4 01/10/2025 Patient Health Questionnaire-9 Score 4 01/10/2025 Last PHQ-9: Questionnaire Data Not on file 0 01/10/2025 Housing Stability Answer Date Recorded What is your housing situation today? I have ana hernández 01/19/[address] you li ve. Do you have problems with any of the following? I am not sure 01/19/2025 Food Insecurity Answer Date Recorded Within the past 12 months, y ou worried that your food would run out before you got money to buy more: Sometimes True 2024 Within the past 12 months,th e food you bought just didn't last and you didn't have enough money to get more: Sometimes True 01/19/2025 Utilities Answer Date Recorded In the past 12 months, has t he electric, gas, oil or water [employer] threatened to shut off services in your home? No 01/19/2025 Depression Answer Date Recorded Patient Health Questionnaire-2 Score 2 01/10/2025 Internet Access Answer Date Recorded Internet Access Q1 Yes 01/19/2025 Internet Access Q2 Not on file 01/19/2025 Education Answer Date Recorded What is the highest level of school you have completed or the highest degree you have received? High school graduate 01/19/2025 Sex and Gender Information Value Date Recorded Sex Assigned at Male 01/02/2025 9:24 AM EDT Legal Sex Male 9:22 AM EDT Gender Identity Male 01/02/2025 9:24 AM EDT Sexual Orientation Straight 01/02/2025 9: 24 AM EDT Last Filed Vital Signs Vital Sign Reading Time Taken Comments Blood Pressure 132/78 01/19/2025 10:50 AM EDT Pulse 102 01/19/2025 10:50 AM EDT Temperature 36.7 C (98 F) 01/19/2025 10:50 AM EDT Respiratory Rate - - Oxygen Saturation - - Inhaled Oxygen Concentration - - Weight 97.5 kg (215 lb) 01/19/2025 10:50 AM EDT Height - - Body Mass Index - - Plan of Treatment Health Maintenance Due Date Last Done Comments HIV Screening 1996 SDOH Screening 1996 Family Planning (PISQ) 2011 HPV Vaccines (1 - Male 3-dos e series) 2011 Hepatitis C Screening 2014 DTaP/Tdap/Td Vaccines (1 - Tdap) 2015 Hepatitis A Vaccines (1 of 2 - Risk 2-dose series) 2015 Hepatitis B Vaccines (1 of 3 - 19+ 3-dose series) 2015 COVID-19 Vaccine (1 - 2023-2 5 season) 2025 Influenza Vaccine (#1) 2025 Depression Screening 01/10/2026 01/10/2025, 01/10/2025 Alcohol/Substance Use Screening 01/19/2026 01/19/2025 Disability Screening 01/19/2026 01/19/2025 Tobacco Screening 06/02/2026 06/02/2025 Zoster Vaccines (1 of 2) 2046 RSV Patients and Patients Aged 60 years or older (1 - 1-dose 75+ series) 2071 HIB Vaccines Aged Out No longer eligi ble based on patient's age to complete this topic IPV Vaccines Aged Out No longer eligi ble based on patient's age to complete this topic Meningococcal B Vaccine Aged Out No l onger eligible based on patient's age to complete this topic Meningococcal Vaccine Aged Out No helene lisa eligible based on patient's age to complete this topic Pneumococcal Vaccine: Pediatrics (0 to 5 Years) and At-Risk Patients (6 to 49) Years Aged Out No longer eligible b ased on patient's age to complete this topic RSV under 20 months Aged Out No longe r eligible based on patient's age to complete this topic Rotavirus Vaccines Aged Out No longer eligible based on patient's age to complete this [place] [address] [place] [address] [place] [id number] Care Teams Practice Architect Relationship Specialty Start Date End Date Nayely Knutson LICSW [address] [place] [id number] Vocational Nurse Behavioral Health 01/10/25
--- OUTSIDE RECORDS SUMMARY | 2025-06-08 10:23 | XMS_ITS | Clinical Summary ---
Author Organization [facility] Address [address] [place] [address] Care Team Providers Care Rn Labor And Delivery Name Role Phone Pcp, No Primary Care Provider Unavailabl e Allergies No known active allergies Medications * This document contains information received from the source organization and may not represent a complete record from that organization. methadone (DOLOPHINE) 10 MG tablet Take 6 tablets by mouth daily, Active clonazePAM (KlonoPIN) 0.5 MG tabletIndication s:Severe episode of recurrent major depressive disorder, without psychotic features (HCC) Take 1 tablet (0.5 mg total) by mouth daily as needed for anxiety. 30 tablet 03/10/2023 Active hydrOXYzine HCl (ATARAX) 50 MG tabletIndication s:Drug overdose, intentional self-harm, initial encounter (HCC) Take 1 tablet (50 mg total) by mouth 4 times daily (every 6 hours) as needed for anxiety. 30 tablet 03/10/2023 Active sertraline (ZOLOFT) 50 MG tabletIndication s:Severe episode of recurrent major depressive disorder, without psychotic features (HCC) Take 3 tablets (150 mg total) by mouth daily. Do not start before March 11, 2023. 90 tablet 03/11/2023 Active melatonin 3 MG Tab tabletIndication s:Severe episode of recurrent major depressive disorder, without psychotic features (HCC) Take 2 tablets (6 mg total) by mouth nightly as needed (sleep). 30 tablet 03/10/2023 Active Active Problems Problem Noted Date Diagnosed Date Cocaine abuse 03/02/2023 03/02/2023 Opioid dependence with physiological dependence 03/02/2023 03/02/2023 Opioid dependence on agonist therapy 03/02/2023 Major depressive disorder 03/02/2023 Depression 03/02/2023 Drug overdose, intentional self-harm, initial en counter 02/27/2023 Overdose 04/06/2020 CLARISSA (generalized anxiety disorder) 12/28/2019 03/02/2023 Social History Tobacco Use Types Packs/Day Years Used Date Smoking Tobacco: Every Day Cigarettes Smokeless Tobacco: Never Tobacco Cessation:Ready to Q uit: Not Asked; Counseling Given: Not Answered Comments:1 PPD Alcohol Use Standard Drinks/Week Comments [...] Orientation Heterosexual (straight) 09/24 10:41 AM EST Last Filed Vital Signs Vital Sign Reading Time Taken Comments Blood Pressure 139/84 03/11/2023 7:45 AM EDT Pulse 90 03/11/2023 7:45 AM EDT Temperature 35.9 C (96.6 F) 03/11/2023 7:44 AM EDT Respiratory Rate 18 03/11/2023 7:44 AM EDT Oxygen Saturation 100% 03/02/2023 2:21 PM EDT Inhaled Oxygen Concentration - - Weight 93.4 kg (206 lb) 03/02/2023 10:08 PM EDT Height 175.3 cm (5' 9 ) 03/02/2023 10:08 PM EDT Body Mass Index 30.42 03/02/2023 10:08 PM EDT Plan of Treatment Health Maintenance Due Date Last Done Comments Hepatitis C Virus Screening 1996 HIV Screening 2009 DTaP/Tdap/Td Vaccines (1 - Tdap) 2015 Hepatitis B Vaccines (1 of 3 - 19+ 3-dose series) 2015 Pneumococcal Vaccine: Pediat kimberli (0-5 Years) and At-Risk Patients (6 to 49 Years) (1 of 2 - PCV) 2015 Influenza Vaccine 03/17/2025 COVID-19 Vaccine (1 - 2023-2 5 season) 2025 Chronic Controlled Substance User PDMP Review Discontinued 03/02/2023, 02/26/2023, 09/24/2021 HPV Vaccines (No Doses Required) Completed Insurance [facility] Advance Directives * Full Code (Latest Code Status on File) Date Activated Date Inactivated Comments 03/02/2023 7:54 PM Question Answer Comments Decision Thoroughly Discussed with: Patient * Full Code Date Activated Date Inactivated Comments 02/27/2023 12:11 AM 03/02/2023 7:31 PM * Full Code Date Activated Date Inactivated Comments 04/06/2020 1:36 PM 09/22/2021 4:53 PM Healthcare Agents on File Name Relationship Healthcare Agent Relationshi p Communication Karly Vega Mother 4. Next of Kin ( Spouse, Adult Child, Parent, Adult Sibling, Grandparent) Care Teams Rn Labor And Delivery Relationship Specialty Start Date End Date Pcp, [address] [place] [address] PCP - General 07/12/18
--- OUTSIDE RECORDS SUMMARY | 2025-06-08 10:23 | XMS_ITS | Clinical Summary ---
Author Organization [facility] 's Address [address] [place] [address] Care Team Providers Care [employer] Pe Teacher Name Role Phone Stefan Lewis MD Primary Care Provider [phone] Source Comments Please note that some or all of the patient's information could have additional privacy protections. State laws allow health care providers to render certain types of treatment to minors without parental consent. Please do not assume that this information can be shared solely by obtaining just the consent of the patient's parent/guardian. Please determine if all or part of the patient's care was rendered without parent/guardian involvement. And, if so, obtain the minor's consent prior to disclosure.[facility]'s Allergies No known active allergies Medications No known medications Active Problems No known active problems Social History Tobacco Use Types Packs/Day Years Used Date Smoking Tobacco: Never Assessed Sex and Gender Information Value Date Recorded Sex Assigned at Not on file Legal Sex Male 2:17 AM EST Gender Identity Not on file Sexual Orientation Not on file Last Filed Vital Signs Vital Sign Reading Time Taken Comments Blood Pressure 130/82 03/21/2014 11:32 AM EDT Pulse 78 03/21/2014 11:32 AM EDT Temperature 35.9 C (96.6 F) 03/21/2014 11:32 AM EDT Respiratory Rate 16 03/21/2014 11:32 AM EDT Oxygen Saturation 98% 03/21/2014 11:32 AM EDT Inhaled Oxygen Concentration - - Weight 88.2 kg (194 lb 7.1 oz) 03/20/2014 12:04 AM EDT Height - - Body Mass Index - - Plan of Treatment Not on file Insurance [employer] Care Teams [employer] Pe Teacher Relationship Specialty Start Date End Date Stefan Lewis MD PCP - General 03/20/14
--- OUTSIDE RECORDS SUMMARY | 2025-06-08 10:23 | XMS_ITS | Clinical Summary ---
Author Organization [facility] Address [address] [place] [address] Care Team Providers Care Property Analyst Name Role Phone Unavailable Primary Care Provider [...]
--- NOTE | 2025-06-08 14:57 | PC.NURSE ---
pt continues to sleep intermittently throughout the day, respirations even and unlabored, calm and cooperative
[2025-06-08 18:27] VITALS: BP 113/68; PULSE 84; TEMP 36.4; O2SAT 98
[2025-06-08 18:52] VITALS: BMI 38.4
[2025-06-08 20:00] VITALS: BP 108/53; PULSE 68; RESP 18; TEMP 36.1; O2SAT 96
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
--- NOTE | 2025-06-09 08:13 | PC.NURSE ---
Pt declined Flu vaccine
--- NOTE | 2025-06-09 08:18 | HO.PM.IMCN ---
History of Present Illness Data of Consult Service Date: 06/09/25 Primary Care Provider: None Physician HPI Reason for consult: Medical consult 29-year-old male with a past medical history of major depressive disorder, PTSD, opioid use disorder, bipolar disorder, cocaine abuse presented to the ED with increased depression and suicide ideation. He attempted to intentionally overdose on opiates yesterday but was given Narcan by a family member. Lab work reveals elevated transaminases with out elevation of bilirubin, urinalysis without evidence of infection. U tox positive for buprenorphine, methadone, fentanyl, amphetamines, benzos and cocaine. CBC demonstrates no leukocytosis or anemia. Elevation in AST and ALT, no other electrolyte imbalances or evidence of renal injury. On exam he has no medical concerns. Exam is benign Review of Systems Review of Systems: Denies any shortness of breath, chest pain, headaches, dysuria, abdominal pain or discomfort, nausea, vomiting or diarrhea. Denies fever or chills. PMFSH Medical History Suicidal ideation Bipolar disorder Opiate use Active substance abuse Depression Social History Household Members: Other Housing: Homeless Do you presently have visiting nurse or other home services: No Alcohol intake: current Alcohol intake frequency: does not drink Patient Tobacco Use Status: Never used Tobacco Tobacco use type: Cigarette Cigarette Packs Per Day: 1 Cigarettes Per Day: 10 Years Smoked: 10 Smoked in Last 30 Days: No e-Cigarette/Vaping Use: Never Used Second Hand Smoke Exposure: No Use of substances other than those prescribed or required for medical reasons: Yes Substance Use Type: Heroin, IV Drugs and Opiates Substance Use Frequency: Chronic Longstanding Last Used Substance: Hours (ago) Any prior treatment program specific to substance use: No Advance Directives: No Advance Directives Information Provided: No Do you have a plan to hurt others: No Plan Recently lost weight without trying: No How much weight loss: Not applicable Eating poorly because of decreased appetite: No Nutrition screen score: 0 Nutrition Risks: No Nutritional Risk service: No Sexual orientation: Straight/Heterosexual Meds Allergies Allergy/AdvReac Type Severity Reaction Status Date / Time No Known Allergies Allergy Verified 06/08/25 07:44 Active Medications: Current Medications Acetaminophen (Acetaminophen 325 Mg Tablet) 650 mg PO Q6H PRN PRN Reason: Headache/Pain, Scale 1-10 Al Hydroxide/Mg Hydroxide (Magnesium Hydrox/Alum Hydrox 30 Ml Oral.Susp) 30 ml PO Q6H PRN PRN Reason: Heartburn/Nausea Amphetamine/Dextroamphetamine (Dextroamphetamine/Amphetamine Xr 10 Mg Cap.Er.24h) 30 mg PO DAILY [facility] Last Admin: 06/08/25 09:27 Dose: 30 mg Aripiprazole (Aripiprazole 10 Mg Tablet) 10 mg PO DAILY [facility] Last Admin: 06/08/25 09:27 Dose: 10 mg Clonazepam (Clonazepam 0.5 Mg Tablet) 0.5 mg PO BID [facility] Last Admin: 06/08/25 20:37 Dose: 0.5 mg Clonidine HCl (Clonidine Hcl 0.1 Mg Tablet) 0.1 mg PO DAILY PRN; Protocol PRN Reason: Anxiety Gabapentin (Gabapentin 600 Mg Tablet) 600 mg PO TID [facility] Last Admin: 06/08/25 20:37 Dose: 600 mg Hydroxyzine HCl (Hydroxyzine Hcl 50 Mg Tablet) 50 mg PO BID PRN PRN Reason: Anxiety Hydroxyzine HCl (Hydroxyzine Hcl 25 Mg Tablet) 25 mg PO Q6H PRN PRN Reason: mild anxiety Influenza Virus Vaccine (Flu Vacc [id number](6mo Up)/Pf 0.5 Ml Syringe) 0.5 ml IM .ONCE ONE Stop: 06/09/25 09:01 Last Admin: 06/09/25 08:12 Dose: Not Given Magnesium Hydroxide (Milk Of Magnesia 30 Ml Oral.Susp) 30 ml PO DAILY PRN PRN Reason: Constipation Methadone HCl (Methadone Hcl 20 Mg/2 Ml Oral.Conc) 150 mg PO DAILY [facility] Last Admin: 06/08/25 09:23 Dose: 150 mg Nicotine Polacrilex (Nicotine Polacrilex 2 Mg Gum) 4 mg BUCCAL Q2H PRN PRN Reason: Nicotine Cravings Sertraline HCl (Sertraline Hcl 100 Mg Tablet) 100 mg PO DAILY [facility] Last Admin: 06/08/25 09:27 Dose: 100 mg Trazodone HCl (Trazodone Hcl 50 Mg Tablet) 50 mg PO BEDTIME MRX1 PRN PRN Reason: Insomnia Home Medications ?Medication ?Instructions ?Recorded ?Confirmed ?Last Taken ?Type clonazepam 0.5 mg tablet 0.5 mg PO BID Anxiety 02/12/25 06/08/2506/06/25 History methadone 10 mg/mL oral 150 mg PO DAILY 03/15/25 06/08/25 06/06/25 08:56 History concentrate (Methadone Intensol) aripiprazole 10 mg tablet 10 mg PO DAILY 04/02/25 06/08/25 06/06/25 History dextroamphetamine-amphetamine ER 30 mg PO DAILY 04/02/25 06/08/25 06/06/25 History 30 mg 24hr capsule,extend release (Adderall XR) sertraline 100 mg tablet 100 mg PO DAILY 04/02/25 06/08/25 06/06/25 History clonidine HCl 0.1 mg tablet 0.1 mg PO DAILY PRN Anxiety 06/08/25 06/08/25 06/06/25 History gabapentin 600 mg tablet 600 mg PO TID 06/08/25 06/08/25 06/06/25 History hydroxyzine pamoate 50 mg capsule 50 mg PO BID PRN Anxiety 06/08/25 06/08/25 06/06/25 History Physical Exam Vital Signs and Narrative: Vital Signs: Last Vital Signs Temp 97.0 F 06/08/25 20:00 Pulse 68 06/08/25 20:00 Resp 18 06/08/25 20:00 BP 108/53 L 06/08/25 20:00 Pulse Ox 96 06/08/25 20:00 O2 Del Method Room Air 06/08/25 20:00 BMI result Body Mass Index 38.4 Alert and oriented X3, clam and cooperative. Answers questions. Neuro: CN II-X11 intact, no deficits, visual acuity intact. Moves all extremities EYES: PERRLA, EOM intact ENT: Hearing intact, MMM Cardiac: S1 S2 RRR, No ectopy Pulmonary: lungs clear to auscultation, No increased WOB. Abdominal: BS active in all 4 quadrants, no guarding or tenderness MSK: Strength 5/5 upper and lower extremities : Deferred Extremities: No edema in lower extremities Psych: Mood stable, Quiet and cooperative. Skin: Warm and dry, Intact Results Labs 06/08/25 08:12 06/08/25 08:12 Labs: Laboratory Results - last 24 hr 06/08/25 06/08/25 08:12 09:08 MCV 88.6 MCH 30.0 MCHC 33.9 RDW 12.6 Plt Count 208 MPV 9.4 Immature Gran % (Auto) 0.5 H Neut % (Auto) 60.9 Lymph % (Auto) 21.9 [place] % (Auto) 13.0 H Eos % (Auto) 3.0 Baso % (Auto) 0.7 Lymph # (Auto) 1.3 [place] # (Auto) 0.7 Eos # (Auto) 0.2 Baso # (Auto) 0.0 Abs Immat Gran (auto) 0.03 Absolute Neuts (auto) 3.5 Absolute Nucleated RBC 0.000 Nucleated RBC % (auto) 0.0 Anion Gap 12 Estim Creat Clear Calc 200.2 Estimated GFR > 60 Random Glucose 97 Calcium 9.0 Total Bilirubin 1.0 AST 144 H ALT 226 H Alkaline Phosphatase 85 Total Protein 7.8 Albumin 4.5 Urine Color Yellow Urine Appearance Clear Urine pH 5.5 Ur Specific [place] 1.025 Urine Protein Negative Urine Glucose (UA) Negative Urine Ketones 40 Urine Blood Negative Urine Nitrite Negative Ur Leukocyte Esterase Negative Urine Opiates Screen Not Detected Ur Buprenorphine Scrn Positive H Ur Oxycodone Screen Not Detected Urine Methadone Screen Positive H Urine Fentanyl Screen POSITIVE H Ur Barbiturates Screen Not Detected Ur Phencyclidine Scrn Not Detected Ur Amphetamines Screen POSITIVE H U Benzodiazepines Scrn POSITIVE H Urine Cocaine Screen POSITIVE H U Marijuana (THC) Screen Not Detected Ethyl Alcohol < 10 Assessment and Plan (1) MDD (major depressive disorder), recurrent episode: Status: Acute Plan 29-year-old male with past medical history as listed below presented to the ED with increased depression and suicidal ideation. Now admitted here for further care Major depressive disorder/PTSD/opioid use disorder/bipolar disorder/cocaine abuse Treatment per psychiatric team Thank you for allowing me to participate in the care of this patient. Will follow with you, please notify medical provider with any changes in condition or concerns.
[2025-06-09] MEDS: methADONE HCl 20 MG/2 ML ORAL.CONC 150 MG PO (08:39)
[2025-06-09] MEDS: Dextroamphetamine/Amphetamine XR 10 MG CAP.ER.24H 30 MG PO (08:40)
--- NOTE | 2025-06-09 12:16 | MHC.RECOVRN ---
TW met with pt to offer support and resources for KATYA after a consult was placed to Addiction Medicine.? On approach pt was laying in bed and agreed to meet with TW. He was pleasant, calm, and engaged during interaction, however reports increased depression related to recent relapse on crack cocaine. Pt reports he was recently on a? Sec35 for 2 months and upon discharge [facility]. Pt states several days after arriving at the sober [place]? he purchased crack cocaine. He states he held on to it for approximately two weeks before deciding to return to use. Pt could not identify any precipitating factors for his purchasing or using crack cocaine after 10 weeks of abstinence. Pt reports numerous ATS, CSS, SEC35, and psychiatric admissions since the age of 15. He also reports ?at least 10 overdoses?, all requiring the use of Narcan, 4 of which he states were intentional. Pt is currently prescribed 150mg of Methadone at [facility] and feels as though his dose is ?fine the way it is?. Pt states he only used crack cocaine and was unsure why he tested positive for Buprenorphine and fentanyl. Pt educated on the current drug supply and cutting agents used as well has clearance time of Sublicade from the body.? Discussed and provided pt with written resources including information on inpatient and outpatient treatment, harm reduction, recovery coaching and pathways to recovery. Pt reports he is aware of the resources available and is currently waiting ?for them to find me a place to go?.? Pt was provided with TW?s contact information and is available as needed for ongoing support.??
--- NOTE | 2025-06-09 14:31 | P.EN_ITS ---
Event Note Date of Service: 06/09/25 Event Note: Addiction consult placed for patient with KATYA Seen by internist medical doctor md. Please see note for additional details Engaged in treatment for OUD. no concern for withdrawal No follow up indicated at this time. Time Spent With Patient Time: Total time managing care of this patient today ____ minutes.
--- NOTE | 2025-06-09 16:10 | HO.PSYADMNOT ---
HPI Date of Service: 06/09/25 Chief Complaint: s/p suicide ideation attempt by opioid o/d Sources of Information: patient interviewed, chart reviewed and crisis/core team assessment reviewed HPI Subjective Notes: Conditional Voluntary Narrative: Mr. Vega is a 29 yo SWM with h/o MDD, anxiety, PTSD, ADHD, cocaine use d/o and opioid use d/o who self-presented to the [facility] ED following a suicide attempt by overdosing on opiates. He received Narcan. U tox in ED positive for buprenorphine, methadone, fentanyl, (benzos -has rx for clonazepam), amphetamines (has rx for Adderall) and cocaine. BAL neg. He was transferred to for safety and stabilization after being medically cleared. Pt was most recently admitted to [facility] from 02/13-02/22/25 after a suicide attempt by o/d on fentanyl. SI subsided by 02/16 per my chart review, he signed a 3 day and was d/c'd when the 3 day . His sertraline was titrated to 150 mg qd, he was continued on his home dose of clonazepam and his request to titrate the dose were declined. Pt reports that he lived in a sober house since he was d/c'd and abstained from substance use, though he remained depressed. His depression progressively worsened in the past 2 wks, associated with SI without a plan, anhedonia feelings of hopelessness/helplessness. He bought 3 bags of heroin & a needle and crack when he felt more suicidal, smoked the crack & injected the heroin in a location where he thought nobody would find him but somebody narcan'd. He reports that the o/d was a dumb thing for me to do . He reports that he had an epiphany and decided to seek help. He currently endorses pdw, without any plan. Psychiatric ROS: Denies AH/VH, paranoia Denies sx suggestive of sera Denies violent ideation Pt reports that he has been taking his psychotropic meds as rx'd since he was d/c'd from , which include: Adderall ER 30 mg qam- helps w/ ADHD sx Abilify 10 mg qd- helps overall w/ depression/anxiety Clonazepam 0.5 mg bid- pt reports that he was previously on 1 mg tid, then tapered to .5 mg bid. He asks if he can titrate to 1 mg bid since the lower dose isn't helping as much Sertraline 100 mg qd-- He's taken it off-and-on, unclear how much it's helped clonidine 0.1 mg qd qd prn for anxiety hydroxyzine 50 mg bid prn for anxiety trazodone 50-100 mg qhs prn for insomnia He takes methadone 150 mg qam -last dose confirmed. Past Psychiatric History: hx of multiple inpatient psychiatric hospitalizations. Most recently at [facility] M3 from 02/13-02/22/25 for depression/SI following intentional fentanyl o/d hx of detox and CSS. Psychiatrist: Henny Montalvo ([facility]. [place]) Therapist: does not have one. Prior Med Trials: Prozac, Celexa, Lexapro Medical Evaluation Reviewed: Yes [facility] Medical History Suicidal ideation Bipolar disorder Opiate use Active substance abuse Depression Family History: mother-depression sister-depression Social History: Homeless, single, no children, unemployed, high school graduate. Substance History: h/o opioid use since age 16 multiple overdoses, inpt and detox admissions 2/2 opioid o/d On methadone- rx'd at [facility] Trauma History: yes Diagnostics Vital Signs (24Hr): Vital Signs - 24 hr 06/09/25 20:00 Respiratory Rate 18 BMI result Body Mass Index 38.4 Labs 06/08/25 08:12 06/08/25 08:12 Labs: Laboratory Results - last 48 hr 06/08/25 06/08/25 08:12 09:08 WBC 5.7 RBC 4.63 Hgb 13.9 L Hct 41.0 L MCV 88.6 MCH 30.0 MCHC 33.9 RDW 12.6 Plt Count 208 MPV 9.4 Immature Gran % (Auto) 0.5 H Neut % (Auto) 60.9 Lymph % (Auto) 21.9 [place] % (Auto) 13.0 H Eos % (Auto) 3.0 Baso % (Auto) 0.7 Lymph # (Auto) 1.3 [place] # (Auto) 0.7 Eos # (Auto) 0.2 Baso # (Auto) 0.0 Abs Immat Gran (auto) 0.03 Absolute Neuts (auto) 3.5 Absolute Nucleated RBC 0.000 Nucleated RBC % (auto) 0.0 Sodium 139 Potassium 4.1 Chloride 103 Carbon Dioxide 28 Anion Gap 12 BUN 16 Creatinine 0.66 Estim Creat Clear Calc 200.2 Estimated GFR > 60 Random Glucose 97 Calcium 9.0 Total Bilirubin 1.0 AST 144 H ALT 226 H Alkaline Phosphatase 85 Total Protein 7.8 Albumin 4.5 Urine Color Yellow Urine Appearance Clear Urine pH 5.5 Ur Specific [place] 1.025 Urine Protein Negative Urine Glucose (UA) Negative Urine Ketones 40 Urine Blood Negative Urine Nitrite Negative Ur Leukocyte Esterase Negative Urine Opiates Screen Not Detected Ur Buprenorphine Scrn Positive H Ur Oxycodone Screen Not Detected Urine Methadone Screen Positive H Urine Fentanyl Screen POSITIVE H Ur Barbiturates Screen Not Detected Ur Phencyclidine Scrn Not Detected Ur Amphetamines Screen POSITIVE H U Benzodiazepines Scrn POSITIVE H Urine Cocaine Screen POSITIVE H U Marijuana (THC) Screen Not Detected Ethyl Alcohol < 10 Meds/Allergies Meds Home Medications ?Medication ?Instructions ?Recorded ?Confirmed ?Type clonazepam 0.5 mg tablet 0.5 mg PO BID Anxiety 02/12/25 06/08/25 History methadone 10 mg/mL oral 150 mg PO DAILY 03/15/25 06/08/25 History concentrate (Methadone Intensol) aripiprazole 10 mg tablet 10 mg PO DAILY 04/02/25 06/08/25 History dextroamphetamine-amphetamine ER 30 mg PO DAILY 04/02/25 06/08/25 History 30 mg 24hr capsule,extend release (Adderall XR) sertraline 100 mg tablet 100 mg PO DAILY 04/02/25 06/08/25 History clonidine HCl 0.1 mg tablet 0.1 mg PO DAILY PRN Anxiety 06/08/25 06/08/25 History gabapentin 600 mg tablet 600 mg PO TID 06/08/25 06/08/25 History hydroxyzine pamoate 50 mg capsule 50 mg PO BID PRN Anxiety 06/08/25 06/08/25 History Allergies Allergies Allergy/AdvReac Type Severity Reaction Status Date / Time No Known Allergies Allergy Verified 06/08/25 07:44 Mental Status Exam Mental Status Exam Narrative: Appearance: Casually dressed. Grooming/hygiene wnl. Good eye contact Attitude:Cooperative Speech: Fluent and wnl in regard to volume, tone, prosody Motor activity: Calm and without any tics, tremors or dyskinesias. Steady gait Mood: depressed, anxious Affect: appropriate, constricted Thought process: goal directed and without evidence of formal thought disorder Thought content: pdw. no active SI. denies violent ideation Perception: Denies AH/VH and does not appear to respond to internal stimuli Alert/oriented in all spheres Cognition grossly intact Insight: intact Judgment: fair Assessment & Plan Assessment & Plan (1) MDD (major depressive disorder), recurrent episode: Status: Acute Code(s): F33.9 - Major depressive disorder, recurrent, unspecified (2) Opioid use disorder: Status: Acute Code(s): F11.90 - Opioid use, unspecified, uncomplicated (3) Cocaine abuse: Status: Acute Code(s): F14.10 - Cocaine abuse, uncomplicated (4) PTSD (post-traumatic stress disorder): Status: Acute Code(s): F43.10 - Post-traumatic stress disorder, unspecified (5) Suicidal ideation: Status: Acute Code(s): R45.851 - Suicidal ideations (6) Opioid use disorder, severe, on maintenance therapy: Status: Acute Code(s): F11.20 - Opioid dependence, uncomplicated Plan Mr. Vega is a 29 yo SWM with h/o MDD, anxiety, PTSD, ADHD, cocaine use d/o and opioid use d/o, multiple inpt psych and detox admissions and overdoses who self-presented to the [facility] ED following a suicide attempt by overdosing on opiates. He received Narcan. U tox in ED positive for buprenorphine, methadone, fentanyl, (benzos -has rx for clonazepam), amphetamines (has rx for Adderall) and cocaine. BAL neg. He was transferred to M3 for safety and stabilization after being medically cleared. Plan: Admitted on M3 for safety and staziliation Legal Status: CV 15 min safety checks VS per unit standard Reviewed labs, EKG & medical admission H&P from hospitalist Will continue on current med regimen. 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 Adderall ER 30 mg qam Abilify 10 mg qd Clonazepam 0.5 mg bid- Sertraline 100 mg qd-- He's taken it off-and-on, unclear how much it's helped clonidine 0.1 mg qd qd prn for anxiety hydroxyzine 50 mg bid prn for anxiety trazodone 50-100 mg qhs prn for insomnia methadone 150 mg qam Patient educated on: diagnosis, medication risk/benefits and substance abuse Informed Consent: understands Reason for continued inpatient stay Substantial Risk for: harm to self and med/psych decompensation Statement Statement: I have reviewed the history and physical and performed a pertinent examination on my patient. No changes have occurred unless specified. If the History and Physical was not performed prior to admission, the Hospitalist's service will be consulted for completing the admission physical. Time Spent With Patient Time: Total time managing care of this patient today ____ minutes.
--- NOTE | 2025-06-09 18:11 | HO.PS.ADMBH ---
HPI Date of Service: 06/09/25 Chief Complaint: s/p suicide ideation attempt by opioid o/d Sources of Information: patient interviewed, chart reviewed and crisis/core team assessment reviewed HPI Narrative: Mr. Vega is a 29 yo SWM with h/o MDD, anxiety, PTSD, ADHD, cocaine use d/o and opioid use d/o who self-presented to the [facility] ED following a suicide attempt by overdosing on opiates. He received Narcan. U tox in ED positive for buprenorphine, methadone, fentanyl, (benzos -has rx for clonazepam), amphetamines (has rx for Adderall) and cocaine. BAL neg. He was transferred to for safety and stabilization after being medically cleared. Pt was most recently admitted to [facility] from 02/13-02/22/25 after a suicide attempt by o/d on fentanyl. SI subsided by 02/16 per my chart review, he signed a 3 day and was d/c'd when the 3 day . His sertraline was titrated to 150 mg qd, he was continued on his home dose of clonazepam and his request to titrate the dose were declined. Pt reports that he lived in a sober house since he was d/c'd and abstained from substance use, though he remained depressed. His depression progressively worsened in the past 2 wks, associated with SI without a plan, anhedonia feelings of hopelessness/helplessness. He bought 3 bags of heroin & a needle and crack when he felt more suicidal, smoked the crack & injected the heroin in a location where he thought nobody would find him but somebody narcan'd. He reports that the o/d was a dumb thing for me to do . He reports that he had an epiphany and decided to seek help. He currently endorses pdw, without any plan. Psychiatric ROS: Denies AH/VH, paranoia Denies sx suggestive of sera Denies violent ideation Pt reports that he has been taking his psychotropic meds as rx'd since he was d/c'd from , which include: Adderall ER 30 mg qam- helps w/ ADHD sx Abilify 10 mg qd- helps overall w/ depression/anxiety Clonazepam 0.5 mg bid- pt reports that he was previously on 1 mg tid, then tapered to .5 mg bid. He asks if he can titrate to 1 mg bid since the lower dose isn't helping as much Sertraline 100 mg qd-- He's taken it off-and-on, unclear how much it's helped clonidine 0.1 mg qd qd prn for anxiety hydroxyzine 50 mg bid prn for anxiety trazodone 50-100 mg qhs prn for insomnia He takes methadone 150 mg qam -last dose confirmed. Past Psychiatric History: hx of multiple inpatient psychiatric hospitalizations. Most recently at [facility] M3 from 02/13-02/22/25 for depression/SI following intentional fentanyl o/d hx of detox and CSS. Psychiatrist: Henny Montalvo ([facility] [place], [place]) Therapist: does not have one. Prior Med Trials: Prozac, Celexa, Lexapro Medical Evaluation Reviewed: Yes [facility] Medical History Suicidal ideation Bipolar disorder Opiate use Active substance abuse Depression Family History: mother-depression sister-depression Social History: Homeless, single, no children, unemployed, high school graduate. Substance History: Reports using 3 bags of heroin + crack cocaine prior to admission. On methadone maintenance at [facility] [place] . U tox was positive for fentanyl, buprenorphine, methadone and cocaine Started using opiates at age 16 Multiple inpt and detox admissions related to opioid and cocaine use. Multiple overdoses on opiates Denies significant h/o ETOH use. Doesn't like it. Smokes up to 1 ppd. Declines NRT since it doesn't help Trauma History: yes Diagnostics Vital Signs (24Hr): Vital Signs - 24 hr 06/08/25 18:27 06/08/25 20:00 Temperature 97.6 F 97.0 F Pulse Rate 84 68 Respiratory Rate 18 Blood Pressure 113/68 108/53 L Pulse Oximetry 98 96 Oxygen Delivery Method Room Air Room Air BMI result Body Mass Index 38.4 Labs 06/08/25 08:12 06/08/25 08:12 Labs: Laboratory Results - last 48 hr 06/08/25 06/08/25 08:12 09:08 WBC 5.7 RBC 4.63 Hgb 13.9 L Hct 41.0 L MCV 88.6 MCH 30.0 MCHC 33.9 RDW 12.6 Plt Count 208 MPV 9.4 Immature Gran % (Auto) 0.5 H Neut % (Auto) 60.9 Lymph % (Auto) 21.9 [place] % (Auto) 13.0 H Eos % (Auto) 3.0 Baso % (Auto) 0.7 Lymph # (Auto) 1.3 [place] # (Auto) 0.7 Eos # (Auto) 0.2 Baso # (Auto) 0.0 Abs Immat Gran (auto) 0.03 Absolute Neuts (auto) 3.5 Absolute Nucleated RBC 0.000 Nucleated RBC % (auto) 0.0 Sodium 139 Potassium 4.1 Chloride 103 Carbon Dioxide 28 Anion Gap 12 BUN 16 Creatinine 0.66 Estim Creat Clear Calc 200.2 Estimated GFR > 60 Random Glucose 97 Calcium 9.0 Total Bilirubin 1.0 AST 144 H ALT 226 H Alkaline Phosphatase 85 Total Protein 7.8 Albumin 4.5 Urine Color Yellow Urine Appearance Clear Urine pH 5.5 Ur Specific [place] 1.025 Urine Protein Negative Urine Glucose (UA) Negative Urine Ketones 40 Urine Blood Negative Urine Nitrite Negative Ur Leukocyte Esterase Negative Urine Opiates Screen Not Detected Ur Buprenorphine Scrn Positive H Ur Oxycodone Screen Not Detected Urine Methadone Screen Positive H Urine Fentanyl Screen POSITIVE H Ur Barbiturates Screen Not Detected Ur Phencyclidine Scrn Not Detected Ur Amphetamines Screen POSITIVE H U Benzodiazepines Scrn POSITIVE H Urine Cocaine Screen POSITIVE H U Marijuana (THC) Screen Not Detected Ethyl Alcohol < 10 EKG EKG: reviewed EKG Comment: 06/08/25 Reason for Exam: rule out prolonged QTC Test Reason : CHECK PRLONG QT Blood Pressure : */* mmHG Vent. Rate : 53 BPM Atrial Rate : 53 BPM P-R Int : 140 ms QRS Dur : 84 ms QT Int : 492 ms P-R-T Axes : 20 64 60 degrees QTcB Int : 461 ms Sinus bradycardia with sinus arrhythmia Otherwise normal ECG When compared with ECG of 02-Apr-2025 15:42, No significant change was found Referred By: Richelle Washburn Electronically Signed By: SHENA HUFF MD Meds/Allergies Meds Home Medications ?Medication ?Instructions ?Recorded ?Confirmed ?Type clonazepam 0.5 mg tablet 0.5 mg PO BID Anxiety 02/12/25 06/08/25 History methadone 10 mg/mL oral 150 mg PO DAILY 03/15/25 06/08/25 History concentrate (Methadone Intensol) aripiprazole 10 mg tablet 10 mg PO DAILY 04/02/25 06/08/25 History dextroamphetamine-amphetamine ER 30 mg PO DAILY 04/02/25 06/08/25 History 30 mg 24hr capsule,extend release (Adderall XR) sertraline 100 mg tablet 100 mg PO DAILY 04/02/25 06/08/25 History clonidine HCl 0.1 mg tablet 0.1 mg PO DAILY PRN Anxiety 06/08/25 06/08/25 History gabapentin 600 mg tablet 600 mg PO TID 06/08/25 06/08/25 History hydroxyzine pamoate 50 mg capsule 50 mg PO BID PRN Anxiety 06/08/25 06/08/25 History Allergies Allergies Allergy/AdvReac Type Severity Reaction Status Date / Time No Known Allergies Allergy Verified 06/08/25 07:44 Mental Status Exam Mental Status Exam Narrative: Appearance: Casually dressed. Grooming/hygiene wnl. Good eye contact Attitude:Cooperative Speech: Fluent and wnl in regard to volume, tone, prosody Motor activity: Calm and without any tics, tremors or dyskinesias. Steady gait Mood: depressed, anxious Affect: appropriate, generally constricted Thought process: goal directed and without evidence of formal thought disorder Thought content: endorses pdw, denies active SI. Denies violent ideation. Anxious ruminations Perception: Denies AH/VH and does not appear to respond to internal stimuli Alert/oriented in all spheres Cognition grossly intact Insight: generally intact Judgment: fair Assessment & Plan Certification I certify that partial hospital treatment is medically necessary due to the symptoms and problems resulting from the patient's mental illness and the failure to treat the patient at the partial hospital level of care would likely result in the patient requiring inpatient psychiatric care which could not be prevented at a less intensive level of care. Time Spent With Patient Time: Total time managing care of this patient today ____ minutes.
[2025-06-09 20:00] VITALS: RESP 18
[2025-06-10] MEDS: methADONE HCl 20 MG/2 ML ORAL.CONC 150 MG PO (08:34)
[2025-06-10] MEDS: Dextroamphetamine/Amphetamine XR 10 MG CAP.ER.24H 30 MG PO (08:35)
--- NOTE | 2025-06-10 15:15 | P.PNPSI_ITS ---
Subjective Subjective Date of Service: 06/10/25 Reason For Visit: s/p suicide ideation attempt by opioid o/d Interim History: Laying in bed. Patient reports feeling anxious and depressed; focused on increasing Klonopin to 2mg daily, encouraged to speak to his psychiatrist on Thursday. He reports suicidal ideation with no plan. denies HI/VH/AH. Encouraged to leave bed. continue tx plan. Medication Compliance: Yes Side effects from medications: No Attending Groups: No Mental Status Exam Mental Status Exam Patient Appearance: Appropriate Patient Orientation: Person, Place, Time and Situation Level of Consciousness: Awake Patient Behavior: Cooperative Mood Description: Depressed and Anxious Affect Description: Depressed Ability to Follow Directions: Good Speech Pattern: Clear Memory Description: Intact Hallucinations: None Delusions: Not Present Thought Process: Intact Thought Content: positive for Intact Diagnostics Vital Signs (24Hr): Vital Signs - 24 hr 06/09/25 20:00 Respiratory Rate 18 BMI result Body Mass Index 38.4 Labs 06/08/25 08:12 06/08/25 08:12 Medications Medications Current Medications Acetaminophen (Acetaminophen 325 Mg Tablet) 650 mg PO Q6H PRN PRN Reason: Headache/Pain, Scale 1-10 Al Hydroxide/Mg Hydroxide (Magnesium Hydrox/Alum Hydrox 30 Ml Oral.Susp) 30 ml PO Q6H PRN PRN Reason: Heartburn/Nausea Amphetamine/Dextroamphetamine (Dextroamphetamine/Amphetamine Xr 10 Mg Cap.Er.24h) 30 mg PO DAILY [facility] Last Admin: 06/10/25 08:35 Dose: 30 mg Aripiprazole (Aripiprazole 10 Mg Tablet) 10 mg PO DAILY [facility] Last Admin: 06/10/25 08:35 Dose: 10 mg Clonazepam (Clonazepam 0.5 Mg Tablet) 0.5 mg PO BID [facility] Last Admin: 06/10/25 08:35 Dose: 0.5 mg Clonidine HCl (Clonidine Hcl 0.1 Mg Tablet) 0.1 mg PO DAILY PRN; Protocol PRN Reason: Anxiety Gabapentin (Gabapentin 600 Mg Tablet) 600 mg PO TID [facility] Last Admin: 06/10/25 08:35 Dose: 600 mg Hydroxyzine HCl (Hydroxyzine Hcl 50 Mg Tablet) 50 mg PO BID PRN PRN Reason: Anxiety Hydroxyzine HCl (Hydroxyzine Hcl 25 Mg Tablet) 25 mg PO Q6H PRN PRN Reason: mild anxiety Magnesium Hydroxide (Milk Of Magnesia 30 Ml Oral.Susp) 30 ml PO DAILY PRN PRN Reason: Constipation Methadone HCl (Methadone Hcl 20 Mg/2 Ml Oral.Conc) 150 mg PO DAILY [facility] Last Admin: 06/10/25 08:34 Dose: 150 mg Nicotine Polacrilex (Nicotine Polacrilex 2 Mg Gum) 4 mg BUCCAL Q2H PRN PRN Reason: Nicotine Cravings Sertraline HCl (Sertraline Hcl 100 Mg Tablet) 100 mg PO DAILY [facility] Last Admin: 06/10/25 08:35 Dose: 100 mg Trazodone HCl (Trazodone Hcl 50 Mg Tablet) 50 mg PO BEDTIME MRX1 PRN PRN Reason: Insomnia Allergies Allergies Allergy/AdvReac Type Severity Reaction Status Date / Time No Known Allergies Allergy Verified 06/08/25 07:44 Assessment & Plan Assessment & Plan (1) MDD (major depressive disorder), recurrent episode: Status: Acute Code(s): F33.9 - Major depressive disorder, recurrent, unspecified (2) Opioid use disorder: Status: Acute Code(s): F11.90 - Opioid use, unspecified, uncomplicated (3) Cocaine abuse: Status: Acute Code(s): F14.10 - Cocaine abuse, uncomplicated (4) PTSD (post-traumatic stress disorder): Status: Acute Code(s): F43.10 - Post-traumatic stress disorder, unspecified (5) Suicidal ideation: Status: Acute Code(s): R45.851 - Suicidal ideations (6) Opioid use disorder, severe, on maintenance therapy: Status: Acute Code(s): F11.20 - Opioid dependence, uncomplicated Plan Mr. Vega is a 29 yo SWM with h/o MDD, anxiety, PTSD, ADHD, cocaine use d/o and opioid use d/o, multiple inpt psych and detox admissions and overdoses who self- presented to the [facility] following a suicide attempt by overdosing on opiates. He received Narcan. U tox in ED positive for buprenorphine, methadone, fentanyl, (benzos -has rx for clonazepam), amphetamines (has rx for Adderall) and cocaine. BAL neg. He was transferred to M3 for safety and stabilization after being medically cleared. Plan: Admitted on M3 for safety and staziliation Legal Status: CV 15 min safety checks VS per unit standard Reviewed labs, EKG & medical admission H&P from hospitalist Will continue on current med regimen. 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 Adderall ER 30 mg qam Abilify 10 mg qd Clonazepam 0.5 mg bid- Sertraline 100 mg qd-- He's taken it off-and-on, unclear how much it's helped clonidine 0.1 mg qd qd prn for anxiety hydroxyzine 50 mg bid prn for anxiety trazodone 50-100 mg qhs prn for insomnia methadone 150 mg qam 06/10: Laying in bed. Patient reports feeling anxious and depressed; focused on increasing Klonopin to 2mg daily, encouraged to speak to his psychiatrist on Thursday. He reports suicidal ideation with no plan. denies HI/VH/AH. Encouraged to leave bed. continue tx plan. Patient educated on: diagnosis, medication risk/benefits and therapeutic strategies Reason for continued inpatient stay Substantial Risk for: med/psych decompensation Time Spent With Patient Time: Total time managing care of this patient today _20___ minutes.
[2025-06-10 20:00] VITALS: RESP 16
[2025-06-11] MEDS: methADONE HCl 20 MG/2 ML ORAL.CONC 150 MG PO (07:51)
[2025-06-11] MEDS: Dextroamphetamine/Amphetamine XR 10 MG CAP.ER.24H 30 MG PO (08:53)
--- NOTE | 2025-06-11 13:26 | P.PNPSI_ITS ---
Subjective Subjective Date of Service: 06/11/25 Reason For Visit: s/p suicide ideation attempt by opioid o/d Subjective Notes: Conditional Voluntary Interim History: Laying in bed most of day. not attending groups. Patient continues to report feeling depressed; patient reports he will try to leave bed today. denies SI/HI/VH/AH. continue tx plan. Medication Compliance: Yes Side effects from medications: No Attending Groups: No Mental Status Exam Mental Status Exam Patient Appearance: Appropriate Patient Orientation: Person, Place, Time and Situation Level of Consciousness: Awake Patient Behavior: Cooperative Mood Description: Depressed and Anxious Affect Description: Depressed Ability to Follow Directions: Good Speech Pattern: Clear Memory Description: Intact Hallucinations: None Delusions: Not Present Thought Process: Intact Thought Content: positive for Intact Diagnostics Vital Signs (24Hr): Vital Signs - 24 hr 06/10/25 20:00 Respiratory Rate 16 BMI result Body Mass Index 38.4 Labs 06/08/25 08:12 06/08/25 08:12 Medications Medications Current Medications Acetaminophen (Acetaminophen 325 Mg Tablet) 650 mg PO Q6H PRN PRN Reason: Headache/Pain, Scale 1-10 Al Hydroxide/Mg Hydroxide (Magnesium Hydrox/Alum Hydrox 30 Ml Oral.Susp) 30 ml PO Q6H PRN PRN Reason: Heartburn/Nausea Amphetamine/Dextroamphetamine (Dextroamphetamine/Amphetamine Xr 10 Mg Cap.Er.24h) 30 mg PO DAILY [facility] Last Admin: 06/11/25 08:53 Dose: 30 mg Aripiprazole (Aripiprazole 10 Mg Tablet) 10 mg PO DAILY [facility] Last Admin: 06/11/25 08:53 Dose: 10 mg Clonazepam (Clonazepam 0.5 Mg Tablet) 0.5 mg PO BID [facility] Last Admin: 06/11/25 08:53 Dose: 0.5 mg Clonidine HCl (Clonidine Hcl 0.1 Mg Tablet) 0.1 mg PO DAILY PRN; Protocol PRN Reason: Anxiety Gabapentin (Gabapentin 600 Mg Tablet) 600 mg PO TID [facility] Last Admin: 06/11/25 08:53 Dose: 600 mg Hydroxyzine HCl (Hydroxyzine Hcl 50 Mg Tablet) 50 mg PO BID PRN PRN Reason: Anxiety Hydroxyzine HCl (Hydroxyzine Hcl 25 Mg Tablet) 25 mg PO Q6H PRN PRN Reason: mild anxiety Magnesium Hydroxide (Milk Of Magnesia 30 Ml Oral.Susp) 30 ml PO DAILY PRN PRN Reason: Constipation Methadone HCl (Methadone Hcl 20 Mg/2 Ml Oral.Conc) 150 mg PO DAILY [facility] Last Admin: 06/11/25 07:51 Dose: 150 mg Nicotine Polacrilex (Nicotine Polacrilex 2 Mg Gum) 4 mg BUCCAL Q2H PRN PRN Reason: Nicotine Cravings Sertraline HCl (Sertraline Hcl 100 Mg Tablet) 100 mg PO DAILY [facility] Last Admin: 06/11/25 08:53 Dose: 100 mg Trazodone HCl (Trazodone Hcl 50 Mg Tablet) 50 mg PO BEDTIME MRX1 PRN PRN Reason: Insomnia Allergies Allergies Allergy/AdvReac Type Severity Reaction Status Date / Time No Known Allergies Allergy Verified 06/08/25 07:44 Assessment & Plan Assessment & Plan (1) MDD (major depressive disorder), recurrent episode: Status: Acute Code(s): F33.9 - Major depressive disorder, recurrent, unspecified (2) Opioid use disorder: Status: Acute Code(s): F11.90 - Opioid use, unspecified, uncomplicated (3) Cocaine abuse: Status: Acute Code(s): F14.10 - Cocaine abuse, uncomplicated (4) PTSD (post-traumatic stress disorder): Status: Acute Code(s): F43.10 - Post-traumatic stress disorder, unspecified (5) Suicidal ideation: Status: Acute Code(s): R45.851 - Suicidal ideations (6) Opioid use disorder, severe, on maintenance therapy: Status: Acute Code(s): F11.20 - Opioid dependence, uncomplicated Plan Mr. Vega is a 29 yo SWM with h/o MDD, anxiety, PTSD, ADHD, cocaine use d/o and opioid use d/o, multiple inpt psych and detox admissions and overdoses who [place]- [place] [facility] [place] a suicide attempt by overdosing on opiates. He received Narcan. U tox in ED positive for buprenorphine, methadone, fentanyl, (benzos -has rx for clonazepam), amphetamines (has rx for Adderall) and cocaine. BAL neg. He was transferred to M3 for safety and stabilization after being medically cleared. Plan: Admitted on M3 for safety and staziliation Legal Status: CV 15 min safety checks VS per unit standard Reviewed labs, EKG & medical admission H&P from hospitalist Will continue on current med regimen. 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 Adderall ER 30 mg qam Abilify 10 mg qd Clonazepam 0.5 mg bid- Sertraline 100 mg qd-- He's taken it off-and-on, unclear how much it's helped clonidine 0.1 mg qd qd prn for anxiety hydroxyzine 50 mg bid prn for anxiety trazodone 50-100 mg qhs prn for insomnia methadone 150 mg qam 06/10: Laying in bed. Patient reports feeling anxious and depressed; focused on increasing Klonopin to 2mg daily, encouraged to speak to his psychiatrist on Thursday. He reports suicidal ideation with no plan. denies HI/VH/AH. Encouraged to leave bed. continue tx plan. 06/11: Laying in bed most of day. not attending groups. Patient continues to report feeling depressed; patient reports he will try to leave bed today. denies SI/HI/VH/AH. continue tx plan. Patient educated on: diagnosis and medication risk/benefits Reason for continued inpatient stay Substantial Risk for: med/psych decompensation Time Spent With Patient Time: Total time managing care of this patient today _10___ minutes.
--- NOTE | 2025-06-11 16:27 | PC.NURSE ---
Patient asleep, gabapentin given outside of hour parameter.
[2025-06-12] MEDS: methADONE HCl 20 MG/2 ML ORAL.CONC 150 MG PO (07:53)
[2025-06-12] MEDS: Dextroamphetamine/Amphetamine XR 10 MG CAP.ER.24H 30 MG PO (08:23)
--- NOTE | 2025-06-12 16:50 | HO.PSYCHPN ---
Subjective Subjective Date of Service: 06/12/25 Reason For Visit: s/p suicide ideation attempt by opioid o/d Interim History: chart reviewed, case discussed in tx team Met w/ pt along w/ SW this am He reported feeling 'shitty', depressed, in a bad mood. He reports that his uncle recently and he regrets that he didn't get to attend his . He endorses pdw, denies plan to harm himself. He asks t/w to switch the clonazepam from .5 mg bid standing dose to 1 mg qd prn for anxiety since the .5 mg doesn't help. He expresses an understanding that t/w will not increase the dose beyond 1 mg/day Mental Status Exam Mental Status Exam Narrative: Appearance: Casually dressed. Grooming/hygiene wnl. Good eye contact Attitude:Cooperative Speech: Fluent and wnl in regard to volume, tone, prosody Motor activity: Calm and without any tics, tremors or dyskinesias. Steady gait Mood: as noted above Affect: appropriate, constricted Thought process: goal directed and without evidence of formal thought disorder Thought content: as noted above. endorses pdw. Does not report violent ideation Perception: Denies AH/VH and does not appear to respond to internal stimuli Alert/oriented in all spheres Cognition grossly intact Insight: fair Judgment: fair Diagnostics Vital Signs (24Hr): BMI result Body Mass Index 38.4 Labs 06/08/25 08:12 06/08/25 08:12 Medications Medications Current Medications Acetaminophen (Acetaminophen 325 Mg Tablet) 650 mg PO Q6H PRN PRN Reason: Headache/Pain, Scale 1-10 Al Hydroxide/Mg Hydroxide (Magnesium Hydrox/Alum Hydrox 30 Ml Oral.Susp) 30 ml PO Q6H PRN PRN Reason: Heartburn/Nausea Amphetamine/Dextroamphetamine (Dextroamphetamine/Amphetamine Xr 10 Mg Cap.Er.24h) 30 mg PO DAILY [facility] Last Admin: 06/12/25 08:23 Dose: 30 mg Aripiprazole (Aripiprazole 10 Mg Tablet) 10 mg PO DAILY [facility] Last Admin: 06/12/25 08:23 Dose: 10 mg Clonazepam (Clonazepam 1 Mg Tablet) 1 mg PO DAILY PRN PRN Reason: Anxiety Last Admin: 06/12/25 14:32 Dose: 1 mg Clonidine HCl (Clonidine Hcl 0.1 Mg Tablet) 0.1 mg PO DAILY PRN; Protocol PRN Reason: Anxiety Gabapentin (Gabapentin 600 Mg Tablet) 600 mg PO TID [facility] Last Admin: 06/12/25 14:32 Dose: 600 mg Hydroxyzine HCl (Hydroxyzine Hcl 50 Mg Tablet) 50 mg PO BID PRN PRN Reason: Anxiety Hydroxyzine HCl (Hydroxyzine Hcl 25 Mg Tablet) 25 mg PO Q6H PRN PRN Reason: mild anxiety Magnesium Hydroxide (Milk Of Magnesia 30 Ml Oral.Susp) 30 ml PO DAILY PRN PRN Reason: Constipation Methadone HCl (Methadone Hcl 20 Mg/2 Ml Oral.Conc) 150 mg PO DAILY [facility] Last Admin: 06/12/25 07:53 Dose: 150 mg Nicotine Polacrilex (Nicotine Polacrilex 2 Mg Gum) 4 mg BUCCAL Q2H PRN PRN Reason: Nicotine Cravings Sertraline HCl (Sertraline Hcl 100 Mg Tablet) 100 mg PO DAILY [facility] Last Admin: 06/12/25 08:23 Dose: 100 mg Trazodone HCl (Trazodone Hcl 50 Mg Tablet) 50 mg PO BEDTIME MRX1 PRN PRN Reason: Insomnia Allergies Allergies Allergy/AdvReac Type Severity Reaction Status Date / Time No Known Allergies Allergy Verified 06/08/25 07:44 Assessment & Plan Assessment & Plan (1) MDD (major depressive disorder), recurrent episode: Status: Acute Code(s): F33.9 - Major depressive disorder, recurrent, unspecified (2) Opioid use disorder: Status: Acute Code(s): F11.90 - Opioid use, unspecified, uncomplicated (3) Cocaine abuse: Status: Acute Code(s): F14.10 - Cocaine abuse, uncomplicated (4) PTSD (post-traumatic stress disorder): Status: Acute Code(s): F43.10 - Post-traumatic stress disorder, unspecified (5) Suicidal ideation: Status: Acute Code(s): R45.851 - Suicidal ideations (6) Opioid use disorder, severe, on maintenance therapy: Status: Acute Code(s): F11.20 - Opioid dependence, uncomplicated Plan Mr. Vega is a 29 yo SWM with h/o MDD, anxiety, PTSD, ADHD, cocaine use d/o and opioid use d/o, multiple inpt psych and detox admissions and overdoses who self-presented to [place] [facility] following a suicide attempt by overdosing on opiates. He received Narcan. U tox in ED positive for buprenorphine, methadone, fentanyl, (benzos -has rx for clonazepam), amphetamines (has rx for Adderall) and cocaine. BAL neg. He was transferred to M3 for safety and stabilization after being medically cleared. Plan: Admitted on M3 for safety and staziliation Legal Status: CV 15 min safety checks VS per unit standard Reviewed labs, EKG & medical admission H&P from hospitalist Will continue on current med regimen. Will avoid tirating the clonazepam, given recurrent opioid use and increased risk of morbidity/mortality w/ additional TR[employer]NCER depressants. Adderall ER 30 mg qam Abilify 10 mg qd Clonazepam 0.5 mg bid- Sertraline 100 mg qd-- He's taken it off-and-on, unclear how much it's helped clonidine 0.1 mg qd qd prn for anxiety hydroxyzine 50 mg bid prn for anxiety trazodone 50-100 mg qhs prn for insomnia methadone 150 mg qam 06/10: Laying in bed. Patient reports feeling anxious and depressed; focused on increasing Klonopin to 2mg daily, encouraged to speak to his psychiatrist on Thursday. He reports suicidal ideation with no plan. denies HI/VH/AH. Encouraged to leave bed. continue tx plan. 06/11: Laying in bed most of day. not attending groups. Patient continues to report feeling depressed; patient reports he will try to leave bed today. denies SI/HI/VH/AH. continue tx plan. 06/12: T/W agreed to switch pt's clonazepam dosing from .5 mg bid to 1 mg qd prn for anxiety. He expressed an understanding that t/w will not titrate the dose beyond 1 mg/day. T/W offered to discuss alternative options for tx of anxiety but pt just wanted to adjust the clonazepam dosing. otherwise continue current tx plan Patient educated on: medication risk/benefits Informed Consent: understands Reason for continued inpatient stay Substantial Risk for: med/psych decompensation Time Spent With Patient Time: Total time managing care of this patient today __25__ minutes.
[2025-06-12 20:00] VITALS: RESP 14
--- NOTE | 2025-06-12 22:15 | PC.NURSE ---
refused HS gabapentin
[2025-06-13] MEDS: methADONE HCl 20 MG/2 ML ORAL.CONC 150 MG PO (08:02)
[2025-06-13] MEDS: Dextroamphetamine/Amphetamine XR 10 MG CAP.ER.24H 30 MG PO (08:33)
--- NOTE | 2025-06-13 18:26 | P.PNPSI_ITS ---
Subjective Subjective Date of Service: 06/13/25 Reason For Visit: s/p suicide ideation attempt by opioid o/d Interim History: chart reviewed. case discussed with team Met w/ pt along w/ SW Pt reports feeling 'okay'. Denies SI. Slept okay last night. He feels like the switch from .5 mg clonazepam bid to 1 mg qd was helpful in managing his anxiety. He declines this health science writer's offer to make further med adjustments today. Mental Status Exam Mental Status Exam Narrative: Appearance: Casually dressed. Grooming/hygiene wnl. Good eye contact Attitude:Cooperative Speech: Fluent and wnl in regard to volume, tone, prosody Motor activity: Calm and without any tics, tremors or dyskinesias. Steady gait Mood: as noted above Affect: appropriate Thought process: goal directed and without evidence of formal thought disorder Thought content: as noted above. denies SI today. does not endorse any violent ideation Perception: does not appear to respond to internal stimuli Alert/oriented in all spheres Cognition grossly intact Insight: fair Judgment: fair Diagnostics Vital Signs (24Hr): Vital Signs - 24 hr 06/12/25 20:00 Respiratory Rate 14 BMI result Body Mass Index 38.4 Labs 06/08/25 08:12 06/08/25 08:12 Medications Medications Current Medications Acetaminophen (Acetaminophen 325 Mg Tablet) 650 mg PO Q6H PRN PRN Reason: Headache/Pain, Scale 1-10 Al Hydroxide/Mg Hydroxide (Magnesium Hydrox/Alum Hydrox 30 Ml Oral.Susp) 30 ml PO Q6H PRN PRN Reason: Heartburn/Nausea Amphetamine/Dextroamphetamine (Dextroamphetamine/Amphetamine Xr 10 Mg Cap.Er.24h) 30 mg PO DAILY [facility] Last Admin: 06/13/25 08:33 Dose: 30 mg Aripiprazole (Aripiprazole 10 Mg Tablet) 10 mg PO DAILY [facility] Last Admin: 06/13/25 08:33 Dose: 10 mg Clonazepam (Clonazepam 1 Mg Tablet) 1 mg PO DAILY PRN PRN Reason: Anxiety Last Admin: 06/13/25 17:03 Dose: 1 mg Clonidine HCl (Clonidine Hcl 0.1 Mg Tablet) 0.1 mg PO DAILY PRN; Protocol PRN Reason: Anxiety Gabapentin (Gabapentin 600 Mg Tablet) 600 mg PO TID [facility] Last Admin: 06/13/25 15:16 Dose: 600 mg Hydroxyzine HCl (Hydroxyzine Hcl 50 Mg Tablet) 50 mg PO BID PRN PRN Reason: Anxiety Hydroxyzine HCl (Hydroxyzine Hcl 25 Mg Tablet) 25 mg PO Q6H PRN PRN Reason: mild anxiety Magnesium Hydroxide (Milk Of Magnesia 30 Ml Oral.Susp) 30 ml PO DAILY PRN PRN Reason: Constipation Methadone HCl (Methadone Hcl 20 Mg/2 Ml Oral.Conc) 150 mg PO DAILY [facility] Last Admin: 06/13/25 08:02 Dose: 150 mg Nicotine Polacrilex (Nicotine Polacrilex 2 Mg Gum) 4 mg BUCCAL Q2H PRN PRN Reason: Nicotine Cravings Sertraline HCl (Sertraline Hcl 100 Mg Tablet) 100 mg PO DAILY [facility] Last Admin: 06/13/25 08:33 Dose: 100 mg Trazodone HCl (Trazodone Hcl 50 Mg Tablet) 50 mg PO BEDTIME MRX1 PRN PRN Reason: Insomnia Allergies Allergies Allergy/AdvReac Type Severity Reaction Status Date / Time No Known Allergies Allergy Verified 06/08/25 07:44 Assessment & Plan Assessment & Plan (1) MDD (major depressive disorder), recurrent episode: Status: Acute Code(s): F33.9 - Major depressive disorder, recurrent, unspecified (2) Opioid use disorder: Status: Acute Code(s): F11.90 - Opioid use, unspecified, uncomplicated (3) Cocaine abuse: Status: Acute Code(s): F14.10 - Cocaine abuse, uncomplicated (4) PTSD (post-traumatic stress disorder): Status: Acute Code(s): F43.10 - Post-traumatic stress disorder, unspecified (5) Suicidal ideation: Status: Acute Code(s): R45.851 - Suicidal ideations (6) Opioid use disorder, severe, on maintenance therapy: Status: Acute Code(s): F11.20 - Opioid dependence, uncomplicated Plan Mr. Vega is a 29 yo SWM with h/o MDD, anxiety, PTSD, ADHD, cocaine use d/o and opioid use d/o, multiple inpt psych and detox admissions and overdoses who self- presented to the [facility] following a suicide attempt by overdosing on opiates. He received Narcan. U tox in ED positive for buprenorphine, methadone, fentanyl, (benzos -has rx for clonazepam), amphetamines (has rx for Adderall) and cocaine. BAL neg. He was transferred to M3 for safety and stabilization after being medically cleared. Plan: Admitted on M3 for safety and staziliation Legal Status: CV 15 min safety checks VS per unit standard Reviewed labs, EKG & medical admission H&P from hospitalist Will continue on current med regimen. Will avoid tirating the clonazepam, given recurrent opioid use and increased risk of morbidity/mortality w/ additional [employer]ING depressants. Adderall ER 30 mg qam Abilify 10 mg qd Clonazepam 0.5 mg bid- Sertraline 100 mg qd-- He's taken it off-and-on, unclear how much it's helped clonidine 0.1 mg qd qd prn for anxiety hydroxyzine 50 mg bid prn for anxiety trazodone 50-100 mg qhs prn for insomnia methadone 150 mg qam 06/10: Laying in bed. Patient reports feeling anxious and depressed; focused on increasing Klonopin to 2mg daily, encouraged to speak to his psychiatrist on Thursday. He reports suicidal ideation with no plan. denies HI/VH/AH. Encouraged to leave bed. continue tx plan. 06/11: Laying in bed most of day. not attending groups. Patient continues to report feeling depressed; patient reports he will try to leave bed today. denies SI/HI/VH/AH. continue tx plan. 06/12: T/W agreed to switch pt's clonazepam dosing from .5 mg bid to 1 mg qd prn for anxiety. He expressed an understanding that t/w will not titrate the dose beyond 1 mg/day. T/W offered to discuss alternative options for tx of anxiety but pt just wanted to adjust the clonazepam dosing. otherwise continue current tx plan 06/13: Mood slowly improving. Continue current tx plan. Patient educated on: medication risk/benefits and therapeutic strategies Informed Consent: understands Reason for continued inpatient stay Substantial Risk for: med/psych decompensation Time Spent With Patient Time: Total time managing care of this patient today ____ minutes.
[2025-06-14] MEDS: methADONE HCl 20 MG/2 ML ORAL.CONC 150 MG PO (07:53)
[2025-06-14 08:00] VITALS: RESP 16
[2025-06-14] MEDS: Dextroamphetamine/Amphetamine XR 10 MG CAP.ER.24H 30 MG PO (08:09)
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
[2025-06-15] MEDS: methADONE HCl 20 MG/2 ML ORAL.CONC 150 MG PO (08:23)
[2025-06-15] MEDS: Dextroamphetamine/Amphetamine XR 10 MG CAP.ER.24H 30 MG PO (09:27)
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
== END 2025-06-15 11:00 | disposition home or self-care (01) | DRG 885 ==
LOC: HO.ED 09:21 → HO.PADLT16 14:15
PROVIDERS: Registered Nurse Emergency; Admitting Provider Psychiatry & Neurology Psychiatry; Emergency Provider Emergency Medicine; Visit Provider Psychiatry & Neurology Psychiatry
DX: F33.9 Major depressive disorder, recurrent, unspecified (principal); F11.20 Opioid dependence, uncomplicated; R45.851 Suicidal ideations; Z59.02 Unsheltered homelessness; F17.210 Nicotine dependence, cigarettes, uncomplicated; Z71.6 Tobacco abuse counseling; F14.10 Cocaine abuse, uncomplicated; F43.10 Post-traumatic stress disorder, unspecified; Z79.899 Other long term (current) drug therapy
CPT/HCPCS: 36415; 80053; 80307; 81003; 85025; 93005; 99285; S9485

== ENCOUNTER → 2025-06-08 13:27 | Outpatient (BNV) | payer OTHER, SELFPAY | PROVIDERS: Admitting Provider Psychiatry & Neurology Psychiatry; Emergency Provider Emergency Medicine; Visit Provider Internal Medicine Cardiovascular Disease | DX: R00.1 Bradycardia, unspecified (principal); I49.9 Cardiac arrhythmia, unspecified | CPT/HCPCS: 93010 ==

== ENCOUNTER → 2025-06-08 14:09 | Outpatient (BNV) | payer OTHER, SELFPAY | PROVIDERS: Admitting Provider Psychiatry & Neurology Psychiatry; Emergency Provider Emergency Medicine; Visit Provider Nurse Practitioner Psychiatric/Mental Health | DX: F33.9 Major depressive disorder, recurrent, unspecified (principal); F11.90 Opioid use, unspecified, uncomplicated; F14.10 Cocaine abuse, uncomplicated; F43.10 Post-traumatic stress disorder, unspecified; R45.851 Suicidal ideations; F11.20 Opioid dependence, uncomplicated | CPT/HCPCS: 99232; 99499 ==

== ENCOUNTER → 2025-06-08 14:09 | Outpatient (BNV) | payer OTHER, SELFPAY | PROVIDERS: Admitting Provider Psychiatry & Neurology Psychiatry; Emergency Provider Emergency Medicine; Visit Provider Nurse Practitioner Family | DX: F33.9 Major depressive disorder, recurrent, unspecified (principal) | CPT/HCPCS: 99221 ==

== ENCOUNTER 2025-06-19 12:51 | Inpatient (IN) | payer OTHER, SELFPAY ==
[2025-06-19 13:47] VITALS: BP 121/69; PULSE 96; RESP 18; TEMP 35.6; O2SAT 97
--- NOTE | 2025-06-19 13:59 | HO.PSYADMNOT ---
HPI Date of Service: 06/19/25 Chief Complaint: Other Spec Depressive DO Stimulant Related DO Sources of Information: patient interviewed, chart reviewed and crisis/core team assessment reviewed HPI Subjective Notes: [place] Warning and Conditional Voluntary Narrative: Patient is a 29-year-old male with history of MDD, PTSD, opiate use disorder and cocaine use disorder who presented to ER due to suicide attempt via overdosing on fentanyl secondary to increased depression. Per crisis report, patient reports he attempted to overdose around 03:00 on fentanyl but was found by someone who gave him Narcan twice. Patient reports he came into the hospital this morning for help and believes his mental health medications are not working despite taking them. Patient reports recent in the family. Denies HI/VH/AH. Patient was recently discharged from on June 15 2025. Utox positive for buprenorphine, methadone, amphetamines, benzodiazepines, cocaine and fentanyl. History of multiple inpatient psychiatric hospitalizations. History of multiple detox admissions. hx of SA. denies hx of SIB. During admission assessment, patient presents alert and oriented x3. Calm and cooperative. Patient reports feeling depressed ; patient stated, when I left here I went to my friend's house and got a bed for [facility]. I did the intake and when I called them an hour later, they told me they didn't take my insurance. It got me really depressed and I decided to shoot up. I told my mom and she told me to get help or she would section 35 me. I want to get into a treatment program but a lot of people don't take my insurance . Patient reports he was section 35'd in March 2025 by his mother and was in a program for 2 months. He currently reports suicidal ideation with plan to overdose on either prescription medication or substances . He denies HI/VH/AH. Patient reports he was using IV fentanyl and cocaine. Patient reports he was not medication compliant since being discharged on 06/15/2025. Past Psychiatric History: hx of multiple inpatient psychiatric hospitalizations. hx of detox and CSS. Psychiatrist: Henny Montalvo ([facility]. [place], [place]) Therapist: does not have one. Prior Med Trials: Prozac, Celexa, Lexapro Medical Evaluation Reviewed: Yes [facility] Medical History Suicidal ideation Bipolar disorder Opiate use Active substance abuse Depression Family History: mother-depression sister-depression Social History: Homeless, single, no children, unemployed, high school graduate. Trauma History: yes Diagnostics Vital Signs (24Hr): Vital Signs - 24 hr 06/19/25 13:47 Temperature 96.1 F L Pulse Rate 96 Respiratory Rate 18 Blood Pressure 121/69 Pulse Oximetry 97 Oxygen Delivery Method Room Air Meds/Allergies Meds Home Medications ?Medication ?Instructions ?Recorded ?Confirmed ?Type methadone 10 mg/mL oral 150 mg PO DAILY 03/15/25 06/08/25 History concentrate (Methadone Intensol) gabapentin 600 mg tablet 600 mg PO TID 06/08/25 06/08/25 History Allergies Allergies Allergy/AdvReac Type Severity Reaction Status Date / Time No Known Allergies Allergy Verified 06/08/25 07:44 Mental Status Exam Mental Status Exam Narrative: Pt is alert and oriented; behavior is cooperative and calm; dressed in casual attire; mood is described as depressed ; eye contact appropriate; Speech is normal rate, volume and not pressured; thought process is organized and goal directed; Thought content is on tx; denies HI/VH/AH. +SI with plan to overdose on medications or substances. Assessment & Plan Assessment & Plan (1) MDD (major depressive disorder), recurrent episode: Status: Acute Code(s): F33.9 - Major depressive disorder, recurrent, unspecified (2) PTSD (post-traumatic stress disorder): Status: Acute Code(s): F43.10 - Post-traumatic stress disorder, unspecified (3) Opioid use disorder, severe, dependence: Status: Acute Code(s): F11.20 - Opioid dependence, uncomplicated (4) Cocaine abuse: Status: Acute Code(s): F14.10 - Cocaine abuse, uncomplicated Plan Patient is a 29-year-old male with history of MDD, PTSD, opiate use disorder and cocaine use disorder who presented to ER due to suicide attempt via overdosing on fentanyl secondary to increased depression. Plan: CV 15 minute safety checks obtain collateral continue home medications. encourage groups referral to substance abuse program discharge planning Patient educated on: diagnosis and medication risk/benefits Reason for continued inpatient stay Substantial Risk for: harm to self and med/psych decompensation Statement Statement: I have reviewed the history and physical and performed a pertinent examination on my patient. No changes have occurred unless specified. If the History and Physical was not performed prior to admission, the Hospitalist's service will be consulted for completing the admission physical. Time Spent With Patient Time: Total time managing care of this patient today _60___ minutes.
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
[2025-06-19 14:57] VITALS: BMI 34.6
[2025-06-19] MEDS: Flu Vacc TS2025-26(6mo up)/PF 0.5 ML SYRINGE IM (15:37)
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
--- NOTE | 2025-06-19 17:42 | HE.PHANOTE ---
re methadone Patients methadone verification form has been recieved. Patient confirmed to be last dosed with 150 mg methadone on 06/19/2025 per Dean UPT[place] at [facility].
[2025-06-20] MEDS: methADONE HCl 20 MG/2 ML ORAL.CONC 150 MG PO (07:48)
[2025-06-20 07:59] LABS: Hemoglobin A1C 118.9700 umol/L; Total Hemoglobin (HGBA1C) 3869.5639 umol/L
[2025-06-20 08:00] VITALS: BP 120/71; PULSE 95; RESP 16; TEMP 37.1; O2SAT 96
[2025-06-20 08:06] LABS: Alanine Aminotransferase 278 U/L (0-40); Albumin Level 4.6 g/dL (3.5-5.0); Alkaline Phosphatase 84 U/L (39-117); Anion Gap 13 (12-20); Aspartate Amino Transferase 140 U/L (5-37); Blood Urea Nitrogen 15 mg/dL (9-16); Calcium 9.6 mg/dL (8.4-10.2); Carbon Dioxide 27 mmol/L (22-29); Chloride 106 mmol/L (96-108); Cholesterol 156 mg/dL (<200); Creatinine Clr Calc Pharmacy 153.5; Estimated Glomerular Filt Rate > 60; HDL Cholesterol 36 mg/dL (>40); Potassium 4.5 mmol/L (3.3-5.1); Sodium 141 mmol/L (135-145); Total Protein 8.3 g/dL (6.5-8.0); Triglycerides 124 mg/dL (<150)
--- NOTE | 2025-06-20 12:05 | MHC.RECOVRN ---
Addiction Medicine Consult received for opioid use. Pt was discharged from on 06/15/25 and reports he did not continue his medication at that time. Pt states he attempted to find placement within a CSS program but no one takes my insurance . Pt then became increasingly depressed and returned to using a combination of IV fentanyl and cocaine. He became increasingly depressed and suicidal with a plan to overdose on prescription medication or illegal substances and presented to the hospital seeking help. Per previous assessments pt has had numerous ATS, CSS, and SEC 35 admissions. Pt reports his longest period of abstinence was 10 weeks after which he returned to using crack cocaine. He is currently receiving methadone, 150 mg QD @ [facility] in [place]. Discussed and provided written education and resources for harm reduction techniques including utilizing [employer] for sterile supplies and drug testing, harm reduction techniques such as not sharing needles, utilizing a test shot when using a supply from a new supplier, as well as education about the current drug supply and cutting agents used. Pt to continue Methadone 150mg QD Pt provided with insurance contact information to inquire about CSS coverage Pt provided T/W contact information for further questions and concerns as needed.
--- NOTE | 2025-06-20 15:31 | P.PNPSI_ITS ---
Subjective Subjective Date of Service: 06/20/25 Reason For Visit: Other Spec Depressive DO Stimulant Related DO Subjective Notes: Conditional Voluntary Interim History: Keeping to self. Irritable. Signed 3 day notice then retracted d/t feeling frustrated regarding Adderall not being ordered. Patient reports he had a good visit with his sister; he declined to provide any phone numbers for collateral for his parents or sister. Patient spoke to adoption social worker, Areli, regarding referrals to program. He denies SI/HI/VH/AH. Patient encouraged to get out of bed and attend groups. continue tx plan. Medication Compliance: Yes Side effects from medications: No Attending Groups: No Diagnostics Vital Signs (24Hr): Vital Signs - 24 hr 06/20/25 08:00 Temperature 98.8 F Pulse Rate 95 Respiratory Rate 16 Blood Pressure 120/71 Pulse Oximetry 96 Oxygen Delivery Method Room Air BMI result Body Mass Index 34.6 Labs 06/20/25 07:41 Labs: Laboratory Results - last 48 hr 06/20/25 07:41 Sodium 141 Potassium 4.5 Chloride 106 Carbon Dioxide 27 Anion Gap 13 BUN 15 Creatinine 0.86 Estim Creat Clear Calc 153.5 Estimated GFR > 60 Random Glucose 108 Estimat Average Glucose 97 Hemoglobin A1c % 5.0 Calcium 9.6 D Total Bilirubin 0.3 AST 140 H ALT 278 H Alkaline Phosphatase 84 Total Protein 8.3 H Albumin 4.6 Triglycerides 124 Cholesterol 156 LDL Cholesterol, Calc 96 HDL Cholesterol 36 L Medications Medications Current Medications Acetaminophen (Acetaminophen 325 Mg Tablet) 650 mg PO Q6H PRN PRN Reason: Headache/Pain, Scale 1-10 Al Hydroxide/Mg Hydroxide (Magnesium Hydrox/Alum Hydrox 30 Ml Oral.Susp) 30 ml PO Q6H PRN PRN Reason: Heartburn/Nausea Aripiprazole (Aripiprazole 10 Mg Tablet) 10 mg PO DAILY [facility] Last Admin: 06/20/25 09:51 Dose: 10 mg Clonazepam (Clonazepam 1 Mg Tablet) 1 mg PO DAILY PRN PRN Reason: Anxiety Clonidine HCl (Clonidine Hcl 0.1 Mg Tablet) 0.1 mg PO DAILY PRN; Protocol PRN Reason: Anxiety Gabapentin (Gabapentin 600 Mg Tablet) 600 mg PO TID [facility] Last Admin: 06/20/25 09:51 Dose: 600 mg Hydroxyzine HCl (Hydroxyzine Hcl 50 Mg Tablet) 50 mg PO BID PRN PRN Reason: Anxiety Magnesium Hydroxide (Milk Of Magnesia 30 Ml Oral.Susp) 30 ml PO DAILY PRN PRN Reason: Constipation Methadone HCl (Methadone Hcl 20 Mg/2 Ml Oral.Conc) 150 mg PO DAILY [facility] Last Admin: 06/20/25 07:48 Dose: 150 mg Nicotine (Nicotine 21 Mg Patch.Td24) 21 mg TRANSDERMA DAILY [facility] Last Admin: 06/20/25 09:52 Dose: Not Given Nicotine Polacrilex (Nicotine Polacrilex 2 Mg Gum) 4 mg BUCCAL Q2H PRN PRN Reason: Nicotine Cravings Sertraline HCl (Sertraline Hcl 100 Mg Tablet) 100 mg PO DAILY [facility] Last Admin: 06/20/25 09:51 Dose: 100 mg Trazodone HCl (Trazodone Hcl 50 Mg Tablet) 50 mg PO BEDTIME MRX1 PRN PRN Reason: Insomnia Allergies Allergies Allergy/AdvReac Type Severity Reaction Status Date / Time No Known Allergies Allergy Verified 06/08/25 07:44 Assessment & Plan Assessment & Plan (1) MDD (major depressive disorder), recurrent episode: Status: Acute Code(s): F33.9 - Major depressive disorder, recurrent, unspecified (2) PTSD (post-traumatic stress disorder): Status: Acute Code(s): F43.10 - Post-traumatic stress disorder, unspecified (3) Cocaine abuse: Status: Acute Code(s): F14.10 - Cocaine abuse, uncomplicated (4) Opioid use disorder, severe, dependence: Status: Acute Code(s): F11.20 - Opioid dependence, uncomplicated Plan Patient is a 29-year-old male with history of MDD, PTSD, opiate use disorder and cocaine use disorder who presented to ER due to suicide attempt via overdosing on fentanyl secondary to increased depression. Plan: CV 15 minute safety checks obtain collateral continue home medications. encourage groups referral to substance abuse program discharge planning 06/20: Keeping to self. Irritable. Signed 3 day notice then retracted d/t feeling frustrated regarding Adderall not being ordered. Patient reports he had a good visit with his sister; he declined to provide any phone numbers for collateral for his parents or sister. Patient spoke to adoption social worker, Areli, regarding referrals to program. He denies SI/HI/VH/AH. Patient encouraged to get out of bed and attend groups. continue tx plan. Patient educated on: diagnosis, medication risk/benefits and therapeutic strategies Reason for continued inpatient stay Substantial Risk for: med/psych decompensation Time Spent With Patient Time: Total time managing care of this patient today _20___ minutes.
[2025-06-21] MEDS: methADONE HCl 20 MG/2 ML ORAL.CONC 150 MG PO (08:22)
--- NOTE | 2025-06-21 10:55 | PM.PSYDC ---
DS: Providers Provider Date of admission: 06/19/25 12:51 Primary care physician: None Physician Consults: 06/19/25 13:22 Consult to Hospitalist Routine Comment: Consulting Provider: [facility] Reason For Exam: new admit H&P 06/19/25 14:47 Addiction Medicine Provider Routine Consulting Provider: Addiction Covering Reason for consultation: recent heroin use DS: Diagnosis Discharge Diagnosis (1) MDD (major depressive disorder), recurrent episode: Status: Acute (2) PTSD (post-traumatic stress disorder): Status: Acute (3) Cocaine abuse: Status: Acute (4) Opioid use disorder, severe, dependence: Status: Acute DS: Medications Discharge Medications Home Medications: Home Medications ?Medication ?Instructions ?Recorded ?Confirmed methadone 10 mg/mL oral 150 mg PO DAILY 03/15/25 06/19/25 concentrate (Methadone Intensol) gabapentin 600 mg tablet 600 mg PO TID 06/08/25 06/19/25 clonazepam 0.5 mg PO TID PRN Anxiety 06/19/25 06/19/25 Previous Rx's ?Medication ?Instructions ?Recorded aripiprazole 10 mg tablet 10 mg PO DAILY 30 days #30 tabs 06/15/25 clonidine HCl 0.1 mg tablet 0.1 mg PO DAILY PRN Anxiety 30 06/15/25 days #30 tabs dextroamphetamine-amphetamine ER 30 mg PO QAM 30 days #0 caps 06/15/25 30 mg 24hr capsule,extend release (Adderall XR) hydroxyzine HCl 50 mg tablet 50 mg PO BID PRN Anxiety 30 days 06/15/25 #60 tabs lorazepam 1 mg tablet 1 mg PO DAILY PRN anxiety 22 days 06/15/25 #22 tabs sertraline 100 mg tablet 100 mg PO DAILY 30 days #30 tabs 06/15/25 Data Data Completed and Pending Completed studies during hospitalization [Text1]: 06/20/25 07:41 Sodium 141 Potassium 4.5 Chloride 106 Carbon Dioxide 27 Anion Gap 13 BUN 15 Creatinine 0.86 Estim Creat Clear Calc 153.5 Estimated GFR > 60 Random Glucose 108 Estimat Average Glucose 97 Hemoglobin A1c % 5.0 Calcium 9.6 D Total Bilirubin 0.3 AST 140 H ALT 278 H Alkaline Phosphatase 84 Total Protein 8.3 H Albumin 4.6 Triglycerides 124 Cholesterol 156 LDL Cholesterol, Calc 96 HDL Cholesterol 36 L DS: Summary Time Spent with Patient Time attestation: Total time managing care of this patient today ____ minutes. Discharge Plan Discharge Referrals: Physician,None [Primary Care Provider, Medical] - 1 Week Discharge Medications: No Action clonazepam 0.5 mg PO TID PRN (Reason: Anxiety) methadone [Methadone Intensol] 10 mg/mL Concentrate 150 mg PO DAILY gabapentin 600 mg tablet 600 mg PO TID clonidine HCl 0.1 mg Tablet 0.1 mg PO DAILY PRN (Reason: Anxiety) 30 Days Qty: 30 0RF Protocol: Hold for SBP< HOLD for SBP < : 90 aripiprazole 10 mg Tablet 10 mg PO DAILY 30 Days Qty: 30 0RF lorazepam 1 mg tablet 1 mg PO DAILY PRN (Reason: anxiety) 22 Days Qty: 22 0RF hydroxyzine HCl 50 mg Tablet 50 mg PO BID PRN (Reason: Anxiety) 30 Days Qty: 60 0RF dextroamphetamine-amphetamine [Adderall XR] 30 mg capsule,extended release 24hr 30 mg PO QAM 30 Days Qty: 0 0RF Rx Instructions: Partial Fill upon patient request. sertraline 100 mg Tablet 100 mg PO DAILY 30 Days Qty: 30 0RF Print Language: Maori
--- NOTE | 2025-06-21 12:57 | HO.PSYCHPN ---
Subjective Subjective Date of Service: 06/21/25 Reason For Visit: Other Spec Depressive DO Stimulant Related DO Subjective Notes: Conditional Voluntary Interim History: Keeping to self. Patient reports feeling anxious; pt stated, I'm not going to go to the [facility] because it's awful. I'm trying to see if I can go somewhere else . Patient reports if he is not accepted into another program he is not sure where he will go . Denies SI/HI/VH/AH. Focused on restarting Adderall. Patient asking for Klonopin to be increased; patient re-educated regarding reasoning for not increasing d/t hx of substance use and benzodiazepines being habit forming; pt became frustrated. Restart: Adderall XR 30mg PO daily. Medication Compliance: Yes Side effects from medications: No Attending Groups: Intermittent Mental Status Exam Mental Status Exam Narrative: Pt is alert and oriented; behavior is cooperative, irritable; dressed in casual attire; mood is described as anxious ; eye contact appropriate; Speech is normal rate, volume and not pressured; thought process is organized; Thought content is on tx; denies SI/HI/VH/AH. Diagnostics Vital Signs (24Hr): BMI result Body Mass Index 34.6 Labs 06/20/25 07:41 Labs: Laboratory Results - last 48 hr 06/20/25 07:41 Sodium 141 Potassium 4.5 Chloride 106 Carbon Dioxide 27 Anion Gap 13 BUN 15 Creatinine 0.86 Estim Creat Clear Calc 153.5 Estimated GFR > 60 Random Glucose 108 Estimat Average Glucose 97 Hemoglobin A1c % 5.0 Calcium 9.6 D Total Bilirubin 0.3 AST 140 H ALT 278 H Alkaline Phosphatase 84 Total Protein 8.3 H Albumin 4.6 Triglycerides 124 Cholesterol 156 LDL Cholesterol, Calc 96 HDL Cholesterol 36 L Medications Medications Current Medications Acetaminophen (Acetaminophen 325 Mg Tablet) 650 mg PO Q6H PRN PRN Reason: Headache/Pain, Scale 1-10 Al Hydroxide/Mg Hydroxide (Magnesium Hydrox/Alum Hydrox 30 Ml Oral.Susp) 30 ml PO Q6H PRN PRN Reason: Heartburn/Nausea Aripiprazole (Aripiprazole 10 Mg Tablet) 10 mg PO DAILY SILVIO Last Admin: 06/21/25 09:02 Dose: 10 mg Clonazepam (Clonazepam 1 Mg Tablet) 1 mg PO DAILY PRN PRN Reason: Anxiety Last Admin: 06/21/25 09:58 Dose: 1 mg Clonidine HCl (Clonidine Hcl 0.1 Mg Tablet) 0.1 mg PO DAILY PRN; Protocol PRN Reason: Anxiety Gabapentin (Gabapentin 600 Mg Tablet) 600 mg PO TID [facility] Last Admin: 06/21/25 09:02 Dose: 600 mg Hydroxyzine HCl (Hydroxyzine Hcl 50 Mg Tablet) 50 mg PO BID PRN PRN Reason: Anxiety Magnesium Hydroxide (Milk Of Magnesia 30 Ml Oral.Susp) 30 ml PO DAILY PRN PRN Reason: Constipation Methadone HCl (Methadone Hcl 20 Mg/2 Ml Oral.Conc) 150 mg PO DAILY [facility] Last Admin: 06/21/25 08:22 Dose: 150 mg Nicotine (Nicotine 21 Mg Patch.Td24) 21 mg TRANSDERMA DAILY [facility] Last Admin: 06/21/25 09:03 Dose: Not Given Nicotine Polacrilex (Nicotine Polacrilex 2 Mg Gum) 4 mg BUCCAL Q2H PRN PRN Reason: Nicotine Cravings Sertraline HCl (Sertraline Hcl 100 Mg Tablet) 100 mg PO DAILY [facility] Last Admin: 06/21/25 09:02 Dose: 100 mg Trazodone HCl (Trazodone Hcl 50 Mg Tablet) 50 mg PO BEDTIME MRX1 PRN PRN Reason: Insomnia Allergies Allergies Allergy/AdvReac Type Severity Reaction Status Date / Time No Known Allergies Allergy Verified 06/08/25 07:44 Assessment & Plan Assessment & Plan (1) MDD (major depressive disorder), recurrent episode: Status: Acute Code(s): F33.9 - Major depressive disorder, recurrent, unspecified (2) PTSD (post-traumatic stress disorder): Status: Acute Code(s): F43.10 - Post-traumatic stress disorder, unspecified (3) Cocaine abuse: Status: Acute Code(s): F14.10 - Cocaine abuse, uncomplicated (4) Opioid use disorder, severe, dependence: Status: Acute Code(s): F11.20 - Opioid dependence, uncomplicated Plan Patient is a 29-year-old male with history of MDD, PTSD, opiate use disorder and cocaine use disorder who presented to ER due to suicide attempt via overdosing on fentanyl secondary to increased depression. Plan: CV 15 minute safety checks obtain collateral continue home medications. encourage groups referral to substance abuse program discharge planning 06/20: Keeping to self. Irritable. Signed 3 day notice then retracted d/t feeling frustrated regarding Adderall not being ordered. Patient reports he had a good visit with his sister; he declined to provide any phone numbers for collateral for his parents or sister. Patient spoke to health and social care teacher, Areli, regarding referrals to program. He denies SI/HI/VH/AH. Patient encouraged to get out of bed and attend groups. continue tx plan. 06/21:Keeping to self. Patient reports feeling anxious; pt stated, I'm not going to go to the [facility] because it's awful. I'm trying to see if I can go somewhere else . Patient reports if he is not accepted into another program he is not sure where he will go . Denies SI/HI/VH/AH. Focused on restarting Adderall. Patient asking for Klonopin to be increased; patient re-educated regarding reasoning for not increasing d/t hx of substance use and benzodiazepines being habit forming; pt became frustrated. Restart: Adderall XR 30mg PO daily. Patient educated on: diagnosis and medication risk/benefits Reason for continued inpatient stay Substantial Risk for: med/psych decompensation Time Spent With Patient Time: Total time managing care of this patient today _20___ minutes.
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
[2025-06-22 07:00] VITALS: BMI 35.5
[2025-06-22] MEDS: methADONE HCl 20 MG/2 ML ORAL.CONC 150 MG PO (07:55)
[2025-06-22] MEDS: Dextroamphetamine/Amphetamine XR 10 MG CAP.ER.24H 30 MG PO (08:32)
--- NOTE | 2025-06-22 09:21 | HO.PSYCHPN ---
Subjective Subjective Reason For Visit: Other Spec Depressive DO Stimulant Related DO Diagnostics Vital Signs (24Hr): BMI result Body Mass Index 35.5 Labs 06/20/25 07:41 Medications Medications Current Medications Acetaminophen (Acetaminophen 325 Mg Tablet) 650 mg PO Q6H PRN PRN Reason: Headache/Pain, Scale 1-10 Al Hydroxide/Mg Hydroxide (Magnesium Hydrox/Alum Hydrox 30 Ml Oral.Susp) 30 ml PO Q6H PRN PRN Reason: Heartburn/Nausea Amphetamine/Dextroamphetamine (Dextroamphetamine/Amphetamine Xr 10 Mg Cap.Er.24h) 30 mg PO DAILY [facility] Last Admin: 06/22/25 08:32 Dose: 30 mg Aripiprazole (Aripiprazole 10 Mg Tablet) 10 mg PO DAILY [facility] Last Admin: 06/22/25 08:33 Dose: 10 mg Clonazepam (Clonazepam 1 Mg Tablet) 1 mg PO DAILY PRN PRN Reason: Anxiety Last Admin: 06/21/25 09:58 Dose: 1 mg Clonidine HCl (Clonidine Hcl 0.1 Mg Tablet) 0.1 mg PO DAILY PRN; Protocol PRN Reason: Anxiety Gabapentin (Gabapentin 600 Mg Tablet) 600 mg PO TID [facility] Last Admin: 06/22/25 08:33 Dose: 600 mg Hydroxyzine HCl (Hydroxyzine Hcl 50 Mg Tablet) 50 mg PO BID PRN PRN Reason: Anxiety Magnesium Hydroxide (Milk Of Magnesia 30 Ml Oral.Susp) 30 ml PO DAILY PRN PRN Reason: Constipation Methadone HCl (Methadone Hcl 20 Mg/2 Ml Oral.Conc) 150 mg PO DAILY [facility] Last Admin: 06/22/25 07:55 Dose: 150 mg Nicotine (Nicotine 21 Mg Patch.Td24) 21 mg TRANSDERMA DAILY [facility] Last Admin: 06/22/25 08:33 Dose: Not Given Nicotine Polacrilex (Nicotine Polacrilex 2 Mg Gum) 4 mg BUCCAL Q2H PRN PRN Reason: Nicotine Cravings Sertraline HCl (Sertraline Hcl 100 Mg Tablet) 100 mg PO DAILY [facility] Last Admin: 06/22/25 08:33 Dose: 100 mg Trazodone HCl (Trazodone Hcl 50 Mg Tablet) 50 mg PO BEDTIME MRX1 PRN PRN Reason: Insomnia Allergies Allergies Allergy/AdvReac Type Severity Reaction Status Date / Time No Known Allergies Allergy Verified 06/08/25 07:44 Assessment & Plan Assessment & Plan (1) MDD (major depressive disorder), recurrent episode: Status: Acute Code(s): F33.9 - Major depressive disorder, recurrent, unspecified (2) PTSD (post-traumatic stress disorder): Status: Acute Code(s): F43.10 - Post-traumatic stress disorder, unspecified (3) Cocaine abuse: Status: Acute Code(s): F14.10 - Cocaine abuse, uncomplicated (4) Opioid use disorder, severe, dependence: Status: Acute Code(s): F11.20 - Opioid dependence, uncomplicated Plan Patient is a 29-year-old male with history of MDD, PTSD, opiate use disorder and cocaine use disorder who presented to ER due to suicide attempt via overdosing on fentanyl secondary to increased depression. Plan: CV 15 minute safety checks obtain collateral continue home medications. encourage groups referral to substance abuse program discharge planning 06/20: Keeping to self. Irritable. Signed 3 day notice then retracted d/t feeling frustrated regarding Adderall not being ordered. Patient reports he had a good visit with his sister; he declined to provide any phone numbers for collateral for his parents or sister. Patient spoke to social work associate, Areli, regarding referrals to program. He denies SI/HI/VH/AH. Patient encouraged to get out of bed and attend groups. continue tx plan. 06/21:Keeping to self. Patient reports feeling anxious; pt stated, I'm not going to go to the [facility] because it's awful. I'm trying to see if I can go somewhere else . Patient reports if he is not accepted into another program he is not sure where he will go . Denies SI/HI/VH/AH. Focused on restarting Adderall. Patient asking for Klonopin to be increased; patient re-educated regarding reasoning for not increasing d/t hx of substance use and benzodiazepines being habit forming; pt became frustrated. Restart: Adderall XR 30mg PO daily. Time Spent With Patient Time: Total time managing care of this patient today ____ minutes.
--- NOTE | 2025-06-22 11:47 | P.DS_ITS ---
DS: Providers Provider Date of Service: 06/22/25 Date of admission: 06/19/25 12:51 Date of discharge: 06/22/25 Primary care physician: Rodney Physician Admitting clinician: Sherrie Acosta Attending physician on admission: Yayo Babcock Consults: 06/19/25 13:22 Consult to Hospitalist Routine Comment: Consulting Provider: [facility] Hospitalists Reason For Exam: new admit H&P 06/19/25 14:47 Addiction Medicine Provider Routine Consulting Provider: Addiction Covering Reason for consultation: recent heroin use Attending physician on discharge: Yayo Babcock Discharging clinician: Sherrie Acosta DS: Diagnosis Discharge Diagnosis (1) MDD (major depressive disorder), recurrent episode: Status: Acute (2) PTSD (post-traumatic stress disorder): Status: Acute (3) Cocaine abuse: Status: Acute (4) Opioid use disorder, severe, dependence: Status: Acute DS: Medications Discharge Medications Home Medications: Home Medications ?Medication ?Instructions ?Recorded ?Confirmed methadone 10 mg/mL oral 150 mg PO DAILY 03/15/2511/08 concentrate (Methadone Intensol) gabapentin 600 mg tablet 600 mg PO TID 06/08/2506/19 clonazepam 0.5 mg PO TID PRN Anxiety 06/19/25 Previous Rx's ?Medication ?Instructions ?Recorded aripiprazole 10 mg tablet 10 mg PO DAILY 30 days #30 t abs 06/15/25 clonidine HCl 0.1 mg tablet 0.1 mg PO DAILY PRN Anxiet y 30 06/15/25 days #30 tabs dextroamphetamine-amphetamine ER 30 mg PO QAM 30 days #0 caps 06/15/25 30 mg 24hr capsule,extend release (Adderall XR) hydroxyzine HCl 50 mg tablet 50 mg PO BID PRN Anxiety 30 days 06/15/25 #60 tabs lorazepam 1 mg tablet 1 mg PO DAILY PRN anxiety 22 days 06/15/25 #22 tabs sertraline 100 mg tablet 100 mg PO DAILY 30 days #30 tabs 06/15/25 Mental Status Exam Mental Status Exam Narrative: Pt is alert and oriented; behavior is cooperative and calm; dressed in casual attire; mood is described as good ; eye contact appropriate; Speech is normal rate, volume and not pressured; thought process is organized; Thought content is on discharge; denies SI/HI/VH/AH. Data Data Completed and Pending Completed studies during hospitalization [Text1]: 06/20/25 07:41 Sodium 141 Potassium 4.5 Chloride 106 Carbon Dioxide 27 Anion Gap 13 BUN 15 Creatinine 0.86 Estim Creat Clear Calc 153.5 Estimated GFR > 60 Random Glucose 108 Estimat Average Glucose 97 Hemoglobin A1c % 5.0 Calcium 9.6 D Total Bilirubin 0.3 AST 140 H ALT 278 H Alkaline Phosphatase 84 Total Protein 8.3 H Albumin 4.6 Triglycerides 124 Cholesterol 156 LDL Cholesterol, Calc 96 HDL Cholesterol 36 L DS: Summary Hospital Course Hospital Course: Patient is a 29-year-old male with history of MDD, PTSD, opiate use disorder and cocaine use disorder who presented to ER due to suicide attempt via overdosing on fentanyl secondary to increased depression. Per crisis report, patient reports he attempted to overdose around 03:00 on fentanyl but was found by someone who gave him Narcan twice. Patient reports he came into the hospital this morning for help and believes his mental health medications are not working despite taking them. Patient reports recent in the family. Denies HI/VH/AH. Patient was recently discharged from on June 15 2025. Utox positive for buprenorphine, methadone, amphetamines, benzodiazepines, cocaine and fentanyl. History of multiple inpatient psychiatric hospitalizations. History of multiple detox admissions. hx of SA. denies hx of SIB. During admission assessment, patient presents alert and oriented x3. Calm and cooperative. Patient reports feeling depressed ; patient stated, when I left here I went to my friend's house and got a bed for [facility]. I did the intake and when I called them an hour later, they told me they didn't take my insurance. It got me really depressed and I decided to shoot up. I told my mom and she told me to get help or she would section 35 me. I want to get into a treatment program but a lot of people don't take my insurance . Patient reports he was section 35'd in March 2025 by his mother and was in a program for 2 months. He currently reports suicidal ideation with plan to overdose on either prescription medication or substances . He denies HI/VH/AH. Patient reports he was using IV fentanyl and cocaine. Patient reports he was not medication compliant since being discharged on 06/15/2025 Plan: CV 15 minute safety checks obtain collateral continue home medications. encourage groups referral to substance abuse program discharge planning Keeping to self. Irritable. Signed 3 day notice then retracted d/t feeling frustrated regarding Adderall not being ordered. Patient reports he had a good visit with his sister; he declined to provide any phone numbers for collateral for his parents or sister. Patient spoke to social media senior associate, Areli, regarding referrals to program. He denies SI/HI/VH/AH. Patient encouraged to get out of bed and attend groups. continue tx plan. Keeping to self. Patient reports feeling anxious; pt stated, I'm not going to go to the [facility] because it's awful. I'm trying to see if I can go somewhere else . Patient reports if he is not accepted into another program he is not sure where he will go . Denies SI/HI/VH/AH. Focused on restarting Adderall. Patient asking for Klonopin to be increased; patient re-educated regarding reasoning for not increasing d/t hx of substance use and benzodiazepines being habit forming; pt became frustrated. Restart: Adderall XR 30mg PO daily. Active on unit. keeping to self. Patient reports feeling good today; pt stated, I have zero anxiety and low depression. Some days are better than others . denies SI/HI/VH/AH. Patient requesting to be discharged today; pt stated, I'm just going to go to a care home. I don't want to go to the [facility]. I know I'll just walk out of there. I'll go to meetings instead . Hospital filed Section 35 d/t safety concerns of patients hx of uncontrollable substance use. [place] [employer] picked up patient on warrant issued by vice president financial and was brought to [place] [address]. Status at Discharge Cognitive/behavioral status at discharge: Patient has insight and demonstrates good judgment in terms of wanting to pursue treatment. Patient has a safety plan that includes presenting to the closest ER or calling 911 if feeling unsafe. Functional status at discharge: independent ambulation Overall status at discharge: patient is back to baseline Time Spent with Patient Time attestation: Total time managing care of this patient today __20__ minutes. Time spent: Less than 30 minutes Discharge Plan Discharge Anticipated Discharge Date/Time: 06/22/25 12:30 Patient Disposition: Home, Self-Care Discharge Diagnosis: MDD, PTSD, opioid use d/o, cocaine use d/o Referrals: Physician,None [Primary Care Provider, Medical] - 1 Week Discharge Medications: New clonazepam 1 mg Tablet 1 mg PO DAILY PRN (Reason: Anxiety) Qty: 0 0RF Continued methadone [Methadone Intensol] 10 mg/mL Concentrate 150 mg PO DAILY gabapentin 600 mg tablet 600 mg PO TID aripiprazole 10 mg Tablet 10 mg PO DAILY 30 Days Qty: 30 0RF dextroamphetamine-amphetamine [Adderall XR] 30 mg capsule,extended release 24hr 30 mg PO QAM 30 Days Qty: 0 0RF Rx Instructions: Partial Fill upon patient request. sertraline 100 mg Tablet 100 mg PO DAILY 30 Days Qty: 30 0RF Discontinued clonazepam 0.5 mg PO TID PRN (Reason: Anxiety) clonidine HCl 0.1 mg Tablet 0.1 mg PO DAILY PRN (Reason: Anxiety) 30 Days Qty: 30 0RF Protocol: Hold for SBP< HOLD for SBP < : 90 lorazepam 1 mg tablet 1 mg PO DAILY PRN (Reason: anxiety) 22 Days Qty: 22 0RF hydroxyzine HCl 50 mg Tablet 50 mg PO BID PRN (Reason: Anxiety) 30 Days Qty: 60 0RF Discharge Orders: Discharge Order (Routine); Ordered 06/22/25 Ordered By: Sherrie Acosta Diet: Regular diet Activity on Discharge: As tolerated Stand Alone Forms: Patient Portal Discharge page, Community Support Print Language: Persian Care Plan Goals: Maintain mood and safe behaviors Take medications as prescribed Continue to pursue sobriety Practice coping skills Continue with outpatient providers and reach out to them as needed Health Concerns: Mood stability and behaviors Sobriety Plan of Treatment: Follow up with your PCP, psychiatric provider and other outpatient providers regarding above concerns Take medications as prescribed Assessment: Patient has insight and demonstrates good judgment in terms of wanting to pursue treatment. Patient has a safety plan that includes presenting to the closest ER or calling 911 if feeling unsafe. Discharge Date/Time: 06/22/25 13:17
[2025-06-22] MEDS: Naloxone HCl Nasal TAKE HOME 4 MG SPRAY 8 MG NOSTRILALT (12:35)
[2025-06-22 12:45] VITALS: BP 119/72
== END 2025-06-22 13:17 | disposition home or self-care (01) | DRG 885 ==
PROVIDERS: Admitting Provider Psychiatry & Neurology Psychiatry; Responsible Provider Registered Nurse; Visit Provider Psychiatry & Neurology Psychiatry
DX: F33.9 Major depressive disorder, recurrent, unspecified (principal); F11.20 Opioid dependence, uncomplicated; F43.10 Post-traumatic stress disorder, unspecified; F19.90 Other psychoactive substance use, unspecified, uncomplicated; F17.210 Nicotine dependence, cigarettes, uncomplicated; Z23 Encounter for immunization; F14.10 Cocaine abuse, uncomplicated; Z71.6 Tobacco abuse counseling; Z91.51 Personal history of suicidal behavior; Z79.899 Other long term (current) drug therapy
CPT/HCPCS: 36415; 80053; 80061; 83036; 90656

== ENCOUNTER → 2025-06-19 12:51 | Outpatient (BNV) | payer OTHER, SELFPAY | PROVIDERS: Admitting Provider Psychiatry & Neurology Psychiatry; Responsible Provider Registered Nurse; Visit Provider Nurse Practitioner Family | DX: F33.9 Major depressive disorder, recurrent, unspecified (principal) | CPT/HCPCS: 99221 ==

== ENCOUNTER → 2025-06-19 12:51 | Outpatient (BNV) | payer OTHER, SELFPAY | PROVIDERS: Admitting Provider Psychiatry & Neurology Psychiatry; Responsible Provider Registered Nurse; Visit Provider Registered Nurse | DX: F33.9 Major depressive disorder, recurrent, unspecified (principal); F43.10 Post-traumatic stress disorder, unspecified; F14.10 Cocaine abuse, uncomplicated; F11.20 Opioid dependence, uncomplicated | CPT/HCPCS: 90792; 99232; 99238 ==